=== PATIENT | male | born 1960 | race Caucasian/White ===

== ENCOUNTER 2024-11-01 15:35 | Inpatient (IN) | payer MEDICARE, SELFPAY ==
[2024-11-01] VITALS (7 sets, daily range): BP systolic 96–175; BP diastolic 59–101; BMI 23.7; BMI 21.2
[2024-11-01 10:50] LABS: Glucose - Point of Care 328 mg/dl (70-99)
--- NOTE | 2024-11-01 11:41 | ED.GENMED ---
History of Present Illness
General
Chief Complaint: Skin Problem
Source: patient and family (Son at bedside)
Exam Limitations: none
Time Seen by Provider: 11/01/24 11:16
History of Present Illness
History of Present Illness:
64-year-old male with history of renal transplant , orthostatic hypotension, Neuropathy, TIAs, IDDM, chronic wounds both feet, nonambulatory, lives alone, wheelchair-bound, transfers from wheelchair to bed independently, HTN, HLD presents with his
son who is at bedside. Patient was at [facility] 5 days ago and diagnosed with a right rib fracture after a fall at home in his shower (states he tried to take a shower for first time in 4 months) when he tripped over the lip of the shower door
and fell onto his right side. While he was there he was admitted for chronic wounds of both feet as well as osteomyelitis' a few places,' including the left middle toe which appears to be black at this time.
Pt was reportedly scheduled for toe amputations which son says 'they kept delaying' then finally took him to OR 2 days ago, told they had an emergency case, sent back to his room for later surgery. Pt was then told he needs a Boss catheter, when
initially he was told he didn't need one, he states he was 'lied to' several times during his stay and finally signed out AMA.
Wanted to come here in first place but EMS said they had to take him to [place].
Past History
Past History
ED Past Medical History: CVA, IDDM and Renal failure (Kidney transplant)
ED Past Surgical History: Other (Kidney transplant)
Social History
Tobacco: Former smoker
Alcohol: Occasional (Last drink was about 2 months ago.)
Drug: None
Personal: Single
Living: alone
Review of Systems
Review of Systems
Allergies reviewed?: Yes
All Other Systems: ROS reviewed and negative except as documented in HPI and ROS
Constitutional: Denies fever or chills
Respiratory: Denies trouble breathing
Cardiac: Denies chest pain
ABD/GI: Denies abdominal pain, nausea, vomiting, diarrhea or anorexia
: Denies dysuria or difficulty voiding
Musculoskeletal: Reports other (Reported osteomyelitis both feet toes)
Skin: Reports other (Chronic wounds both feet)
Phy Exam
Physical Exam
Physical Exam:
GENERAL: No acute distress. A&Ox3.
CONSTITUTIONAL: Afebrile.
EYES: clear, conjunctivae normal
ENMT: dry mucus membranes, Pharynx nl
RESPIRATORY: Regular respirations, nonlabored, lungs clear.
CARDIOVASCULAR: Regular rate and rhythm, no murmurs, no rubs.
GI: Soft, nontender, normal BS
MUSCULOSKELETAL: Moves with ease. Well perfused.
SKIN: Warm, dry, pale. Multiple chronic wounds both feet, necrotic right 3rd toe, necrotic areas on left toes 3,4,5 with open wound, erythema plantar aspect of same areas.
PSYCH: Normal mood and affect. Well kept, interactive and appropriate
NEUROLOGIC: Awake, alert and oriented. No focal neurological deficits
Course
Orders/Labs/Results
Orders:
Orders
11/01/24 11:50
0.9% Sodium Chloride 1000 ml [Nss] 1,000 ml IV BOLUS
11/01/24 12:04
CR Chest - 2 Views Urgent
Comment:
Reason For Exam: recent fall, R rib fx, not seen here, needs admit
11/01/24 12:53
Complete Blood Count/With Diff Urgent
Comprehensive Metabolic Panel Urgent
11/01/24 13:38
Cefepime HCl [Maxipime] 2,000 mg IV NOW STA
11/01/24 13:40
CR Foot - Left Min 3 Views Urgent
Comment:
Reason For Exam: necrotic 3rd toe
Foot, Right 3 View [CR Foot - Right Min 3 Views] Urgent
Comment:
Reason For Exam: necrotic areas toes 3,4,5, diabetic wound
11/01/24 14:54
Urinalysis Reflex To Culture Urgent
Date Specimen was Collected: 11/01/24
Time Specimen was Collected: 13:47
Wound Culture [Wound/Abscess/Other Culture] Urgent
RUKHSANA Source: Foot
Specimen Description: Right
Date Specimen was Collected: 11/01/24
Time Specimen was Collected: 13:47
11/01/24 15:07
Vancomycin [Vancocin] 2,000 mg 0.9% Sodium Chloride 500 ml [Nss] 500 ml IV NOW
11/01/24 15:10
Admit/Transfer Patient As Directed
Co-Sign Provider:
Level of Care: Inpatient admission
Assign to:: Medical/Surgical
Physician / Group: Htay
Diagnosis: Bilateral Necrotic Foot Wounds
Reason for Hospitalization: IV abx
Expected length of stay greater than two midnights?: Yes
ELOS- Estimated Length of Stay in days: 3
I certify the patient meets the requirements for IP care: Yes
PRN Pain Medication Management As Directed
May give lesser potent ordered pain med per pt: Yes
preference::
Protocol:: Medication orders for pain may be administered in a
manner that supports deferring to patient preference
when the pt is:
- Requesting an ordered lesser potent pain medication.
Least to most potent pain medications are defined
as: acetaminophen < NSAID < tramadol < opioids
(morphine, oxycodone, hydromorphone).
- Requesting a lesser dose of the same medication IF
ORDERED.
- Requesting a less intrusive route of administration
if both routes are prescribed by the provider (PO <
IV).
11/01/24 15:13
Code Status As Directed
Resuscitation Status: Full Code
11/02/24 06:00
Tacrolimus (Prograft - FK506) [S] IN AM
Abnormal Lab Results
11/01/24 11/01/24 11/01/24
10:47 12:53 14:54
WBC 14.8 H 10^3/uL
(4.8-10.8)
Hgb 11.8 L g/dL
(13.0-18.0)
Hct 36.6 L %
(39.0-52.0)
MCV 74.7 L fL
(80.0-94.0)
MCH 24.1 L pg
(27.0-31.0)
MCHC 32.2 L g/dL
(33.0-37.0)
RDW 15.7 H %
(11.5-14.5)
Plt Count 434 H 10^3/uL
(130-400)
Abs Immat Gran (auto) 0.2 H 10^3/uL
(0-0.05)
Absolute Neuts (auto) 12.5 H 10^3/uL
(1.4-6.5)
Absolute Monos (auto) 0.8 H 10^3/uL
(0.1-0.6)
Immature Gran % 1.1 H %
(0-0.5)
Neutrophils % 84.5 H %
(42.2-75.2)
Lymphocytes % 8.3 L %
(20.5-51.1)
Chloride 97 L mmol/L
(98-107)
BUN 21 H mg/dl
(9-20)
Glucose 321 H mg/dl
(70-99)
AST 12 L U/L
(17-59)
Albumin 3.2 L g/dl
(3.5-5.0)
Urine Ketones 1+ A
(Negative)
Urine Glucose 4+ A
(Negative)
POC Glucose 328 H mg/dl
(70-99)
11/01/24 12:53
11/01/24 12:53
Vital Signs
Initial and Last Documented VS:
Initial Vital Signs
Temp Pulse Resp BP Pulse Ox
97.9 F 89 16 96/59 98
11/01/24 10:49 11/01/24 10:49 11/01/24 10:49 11/01/24 10:49 11/01/24 10:49
Last Documented Vital Signs
Temp Pulse Resp BP Pulse Ox
97.9 F 75 15 175/97 96
11/01/24 10:49 11/01/24 15:00 11/01/24 15:00 11/01/24 14:00 11/01/24 15:00
MDM/Problems Addressed
Differential Diagnosis Includes:
cellulitis, necrosis, osteomyelitis toes/feet
MDM/Problems Addressed:
64-year-old male with history of renal transplant , orthostatic hypotension, Neuropathy, TIAs, IDDM, chronic wounds both feet, nonambulatory, lives alone, wheelchair-bound, transfers from wheelchair to bed independently, HTN, HLD presents with his
son who is at bedside. Patient was at [facility] 5 days ago and diagnosed with a right rib fracture after a fall at home in his shower (states he tried to take a shower for first time in 4 months) when he tripped over the lip of the shower door
and fell onto his right side. While he was there he was admitted for chronic wounds of both feet as well as osteomyelitis' a few places,' including the left middle toe which appears to be black at this time.
Pt was reportedly scheduled for toe amputations which son says 'they kept delaying' then finally took him to OR 2 days ago, told they had an emergency case, sent back to his room for later surgery. Pt was then told he needs a Boss catheter, when
initially he was told he didn't need one, he states he was 'lied to' several times during his stay and finally signed out AMA.
Wanted to come here in first place but EMS said they had to take him to [place].
Afebrile, NA
1:15 p.m.
CBC: WBC 14.8 with a shift
CMP: No clinically significant abnormality. Glucose 321. IV fluids infusing.
Bladder scan 400 mL, patient has urge urinary but states he cannot. Boss catheter inserted.
2:30 p.m.
Xrays initially read by this examiner:
R foot xray: ST gas and bony abnormality notef 5th toe prox phalanx and distal metatarsal, concern for osteomyelitis
L foot xray:ST scarcity about the tip of middle toe, no obvious bony abnormality
Hospitalist notified of admission.
*Pulse Oximetry
SaO2: 98
Oxygen Mode of Delivery: Room air
Patient hypoxic: not evaluated
*Critical Care Note
Total Time (30-74mins, 75-104mins- exclusive of procedures): Not Applicable
ED Attending Note
-
Portions of this chart may have been created with voice recognition software.� Occasional wrong word or��sound alike� substitutions may have occurred due to the inherent limitations of voice recognition software.
Discharge Plan
Departure
Patient Disposition: Admit
Date of Disposition: 11/01/24
Time of Disposition: 14:23
Admit to: Med/Surg
Presentation/result/management discussed w/ accepting MD/DO: Hospitalist
Condition: Fair
Discharge Problem:
Diabetic foot ulcer, Necrotic toes
Interventions
Interventions:
*Risk Screen - Suicide Last Done: 11/01/24 10:49
*Neglect/Abuse Screening Last Done: 11/01/24 10:49
ED-Skin Assessment Last Done: 11/01/24 12:00
[2024-11-01] MEDS: NSS 1000 IV (12:45)
[2024-11-01 13:02] LABS: Hematocrit 36.6 % (39.0-52.0); Hemoglobin 11.8 g/dL (13.0-18.0); Mean Corp Hgb Conc. 32.2 g/dL (33.0-37.0); Mean Corpuscular Volume 74.7 fL (80.0-94.0); Nucleated Red Blood Cells % 0 % (-); Platelet Count 434 10^3/uL (130-400); Red Cell Dist. Width 15.7 % (11.5-14.5)
[2024-11-01 13:20] LABS: ALT (SGPT) 11 U/L (0-50); AST (SGOT) 12 U/L (17-59); Albumin 3.2 g/dl (3.5-5.0); Alkaline Phosphatase 94 U/L (38-126); Blood Urea Nitrogen 21 mg/dl (9-20); Calcium 8.6 mg/dl (8.4-10.2); Carbon Dioxide 29 mmol/L (22-30); Chloride 97 mmol/L (98-107); Glucose 321 mg/dl (70-99); Potassium 3.6 mmol/L (3.5-5.1); Sodium 136 mmol/L (135-145); Total Protein 6.8 g/dl (6.3-8.2); eGFR > 60.00
--- NOTE | 2024-11-01 13:56 | PHANOTE ---
Addendum entered by Lesley Pollock 11/01/24 14:00:
med rec tech: I don't see the Humalog being filled, and the last MD visit in [facility] is 08/06
Original Note:
med rec tech: pt says that 'someone helps me with my meds at home, but I don't think they are helping me anymore', has home med list with him (written by 'my old girlfriend') that is dated 08/29/24. Many meds have not been filled recently,
including insulins.
[2024-11-01] MEDS: MAXIPIME 2000 MG IV (14:44)
--- NOTE | 2024-11-01 14:50 | W.PN.UPDATE ---
Update Note
Progress Note Update
This note serves as an addendum to the H&P by neonatal nurse KACIE�
Columba LOWE
HPI
64M non ambulatory , WC bound, who lives alone, chronic immunosuppression with PO prdnsione for KTP, diabetic neuropathy, IDDM, CVA seen at ER
- son at bed side chronic both feet wound
- was at [facility] 5 days ago s/p fall while taking shower complicated with R rib fracture
- he admitted for chronic wounds of both feet plus OM ' a few places,' including the left blackened middle toe
- reportedly scheduled for toe amputations but postponed per son
- finally signed out AMA
- come here in first place but EMS said they had to take him to [place].
Temp Pulse Resp BP Pulse Ox
97.9 F 68 15 175/99 98
11/01/24 10:49 11/01/24 13:45 11/01/24 13:45 11/01/24 13:15 11/01/24 13:45
PE
Gen: Not toxic , unkempt
HEENT: anicteric
Neck: supple
Lungs: CTA
Cor: RRR S1 S2
Abdomen:� soft benign
: wearing F Cath - clear , light yellow urine in bag
CIRCULAR HEAD SAW OPERATOR: NFND
MS: + SKIN:
multiple chronic wounds both feet
R Toe 3 - dry gangrene if digit 1 and digit 2
L Toe 3, 4, 5 with open wound, erythema plantar aspect of same areas.
Purulent drainage from R 3rd web space
Psych: normal mood and affect
Relevant data�
11/01/24
12:53
WBC 14.8 H
Hgb 11.8 L
MCV 74.7 L
Plt Count 434 H
Chloride 97 L
BUN 21 H
Creatinine 0.8
eGFR > 60.00
Both Foot XR
CXR:
- Possible mild atelectasis or pneumonia in the medial retrocardiac left lung base
- No pneumothorax or pleural effusion.
- It is difficult to identify the reported right rib fracture with certainty. Limited by lack of oblique projections.
- Subtle cortical deformity is suggested involving the anterolateral LEFT 7th rib, which could represent age indeterminate
fracture.
No prior hospitalist admission:
ASSESSMENT & PLAN
Infected wound and ulcer in neuropathic diabetic feet
Chronic necrotic R toe 3 with purulent drainage from 3rd web space
Necrotic areas on L toes 3,4,5 with open wound
- suspect POS polymicrobials in swab culture
- suspect underlying chronic OM
- f/u final XR report
- Empiric BS IV ABX with Vancomycin + IV CFP
- [employer] Driver and vascular consult consult
chronic immunosuppression with tacrolimus plus PO prednisone for KTP
S/P KTP in 2016 at [facility]
- report compliance with Tacrolimus
- check tacrolimus level
- cont chr PO prednisone
Fortunately preserved normal renal function for TPK
- Observes Cr
Hyperglycemia
IDDM with neuropathy
- report poor compliance with basal bolus regime
- on SENIOR MECHANICAL TECHNICIAN basal bolus regime - de-escalade Lantus to 25 HS and Humalog to 10 AC
- add ISS low
Suspect neurogenic bladder
- Bladder scan > 300 cc at ER
- FC placed at ER and drained 600 cc clear light yellow urine
HX CVA
HLD
- on ASA and Pravastatin
Non ambulatory , WC bound, who lives alone
Has very supportive son at bed side
Per son, Medications are supervised by GF
DVT Px: LMWH
Full code
IP MS
[2024-11-01 15:15] LABS: Urine Character Clear (Clear)
--- NOTE | 2024-11-01 15:20 | HPS.HSE ---
Family Physician
-
Family Physician: Lizett Mckeon MD
Chief Complaint
-
Foot Wound
History of Present Illness
Patient is a 64 y/o male past medical history of renal transplant, diabetes mellitus and chronic wheelchair bound state who presents with bilateral foot wounds. Patient was brought in by his son after patient left [facility]. Patient
reports chronic foot wounds for the past several wounds. He has never seen a recovery operator helper before. He denies fevers, sweats or chills.
Medical History
Past Medical History
Past Medical History: Reports Other
Additional Past Medical History:
Insulin Dependent Diabetes Mellitus
Essential Hypertension
Hyperlipidemia
GERD / PUD
Restless Leg Syndrome
TIA
Chronic Ambulatory Dysfunction - Wheelchair bound
Past Surgical History: Reports Other
Additional Past Surgical History:
Donor Renal Transplant - Apr 2016
Right Leg Pins
Social History
Tobacco: Former Smoker (Quit about 15 years ago)
Alcohol: Occasional
Family History
Family History: Not pertinent
Allergies / Home Medications
Allergies reflects when Allergies were last updated in [employer].
Home Medications with original date entered in [employer]
Allergy/Medication List:
Allergies
Allergy/AdvReac Type Severity Reaction Status Date / Time
No Known Allergies Allergy Unverified 11/01/24 10:49
Home Medications
amlodipine 5 mg tablet 5 mg PO DAILY 11/01/24
aspirin 81 mg tablet,delayed release 81 mg PO DAILY 11/01/24
fludrocortisone 0.1 mg tablet 0.1 mg PO BID 11/01/24
insulin glargine 100 unit/mL (3 mL) subcutaneous pen (Lantus Solostar U-100 Insulin) 35 unit SC HS 11/01/24
insulin lispro 100 unit/mL subcutaneous solution (Humalog U-100 Insulin) 15 unit SC TID 11/01/24
omeprazole 20 mg capsule,delayed release 20 mg PO QPM 11/01/24
pravastatin 20 mg tablet 20 mg PO DAILY 11/01/24
prednisone 5 mg tablet 5 mg PO DAILY 11/01/24
ropinirole 0.25 mg tablet 0.25 mg PO QPM 11/01/24
tacrolimus 1 mg capsule, immediate-release 1 mg PO BID 11/01/24
Review of Systems
-
A 12 point ROS was completed and negative except as noted: Yes
Constitutional: Denies Fever or Chills
Respiratory: Denies Cough or Trouble Breathing
Cardiac: Denies Chest Pain or Palpitations
Abdomen/GI: Denies Abdominal Pain, Nausea, Vomiting or Diarrhea
Physical Exam
Vital Signs
Vital Signs
Temp Pulse Resp BP Pulse Ox
97.9 F 75 15 175/97 96
11/01/24 10:49 11/01/24 15:00 11/01/24 15:00 11/01/24 14:00 11/01/24 15:00
Physical Exam
General: Comfortable, Conversant and Other (Appears unkempt)
HEENT: Anicteric and Moist mucous membranes
Respiratory: Clear and Non Labored Respirations
Cardiac: S1/S2 and Regular Rhythm
GI: Soft and Non Tender
Rectal: Deferred by Provider
Musculoskeletal: No Clubbing, No Cyanosis and No Edema
Skin: Warm, Dry and Other (Right Foot: Open wound with puruletn discharge from betweenn 4th/5th toes with erythema streaking up the bottom and top of the foot; Left Foot: Dry gangrene 3rd toe, Large areas of black eschar plantar aspect of the foot)
Neuro: Awake, Alert, Oriented and Nonfocal/grossly intact
Psych: Other (Flat affect)
Laboratory Results
-
11/01/24 12:53
11/01/24 12:53
Laboratory Results
Total Bilirubin 0.6 mg/dl (0.2-1.3) 11/01/24 12:53
AST 12 U/L (17-59) L 11/01/24 12:53
ALT 11 U/L (0-50) 11/01/24 12:53
Alkaline Phosphatase 94 U/L (38-126) 11/01/24 12:53
Data Reviewed
-
Lab Data: Labs Reviewed by me
Impression/Plan
-
Infected Bilateral Diabetic Foot Wounds
-Consult Podiatry and Vascular
-Check NURIA
-Continue cefepime and vancomycin
-Wound culture obtained from draining area between 4th/5th toe
-Consult Wound Care
Urinary Retention
-Boss catheter placed in ED
Donor Kidney Transplant
-Renal function stable
-Continue tacrolimus - Check level
-Continue fludrocortisone and prednisone
Insulin Dependent Diabetes Mellitus
-Patient reports he has not taken his insulin
-Check HgbA1c
-Resume insulin at lower doses: Lantus 25units HS and NovoLog 10 units AC
-Monitor sugars and continue coverage insulin
Essential Hypertension
-Continue amlodipine
Hyperlipidemia
-Continue pravastatin
GERD / PUD
-Continue Protonix
Restless Leg Syndrome
-Continue ropinirole
Hx TIA
-Continue aspirin
Chronic Ambulatory Dysfunction - Wheelchair bound
-Consult PT/OT
DVT proph: Lovenox
Code Status: Full Code
[2024-11-01] MEDS: VANCOCIN 540 MG IV (16:10)
[2024-11-01 20:15] LABS: Glucose - Point of Care 363 mg/dl (70-99)
[2024-11-01] MEDS: NOVOLOG FLEXPEN-MODERATE RESISTANCE 9 UNITS SC (20:51)
[2024-11-01] MEDS: NOVOLOG FLEXPEN 10 UNITS SC (20:52)
--- NOTE | 2024-11-01 21:45 | W.PN.UPDATE ---
Update Note
Progress Note Update
Infected wound and ulcerations
Chronic necrotic R toe 3 with purulent drainage from 3rd web space
Necrotic areas on L toes 3,4,5 with open wound
- Emperic ABx
- suspect underlying chronic OM
- Will need bilateral MRIs
- NPO, will discuss operative plans with vascular
[2024-11-01] MEDS: LOVENOX 40 MG SC (22:18)
[2024-11-01] MEDS: PROGRAF 1 MG PO (22:25)
[2024-11-01] MEDS: REQUIP 0.25 MG PO (22:25)
[2024-11-01] MEDS: FLORINEF 0.1 MG PO (22:25)
[2024-11-01] MEDS: PROTONIX 40 MG PO (22:25)
[2024-11-01] MEDS: MAXIPIME 1000 MG IV (23:53)
[2024-11-01] MEDS: STERILE WATER FOR INJECTION 10 ML IV (23:54)
[2024-11-01 23:57] LABS: Glucose - Point of Care 408 mg/dl (70-99)
[2024-11-02] MEDS: LANTUS 0.25 UNITS SC (00:33)
[2024-11-02 00:41] LABS: Glucose 369 mg/dl (70-99)
[2024-11-02 04:50] VITALS: BMI 21.2
[2024-11-02 05:09] LABS: Glucose - Point of Care 404 mg/dl (70-99)
[2024-11-02 05:11] LABS: Glucose - Point of Care 378 mg/dl (70-99)
[2024-11-02] MEDS: STERILE WATER FOR INJECTION 10 ML IV ×4 (05:38→23:36)
[2024-11-02] MEDS: MAXIPIME 1000 MG IV ×4 (05:38→23:36)
[2024-11-02] MEDS: NOVOLOG FLEXPEN-MODERATE RESISTANCE 9 UNITS SC (05:51)
[2024-11-02] MEDS: NOVOLOG FLEXPEN 10 UNITS SC (05:52)
[2024-11-02 06:35] VITALS: BP 162/98
[2024-11-02 07:27] LABS: Blood Urea Nitrogen 21 mg/dl (9-20); Calcium 8.0 mg/dl (8.4-10.2); Carbon Dioxide 28 mmol/L (22-30); Chloride 98 mmol/L (98-107); Estimated Creatinine Clearance 110 ml/min; Glucose 351 mg/dl (70-99); Potassium 3.1 mmol/L (3.5-5.1); Sodium 135 mmol/L (135-145); eGFR > 60.00
--- NOTE | 2024-11-02 07:28 | PTCARENOTE ---
S/W STACY Maldonado -Pt is NPO [id number]. okay to give all coverage. will continue to monitor blood sugars
[2024-11-02 07:42] LABS: Hematocrit 34.1 % (39.0-52.0); Hemoglobin 10.9 g/dL (13.0-18.0); Mean Corp Hgb Conc. 32.0 g/dL (33.0-37.0); Mean Corpuscular Volume 74.5 fL (80.0-94.0); Platelet Count 523 10^3/uL (130-400); Red Cell Dist. Width 15.5 % (11.5-14.5)
--- NOTE | 2024-11-02 07:42 | W.PN.UPDATE ---
Update Note
Progress Note Update
infected diabetic ulceration of b/l feet. Likely OM R 4th/5th metatarsal heads and L 5th metatarsal head, dry gangrene L 3rd toe.
- continue empiric abx
- b/l MRIs
- will discusse operative plans with vascular, npo
--- NOTE | 2024-11-02 08:41 | CON.GS ---
Consultation
-
Date/Time Consultation Performed: 11/02/24 0730
Performing Provider: Armando Moralez
Reason for Consultation: foot wound/infection
Medical History
-
Chief Complaint: foot wounds
History of Present Illness:
Patient is a 64 yo M with PMHx renal transplant 05/04, IDDM, nonambulatory ~6 months in wheel chair presenting for b/l foot wounds. He was brought in by son after patient left [facility]. He reports chronic foot wounds for several
weeks, with left 3rd toe developing after removing nail. He has orthopedic hardware in Left leg after injury. Denies n/v/f/c/sob.
Allergies / Home Medications
Allergy/AdvReac Type Severity Reaction Status Date / Time
No Known Allergies Allergy Unverified 11/01/24 10:49
�Medication �Instructions �Recorded �Confirmed �Type
amlodipine 5 mg tablet 5 mg PO DAILY 11/01/24 11/01/24 History
aspirin 81 mg tablet,delayed 81 mg PO DAILY 11/01/24 11/01/24 History
release
fludrocortisone 0.1 mg tablet 0.1 mg PO BID 11/01/24 11/01/24 History
insulin glargine 100 unit/mL (3 35 unit SC HS 11/01/24 11/01/24 History
mL) subcutaneous pen (Lantus
Solostar U-100 Insulin)
insulin lispro 100 unit/mL 15 unit SC TID 11/01/24 11/01/24 History
subcutaneous solution (Humalog
U-100 Insulin)
omeprazole 20 mg capsule,delayed 20 mg PO QPM 11/01/24 11/01/24 History
release
pravastatin 20 mg tablet 20 mg PO DAILY 11/01/24 11/01/24 History
prednisone 5 mg tablet 5 mg PO DAILY 11/01/24 11/01/24 History
ropinirole 0.25 mg tablet 0.25 mg PO QPM 11/01/24 11/01/24 History
tacrolimus 1 mg capsule, 1 mg PO BID 11/01/24 11/01/24 History
immediate-release
Review of Systems
-
A 10 point review of systems was completed, and was negative except as per HPI.
Physical Exam
Vital Signs
Temp Pulse Resp BP Pulse Ox
98.4 F 75 20 162/98 96
11/02/24 06:35 11/02/24 06:35 11/02/24 06:35 11/02/24 06:35 11/02/24 06:35
11/01/24 11/02/24 11/03/24
06:59 06:59 06:59
Actual Weight 74.752 kg
Body Mass Index (BMI) 21.2
Lab Results
11/02/24 05:33
11/02/24 05:33
WBC 13.9 10^3/uL (4.8-10.8) H 11/02/24 05:33
Hgb 10.9 g/dL (13.0-18.0) L 11/02/24 05:33
Hct 34.1 % (39.0-52.0) L 11/02/24 05:33
Plt Count 523 10^3/uL (130-400) H D 11/02/24 05:33
Abs Immat Gran (auto) 0.2 10^3/uL (0-0.05) H 11/01/24 12:53
Neutrophils % 84.5 % (42.2-75.2) H 11/01/24 12:53
Physical Exam
Respiratory: Non Labored Respirations
Skin: Warm (RLE DP/PT pulses on doppler, LLE PT pulse on doppler) and Other (RLE : 4th webspace ulceration probing to 4/5th MT head with surrounding cellulits, eschar lateral column. LLE : eschar lateral column with dorsal 5th MT head ulceration
probing to bone, dry gangrene distal 3rd toe.)
Neuro: Other (LE sensation absent in stocking and glove distribution. )
Data Reviewed
-
Radiology: Image Personally Visualized and interpreted
Assessment / Plan
-
Chauncey Schwartz 64M presents with b/l foot eschars ulcerations with likely underlying OM and cellulitis.
- pending Vascular recommendations for surgical timing
- discussed with patient partial ray amputation for treatment of OM
- continue IV abx, WBC down trending to 13.8
- patient to remain NWB
- offload heels and lateral foot with offloading boots
--- NOTE | 2024-11-02 09:12 | WOUNDNOTE ---
[facility] RN note: Patient admitted with bilateral necrotic foot/toe wounds. Patient lives alone and is wheelchair bound.
See H&P for complete history.
PMH: renal transplant, DM, wheelchair bound, foot wounds, HTN, TIA, restless leg syndrome, R leg pins, former smoker.
Wound Location and type/assessment: Patient admitted with: bilateral lateral plantar necrotic full thickness wounds r/t diabetes and PAD, L 3rd, 5th, R 4th necrotic toe, full thickness R 4-5th webspace wound. Sacral/buttocks DTI vs bruise vs stage
2 pressure injury. Scrotal dry abrasion suspect r/t friction/moisture. Heels blanchable red.
Appetite: currently NPO. Appetite has been poor recently.
Pressure redistribution devices in place: [employer] Accumax. Patient can turn self bed bed slowly.
Plan: Sacral shaped silicone border foam applied to sacral/buttocks. Patient incontinent of small loose stool. Maia care given. Calazime to scrotum. Underpad changed with help from RN/TAB Zaragoza. Protective foam dressings changed on heels.
Dressing changed on feet/toes. Heels off bed with pillow and air chair cushion. t/c Bed tech Lam and requested an air bed. Podiatry to manage wounds. Vascular following. Will follow peripherally as needed.
Will confirm orders with Dr. Estrella and discussed with BOY Gonzalez.
Updated care plan and will follow as needed.
Note to case management of equipment requested for discharge: air mattress at [facility].
Recommend follow up at wound care center upon discharge.
--- NOTE | 2024-11-02 09:15 | WOUNDNOTE ---
[facility] RN note: Patient admitted with bilateral necrotic foot/toe wounds. Patient lives alone and is wheelchair bound.
See H&P for complete history.
PMH: renal transplant, DM, wheelchair bound, foot wounds, HTN, TIA, restless leg syndrome, R leg pins, former smoker.
Wound Location and type/assessment: Patient admitted with: bilateral lateral plantar necrotic full thickness wounds r/t diabetes and PAD, L 2nd, 3rd, 5th toes, R 4th necrotic toe, full thickness R 4-5th webspace wound. Sacral/R buttocks DTI vs
bruise vs stage 2 pressure injury. Scrotal dry abrasion suspect r/t friction/moisture. Heels blanchable red. Pedal pulses heard via portable Doppler (L>R).
Appetite: currently NPO. Appetite has been poor recently.
Pressure redistribution devices in place: [employer] Accumax. Patient can turn self bed bed slowly.
Plan: Sacral shaped silicone border foam applied to sacral/buttocks. Patient incontinent of small loose stool. Maia care given. Calazime to scrotum. Underpad changed with help from RN/TAB Zaragoza. Protective foam dressings changed on heels.
Dressing changed on feet/toes. Heels off bed with pillow and air chair cushion. Instructed patient pressure injury prevention measures. t/c Bed tech Lam and requested an air bed. Podiatry to manage foot/toe wounds. Vascular following. Will follow
peripherally as needed.
Will confirm orders with Dr. Estrella and discussed with BOY Gonzalez.
Updated care plan and will follow as needed.
Note to case management of equipment requested for discharge: air mattress at [facility].
Recommend follow up at wound care center upon discharge.
--- NOTE | 2024-11-02 09:27 | WOUNDNOTE ---
L HEEL/FOOT (LATERAL)
--- NOTE | 2024-11-02 09:28 | WOUNDNOTE ---
R FOOT (LATERAL PLANTAR)
--- NOTE | 2024-11-02 09:29 | WOUNDNOTE ---
R TOES/4-5TH WEBSPACE
--- NOTE | 2024-11-02 09:29 | WOUNDNOTE ---
R 4-5TH TOES
--- NOTE | 2024-11-02 09:30 | WOUNDNOTE ---
R 4-5TH TOE WEBSPACE
--- NOTE | 2024-11-02 09:47 | PHA.VAN.IN ---
Assessment
- Assessment
Renal Function: Unknown baseline
Maximum Temperature: 98.4
Concomitant Antimicrobials: cefepime
AUC Dosing Plan
- Dosing Variables
Dosing Weight (kg): 74.8
Dosing CrCl (ml/min): 100
Vd coefficient (L/kg): 0.7
- Empiric Dosing
Initial / Loading Dose: vancomycin 2000 mg x 1 on 11/02
Maintenance Regimen: vancomycin 1000 mg Q12H
Estimated AUC (mcg*h/mL): 456
Estimated Peak (mcg*h/mL): 29.4
Estimated Trough (mcg/ml): 11.2
Estimated Half Life (H): 7.9
- Monitoring
No levels ordered at this time: consider levels in next few days
Plan
- Plan
MRSA Screen: Ordered per protocol (result pending)
Pharmacokinetics Vancomycin I
- -
Patient Age: 64
Patient Sex: Male
Vancomycin Day #: 2
Indication: Diabetic Foot
Requesting Provider: Jessica Mccarty
Pertinent Antimicrobial Allergies:
nkda
Height / Weight:
Height 6 ft 2 in
Actual Weight 74.752 kg
IBW in k.2
Pertinent Past Medical History: renal transplant, bilateral foot wounds
- Vital Signs / Lab Results
Temp Pulse Resp BP Pulse Ox
98.4 F 75 20 162/98 96
11/02/24 06:35 11/02/24 06:35 11/02/24 06:35 11/02/24 06:35 11/02/24 06:35
Lab Results - Hematology
11/01/24 11/02/24
12:53 05:33
WBC 14.8 H 13.9 H
Lab Results - Chemistry
11/01/24 11/02/24
12:53 05:33
BUN 21 H 21 H
Creatinine 0.8 0.7
Estimated Creat Clear 110
Albumin 3.2 L
Lab Results - Urine
11/01/24
14:54
Urine Nitrite (Reflex) Negative
Leukocyte Esterase Rfl Negative
Microbiology Results
11/01/24 14:54 Gram Stain - Preliminary
Foot - Right
[2024-11-02 10:14] LABS: Glycohemoglobin (HgbA1c) 14.2 % (4.0-5.6)
--- NOTE | 2024-11-02 10:33 | CON.VAS ---
Addendum entered and electronically signed by Roberto Singer MD 11/03/24 08:11:
Seen and examined with ELECTRIC REFRIGERATOR PREPARER. Agree with findings as noted below. Patient is a 64-year-old male with history of renal transplantation. Presents with bilateral lower extremity dry gangrene. Patient denies prior revascularizations of the lower
extremities. Denies coronary artery disease. He does note diabetes. History of tobacco use quit 15 years ago about a pack a day. He thinks injuries to the feet happened when he went over the feet with a wheelchair.
Notes that they have been present for a couple months at this point.
On exam/he is awake and alert. Breathing is unlabored. Abdomen is soft. No pulsatile mass. Lower extremity with 2+ femoral and popliteal pulses palpable bilaterally. Nonpalpable distally. Feet as noted in wound care pictures. Right 4th/5th
webspace dry gangrene and open ulceration/fibrinous exudate. Left side with lateral fifth metatarsal dry gangrene.
Noninvasive studies reviewed.
Plan/likely small vessel peripheral arterial disease. Based on exam and noninvasive studies. However he has dry gangrene therefore limb threatening ischemia. I am recommending we proceed with arteriogram. Discussed procedure with patient.
Discussed potential outcomes to be: #1 successful endovascular revascularization, followed by staged assessment/treatment of the contralateral leg, #2 need for staged surgical treatment/bypass, #3 nonreconstructable small vessel disease with
persistent risk of limb loss. Discussed procedural risk including but not limited to bleeding, arterial injury/worsened or acute limb ischemia, renal failure. He does have a renal transplantation. Therefore we will ask the medical team for
confirming that he is optimized from a medical standpoint. Otherwise we will plan on angiography tomorrow. Will plan bilateral lower extremity arteriogram likely via right common femoral artery access. Aim to treat left side if needed and if
amenable. If successful treatment then we will need to coordinate plan for staged right sided intervention.
Original Note:
Consultation
Consultation Request
Date/Time Consultation Performed: 11/02/24 1000
Requesting Provider: Hospitalist
Performing Provider: Arleen Juarez, STACY-C for Roberto Singer M.D.,
Reason for Consultation: Bilateral feet wounds
Medical History
-
Chief Complaint: Bilateral feet wounds
History of Present Illness:
This is a 64-year-old male with significant past medical history for renal transplant, diabetes, ambulatory dysfunction, hypertension, hyperlipidemia, GERD, and TIA who presents to [facility] on 11/01/2024 with continued bilateral lower
extremity nonhealing wounds. Patient seems to be a poor historian, during HPI and review of system collection he is with flat affect and states mostly he is unsure of his history. He believes bilateral lower extremity wounds have been there for
roughly 2 months but he endorses that he is not completely sure of timeline. Does endorse prior history of smoking but quit roughly 15 years ago, he cannot recall exact timeframe. Endorses that he was diagnosed with diabetes in roughly 2013.
According to chart review he was recently treated at [facility], for same chief complaint but signed out AMA. His son then brought him here for apparent presentation. He is not sure if he has ever seen a vascular provider. Currently he
reports that he is comfortable, denies pain at bilateral feet. He indicates that he is wheelchair-bound for roughly the past year.
Past Medical History
Past Medical History: GERD, HTN, IDDM and Other (Restless leg syndrome, TIA, chronic ambulatory dysfunction (wheelchair-bound))
Past Surgical History: Other (Donor renal transplant (April 2016), right leg pins)
Social History
Tobacco: Former Smoker (Quit roughly 15 years ago)
Alcohol: Occasional
Drug: None
Allergies / Home Medications
Allergy/AdvReac Type Severity Reaction Status Date / Time
No Known Allergies Allergy Unverified 11/01/24 10:49
�Medication �Instructions �Recorded �Confirmed �Type
amlodipine 5 mg tablet 5 mg PO DAILY 11/01/24 11/01/24 History
aspirin 81 mg tablet,delayed 81 mg PO DAILY 11/01/24 11/01/24 History
release
fludrocortisone 0.1 mg tablet 0.1 mg PO BID 11/01/24 11/01/24 History
insulin glargine 100 unit/mL (3 35 unit SC HS 11/01/24 11/01/24 History
mL) subcutaneous pen (Lantus
Solostar U-100 Insulin)
insulin lispro 100 unit/mL 15 unit SC TID 11/01/24 11/01/24 History
subcutaneous solution (Humalog
U-100 Insulin)
omeprazole 20 mg capsule,delayed 20 mg PO QPM 11/01/24 11/01/24 History
release
pravastatin 20 mg tablet 20 mg PO DAILY 11/01/24 11/01/24 History
prednisone 5 mg tablet 5 mg PO DAILY 11/01/24 11/01/24 History
ropinirole 0.25 mg tablet 0.25 mg PO QPM 11/01/24 11/01/24 History
tacrolimus 1 mg capsule, 1 mg PO BID 11/01/24 11/01/24 History
immediate-release
Review of Systems
-
History Source: Patient
Constitutional: Reports No Symptoms
EENT: Reports No Symptoms
Respiratory: Reports No Symptoms
Cardiac: Reports No Symptoms
Vascular: Denies Leg Pain / Claudication
Abdomen/GI: Reports No Symptoms
: Reports No Symptoms
Musculoskeletal: Reports No Symptoms
Skin: Reports Other (Bilateral feet dry gangrene wounds)
Neurological: Reports No Symptoms
Endocrine: Reports No Symptoms
Physical Exam
Vital Signs
Temp Pulse Resp BP Pulse Ox
98.4 F 75 20 162/98 96
11/02/24 06:35 11/02/24 06:35 11/02/24 06:35 11/02/24 06:35 11/02/24 06:35
Lab Results
11/02/24 05:33
11/02/24 05:33
Physical Exam
General: No Apparent Distress
HEENT: Normocephalic, Anicteric and Atraumatic
Respiratory: Non Labored Respirations
Cardiac: Negative JVD
GI: Soft, Non Tender and Non Distended
Musculoskeletal: Edema (Bilateral lower extremities with trace edema)
Skin: Dry and Other (Bilateral feet with dry gangrene wounds, nonodorous, no evidence of purulent drainage)
Neuro: Awake, Alert and Oriented (Although he is oriented he is a poor historian of recent medical events)
Pulses: Bilateral Femoral: +2 (Nonpalpable bilateral DP and PT pulse)
Assessment / Plan
-
Assessment: 64-year-old male with bilateral dry gangrene wounds at feet, suspect peripheral arterial disease contributing.
Plan:
Noninvasive arterial ultrasound with NURIA/TBI pending, following results will provide vascular surgical recommendations. However, given degree of dry gangrene and history of diabetes suspect will likely need angiogram. Official surgical plan per
attending.
[2024-11-02] MEDS: PROGRAF 1 MG PO ×2 (10:51→21:50)
[2024-11-02] MEDS: ASPIR LOW (ENTERIC COATED) 81 MG PO (10:51)
[2024-11-02] MEDS: NORVASC 5 MG PO (10:51)
[2024-11-02] MEDS: DELTASONE 5 MG PO (10:51)
[2024-11-02] MEDS: PRAVACHOL 20 MG PO (10:51)
[2024-11-02] MEDS: FLORINEF 0.1 MG PO ×2 (10:51→21:50)
--- NOTE | 2024-11-02 10:59 | CM ---
CM following re: discharge planning.
Reviewed pt's chart, met with pt.
Pt is a 64 year old male, admitted with primary dx of Infected wound and ulcerations, bilateral dry gangrene wounds at feet, suspect peripheral arterial disease contributing.
Pt reports he lives alone ion a condo, no steps, has supportive son who lives in [place]. Pt reports he uses a wheelchair to navigate around, had no VN on SNF history.
PCP: Lizett Mckeon
Pharmacy: [facility]
D/C plan: uncertain at this time and will depend on course of treatment and after care recommendations.
CM will follow with discharge plan updates as hospitalization progresses
[2024-11-02 12:35] VITALS: BP 135/75; PULSE 74; O2SAT 96
[2024-11-02 12:38] VITALS: BP 135/75; PULSE 74; O2SAT 96
[2024-11-02] MEDS: ZESTRIL 10 MG PO (13:13)
[2024-11-02] MEDS: NOVOLOG FLEXPEN-MODERATE RESISTANCE 1 UNITS SC (13:14)
[2024-11-02] MEDS: KCL 270 MEQ IV ×2 (13:14→21:46)
[2024-11-02] MEDS: NOVOLOG FLEXPEN SC ×2 (13:15→13:23)
--- NOTE | 2024-11-02 13:32 | W.PN.HOSP.TC ---
Today's Communication/Plan
-
Review with Report when ready
Assessment / Plan
Assessment / Plan
MALENA DIABETIC FOOT ULCER, Gangrenous
-Continue ongoing wound care
-Consult with Vascular and Podiatry noted with thanks
-Review with results of US and MRI for definitive treatment
-WBC 13.9/G -12.5 Wound culture, Prelim Gram neg
-Contnue Cefepime and Vanco
Insulin Dependent Diabetes Mellitus
-Poor glycemic control
-bg- 351, A1C- 14.2
-Lantus at 35 units
-Insulin Aspart Pre-meal- 15iu
-Moderate Resistance Insulin Corrective Insulin
-Diabetic diet, when cleared to eat
Hypertension
-Bp166/88
-Amlodipine 5MG
-Add Lisinopril 10mg
Hypokalemia
-3.1
-KCL 40meq X 2 doses 4 hours apart
ANEMIA
-Hb- 10.9, MCV- 74.5
-Do B12, Folate
S/P Donor Kidney Transplant for renal failure
-Renal function stable
-Continue tacrolimus - Check level
-Continue fludrocortisone and prednisone
Hyperlipidemia
-Continue pravastatin
GERD / PUD
-Continue Protonix
Restless Leg Syndrome
-Continue ropinirole
Hx TIA
-Continue aspirin
Chronic Ambulatory Dysfunction
-Wheelchair bound
-Fall risk
-Consult PT/OT
DVT proph: Lovenox
-
Anticipated Discharge: > 48 hours
Subjective/Interval History
-
Date of Service: November 02, 2024
Patient met lying in bed
No significant overnight event
C/O Pain in his rib
Objective Data
-
Labs:
Laboratory Results
11/02/24
05:33
WBC 13.9 H
Hgb 10.9 L
Hct 34.1 L
Plt Count 523 H D
Sodium 135
Potassium 3.1 L
Chloride 98
Carbon Dioxide 28
BUN 21 H
Creatinine 0.7
Glucose 351 H
Calcium 8.0 L
Vital Signs:
Vital Signs
Temp Pulse Resp BP Pulse Ox
98.4 F 69 20 166/88 96
11/02/24 06:35 11/02/24 10:51 11/02/24 06:35 11/02/24 10:51 11/02/24 06:35
I&O
11/01/24 11/02/24 11/03/24
06:59 06:59 06:59
Intake Total 1260 / 1260
Output Total 2325 / 2325 475 / 475
Balance -1065 / -1065 -475 / -475
Review of Systems
-
History Source: Patient
Constitutional: Reports Other (Slept poorly); Denies Fever
EENT: Reports No Symptoms Reported
Respiratory: Reports No Symptoms
Cardiac: Reports No Symptoms
Abdomen/GI: Reports Other (Patient is incontinent)
Genitourinary: Reports Other (Currently on dominguez)
Musculoskeletal: Reports Other
Skin: Reports Other (Wound dressing seen on both lower limb and the sacrum)
Physical Exam
-
General: Other (Appears unkempt)
HEENT: Normocephalic
Respiratory: Clear to Auscultation
Cardiac: Regular Rhythm and S1/S2
GI: Other (Mild tenderness)
Genito-urinary: Dominguez
Psych: Other (Flat affect)
Data Reviewed
-
Labs: Labs Reviewed by me, Discussed with Physician and Discussed with Patient
[2024-11-02 13:52] LABS: Folate 3.8 ng/ml (2.76-20); Vitamin B12 733 pg/ml (239-931)
[2024-11-02 14:29] LABS: Reticulocyte Count 0.9 % (0.4-2.8)
[2024-11-02 15:13] VITALS: BP 155/86
[2024-11-02 17:45] LABS: Glucose - Point of Care 232 mg/dl (70-99)
[2024-11-02 17:45] LABS: Glucose - Point of Care 168 mg/dl (70-99)
[2024-11-02] MEDS: VANCOCIN 200 IV (17:55)
[2024-11-02] MEDS: LOVENOX 40 MG SC (17:56)
[2024-11-02] MEDS: PROTONIX 40 MG PO (17:56)
[2024-11-02] MEDS: REQUIP 0.25 MG PO (17:56)
--- NOTE | 2024-11-02 18:32 | W.PN.UPDATE ---
Update Note
Progress Note Update
Surgery planned tentatively for Saturday/ from [facility]
Patient can resume PO
Diabetic diet orderd
[2024-11-02] MEDS: NOVOLOG FLEXPEN-MODERATE RESISTANCE 3 UNITS SC (19:05)
[2024-11-02] MEDS: NOVOLOG FLEXPEN 15 UNITS SC (19:06)
[2024-11-02 21:47] LABS: Glucose - Point of Care 265 mg/dl (70-99)
[2024-11-02] MEDS: LANTUS 0.35 UNITS SC (21:47)
[2024-11-02 23:15] VITALS: BP 139/78
--- NOTE | 2024-11-03 00:15 | PTCARENOTE ---
rec'd a fax lab result from tacrolimus - 15.5. reference range (5.0-20.0), updated STACY Maldonado
[2024-11-03] MEDS: STERILE WATER FOR INJECTION 10 ML IV ×3 (05:06→17:55)
[2024-11-03] MEDS: MAXIPIME 1000 MG IV ×3 (05:06→17:54)
[2024-11-03] MEDS: VANCOCIN 200 IV ×2 (05:06→17:58)
[2024-11-03 05:26] VITALS: BMI 21.0
[2024-11-03 06:20] LABS: Hematocrit 32.0 % (39.0-52.0); Hemoglobin 10.4 g/dL (13.0-18.0); Mean Corp Hgb Conc. 32.5 g/dL (33.0-37.0); Mean Corpuscular Volume 74.2 fL (80.0-94.0); Platelet Count 510 10^3/uL (130-400); Red Cell Dist. Width 15.4 % (11.5-14.5)
[2024-11-03 06:43] LABS: ALT (SGPT) < 10 U/L (0-50); AST (SGOT) 11 U/L (17-59); Albumin 2.7 g/dl (3.5-5.0); Alkaline Phosphatase 71 U/L (38-126); Blood Urea Nitrogen 19 mg/dl (9-20); Calcium 8.1 mg/dl (8.4-10.2); Carbon Dioxide 27 mmol/L (22-30); Chloride 102 mmol/L (98-107); Estimated Creatinine Clearance 109 ml/min; Glucose 253 mg/dl (70-99); Iron 36 ug/dl (49-181); Potassium 3.6 mmol/L (3.5-5.1); Sodium 135 mmol/L (135-145); Total Protein 5.9 g/dl (6.3-8.2); eGFR > 60.00
[2024-11-03 06:53] LABS: Total Iron Binding Capacity 212 ug/dl (261-462)
[2024-11-03 07:10] VITALS: BP 154/82
[2024-11-03 07:10] LABS: Glucose - Point of Care 295 mg/dl (70-99)
[2024-11-03 07:18] LABS: Ferritin 55.7 ng/ml (17.9-464.0)
--- NOTE | 2024-11-03 07:30 | W.PN.HOSP.TC ---
Today's Communication/Plan
-
For surgery tomorrow
Assessment / Plan
Assessment / Plan
MALENA DIABETIC FOOT ULCER, Gangrenous
-Continue ongoing wound care
-Surgery is being planned for Saturday
NPO from MIDNIGHT
-Review with results of US and MRI for definitive treatment
-WBC 12.2 (13.9) Wound culture, Prelim Gram neg
-Contnue Cefepime and Vanco
Insulin Dependent Diabetes Mellitus
-Poor glycemic control
-Bg- 295, A1C- 14.2
-Medications were increased to
Lantus at 35 units
Insulin Aspart Pre-meal- 15iu
Moderate Resistance Insulin Corrective Insulin
Diabetic diet
Hypertension
-Bp154/82
-Now On Amlodipine 5MG and Lisinopril 10mg
Hypokalemia
-3.6 (3.1)
-KCL 40meq X 2 doses 4 hours apart yesterday
ANEMIA
-Hb- 10.9, MCV- 74.5
-Fe studies
Fe 36 ( > 49), TIBC- 212 > (261), Varghese 55N
-B12- 733 (N, Folate 3.8 (N
-Fe supplementation Ferous glucounate [address] 510
S/P Donor Kidney Transplant for renal failure
-Renal function stable
-Continue tacrolimus -Levels pending
-Continue fludrocortisone and prednisone
Hyperlipidemia
-Continue pravastatin
GERD / PUD
-Continue Protonix
Restless Leg Syndrome
-Continue ropinirole
Hx TIA
-Continue aspirin
Chronic Ambulatory Dysfunction
-Wheelchair bound
-Fall risk
-On PT/OT
DVT proph: Lovenox
-
Anticipated Discharge: > 48 hours (For surgery tomorrow)
Subjective/Interval History
-
Date of Service: November 03, 2024
No complains today
Pain on the left chest is less
Objective Data
-
Labs:
Laboratory Results
11/03/24
05:38
WBC 12.2 H
Hgb 10.4 L
Hct 32.0 L
Plt Count 510 H
Sodium 135
Potassium 3.6
Chloride 102
Carbon Dioxide 27
BUN 19
Creatinine 0.7
Glucose 253 H
Calcium 8.1 L
Total Bilirubin 0.4
AST 11 L
ALT < 10
Alkaline Phosphatase 71
Vital Signs:
Vital Signs
Temp Pulse Resp BP Pulse Ox
97.7 F 77 18 139/78 93
11/02/24 23:15 11/02/24 23:15 11/02/24 23:15 11/02/24 23:15 11/02/24 23:15
I&O
11/02/24 11/03/24 11/04/24
06:59 06:59 06:59
Intake Total 1260 / 1260 1250 / 1250
Output Total 2325 / 2325 1325 / 1325
Balance -1065 / -1065 -75 / -75
Review of Systems
-
History Source: Patient
Constitutional: Reports Other (Slept poorly); Denies Fever
EENT: Reports No Symptoms Reported
Respiratory: Reports No Symptoms
Cardiac: Reports No Symptoms
Genitourinary: Reports Other (Currently on dominguez)
Skin: Reports Other (Wound dressing seen on both lower limb )
Physical Exam
-
General: Other (Appears unkempt)
HEENT: Normocephalic
Respiratory: Clear to Auscultation
Cardiac: Regular Rhythm and S1/S2
GI: Ostomy and Other (Mild tenderness)
Genito-urinary: Dominguez
Musculoskeletal: Other
Skin: Decubitus Ulcers and Other (Wound dressing on both legs. Gangrenous wound on the left foot 2nd and 3rd toe)
Psych: Other (Flat affect)
Data Reviewed
-
Labs: Labs Reviewed by me, Discussed with Physician and Discussed with Patient
--- NOTE | 2024-11-03 07:38 | PHA.VAN.FU ---
Addendum entered and electronically signed by Abby Panchal [facility] 11/03/24 08:33:
Agree with assessment and plan
Original Note:
Vancomycin Assessment / Plan
- Assessment
Renal Function: Stable
WBC's are: Trending Down
In the past 24 hrs, patient has been: Afebrile
Concomitant Antimicrobials: cefepime
- Dosing Plan
Continue: 1000mg q12h
- Monitoring Plan
No level(s) ordered at this time: consider within next few days as patient approaches steady state
- Follow Up
Pharmacy will continue to follow.
Vancomycin Follow UP
- -
Patient Age: 64
Patient Sex: Male
Vancomycin Day #: 3
Indication: Diabetic Foot
Requesting Provider: Jessica Mccarty
Pertinent Antimicrobial Allergies:
nkda
Height / Weight:
Height 6 ft 2 in
Actual Weight 74.191 kg
IBW in k.2
Pertinent Past Medical History: T2DM, ambulatory dysfunction, renal transplant, bilateral foot wounds
- Vital Signs / Lab Results
Temp Pulse Resp BP Pulse Ox
97.7 F 77 18 139/78 93
11/02/24 23:15 11/02/24 23:15 11/02/24 23:15 11/02/24 23:15 11/02/24 23:15
Lab Results - Hematology
11/01/24 11/02/24 11/03/24
12:53 05:33 05:38
WBC 14.8 H 13.9 H 12.2 H
Lab Results - Chemistry
11/01/24 11/02/24 11/03/24
12:53 05:33 05:38
BUN 21 H 21 H 19
Creatinine 0.8 0.7 0.7
Estimated Creat Clear 110 109
Albumin 3.2 L 2.7 L
Microbiology Results
11/01/24 14:54 Wound Culture - Preliminary
Foot - Right Gram negative bacilli
Gram Stain - Preliminary
Therapeutic Drug Monitoring
Random Vancomycin 17.3 ug/ml 11/02/24 05:33
--- NOTE | 2024-11-03 07:45 | W.PN.UPDATE ---
Update Note
Progress Note Update
infected diabetic ulceration of b/l feet. Likely OM R 4th/5th metatarsal heads and L 5th metatarsal head, dry gangrene L 3rd toe.
-plan for OR Saturday Left partial 5th ray and 3rd toe amputation, Right partial 4/5th ray amputation
-will follow b/l foot MRI
- continue empiric abx
- will discusse operative plans with vascular
[2024-11-03] MEDS: ASPIR LOW (ENTERIC COATED) 81 MG PO (08:47)
[2024-11-03] MEDS: DELTASONE 5 MG PO (08:48)
[2024-11-03] MEDS: PROGRAF 1 MG PO ×2 (08:48→20:58)
[2024-11-03] MEDS: PRAVACHOL 20 MG PO (08:48)
[2024-11-03] MEDS: FLORINEF 0.1 MG PO ×2 (08:48→21:01)
[2024-11-03] MEDS: NORVASC 5 MG PO (08:48)
[2024-11-03] MEDS: NOVOLOG FLEXPEN 15 UNITS SC ×2 (08:55→18:28)
[2024-11-03] MEDS: NOVOLOG FLEXPEN-MODERATE RESISTANCE 5 UNITS SC (08:57)
[2024-11-03 11:30] LABS: Glucose - Point of Care 112 mg/dl (70-99)
[2024-11-03] MEDS: NOVOLOG FLEXPEN SC (11:47)
[2024-11-03] MEDS: NOVOLOG FLEXPEN-MODERATE RESISTANCE SC (11:48)
[2024-11-03] MEDS: FEOSOL 325 MG PO (13:56)
--- NOTE | 2024-11-03 14:28 | CM ---
Patient with infected diabetic ulceration of b/l feet. most likely Osteo R 4th/5th metatarsal heads and L 5th metatarsal head, dry gangrene L 3rd toe. For OR 11/04/24 for L partial 5th ray and 3rd toe amputation, Right partial 4/5th ray
amputation. Discharge POC: Therapy recommendation on 11/02 was SNF. Will await post-op evals and recommendations.
[2024-11-03 15:15] VITALS: BP 130/62
[2024-11-03 16:45] LABS: Glucose - Point of Care 190 mg/dl (70-99)
[2024-11-03] MEDS: PROTONIX 40 MG PO (17:54)
[2024-11-03] MEDS: LOVENOX 40 MG SC (17:54)
[2024-11-03] MEDS: REQUIP 0.25 MG PO (17:54)
[2024-11-03] MEDS: NOVOLOG FLEXPEN-MODERATE RESISTANCE 1 UNITS SC (18:29)
[2024-11-03 21:14] LABS: Glucose - Point of Care 147 mg/dl (70-99)
[2024-11-03] MEDS: LANTUS 0.4 UNITS SC (21:14)
[2024-11-03 23:09] VITALS: BP 113/70
[2024-11-04] VITALS (19 sets, daily range): BP systolic 90–162; BP diastolic 55–93; BMI 21.1
[2024-11-04] MEDS: MAXIPIME 1000 MG IV ×2 (00:08→05:44)
[2024-11-04] MEDS: STERILE WATER FOR INJECTION 10 ML IV ×2 (00:09→05:44)
--- NOTE | 2024-11-04 02:39 | DOWNTIME ---
There was a Scaled Inference Client Board Mill Supervisor Downtime on 11/04/2024 from 0100 to 11/04/2024 at 0235. Downtime documentation of patient's care, including medication administrations, has been reconciled in the electronic record per guidelines. Refer to the
patient's paper chart under the miscellaneous tab to see printed paper medication records and downtime forms.
[2024-11-04] MEDS: VANCOCIN 200 IV (05:45)
[2024-11-04 06:23] LABS: Hematocrit 33.4 % (39.0-52.0); Hemoglobin 10.7 g/dL (13.0-18.0); Mean Corp Hgb Conc. 32.0 g/dL (33.0-37.0); Mean Corpuscular Volume 74.7 fL (80.0-94.0); Platelet Count 537 10^3/uL (130-400); Red Cell Dist. Width 15.7 % (11.5-14.5)
[2024-11-04 06:46] LABS: Blood Urea Nitrogen 23 mg/dl (9-20); Calcium 8.4 mg/dl (8.4-10.2); Carbon Dioxide 28 mmol/L (22-30); Chloride 104 mmol/L (98-107); Estimated Creatinine Clearance 96 ml/min; Glucose 100 mg/dl (70-99); Potassium 3.8 mmol/L (3.5-5.1); Sodium 138 mmol/L (135-145); eGFR > 60.00
--- NOTE | 2024-11-04 06:51 | PTCARENOTE ---
pt has a dominguez for urinary retention - to be pulled this am. pt is for vascular today and OR on . S/w STACY Maldonado - will update order to keep dominguez in,
--- NOTE | 2024-11-04 07:40 | W.PN.HOSP.TC ---
Addendum entered and electronically signed by Jaime Estrella DO 11/05/24 13:53:
CDI: Stage II sacral pressure injury, POA
Original Note:
Today's Communication/Plan
-
Plan for surgery
Assessment / Plan
Assessment / Plan
MALENA DIABETIC FOOT ULCER, Gangrenous
-Continue ongoing wound care
-Arteriogram is being planned for today
-MRI Showed OM on both digits R 4th and 5th, Left 5th and likely soft tissue abscess of the lateral forefoot surrounding the fourth and fifth metatarsophalangeal joints
-WBC 11.1 (12.2) Wound culture, Citrobacter Koseri and MSSA, both sensitive to Amoxicillin /Clavulanate
-Change by sensitivity
Insulin Dependent Diabetes Mellitus
-Lantus increased to 40 iu yesterday
-BG loefb082. Insulin Aspart Pre-meal- 15iu held (Px is NPO)
-A1C- 14.2
Moderate Resistance Insulin Corrective Insulin
Hypertension
-Bp135/80
-Amlodipine increased to 10mg yesterday
-No Lisinopril, till after surgery
Hypokalemia
-KCL 40meq X 2 doses 4 hours apart 11/02/2024
-Corrected
-3.9 (3.1)
ANEMIA
-Hb- 10.7, MCV- 74.7
-Fe studies
-Fe supplementation with Ferous sulfate 325mg 1 daily
-Fe 36 ( > 49), TIBC- 212 > (261), Varghese 55N
-B12- 733 (N, Folate 3.8 (N
Thrombocytosis
Upward trending PL 537,
MPV- 9.6 Normal
On DVT Prophylaxis
S/P Donor Kidney Transplant for renal failure
-Renal function stable
-Continue tacrolimus -Levels pending
-Continue fludrocortisone and prednisone
Hyperlipidemia
-Continue pravastatin
GERD / PUD
-Continue Protonix
Restless Leg Syndrome
-Continue ropinirole
Hx TIA
-Continue aspirin
Chronic Ambulatory Dysfunction
-Wheelchair bound
-Fall risk
-On PT/OT
DVT proph: Lovenox
-
Anticipated Discharge: > 48 hours
Subjective/Interval History
-
Date of Service: November 04, 2024
Nil complains today
Patient is scheduled for an arteriogram today
Objective Data
-
Labs:
Laboratory Results
11/04/24
05:48
WBC 11.1 H
Hgb 10.7 L
Hct 33.4 L
Plt Count 537 H
Sodium 138
Potassium 3.8
Chloride 104
Carbon Dioxide 28
BUN 23 H
Creatinine 0.8
Glucose 100 H
Calcium 8.4
Vital Signs:
Vital Signs
Temp Pulse Resp BP Pulse Ox
97.6 F 62 16 113/70 96
11/03/24 23:09 11/03/24 23:09 11/03/24 23:09 11/03/24 23:09 11/03/24 23:09
I&O
11/03/24 11/04/24 11/05/24
06:59 06:59 06:59
Intake Total 1250 / 1250 996 / 996
Output Total 1325 / 1325 650 / 650 725 / 725
Balance -75 / -75 346 / 346 -725 / -725
Review of Systems
-
History Source: Patient
Constitutional: Denies Fever
EENT: Reports No Symptoms Reported
Respiratory: Reports No Symptoms
Cardiac: Reports No Symptoms
Abdomen/GI: Reports No Symptoms
Genitourinary: Reports Other (Currently on dominguez)
Musculoskeletal: Reports Other (Left chest pain from fall)
Physical Exam
-
HEENT: Normocephalic
Respiratory: Clear to Auscultation
Cardiac: Regular Rhythm and S1/S2
Genito-urinary: Dominguez (draining clear urine)
Skin: Other (Wound dressing on both legs. Gangrenous wound on the left foot 2nd and 3rd digit )
Psych: Other (Flat affect)
Data Reviewed
-
Labs: Labs Reviewed by me, Discussed with Physician and Discussed with Patient
[2024-11-04] MEDS: PROGRAF 1 MG PO ×2 (08:34→20:07)
[2024-11-04] MEDS: PRAVACHOL 20 MG PO (08:34)
[2024-11-04] MEDS: FLORINEF 0.1 MG PO ×2 (08:34→20:07)
[2024-11-04] MEDS: DELTASONE 5 MG PO (08:34)
[2024-11-04] MEDS: ASPIR LOW (ENTERIC COATED) 81 MG PO (08:34)
[2024-11-04] MEDS: FEOSOL 325 MG PO (08:34)
[2024-11-04] MEDS: NORVASC 10 MG PO (08:37)
[2024-11-04 08:40] LABS: Glucose - Point of Care 130 mg/dl (70-99)
[2024-11-04] MEDS: NOVOLOG FLEXPEN SC ×2 (08:50→16:49)
[2024-11-04] MEDS: NOVOLOG FLEXPEN-MODERATE RESISTANCE SC ×2 (08:50→16:49)
--- NOTE | 2024-11-04 11:21 | PTCARENOTE ---
Patient arrived to [facility] [place] [facility]. AAO x3. VSS, 162/83 HR 64 SR, 94% room air. Anesthesiologist paged to assess patient. Call choe with patient. All questions/concerns answered.
--- NOTE | 2024-11-04 12:17 | CM ---
CM reviewed chart, patient for OR today. Will watch for PT/OT post-op for recommendations, likely will need SNF upon discharge. CM will continue to follow for all discharge planning needs.
Plan; OR today, will need PT/OT when medically able, likely SNF
[2024-11-04] MEDS: UNASYN IV ×3 (12:34→23:38)
--- NOTE | 2024-11-04 13:24 | W.SUR.PREOP ---
Pre-Operative Surgical Note
-
I have examined this patient prior to the performance of the scheduled procedure.
The patient's condition is unchanged from the time of the current History and
Physical and the patient is able to undergo the scheduled procedure.
--- NOTE | 2024-11-04 14:41 | W.SUR.POST ---
Surgical Immediate Post Op
Note
Pre Op Diagnosis: PAD and non healing wounds
Post Op Diagnosis: PAD and non healing wounds
Procedure Performed: BL lower extremity angiogram, left lower extremity CORING MACHINE OPERATOR to AT and PT trunk
Primary Surgeon: Roberto Singer MD
Secondary Surgeons: N/A
Anesthesia: MAC
Estimated Blood Loss: 2ml
Fluids: See anesthesia flow sheet
Drains/Shunts: N/A
Specimens/Cultures: None
Doppler/Duplex/Angio (Y/N): Y
Complications: None
Operative Findings: palpable AT pulse post operative
[2024-11-04 15:04] LABS: Glucose - Point of Care 188 mg/dl (70-99)
--- NOTE | 2024-11-04 16:44 | PTCARENOTE ---
1630 Pt arrived back from PACU. VSS. NV checks with in normal limits. +doppler pedal pulse. R groin 4x4 with tegaderm. C/D/I. Care ongoing
[2024-11-04] MEDS: NSS 1000 IV (16:50)
[2024-11-04 17:31] LABS: Glucose - Point of Care 259 mg/dl (70-99)
[2024-11-04] MEDS: REQUIP 0.25 MG PO (17:33)
[2024-11-04] MEDS: PROTONIX 40 MG PO (17:33)
[2024-11-04] MEDS: NOVOLOG FLEXPEN 10 UNITS SC (17:39)
[2024-11-04] MEDS: NOVOLOG FLEXPEN-MODERATE RESISTANCE 5 UNITS SC ×2 (17:40→23:51)
--- NOTE | 2024-11-04 19:18 | OR.RPT ---
Operative Report
Operative Report
PROCEDURE DATE: 11/04/2024
Preoperative diagnosis: Chronic limb threatening ischemia bilateral lower extremity. Gangrene and osteomyelitis bilateral feet.
Postoperative diagnosis: Same
Procedure:
1. Duplex assisted cannulation of right common femoral artery.
2. Aortogram and pelvic angiogram.
3. Left lower extremity arteriogram with third order vessel catheterization of left anterior tibial and peroneal artery via right common femoral artery puncture.
4. Balloon angioplasty of left peroneal artery with 3.5 mm angioplasty balloon.
5. Balloon angioplasty of left anterior tibial artery with 3 mm angioplasty balloon.
6. Diagnostic right lower extremity arteriogram.
7. Supervision interpretation.
Surgeon: Enmanuel
Top Former: None
Complications: None
Anesthesia: Local, sedation
Fluoroscopy:
15.1 min
40 mGy
11.41 gy.cm2
Indications for procedure:
As noted above bilateral gangrene and osteomyelitis./Benefits/alternatives of angiography were fully discussed. Patient understood and wished to proceed.
Description of procedure:
Patient was identified, brought to the operating room. Placed on the table in the supine position. After the adequate administration of anesthesia, the patient was prepped and draped in the standard surgical fashion. A standard preoperative
timeout was undertaken and everybody was in agreement with the plan.
The right common femoral artery was accessed with a micropuncture kit under direct duplex ultrasound guidance. A 5 Anguillan sheath was then advanced over a 0.035 inch wire, and a kendrick's hook catheter was advanced into the abdominal aorta.
Aortogram and pelvic angiogram was obtained. Findings as follows:
Infrarenal aorta: Patent with eccentric calcified plaque, but no significant stenosis.
Right common iliac artery: Patent with no significant stenosis.
Right external iliac artery: Patent with no significant stenosis.
Left common iliac artery: Patent with no significant stenosis.
Left external iliac artery: Patent with no significant stenosis.
Using a floppy angled hydrophilic wire, the left common femoral artery was cannulated and the catheter was advanced. Left lower extremity arteriogram was obtained. Findings as follows:
Common femoral artery: Patent with no definitive stenosis. Slight decrease in size/diameter and more distal common femoral artery, but no definitive plaque seen to indicate definitive stenosis.
Profunda femoris artery: Patent with possible mild proximal stenosis and slight poststenotic dilatation. In the midsegment there is also another segment of mild stenosis where there is a collateral arising.
Superficial femoral artery: Patent with luminal irregularities, and eccentric calcified plaque, but no definitive stenoses.
Popliteal artery: Patent with luminal irregularities, no significant stenosis.
Anterior tibial artery: Patent with moderate stenosis about 4 cm beyond the origin, followed by severe string-like stenosis/near occlusion about 4 cm beyond there. Remainder of the anterior tibial artery is patent to the level of the ankle but
occluded just at the junction of the ankle to the foot. Gave rise to small collaterals.
Tibial peroneal trunk: Patent with moderate to significant stenosis in its mid segment. Poststenotic dilatation noted.
Peroneal artery: Patent with no significant stenosis, became somewhat diminutive more distally and collaterals that arose at the ankle were somewhat small. But it did reconstitute distal posterior tibial artery.
Posterior tibial artery: Occluded proximally, but on delayed imaging there may have been a slight channel of flow proximally and then completely occluded. Reconstituted in its mid to distal third. Across the ankle to give rise to plantars. But
the distal posterior tibial artery at the ankle and the plantars were all very diminutive in stature.
At this point I selectively cannulated the superficial femoral artery and then exchanged over a Storq wire for an up and over 5 Anguillan 70 cm sheath. Patient was given appropriate dose of heparin. Next under roadmap assisted guidance I was able to
cannulate the tibioperoneal trunk and then traverse the area of stenosis and passed a wire (floppy angled hydrophilic wire) into the more distal peroneal artery. I followed with the CXI catheter. Next I exchanged for a 0.014 inch DIETARY SERVICE AIDE wire. I then
performed balloon angioplasty of the stenotic tibioperoneal trunk with a 3.5 mm angioplasty balloon. Completion angiogram demonstrated good result. Therefore at this point I withdrew my wire out of the tibioperoneal trunk, and then exchanged for a
2.6 Anguillan CXI catheter. Now I used a steerable Rogerio wire to try to engage the posterior tibial artery. I was able to engage the origin of the posterior tibial artery but I could not advance it in the true lumen. Multiple attempts were made,
but unsuccessfully. Therefore I now withdrew the Rogerio wire out and we shaped the tip so that I had a better curvature. The anterior tibial artery origin came off at quite a acute angle and therefore I shaped the tip as such. Now using the CXI
catheter and the curved tip on the wire, I was able to engage the origin of the anterior tibial artery and then advanced my wire through the stenotic areas and down into the more distal anterior tibial artery. I then balloon angioplastied the
anterior tibial artery stenoses with a 3 mm angioplasty balloon. Completion angiogram demonstrated an excellent result. There is much more brisk filling now to the ankle through the peroneal and the anterior tibial artery. The posterior tibial
artery reconstitution was much brisker as well. At this point is very satisfied. I withdrew my 0.014 inch wire and catheter. The sheath was withdrawn to the right external iliac artery over a 0.035 inch wire. Right lower extremity arteriogram
was performed. This demonstrated patent right common femoral and profunda femoris. Luminal irregularities were noted in the SFA but no definitive stenoses. Similarly in the popliteal and no definitive stenosis. The anterior tibial artery is
similar acute angle origin, and had some areas of stenoses throughout its course in the mid segment but appeared patent to the ankle and onto the foot to become the dorsalis pedis. The tibioperoneal trunk was patent but in its distalmost aspect had
a moderate stenosis, but not as severe as the contralateral side. The peroneal artery appeared to fill briskly and continuously down to the level of the ankle where it gave rise to some collaterals, though it did become very small and the
collaterals were weak. The posterior tibial artery was patent nicely all the way down to the ankle into the foot. However on the foot itself the plantaris could be seen to fill but relatively lightly. At this point is very satisfied. Wires and
catheters were all withdrawn. We exchanged for a short 5 Anguillan sheath which was withdrawn in the recovery area. Manual pressure was applied. Hemostasis was achieved.
The patient tolerated procedure well. Upon completion he had a palpable distal left anterior tibial artery pulse.
[2024-11-04] MEDS: XARELTO 2.5 MG PO (20:07)
[2024-11-04 21:35] LABS: Glucose - Point of Care 246 mg/dl (70-99)
[2024-11-04] MEDS: LANTUS 0.2 UNITS SC (22:09)
[2024-11-04 23:43] LABS: Glucose - Point of Care 253 mg/dl (70-99)
[2024-11-05] VITALS (11 sets, daily range): BP systolic 92–151; BP diastolic 51–90; BMI 21.2
[2024-11-05] MEDS: UNASYN IV ×3 (05:31→18:12)
[2024-11-05] MEDS: NOVOLOG FLEXPEN-MODERATE RESISTANCE 5 UNITS SC (05:33)
[2024-11-05 05:35] LABS: Glucose - Point of Care 275 mg/dl (70-99)
[2024-11-05 05:45] LABS: Hematocrit 33.6 % (39.0-52.0); Hemoglobin 10.6 g/dL (13.0-18.0); Mean Corp Hgb Conc. 31.5 g/dL (33.0-37.0); Mean Corpuscular Volume 75.2 fL (80.0-94.0); Platelet Count 514 10^3/uL (130-400); Red Cell Dist. Width 15.9 % (11.5-14.5)
[2024-11-05 06:12] LABS: Blood Urea Nitrogen 21 mg/dl (9-20); Calcium 7.9 mg/dl (8.4-10.2); Carbon Dioxide 28 mmol/L (22-30); Chloride 102 mmol/L (98-107); Estimated Creatinine Clearance 96 ml/min; Glucose 257 mg/dl (70-99); Potassium 3.8 mmol/L (3.5-5.1); Sodium 135 mmol/L (135-145); eGFR > 60.00
[2024-11-05 07:15] LABS: Glucose - Point of Care 228 mg/dl (70-99)
--- NOTE | 2024-11-05 07:38 | W.PN.HOSP.TC ---
Today's Communication/Plan
-
For surgery today
Assessment / Plan
Assessment / Plan
MALENA DIABETIC FOOT ULCER, Gangrenous
-Continue ongoing wound care
-Arteriogram is being planned for today
-MRI Showed OM on both digits R 4th and 5th, Left 5th and likely soft tissue abscess of the lateral forefoot surrounding the fourth and fifth metatarsophalangeal joints
-WBC 11.1 (12.2) Wound culture, Citrobacter Koseri and MSSA, both sensitive to Amoxicillin /Clavulanate, now on Unacyn
-Consult ID for post surgical ABx reccs/ duration
Insulin Dependent Diabetes Mellitus
-Lantus increased to 40 iu yesterday (Was given 20-NPO)
-BG [id number]. Insulin Aspart Pre-meal- 10iu held (Px is NPO)
-A1C- 14.2
-Moderate Resistance Insulin Corrective Insulin
Hypertension
-Bp119/66
-Amlodipine increased to 10mg yesterday
-No Lisinopril, till after surgery
Hypokalemia
-KCL 40meq X 2 doses 4 hours apart 11/02/2024
-Corrected
-3.8 (3.1)
ANEMIA
-Hb- 10.6, MCV- 75.2
-Fe studies
-Fe supplementation with Ferous sulfate 325mg 1 daily
Thrombocytosis
Upward trending [address],
MPV- 9.6 Normal
On DVT Prophylaxis
S/P Donor Kidney Transplant for renal failure
-Renal function stable
-Continue tacrolimus -Levels pending
-Continue fludrocortisone and prednisone
Hyperlipidemia
-Continue pravastatin
GERD / PUD
-Continue Protonix
Restless Leg Syndrome
-Continue ropinirole
Hx TIA
-Continue aspirin
Chronic Ambulatory Dysfunction
-Wheelchair bound
-Fall risk
-On PT/OT
DVT proph: Lovenox
-
Anticipated Discharge: > 48 hours
Subjective/Interval History
-
Date of Service: November 05, 2024
No complains today
Had limb revascularization yesterday
For amputation today
Objective Data
-
Labs:
Laboratory Results
11/05/24
05:26
WBC 12.3 H
Hgb 10.6 L
Hct 33.6 L
Plt Count 514 H
Sodium 135
Potassium 3.8
Chloride 102
Carbon Dioxide 28
BUN 21 H
Creatinine 0.8
Glucose 257 H
Calcium 7.9 L
Vital Signs:
Vital Signs
Temp Pulse Resp BP Pulse Ox
97.4 F 72 16 151/90 95
11/05/24 03:00 11/05/24 03:00 11/05/24 03:00 11/05/24 03:00 11/05/24 03:00
I&O
11/04/24 11/05/24 11/06/24
06:59 06:59 06:59
Intake Total 996 / 996 2004
Output Total 650 / 650 2300 / 2300
Balance 346 / 346 -295 / -295
Review of Systems
-
History Source: Patient
Constitutional: Denies Fever
EENT: Reports No Symptoms Reported
Respiratory: Reports No Symptoms
Cardiac: Reports No Symptoms
Abdomen/GI: Reports No Symptoms
Genitourinary: Reports Other (Currently on dominguez)
Physical Exam
-
HEENT: Normocephalic
Respiratory: Clear to Auscultation
Cardiac: Regular Rhythm and S1/S2
Genito-urinary: Dominguez (draining clear urine)
Skin: Other (Wound dressing on both legs. Gangrenous wound on the left foot 2nd and 3rd digit )
Psych: Other (Flat affect)
Data Reviewed
-
Labs: Labs Reviewed by me, Discussed with Physician and Discussed with Patient
--- NOTE | 2024-11-05 07:51 | W.PN.VS ---
Addendum entered and electronically signed by Roberto Singer MD 11/05/24 09:42:
Seen and examined with STACY Jaurez. Agree with findings as noted below. Patient without significant complaints. Right groin puncture site flat. No hematoma. Left foot warm with palpable distal anterior tibial pulse at the ankle. Plan/as discussed
and noted below. Note I discussed findings and plan with the patient. I also called the patient's son Juan and spoke to him on the phone and discussed as well. Plan has been communicated yesterday also by myself to the podiatry team.
Original Note:
Today's Communication / Plan
-
Patient seen and evaluated bedside with Dr. Roberto Singer M.D., below plan reviewed with attending.
Assessment/Plan
-
Assessment: 64-year-old male with peripheral arterial disease, POD #1 Duplex assisted cannulation of right common femoral artery. Aortogram and pelvic angiogram. Left lower extremity arteriogram with third order vessel catheterization of left
anterior tibial and peroneal artery via right common femoral artery puncture. Balloon angioplasty of left peroneal artery with 3.5 mm angioplasty balloon. Balloon angioplasty of left anterior tibial artery with 3 mm angioplasty balloon. Diagnostic
right lower extremity arteriogram.
Plan:
Continue optimized medical management for peripheral arterial disease of [facility] protocol which is Xarelto 2.5 mg p.o. twice daily and aspirin 81 mg p.o. daily, should be continued on discharge.
Can remove right groin Tegaderm dressing this afternoon
Can proceed with amputation at podiatry's discretion
Right TBI within normal limits at 0.73, would recommend podiatry proceed with bilateral foot amputations as required as patient should have adequate blood flow for healing. We will see patient in short order follow-up in office and if at any point
there is concern for poor wound healing at right foot then would proceed with angiogram.
Follow-up placed in discharge instructions
We will sign off please call with questions or concerns
Subjective Data
-
Date of Service: November 05, 2024
Patient seen and examined at bedside, offers no complaints. Denies pain at right groin puncture site. Reports tolerating p.o. diet.
Objective Data
-
Vital Signs
Temp Pulse Resp BP Pulse Ox
97.4 F 72 16 151/90 95
11/05/24 03:00 11/05/24 03:00 11/05/24 03:00 11/05/24 03:00 11/05/24 03:00
Intake and Output
11/04/24 11/05/24 11/06/24
06:59 06:59 06:59
Intake Total 996 / 996 2004 / 2004
Output Total 650 / 650 2300 / 2300
Balance 346 / 346 -295 / -295
Intake:
Oral fluids 596 / 596 480 / 480
IV fluids (Total) 1165 / 1165
normosol 125 / 125
IV piggybacks 400 / 400 360 / 360
Output:
Urine, Boss 2300 / 2300
Urine, Voided 650 / 650
Lab Results
11/05/24 05:26
11/05/24 05:26
Calcium 7.9 mg/dl (8.4-10.2) L 11/05/24 05:26
Total Bilirubin 0.4 mg/dl (0.2-1.3) 11/03/24 05:38
AST 11 U/L (17-59) L 11/03/24 05:38
ALT < 10 U/L (0-50) 11/03/24 05:38
Alkaline Phosphatase 71 U/L (38-126) 11/03/24 05:38
Total Protein 5.9 g/dl (6.3-8.2) L 11/03/24 05:38
Albumin 2.7 g/dl (3.5-5.0) L 11/03/24 05:38
Physical Exam
-
No apparent distress, resting bed comfortably
Right groin puncture site clean, dry, and intact, no evidence of hematoma, all surrounding compartments soft
ABD, nontender, nondistended
Left lower extremity AT with palpable pulse, bilateral foot wounds with clean, dry, and intact dressings
[2024-11-05] MEDS: NORVASC PO (08:00)
[2024-11-05] MEDS: NOVOLOG FLEXPEN SC ×3 (08:50→13:31)
[2024-11-05] MEDS: FEOSOL 325 MG PO (09:08)
[2024-11-05] MEDS: PROGRAF 1 MG PO ×2 (09:09→20:30)
[2024-11-05] MEDS: ASPIR LOW (ENTERIC COATED) 81 MG PO (09:09)
[2024-11-05] MEDS: FLORINEF 0.1 MG PO ×2 (09:09→20:30)
[2024-11-05] MEDS: PRAVACHOL 20 MG PO (09:09)
[2024-11-05] MEDS: DELTASONE 5 MG PO (09:10)
[2024-11-05] MEDS: XARELTO 2.5 MG PO ×2 (09:12→20:30)
--- NOTE | 2024-11-05 10:44 | PTCARENOTE ---
Per Vascular service: do not apply antiembolism device on legs due to patient's level of arterial disease.
--- NOTE | 2024-11-05 10:46 | CM ---
Chart reviewed and patient for possible procedure today, per physical therapy patient will need new orders and patient will be assessed by physical therapy, last note says home v's rehab will wait on final decision, patient may need IV ABX at
discharge.
Plan; To follow with patient progress for fin al discharge plan for patient.
[2024-11-05 12:19] LABS: Glucose - Point of Care 180 mg/dl (70-99)
--- NOTE | 2024-11-05 13:07 | PN.CDI ---
CDI
- -
CDI:
Physician Documentation Request
Admit Date: 11/01/24 15:35
Dear Doctor Sheryl,
Patient admitted with bilateral diabetic foot ulcers.
11/04 Nursing skin assessment, 'Stage 2 sacral pressure injury, POA.'
Physician documentation of the type and location of wounds is required for compliant documentation. Based on the above clinical findings and your assessment, please provide the following in your progress note:
Type (etiology) of ulcer/wound:
- Pressure (decubitus) ulcer
- Other
- Unable to determine
For a pressure ulcer, please also include the stage* of the ulcer:
- Stage 1 - Skin intact, non-blanchable redness
- Stage 2 - Partial thickness loss of dermis, includes intact or open blister
- Stage 3 - Full thickness tissue not including bone, tendon or muscle
- Stage 4 - Full thickness tissue loss, including exposed bone, tendon or muscle
- Unstageable - Full thickness loss in which the base of the ulcer is covered by slough (yellow, gunderson, govea, green or brown) and/or eschar (gunderson, brown or black) in the wound bed.
- Unable to determine
Use of terms such as suspected, likely, concern for, or probable (associated with a specific diagnosis that is being evaluated, monitored, or treated as if it exists) are acceptable and can be coded in the inpatient setting, when documented at the
time of discharge.
Thank you,
Anna TATE,RN,CCDS
CDI Specialist
Available via [place] text
Please use your independent medical judgment in providing your response.
*Source: National Pressure Ulcer Advisory Panel (NPUAP)
[2024-11-05] MEDS: NOVOLOG FLEXPEN-MODERATE RESISTANCE 1 UNITS SC (13:16)
--- NOTE | 2024-11-05 14:39 | CON.ID ---
Consultation
-
Date/Time Consultation Requested: 11/05/2024 1138
Date/Time Consultation Performed: 11/05/2024 1439
Requesting Provider: Dr. Saucedo
Performing Provider: Dr. Britton
Reason for Consultation: Osteomyelitis
Chief Complaint / Past History
History of Present Illness
Chauncey Schwartz is a 64-year-old man being evaluated the request of Dr. Saucedo regarding foot wounds. History is obtained from chart review, patient interview.
The patient initially presented to outside hospital on 11/01 following a recent hospitalization at [facility] 5 days prior. At that point in time he had been evaluated for right rib fracture after a fall at home in his shower. He evidently had been also
admitted for chronic wounds of the bilateral feet and reported osteomyelitis. According to reviewed notes he was scheduled for toe amputations and after reported frustration with his hospital stay he signed out AMA. At his son's coaxing he
presented to the outside hospital for further evaluation. Since admission, he has been evaluated by Orthopedics and podiatry with Vascular Surgery. His hospital course has been significant for a bilateral lower extremity angiogram for evaluation
of chronic limb threatening lower extremity ischemia. Today, he was taken to the OR and is currently s/p right TMA and left 3rd & 5th toe and partial 5th ray amp. Infectious Diseases asked to come in upon further antimicrobial management.
Past History
Additional Past Medical History:
Insulin Dependent Diabetes Mellitus
Essential Hypertension
Hyperlipidemia
GERD / PUD
Restless Leg Syndrome
TIA
Chronic Ambulatory Dysfunction - Wheelchair bound
Additional Past Surgical History:
Renal Transplant - Apr 2016
Right Leg Pins
Allergy History:
No Known Allergies Allergy (Unverified 11/01/24 10:49)
Medications Reviewed: Yes
Current Antibiotics:
Unasyn 3 gm IV q6h (d#5 abx)
Social History
Tobacco: Former Smoker
Alcohol: Occasional
Review of Systems
Vital Signs
Temp Pulse Resp BP Pulse Ox
97.8 F 67 16 122/76 97
11/05/24 11:20 11/05/24 11:20 11/05/24 11:20 11/05/24 11:20 11/05/24 11:20
Physical Exam
Physical Exam
Constitutional: Comfortable, Chronically Ill and Non-toxic
Eyes: No Conjunctival Hemorrhage and Sclera Anicteric
Oral: No Thrush and No Ulcers
Cardiovascular: S1/S2; Negative S3/S4
Pulmonary: Non Labored
Gastrointestinal: Soft, Non Tender and Non Distended
Genito-Urinary: Boss and Clear Urine; Negative Turbid Urine or Hematuria
Extremities: Edema (trace); Negative Erythema
Wound: Other (B/L feet dressed. No erythema up leg)
Neurological: Awake
Psychological: Calm
Lab / Diagnostic Study Results
11/05/24 05:26
11/05/24 05:26
Abs Immat Gran (auto) 0.2 10^3/uL (0-0.05) H 11/01/24 12:53
Absolute Neuts (auto) 12.5 10^3/uL (1.4-6.5) H 11/01/24 12:53
Absolute Lymphs (auto) 1.2 10^3/uL (1.2-3.4) 11/01/24 12:53
Absolute Monos (auto) 0.8 10^3/uL (0.1-0.6) H 11/01/24 12:53
Absolute Basos (auto) 0.0 10^3/uL (0-0.2) 11/01/24 12:53
Immature Gran % 1.1 % (0-0.5) H 11/01/24 12:53
Neutrophils % 84.5 % (42.2-75.2) H 11/01/24 12:53
Lymphocytes % 8.3 % (20.5-51.1) L 11/01/24 12:53
Monocytes % 5.1 % (1.7-9.3) 11/01/24 12:53
Eosinophils % 0.7 % (0-6) 11/01/24 12:53
Basophils % 0.3 % (0-2) 11/01/24 12:53
Microbiology Results
Micro:
11/01/24 14:54 Wound Culture - Final
Foot - Right Citrobacter koseri
S aureus-Methicillin Sensitive
Gram Stain - Final
11/01/24 20:07 MRSA Screen - Final
Nose No Methicillin Resistant Staphylococcus aureus isolated.
Wound/abscess/other Cult Final (Right foot wound) 11/01/24
Organism 1 Citrobacter koseri
Organism 2 S aureus-Methicillin Sensitive
C. KOSERI MSSA
M.I.C. RX M.I.C. RX
--------- --- --------- ---
Amoxicillin/Potas. Clavulanate <=8/4 S <=4/2 S
Ampicillin >16 R <=2 R
Ampicillin/Sulbactam <=4/2 S
Aztreonam <=4 S
Cefazolin <=2 S
Clindamycin <=0.5 R
Ertapenem <=0.5 S
Ciprofloxacin <=0.25 S
Gentamicin <=2 S <=4 S
Erythromycin >4 R
Levofloxacin <=1 S
Oxacillin <=0.25 S
Meropenem <=1 S
Piperacillin/Tazobactam <=8 S
Tetracycline <=4 S <=4 S
Tobramycin <=2 S
Trimethoprim/Sulfamethoxazole <=2/38 S <=0.5/9.5 S
Vancomycin 1 S
Imaging:
11/03/2024 MRI right foot: osteomyelitis is noted in the fifth metatarsal head, fifth proximal phalanx, fourth metatarsal head and fourth proximal phalanx. Probable early osteomyelitis of the fifth middle and distal phalanges, along with the fourth
distal phalanx. Pathologic fractures of the fifth metatarsal head and fifth proximal phalanx noted. A loculated fluid collection is noted in the soft tissues of the lateral forefoot surrounding the 4th and 5th metatarsophalangeal joints, and
extending medially along the plantar aspect of the forefoot. Please see full dictation for additional detail.
11/03/2024 MRI left foot: osteomyelitis of the fifth metatarsal head and fifth proximal phalanx. Pathologic fracture of the fifth metatarsal head.
Assessment / Plan
Bilateral foot osteomyelitis
Bilateral foot wounds
Critical limb ischemia; status post angioplasty
Leukocytosis
Immunosuppression 2* medications
Hx renal transplant
Insulin Dependent Diabetes Mellitus
Essential Hypertension
Hyperlipidemia
GERD / PUD
Restless Leg Syndrome
TIA
Chronic Ambulatory Dysfunction - Wheelchair bound
Recommendations:
Continue with Unasyn 3gm IV q6h
Follow pending pathology
Local care to the foot wounds.
Further recommendations as additional data is returned.
--- NOTE | 2024-11-05 14:47 | CON.SURG ---
Surgical Consultation
-
Consultation
-
Date/Time Consultation Performed: 11/02/24 0730
Performing Provider: Dexter Wilson
Reason for Consultation: foot wound/infection
Medical History
-
Chief Complaint: foot wounds
History of Present Illness:
Patient is a 64 yo M with PMHx renal transplant 05/04, IDDM, nonambulatory ~6 months in wheel chair presenting for b/l foot wounds. He was brought in by son after patient left [facility] [place]. He reports chronic foot wounds for several
weeks, with left 3rd toe developing after removing nail. He has orthopedic hardware in Left leg after injury. Denies n/v/f/c/sob.
Allergies / Home Medications
Allergy/AdvReac Type Severity Reaction Status Date / Time
No Known Allergies Allergy Unverified 11/01/24 10:49
�Medication �Instructions �Recorded �Confirmed �Type
amlodipine 5 mg tablet 5 mg PO DAILY 11/01/24 11/01/24 History
aspirin 81 mg tablet,delayed 81 mg PO DAILY 11/01/24 11/01/24 History
release
fludrocortisone 0.1 mg tablet 0.1 mg PO BID 11/01/24 11/01/24 History
insulin glargine 100 unit/mL (3 35 unit SC HS 11/01/24 11/01/24 History
mL) subcutaneous pen (Lantus
Solostar U-100 Insulin)
insulin lispro 100 unit/mL 15 unit SC TID 11/01/24 11/01/24 History
subcutaneous solution (Humalog
U-100 Insulin)
omeprazole 20 mg capsule,delayed 20 mg PO QPM 11/01/24 11/01/24 History
release
pravastatin 20 mg tablet 20 mg PO DAILY 11/01/24 11/01/24 History
prednisone 5 mg tablet 5 mg PO DAILY 11/01/24 11/01/24 History
ropinirole 0.25 mg tablet 0.25 mg PO QPM 11/01/24 11/01/24 History
tacrolimus 1 mg capsule, 1 mg PO BID 11/01/24 11/01/24 History
immediate-release
Review of Systems
-
A 10 point review of systems was completed, and was negative except as per HPI.
Physical Exam
Vital Signs
Temp Pulse Resp BP Pulse Ox
98.4 F 75 20 162/98 96
11/02/24 06:35 11/02/24 06:35 11/02/24 06:35 11/02/24 06:35 11/02/24 06:35
11/01/24 11/02/24 11/03/24
06:59 06:59 06:59
Actual Weight 74.752 kg
Body Mass Index (BMI) 21.2
Lab Results
11/02/24 05:33
11/02/24 05:33
WBC 13.9 10^3/uL (4.8-10.8) H 11/02/24 05:33
Hgb 10.9 g/dL (13.0-18.0) L 11/02/24 05:33
Hct 34.1 % (39.0-52.0) L 11/02/24 05:33
Plt Count 523 10^3/uL (130-400) H D 11/02/24 05:33
Abs Immat Gran (auto) 0.2 10^3/uL (0-0.05) H 11/01/24 12:53
Neutrophils % 84.5 % (42.2-75.2) H 11/01/24 12:53
Physical Exam
Respiratory: Non Labored Respirations
Skin: Warm (RLE DP/PT pulses on doppler, LLE PT pulse on doppler) and Other (RLE : 4th webspace ulceration probing to 4/5th MT head with surrounding cellulits, eschar lateral column. LLE : eschar lateral column with dorsal 5th MT head ulceration
probing to bone, dry gangrene distal 3rd toe.)
Neuro: Other (LE sensation absent in stocking and glove distribution. )
Data Reviewed
-
Radiology: Image Personally Visualized and interpreted
Assessment / Plan
-
Patient is a 64 yo M and MRI findings of right 4th/5th metatarsal osteomyelitis and deep infection tracking meeting, left foot MRI findings of 5th metatarsal osteomyelitis and 3rd toe gangrene.
-Patient is now s/p L foot vascular intervention performed 11/04/2024
-Given imaging and clinical findings, will plan for right foot TMA and left partial 5th ray and 3rd toe amputations
-Discussed case with vascular surgery, will plan for surgical intervention 11/05
-Continue IV antibiotics and remain NWB status
-Strict heel offloading precautions-:
--- NOTE | 2024-11-05 16:25 | W.PN.SURGUPD ---
Surgical Update
Surgical Update
64 yo M s/p R open TMA, left 3rd toe amputation and open partial 5th ray amputation
-Wound vac to run at 125mmHg, reinforce as needed
-Continue IV antibiotics
-Strict offloading
-Plan for return to OR 11/09 for repeat debridement
[2024-11-05 16:56] LABS: Glucose - Point of Care 216 mg/dl (70-99)
[2024-11-05] MEDS: NOVOLOG FLEXPEN-MODERATE RESISTANCE 3 UNITS SC (18:07)
[2024-11-05] MEDS: LIPITOR 40 MG PO (18:08)
[2024-11-05] MEDS: PROTONIX 40 MG PO (18:08)
[2024-11-05] MEDS: NOVOLOG FLEXPEN 15 UNITS SC (18:08)
[2024-11-05] MEDS: REQUIP 0.25 MG PO (18:08)
--- NOTE | 2024-11-05 18:42 | PTCARENOTE ---
Patient received from PACU at 1730. Patient AAOx3, no c/o pain. B/L feet at wrapped in kerlix and CDI. Wound vac attached to b/l feet. Wound vac set at 125mmhg. Patient tolerating po liquids, dinner order, call choe in reach.
[2024-11-05 21:14] LABS: Glucose - Point of Care 250 mg/dl (70-99)
[2024-11-05] MEDS: LANTUS 0.4 UNITS SC (21:25)
[2024-11-06] VITALS (8 sets, daily range): BP systolic 82–132; BP diastolic 55–76; PULSE 86; BMI 21.5
[2024-11-06] MEDS: UNASYN IV ×4 (00:16→17:45)
[2024-11-06 06:52] LABS: Hematocrit 25.5 % (39.0-52.0); Hemoglobin 8.4 g/dL (13.0-18.0); Mean Corp Hgb Conc. 32.9 g/dL (33.0-37.0); Mean Corpuscular Volume 75.0 fL (80.0-94.0); Platelet Count 454 10^3/uL (130-400); Red Cell Dist. Width 15.9 % (11.5-14.5)
[2024-11-06 07:01] LABS: Blood Urea Nitrogen 22 mg/dl (9-20); Calcium 7.7 mg/dl (8.4-10.2); Carbon Dioxide 29 mmol/L (22-30); Chloride 104 mmol/L (98-107); Estimated Creatinine Clearance 87 ml/min; Glucose 178 mg/dl (70-99); Potassium 3.4 mmol/L (3.5-5.1); Sodium 137 mmol/L (135-145); eGFR > 60.00
[2024-11-06 07:05] LABS: C-Reactive Protein 12.80 mg/L (0.0-10.00)
--- NOTE | 2024-11-06 07:23 | W.PN.HOSP.TC ---
Today's Communication/Plan
-
For repeat debridement on saturday
Assessment / Plan
Assessment / Plan
MALENA DIABETIC FOOT ULCER, Gangrenous
-s/p R open TMA, left 3rd toe amputation and open partial 5th ray amputation 11/05/2024
-s/p lower angiography/angioplasty
Wound vac to run at 125mmHg, reinforce as needed
Plan for return to OR 11/09 for repeat debridement
Strict offloading
-Consult by ID noted with thanks
Continue current antibiotics (Unasyn)
Stage 2 sacral pressure injury, POA
- Continue ongoing wound care
Insulin Dependent Diabetes Mellitus
-Lantus @ 40 iu yesterday (Was given 20-NPO)
-BG today 186 Insulin Aspart Pre-meal- 15iu
-A1C- 14.2
-Moderate Resistance Insulin Corrective Insulin
Hypertension
-Bp119/66 has been stable
-Amlodipine 10mg
Hypokalemia
-3.4
-Give KCL 40meq
IRON DEF ANEMIA
-Hb/Ht- 8.4/25.5, MCV- 75.2
-Fe supplementation with Ferous sulfate 325mg 1 daily
Thrombocytosis
Stable (APR)
S/P Donor Kidney Transplant for renal failure
-Renal function stable
-Continue tacrolimus -Levels pending
-Continue fludrocortisone and prednisone
Hyperlipidemia
-Continue pravastatin
GERD / PUD
-Continue Protonix
Restless Leg Syndrome
-Continue ropinirole
Hx TIA
-Continue aspirin
Chronic Ambulatory Dysfunction
-Wheelchair bound
DC indwelling catheter
urinalysis with reflex to culture
trial of voiding
DVT proph: Lovenox
-
Anticipated Discharge: Today
Subjective/Interval History
-
Date of Service: November 06, 2024
Had surgery done,
No new complains today
Pain is controlled
Objective Data
-
Labs:
Laboratory Results
11/06/24
06:15
WBC 13.1 H
Hgb 8.4 L D
Hct 25.5 L
Plt Count 454 H
Sodium 137
Potassium 3.4 L
Chloride 104
Carbon Dioxide 29
BUN 22 H
Creatinine 0.9
Glucose 178 H
Calcium 7.7 L
Vital Signs:
Vital Signs
Temp Pulse Resp BP Pulse Ox
97.5 F 72 17 117/72 96
11/06/24 03:06 11/06/24 03:06 11/06/24 03:06 11/06/24 03:06 11/06/24 03:06
I&O
11/05/24 11/06/24 11/07/24
06:59 06:59 06:59
Intake Total 2004 265 / 265
Output Total 2300 / 2300 350 / 350
Balance -295 / -295 265 / 265 -350 / -350
Review of Systems
-
History Source: Patient
All other systems: Reviewed and negative
Physical Exam
-
HEENT: Normocephalic
Respiratory: Clear to Auscultation
Cardiac: Regular Rhythm and S1/S2
GI: Soft and Nontender (Suprapubic tenderness)
Genito-urinary: Boss (draining clear urine)
Skin: Other (Wound dressing on both legs. Gangrenous wound on the left foot 2nd and 3rd digit )
Psych: Other (Flat affect)
Data Reviewed
-
Labs: Labs Reviewed by me, Discussed with Physician and Discussed with Patient
[2024-11-06 07:41] LABS: Glucose - Point of Care 186 mg/dl (70-99)
[2024-11-06] MEDS: FEOSOL 325 MG PO (09:14)
[2024-11-06] MEDS: PROGRAF 1 MG PO ×2 (09:14→20:38)
[2024-11-06] MEDS: ASPIR LOW (ENTERIC COATED) 81 MG PO (09:14)
[2024-11-06] MEDS: DELTASONE 5 MG PO (09:14)
[2024-11-06] MEDS: NORVASC PO (09:14)
[2024-11-06] MEDS: FLORINEF 0.1 MG PO ×2 (09:14→20:38)
[2024-11-06] MEDS: XARELTO 2.5 MG PO ×2 (09:14→20:37)
[2024-11-06] MEDS: NOVOLOG FLEXPEN 15 UNITS SC ×2 (09:15→17:46)
[2024-11-06] MEDS: NOVOLOG FLEXPEN-MODERATE RESISTANCE 1 UNITS SC (09:15)
[2024-11-06 10:19] LABS: Urine Character Clear (Clear)
[2024-11-06 10:31] LABS: Urine Red Blood Cell 50-60 /HPF (0-2); Urine Squamous Cell 0-2 /LPF (Few)
--- NOTE | 2024-11-06 11:50 | W.PN.ID1 ---
Date of Service
Date of Service: November 06, 2024
Today's Communication
Continue antibiotics.
Assessment / Plan
Bilateral foot osteomyelitis; s/p (R) TMA / (L) 3rd toe amp / (L) 5th part. met amp
Bilateral foot wounds
Critical limb ischemia; status post angioplasty
Leukocytosis
Immunosuppression 2* medications
Hx renal transplant
Insulin Dependent Diabetes Mellitus
Essential Hypertension
Hyperlipidemia
GERD / PUD
Restless Leg Syndrome
TIA
Chronic Ambulatory Dysfunction - Wheelchair bound
Recommendations:
Continue with Unasyn 3gm IV q6h (d#5 abx)
Follow pending pathology
Local care to the foot wounds.
����������������������������������������������������������
Chief Complaint
-: Other (Foot infection)
Subjective / Review of Systems
Patient seen and examined. No specific complaints today.
Review of Systems: No Fever and No Chills
Vital Signs / Physical Exam
Vital Signs
Vital Signs
Temp Pulse Resp BP Pulse Ox
98.5 F 77 16 105/46 94
11/06/24 11:00 11/06/24 11:00 11/06/24 11:00 11/06/24 11:00 11/06/24 07:40
Physical Exam
Constitutional: Comfortable, Chronically Ill and Non-toxic
Eyes: Sclera Anicteric
Cardiovascular: S1/S2; Negative S3/S4
Pulmonary: Non Labored
Gastrointestinal: Soft and Non Tender
Wound: Other (Bilateral foot dressings in place. VAC in place. Bloody strikethrough noted on left foot dressing.)
Neurological: Awake
Psychological: Calm
Objective Data
Lab Data
Lab Results
11/06/24 06:15
11/06/24 06:15
ESR 88 mm/hour (0-20) H 11/06/24 06:15
Estimated Creat Clear 87 ml/min 11/06/24 06:15
Total Bilirubin 0.4 mg/dl (0.2-1.3) 11/03/24 05:38
AST 11 U/L (17-59) L 11/03/24 05:38
ALT < 10 U/L (0-50) 11/03/24 05:38
Alkaline Phosphatase 71 U/L (38-126) 11/03/24 05:38
C-Reactive Protein 12.80 mg/L (0.0-10.00) H 11/06/24 06:15
Most recent labs reviewed.
Micro Results:
11/06/24 10:04 Urine Culture - Pending
Urine
11/05/24 16:56 Wound Culture - Pending
Foot - Left Gram Stain - Preliminary
11/05/24 16:56 Wound Culture - Pending
Foot - Right Gram Stain - Preliminary
11/05/24 16:56 Anaerobic Culture - Pending
Foot - Left
11/05/24 16:56 Anaerobic Culture - Pending
Foot - Right
11/01/24 14:54 Wound Culture - Final
Foot - Right Citrobacter koseri
S aureus-Methicillin Sensitive
Gram Stain - Final
11/01/24 20:07 MRSA Screen - Final
Nose No Methicillin Resistant Staphylococcus aureus isolated.
Wound/abscess/other Cult Final (Right foot wound) 11/01/24
Organism 1 Citrobacter koseri
Organism 2 S aureus-Methicillin Sensitive
C. KOSERI MSSA
M.I.C. RX M.I.C. RX
--------- --- --------- ---
Amoxicillin/Potas. Clavulanate <=8/4 S <=4/2 S
Ampicillin >16 R <=2 R
Ampicillin/Sulbactam <=4/2 S
Aztreonam <=4 S
Cefazolin <=2 S
Clindamycin <=0.5 R
Ertapenem <=0.5 S
Ciprofloxacin <=0.25 S
Gentamicin <=2 S <=4 S
Erythromycin >4 R
Levofloxacin <=1 S
Oxacillin <=0.25 S
Meropenem <=1 S
Piperacillin/Tazobactam <=8 S
Tetracycline <=4 S <=4 S
Tobramycin <=2 S
Trimethoprim/Sulfamethoxazole <=2/38 S <=0.5/9.5 S
Vancomycin 1 S
Imaging:
11/03/2024 MRI right foot: osteomyelitis is noted in the fifth metatarsal head, fifth proximal phalanx, fourth metatarsal head and fourth proximal phalanx. Probable early osteomyelitis of the fifth middle and distal phalanges, along with the fourth
distal phalanx. Pathologic fractures of the fifth metatarsal head and fifth proximal phalanx noted. A loculated fluid collection is noted in the soft tissues of the lateral forefoot surrounding the 4th and 5th metatarsophalangeal joints, and
extending medially along the plantar aspect of the forefoot. Please see full dictation for additional detail.
11/03/2024 MRI left foot: osteomyelitis of the fifth metatarsal head and fifth proximal phalanx. Pathologic fracture of the fifth metatarsal head.
[2024-11-06 12:27] LABS: Glucose - Point of Care 74 mg/dl (70-99)
[2024-11-06] MEDS: KLOR-CON 40 MEQ PO (12:33)
[2024-11-06] MEDS: NOVOLOG FLEXPEN SC (12:36)
[2024-11-06] MEDS: NOVOLOG FLEXPEN-MODERATE RESISTANCE SC ×2 (12:37→17:48)
--- NOTE | 2024-11-06 13:07 | W.PN.UPDATE ---
Update Note
Progress Note Update
64 yo M s/p R open TMA, left 3rd toe amputation and open partial 5th ray amputation. Doing well this AM
-Wound vac to run at 125mmHg, reinforce as needed
-Continue IV antibiotics
-Strict offloading
-Plan for return to OR 11/09 for repeat debridement
--- NOTE | 2024-11-06 13:39 | CM ---
CM following re: discharge planning.
Reviewed pt's chart, met with pt.
Pt is s/p R open TMA, left 3rd toe amputation and open partial 5th ray amputation. per MD, pt is doing well this AM. Plan for return to OR 11/09 for repeat debridement.
PT and OT evaluations noted - SNF level of care recommended. Pt is awre, expressed his agreement and pt stated he lives in [facility] and he requested [facility]. A referral to [facility] made.
Pt stated he just received a power wheelchair at home.
D/C plan: [facility] when medically stable.
CM will follow to assist pt with discharge to [facility]
[2024-11-06 17:35] LABS: Glucose - Point of Care 169 mg/dl (70-99)
[2024-11-06] MEDS: REQUIP 0.25 MG PO (17:45)
[2024-11-06] MEDS: PROTONIX 40 MG PO (17:45)
[2024-11-06] MEDS: LIPITOR 40 MG PO (17:45)
[2024-11-06 21:28] LABS: Glucose - Point of Care 224 mg/dl (70-99)
[2024-11-06] MEDS: LANTUS 0.4 UNITS SC (22:00)
[2024-11-07] MEDS: UNASYN IV ×5 (00:08→23:07)
[2024-11-07 05:15] VITALS: BMI 21.0
--- NOTE | 2024-11-07 05:35 | PTCARENOTE ---
pt still unable to void after dominguez removed yesterday- starlight cathed twice this shift
[2024-11-07 06:06] LABS: Hematocrit 24.0 % (39.0-52.0); Hemoglobin 7.5 g/dL (13.0-18.0); Mean Corp Hgb Conc. 31.3 g/dL (33.0-37.0); Mean Corpuscular Volume 75.9 fL (80.0-94.0); Nucleated Red Blood Cells % 0 % (-); Platelet Count 440 10^3/uL (130-400); Red Cell Dist. Width 16.4 % (11.5-14.5)
[2024-11-07 06:33] LABS: Blood Urea Nitrogen 24 mg/dl (9-20); Calcium 7.6 mg/dl (8.4-10.2); Carbon Dioxide 30 mmol/L (22-30); Chloride 104 mmol/L (98-107); Estimated Creatinine Clearance 69 ml/min; Glucose 125 mg/dl (70-99); Potassium 3.6 mmol/L (3.5-5.1); Sodium 137 mmol/L (135-145); eGFR > 60.00
[2024-11-07 07:40] VITALS: BP 145/70
[2024-11-07 07:48] LABS: Glucose - Point of Care 124 mg/dl (70-99)
[2024-11-07] MEDS: NOVOLOG FLEXPEN-MODERATE RESISTANCE SC ×2 (08:06→11:40)
[2024-11-07] MEDS: NOVOLOG FLEXPEN 15 UNITS SC (08:07)
[2024-11-07] MEDS: ASPIR LOW (ENTERIC COATED) 81 MG PO (08:11)
[2024-11-07] MEDS: FLORINEF 0.1 MG PO ×2 (08:11→21:50)
[2024-11-07] MEDS: NORVASC 10 MG PO (08:11)
[2024-11-07] MEDS: XARELTO 2.5 MG PO ×2 (08:11→21:50)
[2024-11-07] MEDS: PROGRAF 1 MG PO ×2 (08:11→21:50)
[2024-11-07] MEDS: FEOSOL 325 MG PO (08:11)
[2024-11-07] MEDS: DELTASONE 5 MG PO (08:12)
--- NOTE | 2024-11-07 08:53 | W.PN.HOSP.TC ---
Today's Communication/Plan
-
Continue IV Unasyn for now
Plan for OR for repeat debridement on Saturday
H&H at 2pm
Boss placed
Decrease insulin glargine to 35 from 40, decrease aspart from 15-10
Assessment / Plan
Assessment / Plan
MALENA DIABETIC FOOT ULCER, Wet Gangrenous
-s/p R open TMA, left 3rd toe amputation and open partial 5th ray amputation 11/05/2024
-s/p Balloon angioplasty of left peroneal artery and left anterior tibial artery
Wound vac to run at 125mmHg, reinforce as needed
Plan for return to OR 11/09 for repeat debridement
Strict offloading
ID input appreciated
Continue current antibiotics (Unasyn) day 6
Multifactorial anemia
Continue to monitor CBC
Transfuse for hemoglobin less than 7
Check an H&H at 2 today
Urine retention; likely related to immobility
-Boss placement for now
Stage 2 sacral pressure injury, POA
- Continue ongoing wound care
Insulin Dependent Diabetes Mellitus
-Lantus @ 40 iu; decreased to 35
- Insulin Aspart Pre-meal- 15iu ; increased to 10
-A1C- 14.2
-Moderate Resistance Insulin Corrective Insulin
Hypertension
-Amlodipine 10mg
Hypokalemia
-3.6; Recheck in the a.m.
IRON DEF ANEMIA
-Hb/Ht- 8.4/25.5, MCV- 75.2
-Fe supplementation with Ferous sulfate 325mg 1 daily
Thrombocytosis
Stable (APR)
S/P Donor Kidney Transplant for renal failure
-Renal function stable
-Continue tacrolimus -Levels pending
-Continue fludrocortisone and prednisone
Hyperlipidemia
-Continue pravastatin
GERD / PUD
-Continue Protonix
Restless Leg Syndrome
-Continue ropinirole
Hx TIA
-Continue aspirin , Xarelto
Chronic Ambulatory Dysfunction
-Wheelchair bound
DVT proph: Lovenox
-
Anticipated Discharge: > 48 hours
Subjective/Interval History
-
Date of Service: November 07, 2024
seen and examined at bedside. offers no new complaints. AFVSS
Objective Data
-
Labs:
Laboratory Results
11/07/24
05:43
WBC 11.9 H
Hgb 7.5 L
Hct 24.0 L
Plt Count 440 H
Sodium 137
Potassium 3.6
Chloride 104
Carbon Dioxide 30
BUN 24 H
Creatinine 1.1
Glucose 125 H
Calcium 7.6 L
Vital Signs:
Vital Signs
Temp Pulse Resp BP Pulse Ox
97.4 F 79 18 145/70 96
11/07/24 07:40 11/07/24 08:11 11/07/24 07:40 11/07/24 08:11 11/07/24 07:40
I&O
11/06/24 11/07/24 11/08/24
06:59 06:59 06:59
Intake Total 265 / 265 1080 / 1080
Output Total 1400 / 1400
Balance 265 / 265 -320 / -320
Review of Systems
-
History Source: Patient
All other systems: Reviewed and negative (Except as documented)
Physical Exam
-
General: No Apparent Distress and Appears Chronically Ill
HEENT: Normocephalic
Respiratory: Clear to Auscultation and Non Labored Respirations
Cardiac: Regular Rhythm and S1/S2
GI: Soft and Nontender (Suprapubic tenderness)
Genito-urinary: Boss (draining clear urine)
Skin: Other (Wound dressing on both Feet.)
Neuro: Awake, Alert and Oriented
Psych: Other (Flat affect)
Data Reviewed
-
Labs: Labs Reviewed by me, Discussed with Physician and Discussed with Patient
[2024-11-07 11:38] LABS: Glucose - Point of Care 71 mg/dl (70-99)
[2024-11-07] MEDS: NOVOLOG FLEXPEN SC ×2 (11:45→11:46)
[2024-11-07 14:12] LABS: Hematocrit 22.3 % (39.0-52.0); Hemoglobin 7.1 g/dL (13.0-18.0)
[2024-11-07 15:36] VITALS: BP 113/66
[2024-11-07 16:35] LABS: Glucose - Point of Care 151 mg/dl (70-99)
[2024-11-07] MEDS: NOVOLOG FLEXPEN 10 UNITS SC (16:52)
[2024-11-07] MEDS: NOVOLOG FLEXPEN-MODERATE RESISTANCE 300 UNITS SC (16:52)
[2024-11-07] MEDS: PROTONIX 40 MG PO (16:58)
[2024-11-07] MEDS: REQUIP 0.25 MG PO (16:58)
[2024-11-07] MEDS: LIPITOR 40 MG PO (16:58)
[2024-11-07 21:18] LABS: Glucose - Point of Care 158 mg/dl (70-99)
[2024-11-07] MEDS: LANTUS 0.35 UNITS SC (21:50)
--- NOTE | 2024-11-07 22:55 | OR.RPT ---
Operative Report
Operative Report
Operative Report
Patient:�Chauncey Schwartz
MRN:�[id number]
Date of Surgery:�11/05/2024
Surgeon:�Dexter Wilson DPM
Anesthesia:�MAC
Preoperative Diagnosis:
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
Left 3rd toe gangrene
Left 5th ray gangrene
Peripheral arterial disease, status post recent revascularization
Postoperative Diagnosis:�Same as preoperative
Procedures Performed:
Open right transmetatarsal amputation CPT 41287
Left 3rd toe amputation with primary closure CPT 91741
Left 5th ray amputation CPT 83394
Wound VAC application CPT 30818
Hemostasis:�Achieved with electrocautery.
Estimated Blood Loss:�Approximately 100 mL.
Complications:�None.
Specimens:�Right forefoot, and left 5th ray sent for pathology.
Indications for Surgery:
The patient presented with progressive bilateral forefoot gangrene in the setting of severe peripheral arterial disease. On the right side, gangrene extended from the 4th and 5th toes throughout the forefoot based on advanced imaging and clinical
exam. On the left side, the 3rd toe and 5th ray were nonviable with gangrenous changes. The patient had recently undergone a revascularization procedure and is planned for return to the OR for staged revision. Given the extent of necrosis, staged
amputations and wound management with negative pressure wound therapy were indicated.
Procedure in Detail:
After informed consent was obtained, the patient was brought to the operating room and placed supine on the operating table. MAC anesthesia was induced and the lower extremities were prepped and draped in the usual sterile fashion.
Right Foot:
A fish-mouth type incision was made across the forefoot at the level of the mid-metatarsals. There was extensive necrosis noted throughout the entire forefoot. The skin and subcutaneous tissues were dissected, and all metatarsals were transected
with a sagittal saw at the mid-shaft level keeping the metatarsal parabola intact. Nonviable tissue was debrided. Adequate perfusion and bleeding were observed from the cut bone surfaces and soft tissue edges. The forefoot was sent for pathology and
culture. The wound was irrigated with copious normal saline and left open for planned staged revision. A negative pressure wound VAC dressing was applied to the transmetatarsal amputation site with an airtight seal.
Left Foot:
Attention was first directed to the 3rd toe. The entire toe was gangrenous with necrosis extending nearly to the metatarsophalangeal joint. An elliptical incision was made at the base of the toe and carried down to bone. The toe was disarticulated
at the metatarsophalangeal joint. There was no further necrosis or purulence encountered and perfusion appeared adequate. The wound was irrigated and closed primarily with interrupted 3-0 monocryl and 3-0 prolene sutures.
Next, the left 5th ray amputation was performed. The lateral 5th ray had necrosis extending plantarly. An incision was made over the 5th ray encompassing the entirety of the lateral foot necrosis and carried down to the bone. The 5th metatarsal was
resected at its base with a sagittal saw. Nonviable tissue was excised, and adequate perfusion noted. The 5th ray was sent for pathology and culture. The wound was irrigated thoroughly and left open due to contamination risk. A wound VAC was applied
with good seal obtained.
Disposition:�The patient tolerated the procedure well and was transferred to recovery in stable condition. He will return to the operating room next week for further staged debridement/revision as indicated.
Postoperative Plan:
Continue IV antibiotics per infectious disease recommendations
Maintain wound VAC therapy to right transmetatarsal and left 5th ray sites
Non-weightbearing bilateral lower extremities
Pain management and DVT prophylaxis per protocol
Scheduled return to OR next week for repeat evaluation and possible definitive closure
[2024-11-07 23:00] VITALS: BP 133/67
[2024-11-07] MEDS: MELATONIN 3 MG PO (23:35)
[2024-11-07] MEDS: PERCOCET 5/325 1 TABLET PO (23:35)
[2024-11-08] MEDS: UNASYN IV ×4 (05:11→23:28)
[2024-11-08 06:48] LABS: Hematocrit 21.7 % (39.0-52.0); Hemoglobin 6.8 g/dL (13.0-18.0); Mean Corp Hgb Conc. 31.3 g/dL (33.0-37.0); Mean Corpuscular Volume 76.4 fL (80.0-94.0); Nucleated Red Blood Cells % 0 % (-); Platelet Count 414 10^3/uL (130-400); Red Cell Dist. Width 16.8 % (11.5-14.5)
[2024-11-08 07:06] LABS: Blood Urea Nitrogen 20 mg/dl (9-20); Calcium 7.5 mg/dl (8.4-10.2); Carbon Dioxide 30 mmol/L (22-30); Chloride 106 mmol/L (98-107); Estimated Creatinine Clearance 76 ml/min; Glucose 178 mg/dl (70-99); Potassium 3.8 mmol/L (3.5-5.1); Sodium 139 mmol/L (135-145); eGFR > 60.00
--- NOTE | 2024-11-08 07:21 | W.PN.HOSP.TC ---
Today's Communication/Plan
-
1 unit PRBC
OR tomorrow for repeat debridement with podiatry
Continue IV antibiotic
Assessment / Plan
Assessment / Plan
MALENA DIABETIC FOOT ULCER, Wet Gangrenous
Osteomyelitis
-s/p R open TMA, left 3rd toe amputation and open partial 5th ray amputation 11/05/2024 POD #3
-s/p Balloon angioplasty of left peroneal artery and left anterior tibial artery POD #4
Wound vac to run at 125mmHg, reinforce as needed
Plan for return to OR 11/09 for repeat debridement
Strict offloading
ID input appreciated
Continue current antibiotics (Unasyn) day 7
Multifactorial anemia
Labs in am with hb of 6.8. consent obtained and 1 unit PRBC ordered.
Continue to monitor CBC
Transfuse for hemoglobin less than 7
Urine retention; likely related to immobility
-Boss placement for now
Stage 2 sacral pressure injury, POA
- Continue ongoing wound care
Insulin Dependent Diabetes Mellitus
-Lantus @ 40 iu; decreased to 35
- Insulin Aspart Pre-meal- 15iu ; increased to 10
-A1C- 14.2
-Moderate Resistance Insulin Corrective Insulin
Hypertension
-Amlodipine 10mg
Hypokalemia
-3.8; Recheck in the a.m.
IRON DEF ANEMIA
-Hb/Ht- 8.4/25.5, MCV- 75.2
-Fe supplementation with Ferous sulfate 325mg daily
Thrombocytosis
Stable (APR)
S/P Donor Kidney Transplant for renal failure
-Renal function stable
-Continue tacrolimus -Levels pending
-Continue fludrocortisone and prednisone
Hyperlipidemia
-Continue pravastatin
GERD / PUD
-Continue Protonix
Restless Leg Syndrome
-Continue ropinirole
Hx TIA
-Continue aspirin , Xarelto
Chronic Ambulatory Dysfunction
-Wheelchair bound
DVT proph: Lovenox
-
Anticipated Discharge: > 48 hours
Subjective/Interval History
-
Date of Service: November 08, 2024
seen and examined at bedside. offers no new complaints. AFVSS
Objective Data
-
Labs:
Laboratory Results
11/08/24
06:26
WBC 10.3
Hgb 6.8 L*
Hct 21.7 L
Plt Count 414 H
Sodium 139
Potassium 3.8
Chloride 106
Carbon Dioxide 30
BUN 20
Creatinine 1.0
Glucose 178 H
Calcium 7.5 L
Vital Signs:
Vital Signs
Temp Pulse Resp BP Pulse Ox
98.1 F 75 16 133/67 94
11/07/24 23:00 11/07/24 23:00 11/07/24 23:00 11/07/24 23:00 11/07/24 23:00
I&O
11/07/24 11/08/24 11/09/24
06:59 06:59 06:59
Intake Total 1080 / 1080 1440 / 1440 120 / 120
Output Total 1400 / 1400 1200 / 1200 1000 / 1000
Balance -320 / -320 240 / 240 -880 / -880
Review of Systems
-
History Source: Patient
All other systems: Reviewed and negative (Except as documented)
Physical Exam
-
General: No Apparent Distress and Appears Chronically Ill
HEENT: Normocephalic
Respiratory: Clear to Auscultation and Non Labored Respirations
Cardiac: Regular Rhythm and S1/S2
GI: Soft and Nontender (Suprapubic tenderness)
Genito-urinary: Boss (draining clear urine)
Skin: Other (Wound dressing on both Feet.)
Neuro: Awake, Alert and Oriented
Psych: Calm
Data Reviewed
-
Labs: Labs Reviewed by me, Discussed with Physician and Discussed with Patient
[2024-11-08 07:57] VITALS: BP 136/75
[2024-11-08] MEDS: NOVOLOG FLEXPEN 10 UNITS SC ×3 (08:00→17:03)
[2024-11-08] MEDS: NOVOLOG FLEXPEN-MODERATE RESISTANCE 1 UNITS SC (08:00)
[2024-11-08] MEDS: FLORINEF 0.1 MG PO ×2 (08:01→20:44)
[2024-11-08] MEDS: DELTASONE 5 MG PO (08:01)
[2024-11-08] MEDS: XARELTO 2.5 MG PO ×2 (08:01→20:44)
[2024-11-08] MEDS: PROGRAF 1 MG PO ×2 (08:02→20:44)
[2024-11-08] MEDS: FEOSOL 325 MG PO (08:02)
[2024-11-08] MEDS: NORVASC 10 MG PO (08:02)
[2024-11-08] MEDS: ASPIR LOW (ENTERIC COATED) 81 MG PO (08:02)
[2024-11-08 10:34] VITALS: BP 104/60
[2024-11-08 10:43] VITALS: BP 104/60
[2024-11-08 11:04] VITALS: BP 109/54
[2024-11-08] MEDS: NOVOLOG FLEXPEN-MODERATE RESISTANCE SC (11:57)
[2024-11-08 11:58] LABS: Glucose - Point of Care 132 mg/dl (70-99)
[2024-11-08 12:44] VITALS: BP 117/64
[2024-11-08 13:58] LABS: Hematocrit 26.0 % (39.0-52.0); Hemoglobin 8.5 g/dL (13.0-18.0)
[2024-11-08] MEDS: NOVOLOG FLEXPEN-MODERATE RESISTANCE 5 UNITS SC (17:03)
[2024-11-08 17:05] LABS: Glucose - Point of Care 250 mg/dl (70-99)
[2024-11-08] MEDS: LIPITOR 40 MG PO (17:20)
[2024-11-08] MEDS: PROTONIX 40 MG PO (17:20)
[2024-11-08] MEDS: REQUIP 0.25 MG PO (17:20)
[2024-11-08 21:41] LABS: Glucose - Point of Care 222 mg/dl (70-99)
[2024-11-08] MEDS: LANTUS 0.35 UNITS SC (22:00)
[2024-11-08] MEDS: MELATONIN 3 MG PO (22:04)
[2024-11-08 23:18] VITALS: BP 133/62
[2024-11-09] MEDS: UNASYN IV ×3 (05:22→16:28)
[2024-11-09 07:20] LABS: Hematocrit 25.1 % (39.0-52.0); Hemoglobin 8.1 g/dL (13.0-18.0); Mean Corp Hgb Conc. 32.3 g/dL (33.0-37.0); Mean Corpuscular Volume 77.2 fL (80.0-94.0); Platelet Count 450 10^3/uL (130-400); Red Cell Dist. Width 17.1 % (11.5-14.5)
--- NOTE | 2024-11-09 07:27 | W.PN.HOSP.TC ---
Today's Communication/Plan
-
Scheduled for OR today
Assessment / Plan
Assessment / Plan
#[employer] ULCER, Wet Gangrenous
#Osteomyelitis
-s/p R open TMA, left 3rd toe amputation and open partial 5th ray amputation 11/05/2024 POD #4
-s/p Balloon angioplasty of left peroneal artery and left anterior tibial artery POD #5
-Wound vac to run at 125mmHg, reinforce as needed about 100ml so far
-Plan for return to OR 11/09 for repeat debridement today @ 3pm
-NPO
-Continue current antibiotics; Unasyn- day 5. Previously Cefepime & Vanco)
#Multifactorial anemia
ABLA from surgery, TESSA, Anemia of Chronic disease,
-Had 1 unit of PRBC due to Hb of 6.8, Current Hb/Ht 8.5/26
-Fe supplementation with Ferous sulfate 325mg daily
-Continue to monitor CBC
-Transfuse for hemoglobin less than 7 or symptomatic
#Urinary Retention
Urine retention; likely related to immobility
-Boss was replaced yesterday
#Stage 2 sacral pressure injury, POA
- Continue ongoing wound care
# Insulin Dependent Diabetes Mellitus
-Current regimen changed 2 days ago
-Lantus changed two days ago 11/07/2024 @ 35 iu;
- Insulin Aspart Pre-meal- 10
-A1C- 14.2
-Fluctuating blood glucose levels likely due to surgery status and multiple periods of NPO
#Hypertension
-Now fairly controled
-Amlodipine 10mg
#Hypokalemia
-3.8; Recheck in the a.m.
S/P Donor Kidney Transplant for renal failure
-Renal function stable
-Continue tacrolimus -Levels 15.5 ( 5-20)
-Continue fludrocortisone and prednisone
Hyperlipidemia
-Continue pravastatin
GERD / PUD
-Continue Protonix
Restless Leg Syndrome
-Continue ropinirole
Hx TIA
-Continue aspirin , Xarelto
Chronic Ambulatory Dysfunction
-Wheelchair bound
DVT proph: Xarelto
-
Anticipated Discharge: > 48 hours
Subjective/Interval History
-
Date of Service: November 09, 2024
Patient is a 64 y/o male past medical history of renal transplant, diabetes mellitus and chronic wheelchair bound state who presented on account of Bilateral foot gangrene
No new complains today
Objective Data
-
Labs:
Laboratory Results
11/09/24
06:50
WBC 10.7
Hgb 8.1 L
Hct 25.1 L
Plt Count 450 H
Sodium Pending
Potassium Pending
Chloride Pending
Carbon Dioxide Pending
BUN Pending
Creatinine Pending
Glucose Pending
Calcium Pending
Vital Signs:
Vital Signs
Temp Pulse Resp BP Pulse Ox
98.0 F 73 17 133/62 95
11/08/24 23:18 11/08/24 23:18 11/08/24 23:18 11/08/24 23:18 11/08/24 23:18
I&O
11/08/24 11/09/24 11/10/24
06:59 06:59 06:59
Intake Total 1440 / 1440 2049
Output Total 1200 / 1200 3950 / 3950
Balance 240 / 240 -1900 / -1900
Review of Systems
-
History Source: Patient
Constitutional: Reports No Symptoms
EENT: Reports No Symptoms Reported
Respiratory: Reports No Symptoms
Cardiac: Reports No Symptoms
Abdomen/GI: Reports Other (Incontinent)
Genitourinary: Reports Other (Retention, on Boss)
Physical Exam
-
General: No Apparent Distress and Appears Chronically Ill
HEENT: Normocephalic
Respiratory: Clear to Auscultation and Non Labored Respirations
Cardiac: Regular Rhythm and S1/S2
GI: Soft and Nontender (Suprapubic tenderness)
Genito-urinary: Boss (draining clear urine)
Skin: Other (Wound dressing on both Feet.)
Neuro: Awake, Alert and Oriented
Psych: Calm
[2024-11-09 07:30] VITALS: BP 136/65
[2024-11-09] MEDS: XARELTO PO (08:00)
[2024-11-09 08:26] LABS: Blood Urea Nitrogen 20 mg/dl (9-20); Calcium 7.5 mg/dl (8.4-10.2); Carbon Dioxide 28 mmol/L (22-30); Chloride 106 mmol/L (98-107); Estimated Creatinine Clearance 85 ml/min; Glucose 141 mg/dl (70-99); Potassium 3.8 mmol/L (3.5-5.1); Sodium 139 mmol/L (135-145); eGFR > 60.00
[2024-11-09] MEDS: NOVOLOG FLEXPEN SC ×2 (08:37→13:03)
[2024-11-09] MEDS: NOVOLOG FLEXPEN-MODERATE RESISTANCE SC ×3 (08:38→15:06)
[2024-11-09] MEDS: NORVASC 10 MG PO (10:00)
[2024-11-09] MEDS: PROGRAF 1 MG PO ×2 (10:00→20:03)
--- NOTE | 2024-11-09 10:20 | CM ---
Patient seen at bedside
OR today repeat debridement with podiatry
Referral in [facility] for [facility]
WILL need to obtain ins auth
PLAN: SNF, pending bed availability when stable, will need ins auth
[2024-11-09 12:12] VITALS: BP 120/70; BP 129/76; BP 152/88; PULSE 69; PULSE 74
[2024-11-09 13:04] LABS: Glucose - Point of Care 75 mg/dl (70-99)
[2024-11-09 13:30] LABS: Vitamin D, 25-OH*** < 12.8 ng/mL (30-80)
--- NOTE | 2024-11-09 14:10 | W.PN.ID1 ---
Date of Service
Date of Service: November 09, 2024
Today's Communication
Continue antibiotics.
Assessment / Plan
Bilateral foot osteomyelitis
- s/p (R) TMA / (L) 3rd toe amp / (L) 5th part. met amp
Bilateral foot wounds
Critical limb ischemia; status post angioplasty
Leukocytosis
Immunosuppression 2* medications
Hx renal transplant
Insulin Dependent Diabetes Mellitus
Essential Hypertension
Hyperlipidemia
GERD / PUD
Restless Leg Syndrome
TIA
Chronic Ambulatory Dysfunction - Wheelchair bound
Recommendations:
Continue with Unasyn 3gm IV q6h (d#8 abx)
Follow pending pathology
Local care to the foot wounds.
����������������������������������������������������������
Chief Complaint
-: Other (B/L foot infection)
Subjective / Review of Systems
Review of Systems: No Fever and No Chills
Vital Signs / Physical Exam
Vital Signs
Vital Signs
Temp Pulse Resp BP Pulse Ox
98.4 F 75 18 136/65 95
11/09/24 07:30 11/09/24 07:30 11/09/24 07:30 11/09/24 07:30 11/09/24 07:30
Physical Exam
Constitutional: Comfortable, Chronically Ill and Non-toxic
Eyes: Sclera Anicteric
Cardiovascular: S1/S2; Negative S3/S4
Pulmonary: Non Labored
Gastrointestinal: Soft and Non Tender
Wound: Other (Bilateral foot dressings in place. VAC in place. Bloody strikethrough noted on left foot dressing.)
Neurological: Awake
Psychological: Calm
Objective Data
Lab Data
Lab Results
11/09/24 06:50
11/09/24 06:50
ESR 88 mm/hour (0-20) H 11/06/24 06:15
Estimated Creat Clear 85 ml/min 11/09/24 06:50
Total Bilirubin 0.4 mg/dl (0.2-1.3) 11/03/24 05:38
AST 11 U/L (17-59) L 11/03/24 05:38
ALT < 10 U/L (0-50) 11/03/24 05:38
Alkaline Phosphatase 71 U/L (38-126) 11/03/24 05:38
C-Reactive Protein 12.80 mg/L (0.0-10.00) H 11/06/24 06:15
Most recent labs reviewed.
Micro Results:
11/05/24 16:56 Anaerobic Culture - Preliminary
Foot - Left Culture pending. Anaerobic cultures are examined after 3
days incubation. Additional information to follow.
11/05/24 16:56 Anaerobic Culture - Preliminary
Foot - Right NO ANAEROBES ISOLATED
11/05/24 16:56 Wound Culture - Preliminary
Foot - Left Viridans Streptococcus Group
Gram Stain - Preliminary
11/05/24 16:56 Wound Culture - Preliminary
Foot - Right No growth
Gram Stain - Preliminary
11/06/24 10:04 Urine Culture - Final
Urine NO GROWTH
11/01/24 14:54 Wound Culture - Final
Foot - Right Citrobacter koseri
S aureus-Methicillin Sensitive
Gram Stain - Final
11/01/24 20:07 MRSA Screen - Final
Nose No Methicillin Resistant Staphylococcus aureus isolated.
Wound/abscess/other Cult Final (Right foot wound) 11/01/24
Organism 1 Citrobacter koseri
Organism 2 S aureus-Methicillin Sensitive
C. KOSERI MSSA
M.I.C. RX M.I.C. RX
--------- --- --------- ---
Amoxicillin/Potas. Clavulanate <=8/4 S <=4/2 S
Ampicillin >16 R <=2 R
Ampicillin/Sulbactam <=4/2 S
Aztreonam <=4 S
Cefazolin <=2 S
Clindamycin <=0.5 R
Ertapenem <=0.5 S
Ciprofloxacin <=0.25 S
Gentamicin <=2 S <=4 S
Erythromycin >4 R
Levofloxacin <=1 S
Oxacillin <=0.25 S
Meropenem <=1 S
Piperacillin/Tazobactam <=8 S
Tetracycline <=4 S <=4 S
Tobramycin <=2 S
Trimethoprim/Sulfamethoxazole <=2/38 S <=0.5/9.5 S
Vancomycin 1 S
Pathology:
11/06/2024 bilateral feet: pending
Imaging:
11/03/2024 MRI right foot: osteomyelitis is noted in the fifth metatarsal head, fifth proximal phalanx, fourth metatarsal head and fourth proximal phalanx. Probable early osteomyelitis of the fifth middle and distal phalanges, along with the fourth
distal phalanx. Pathologic fractures of the fifth metatarsal head and fifth proximal phalanx noted. A loculated fluid collection is noted in the soft tissues of the lateral forefoot surrounding the 4th and 5th metatarsophalangeal joints, and
extending medially along the plantar aspect of the forefoot. Please see full dictation for additional detail.
11/03/2024 MRI left foot: osteomyelitis of the fifth metatarsal head and fifth proximal phalanx. Pathologic fracture of the fifth metatarsal head.
--- NOTE | 2024-11-09 14:27 | W.PN.UPDATE ---
Update Note
Progress Note Update
I saw and evaluated the patient. I agree with resident's plan except for changes in my documentation.
64-year-old with history of renal transplant presented with bilateral foot wounds. Patient was at [facility] and left [place] and came to [facility].
Right NURIA-unmeasurable due to noncompressible arteries on the right. TBI 0.73 multiphasic waveforms with transition to monophasic waveforms in the popliteal artery suggesting presence of disease at this location. Mid SFA 50% or greater stenosis
Left NURIA-unmeasurable. TBI 0.53 duplex multiphasic waveforms RAFTSMAN, PA. Suspect infrapopliteal disease
MRI right lower extremity-OM of fifth metatarsal head, fifth proximal phalanx, fourth metatarsal head, fourth proximal phalanx, fourth middle phalanx. Probably early OM of the fifth middle and distal phalanx and fourth distal phalanx. Pathologic
fracture of the fifth metatarsal head and fifth proximal phalanx. Loculated fluid collection lateral forefoot surrounding 4th and 5th metatarsal joints extending medially along the plantar aspect of the forefoot at the level of the 2nd through 4th
proximal phalanges
MRI of the left lower extremity-OM of the fifth metatarsal head and fifth proximal phalanx. Pathologic fracture of the fifth metatarsal head. Fracture at the base of the fourth proximal phalanx likely to be posttraumatic rather than pathologic
CVS: S1-S2 normal
Chest: CTA B/L
Abdomen: Soft, NT / Bowel sounds present
Extremities: Bilateral lower extremity bandaged and has wound VAC
# Infected bilateral diabetic foot wounds
Bilateral lateral plantar necrotic full-thickness wounds likely secondary to diabetes/PAD
Left second, third, fifth toes
Right-fourth necrotic toe, full-thickness right 4th-5th webspace wound
Wound culture left fifth metatarsal strep viridans
Status post open right transmetatarsal amputation, left third toe amputation with primary closure, left fifth ray amputation, wound VAC application on 11/05/2024
Return to the OR on 11/09/2024 for repeat debridement
Offloading
Currently on Unasyn
Preop EKG ordered
# Peripheral artery disease
Chronic limb threatening ischemia bilateral lower extremity with gangrene and osteomyelitis bilateral feet
Status post balloon angioplasty left peroneal artery, left anterior tibial artery on 11/04/2024
On Xarelto 2.5 mg twice daily, aspirin
# Urinary retention-Boss catheter placed in the ER
Enlarged prostate
Voiding trial after surgeries
# Anemia-iron deficiency also likely acute blood loss anemia secondary to postoperative state
Status post 1 unit of PRBC
Continue p.o. iron
# Hypokalemia-resolved
# Donor kidney transplant-2017
continue tacrolimus, prednisone
Tacrolimus level was 15.5 on 11/01/2024
Levels from 11/08/2024-2.2? Unclear what time of the day this was drawn
Ill have Nephrology see pt.
# Diabetes-hemoglobin A1c-14.2
Poorly controlled diabetes as outpatient
Was on glargine 35 units at bedtime and lispro 15 units 3 times daily as outpatient
Currently on Lantus 35 units at bedtime and NovoLog 10 AC, Accu-Cheks and sliding scale coverage
Hold scheduled NovoLog while NPO
# Hypertension-continue amlodipine
# Hyperlipidemia-continue statin
# History of TIA-continue aspirin and statin
# GERD/PUD
# Restless leg syndrome-continue Requip
# Stage II sacral pressure injury
# Ambulatory dysfunction/wheelchair-bound
# Hypoalbuminemia
# DVT prophylaxis-Xarelto
# Full code
Part of this note was created using voice recognition system. Occasional wrong word or��sound alike� substitutions may have inadvertently occurred due to the inherent limitations of voice recognition software. If noted kindly bring it to my
attention for correction.
[2024-11-09 15:07] LABS: Glucose - Point of Care 91 mg/dl (70-99)
[2024-11-09 15:30] VITALS: BP 143/70
--- NOTE | 2024-11-09 15:47 | W.CON.NEPH ---
Consultation
-
Date/Time Consultation Requested: 11/09/2024 3 PM
Date/Time Consultation Performed: 11/09/2024 3 PM
Requesting Provider: Dr. Mueller
Performing Provider: Dr. Pope
Reason for Consultation: Renal transplant
Medical History
-
Chief Complaint: Osteomyelitis
History of Present Illness:
This is a six 4-year-[age] gentleman who has diabetes mellitus type 2 on insulin therapy which is modestly controlled only. He has hypertension on a monotherapy regimen. However he is also on fludrocortisone but does not know why. He received a
donor renal transplant [address] [facility]. He has not followed up with them lately. 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 Hodgson at [place]. He has not seen him for at least a year because he has
been bedbound. He is on a dual immunosuppressive regimen for his transplant. He does not recall ever being on a third agent. He does not recall having any complications with his transplant. He was recently at [facility] but left
[facility]. His son later brought him to [place] because of bilateral foot wounds. Using antibiotics but was found to have poorly healing wounds and ultimately underwent angiogram with angioplasty of his left leg. His overall renal
function has been good but tacrolimus levels have been quite variable we are asked to assist with management of his immunosuppressive regimen.
Past Medical History
Insulin Dependent Diabetes Mellitus
Essential Hypertension
Hyperlipidemia
GERD / PUD
Restless Leg Syndrome
TIA
Chronic Ambulatory Dysfunction - Wheelchair bound
donor Renal Transplant - Apr 2016 [facility]
Right Leg Pins
Social History
Tobacco: Former Smoker
Alcohol: None
Family History
Family History: Not Pertinent
Allergies / Home Medications
Allergy/AdvReac Type Severity Reaction Status Date / Time
No Known Allergies Allergy Unverified 11/01/24 10:49
�Medication �Instructions �Recorded �Confirmed �Type
amlodipine 5 mg tablet 5 mg PO DAILY 11/01/24 11/01/24 History
aspirin 81 mg tablet,delayed 81 mg PO DAILY 11/01/24 11/01/24 History
release
fludrocortisone 0.1 mg tablet 0.1 mg PO BID 11/01/24 11/01/24 History
insulin glargine 100 unit/mL (3 35 unit SC HS 11/01/24 11/01/24 History
mL) subcutaneous pen (Lantus
Solostar U-100 Insulin)
insulin lispro 100 unit/mL 15 unit SC TID 11/01/24 11/01/24 History
subcutaneous solution (Humalog
U-100 Insulin)
omeprazole 20 mg capsule,delayed 20 mg PO QPM 11/01/24 11/01/24 History
release
pravastatin 20 mg tablet 20 mg PO DAILY 11/01/24 11/01/24 History
prednisone 5 mg tablet 5 mg PO DAILY 11/01/24 11/01/24 History
ropinirole 0.25 mg tablet 0.25 mg PO QPM 11/01/24 11/01/24 History
tacrolimus 1 mg capsule, 1 mg PO BID 11/01/24 11/01/24 History
immediate-release
Review of Systems
-
No chest pain or shortness of breath
All other systems: Negative unless noted
Physical Exam
Vital Signs
Vital Signs
Temp Pulse Resp BP Pulse Ox
98.4 F 75 18 136/65 95
11/09/24 07:30 11/09/24 07:30 11/09/24 07:30 11/09/24 07:30 11/09/24 07:30
Lab Results
WBC 10.7 10^3/uL (4.8-10.8) 11/09/24 06:50
RBC 3.25 10^6/uL (4.70-6.10) L 11/09/24 06:50
Hgb 8.1 g/dL (13.0-18.0) L 11/09/24 06:50
Hct 25.1 % (39.0-52.0) L 11/09/24 06:50
Plt Count 450 10^3/uL (130-400) H 11/09/24 06:50
Sodium 139 mmol/L (135-145) 11/09/24 06:50
Potassium 3.8 mmol/L (3.5-5.1) 11/09/24 06:50
Chloride 106 mmol/L (98-107) 11/09/24 06:50
Carbon Dioxide 28 mmol/L (22-30) 11/09/24 06:50
BUN 20 mg/dl (9-20) 11/09/24 06:50
Creatinine 0.9 mg/dL (0.7-1.3) 11/09/24 06:50
eGFR > 60.00 11/09/24 06:50
Glucose 141 mg/dl (70-99) H 11/09/24 06:50
Calcium 7.5 mg/dl (8.4-10.2) L 11/09/24 06:50
Albumin 2.7 g/dl (3.5-5.0) L 11/03/24 05:38
Physical Exam
Patient is awake alert oriented and in no distress. Mood and affect were pleasant, insight and judgment were good. Pupils are equal round and reactive to light, extraocular movements are intact, sclera were anicteric. Hearing was normal, ears and
nose are intact. Oropharynx was clear. Neck was supple with trachea midline and no thyromegaly. Heart was regular rate and rhythm without rubs. Lower extremities without edema. Lungs were clear to auscultation bilaterally and with normal
excursion. Abdomen was soft, nontender, with normal active bowel sounds, and no hepatosplenomegaly. Skin was without rash and with normal turgor.
Data Reviewed
-
Radiology: Image Personally Visualized and interpreted (Chest x-ray 11/01/2024 by my reading left lower lobe atelectasis)
Medical Tests (Nuc Med, Echo etc): Image Personally Visualized and interpreted (EKG 11/09/2024 by reading sinus rhythm)
Labs: Labs Reviewed by me (Tacrolimus level reviewed in the system)
Old Records: Reviewed
Assessment/Plan
-
Assessment
Bilateral foot osteomyelitis
- s/p (R) TMA / (L) 3rd toe amp / (L) 5th part. met amp
Critical limb ischemia; status post angioplasty LLE
donor renal transplant 2017 on 2 immunosuppressants
Diabetes Mellitus 2
Essential Hypertension
Hyperlipidemia
GERD / PUD
Restless Leg Syndrome
TIA
Chronic Ambulatory Dysfunction - Wheelchair bound
Chronic Florinef use
Plan
Renal function is at baseline very well tacrolimus level is uncertain
Though may in part be related to timing of drug versus timing of lab
I have discussed with the nurse. We will hope to have consistent dosing of tacrolimus at 8 AM and 8 PM for at least the next 3 doses and a trough level may be checked before the fourth dose
Antibiotics continue per ID
Do not suspect medication reaction for his tacrolimus levels
[2024-11-09] MEDS: DRISDOL (VITAMIN D2) 50000 UNITS PO (16:28)
[2024-11-09] MEDS: DELTASONE 5 MG PO (16:29)
[2024-11-09] MEDS: FEOSOL 325 MG PO (16:29)
[2024-11-09] MEDS: FLORINEF 0.1 MG PO ×2 (16:29→22:06)
[2024-11-09] MEDS: ASPIR LOW (ENTERIC COATED) 81 MG PO (16:29)
[2024-11-09] MEDS: NOVOLOG FLEXPEN 10 UNITS SC (16:31)
[2024-11-09] MEDS: PROTONIX 40 MG PO (18:15)
[2024-11-09] MEDS: REQUIP 0.25 MG PO (18:15)
[2024-11-09] MEDS: LIPITOR 40 MG PO (18:15)
[2024-11-09 22:00] LABS: Glucose - Point of Care 152 mg/dl (70-99)
[2024-11-09] MEDS: MELATONIN 3 MG PO (22:06)
[2024-11-09] MEDS: LANTUS 0.35 UNITS SC (22:06)
[2024-11-09 23:10] VITALS: BP 125/65
[2024-11-10] MEDS: UNASYN IV ×5 (00:07→23:31)
[2024-11-10 06:02] LABS: Glucose - Point of Care 164 mg/dl (70-99)
[2024-11-10] MEDS: NOVOLOG FLEXPEN-MODERATE RESISTANCE 1 UNITS SC (06:23)
[2024-11-10 07:30] VITALS: BP 151/82
[2024-11-10] MEDS: NOVOLOG FLEXPEN SC (08:12)
[2024-11-10] MEDS: NORVASC 10 MG PO (08:13)
[2024-11-10] MEDS: PROGRAF 1 MG PO ×2 (08:13→20:05)
[2024-11-10] MEDS: ASPIR LOW (ENTERIC COATED) 81 MG PO (08:13)
[2024-11-10] MEDS: FLORINEF 0.1 MG PO ×2 (08:13→20:05)
[2024-11-10] MEDS: VITAMIN D3 (cholecalciferol) 50 MCG PO (08:13)
[2024-11-10] MEDS: FEOSOL 325 MG PO (08:14)
[2024-11-10] MEDS: DELTASONE 5 MG PO (08:14)
[2024-11-10 08:19] LABS: Hematocrit 28.9 % (39.0-52.0); Hemoglobin 9.1 g/dL (13.0-18.0); Mean Corp Hgb Conc. 31.5 g/dL (33.0-37.0); Mean Corpuscular Volume 78.1 fL (80.0-94.0); Platelet Count 546 10^3/uL (130-400); Red Cell Dist. Width 17.2 % (11.5-14.5)
[2024-11-10 08:46] LABS: Blood Urea Nitrogen 20 mg/dl (9-20); Calcium 8.1 mg/dl (8.4-10.2); Carbon Dioxide 28 mmol/L (22-30); Chloride 107 mmol/L (98-107); Estimated Creatinine Clearance 85 ml/min; Glucose 138 mg/dl (70-99); Potassium 3.8 mmol/L (3.5-5.1); Sodium 139 mmol/L (135-145); eGFR > 60.00
--- NOTE | 2024-11-10 09:33 | W.PN.HOSP.TC ---
Today's Communication/Plan
-
For debridement today
Assessment / Plan
Assessment / Plan
# Infected bilateral diabetic foot wounds
#Osteomyelitis
-Bilateral lateral plantar necrotic full-thickness wounds likely secondary to diabetes/PAD
Left second, third, fifth toes
Right-fourth necrotic toe, full-thickness right 4th-5th webspace wound
--s/p RIGHT open TMA, LEFT 3rd toe amputation and open partial 5th ray amputation 11/05/2024 POD #5
-s/p Balloon angioplasty of left peroneal artery and left anterior tibial artery11/04/2024 POD #6
-On NPO
-Plan for return to OR 11/09 for repeat debridement today @ 12
-Continue current antibiotics; Unasyn- day 6completed . (Previously Cefepime & Vanco)
# PRE-Op EKG 11/09/2024
Sinus rhythm with occasional premature ventricular complexes
Prolonged QT
#Multifactorial anemia
ABLA from surgery, TESSA, Anemia of Chronic disease,
-Had 1 unit of PRBC due to Hb of 6.8, Current Hb/Ht 8.5/26
-Fe supplementation with Ferous sulfate 325mg daily
-Continue to monitor CBC
-Transfuse for hemoglobin less than 7 or symptomatic
#Urinary Retention
Urine retention; likely related to immobility
-Boss in-situ after failing trial voiding
-Repeat Voiding trial after surgery
# Peripheral artery disease
Chronic limb threatening ischemia bilateral lower extremity with gangrene and osteomyelitis bilateral feet
Status post balloon angioplasty left peroneal artery, left anterior tibial artery on 11/04/2024 POD #6
On Xarelto 2.5 mg twice daily, aspirin
#Stage 2 sacral pressure injury, POA
- Continue ongoing wound care
# Insulin Dependent Diabetes Mellitus
-Current regimen changed 2 days ago
-Lantus changed two days ago 11/07/2024 @ 35 iu;
- Insulin Aspart Pre-meal- 10
-A1C- 14.2
-Fluctuating blood glucose levels likely due to surgery status and multiple periods of NPO
#Hypertension
-Now fairly controled
-Amlodipine 10mg
#Hypokalemia
-3.8; Recheck in the a.m.
# S/P Donor Kidney Transplant for renal failure
-Renal function stable
-Continue tacrolimus -Levels 15.5 ( 5-20)
-Consult from Nephro noted with thanks
-Tacrolimus drug reaction is unlikely at this time
-Ensure strict administration of medication
-Continue fludrocortisone and prednisone
Hyperlipidemia
-Continue pravastatin
GERD / PUD
-Continue Protonix
Restless Leg Syndrome
-Continue ropinirole
Hx TIA
-Continue aspirin , Xarelto
Chronic Ambulatory Dysfunction
-Wheelchair bound
DVT proph: Xarelto
-
Anticipated Discharge: > 48 hours
Subjective/Interval History
-
Date of Service: November 10, 2024
Patient is a 64 y/o male past medical history of renal transplant, diabetes mellitus and chronic wheelchair bound state who presented on account of Bilateral foot gangrene
No new complains today
Objective Data
-
Labs:
Laboratory Results
11/10/24
07:26
WBC 9.9
Hgb 9.1 L
Hct 28.9 L
Plt Count 546 H D
Sodium 139
Potassium 3.8
Chloride 107
Carbon Dioxide 28
BUN 20
Creatinine 0.9
Glucose 138 H
Calcium 8.1 L
Vital Signs:
Vital Signs
Temp Pulse Resp BP Pulse Ox
97.7 F 66 16 151/82 96
11/10/24 07:30 11/10/24 07:30 11/10/24 07:30 11/10/24 08:13 11/10/24 07:30
I&O
11/09/24 11/10/24 11/11/24
06:59 06:59 06:59
Intake Total 2049 600 / 600
Output Total 3950 / 3950 3350 / 3350
Balance -1900 / -1900 -2750 / -2750
Review of Systems
-
History Source: Patient
Constitutional: Reports No Symptoms
EENT: Reports No Symptoms Reported
Respiratory: Reports No Symptoms
Cardiac: Reports No Symptoms
Abdomen/GI: Reports No Symptoms and Other (Incontinent)
Genitourinary: Reports Other (Retention, on Boss)
Physical Exam
-
General: Appears Chronically Ill
HEENT: Normocephalic, Atraumatic and Moist Mucous Membranes
Respiratory: Clear to Auscultation
Cardiac: Regular Rhythm and S1/S2
--- NOTE | 2024-11-10 10:20 | W.PN.NEPH.PH ---
Today's Communication / Plan
-
Follow tacrolimus level
Assessment/Plan
-
Assessment
Bilateral foot osteomyelitis
- s/p (R) TMA / (L) 3rd toe amp / (L) 5th part. met amp
Critical limb ischemia; status post angioplasty LLE
donor renal transplant 2017 on 2 immunosuppressants
Diabetes Mellitus 2
Essential Hypertension
Hyperlipidemia
GERD / PUD
Restless Leg Syndrome
TIA
Chronic Ambulatory Dysfunction - Wheelchair bound
Chronic Florinef use
Plan
Renal function is at baseline very well tacrolimus level is uncertain
Though may in part be related to timing of drug versus timing of lab
We will hope to have consistent dosing of tacrolimus at 8 AM and 8 PM for at least the next 3 doses and a trough level may be checked before the fourth dose
Antibiotics continue per ID
Do not suspect medication reaction for his tacrolimus levels
Pending OR
-
-
Date of Service: November 10, 2024
CC / HPI / ROS
-
Chief Complaint:
Renal transplant
History of Present Illness:
Creatinine stable 0.9
BP stable high
On antibiotics for osteomyelitis
Awaiting OR
Review of Systems:
No chest pain or shortness of breath
Labs
-
Labs:
WBC 9.9 10^3/uL (4.8-10.8) 11/10/24 07:26
RBC 3.70 10^6/uL (4.70-6.10) L 11/10/24 07:26
Hgb 9.1 g/dL (13.0-18.0) L 11/10/24 07:26
Hct 28.9 % (39.0-52.0) L 11/10/24 07:26
Plt Count 546 10^3/uL (130-400) H D 11/10/24 07:26
Sodium 139 mmol/L (135-145) 11/10/24 07:26
Potassium 3.8 mmol/L (3.5-5.1) 11/10/24 07:26
Chloride 107 mmol/L (98-107) 11/10/24 07:26
Carbon Dioxide 28 mmol/L (22-30) 11/10/24 07:26
BUN 20 mg/dl (9-20) 11/10/24 07:26
Creatinine 0.9 mg/dL (0.7-1.3) 11/10/24 07:26
eGFR > 60.00 11/10/24 07:26
Glucose 138 mg/dl (70-99) H 11/10/24 07:26
Calcium 8.1 mg/dl (8.4-10.2) L 11/10/24 07:26
Albumin 2.7 g/dl (3.5-5.0) L 11/03/24 05:38
Physical Exam
-
Vital Signs:
Vital Signs
Temp Pulse Resp BP Pulse Ox
97.7 F 66 16 151/82 96
11/10/24 07:30 11/10/24 07:30 11/10/24 07:30 11/10/24 08:13 11/10/24 07:30
Cardiovascular:: Regular rate and rhythm
Respiratory:: Bilateral: CTA
Lung Excursion:: Normal
Abdomen:: Nontender and Soft
Bowel Sounds:: Normal
Extremity Edema:: +1: Bilateral:
--- NOTE | 2024-11-10 11:00 | CM ---
Reviewed the chart notes and spoke with the patient at the bedside. Patient is scheduled for OR today. Wound vac in place. [facility] accept at [facility].
Patient agreeable to either facility. Precert will be required. CM continues to be available to patient/family and is monitoring medical plan for needs at discharge.
Plan: Discharge to SNF/rehab once medically stable, bed secured, and auth obtained.
[2024-11-10 12:05] LABS: Glucose - Point of Care 127 mg/dl (70-99)
[2024-11-10] MEDS: NOVOLOG FLEXPEN-MODERATE RESISTANCE SC ×2 (12:07→17:46)
--- NOTE | 2024-11-10 15:02 | W.PN.ID1 ---
Date of Service
Date of Service: November 10, 2024
Today's Communication
Continue antibiotics.
Assessment / Plan
Bilateral foot osteomyelitis
- s/p (R) TMA / (L) 3rd toe amp / (L) 5th part. met amp
Bilateral foot wounds
Critical limb ischemia; status post angioplasty
Leukocytosis
Immunosuppression 2* medications
Hx renal transplant
Insulin Dependent Diabetes Mellitus
Essential Hypertension
Hyperlipidemia
GERD / PUD
Restless Leg Syndrome
TIA
Chronic Ambulatory Dysfunction - Wheelchair bound
Recommendations:
Continue with Unasyn 3gm IV q6h (d#10 abx)
Follow pending pathology
Local care to the foot wounds.
����������������������������������������������������������
Chief Complaint
-: Other (B/L foot infection)
Subjective / Review of Systems
Review of Systems: No Fever and No Chills
Vital Signs / Physical Exam
Vital Signs
Vital Signs
Temp Pulse Resp BP Pulse Ox
97.7 F 66 16 151/82 96
11/10/24 07:30 11/10/24 07:30 11/10/24 07:30 11/10/24 08:13 11/10/24 07:30
Physical Exam
Constitutional: Comfortable, Chronically Ill and Non-toxic
Eyes: Sclera Anicteric
Cardiovascular: S1/S2; Negative S3/S4
Pulmonary: Non Labored
Gastrointestinal: Soft and Non Tender
Wound: Other (Bilateral foot dressings in place. VAC in place to the bilateral feet. Bloody strikethrough noted on left foot dressing.)
Neurological: Awake
Psychological: Calm
Objective Data
Lab Data
Lab Results
11/10/24 07:26
11/10/24 07:26
ESR 88 mm/hour (0-20) H 11/06/24 06:15
Estimated Creat Clear 85 ml/min 11/10/24 07:26
Total Bilirubin 0.4 mg/dl (0.2-1.3) 11/03/24 05:38
AST 11 U/L (17-59) L 11/03/24 05:38
ALT < 10 U/L (0-50) 11/03/24 05:38
Alkaline Phosphatase 71 U/L (38-126) 11/03/24 05:38
C-Reactive Protein 12.80 mg/L (0.0-10.00) H 11/06/24 06:15
Most recent labs reviewed.
Micro Results:
11/05/24 16:56 Wound Culture - Final
Foot - Right No growth
Gram Stain - Final
11/05/24 16:56 Anaerobic Culture - Final
Foot - Right NO ANAEROBES ISOLATED
11/05/24 16:56 Wound Culture - Final
Foot - Left Viridans Streptococcus Group
Gram Stain - Final
11/05/24 16:56 Anaerobic Culture - Final
Foot - Left NO ANAEROBES ISOLATED
11/06/24 10:04 Urine Culture - Final
Urine NO GROWTH
11/01/24 14:54 Wound Culture - Final
Foot - Right Citrobacter koseri
S aureus-Methicillin Sensitive
Gram Stain - Final
11/01/24 20:07 MRSA Screen - Final
Nose No Methicillin Resistant Staphylococcus aureus isolated.
Wound/abscess/other Cult Final (Right foot wound) 11/01/24
Organism 1 Citrobacter koseri
Organism 2 S aureus-Methicillin Sensitive
C. KOSERI MSSA
M.I.C. RX M.I.C. RX
--------- --- --------- ---
Amoxicillin/Potas. Clavulanate <=8/4 S <=4/2 S
Ampicillin >16 R <=2 R
Ampicillin/Sulbactam <=4/2 S
Aztreonam <=4 S
Cefazolin <=2 S
Clindamycin <=0.5 R
Ertapenem <=0.5 S
Ciprofloxacin <=0.25 S
Gentamicin <=2 S <=4 S
Erythromycin >4 R
Levofloxacin <=1 S
Oxacillin <=0.25 S
Meropenem <=1 S
Piperacillin/Tazobactam <=8 S
Tetracycline <=4 S <=4 S
Tobramycin <=2 S
Trimethoprim/Sulfamethoxazole <=2/38 S <=0.5/9.5 S
Vancomycin 1 S
Pathology:
11/06/2024 bilateral feet: pending
Imaging:
11/03/2024 MRI right foot: osteomyelitis is noted in the fifth metatarsal head, fifth proximal phalanx, fourth metatarsal head and fourth proximal phalanx. Probable early osteomyelitis of the fifth middle and distal phalanges, along with the fourth
distal phalanx. Pathologic fractures of the fifth metatarsal head and fifth proximal phalanx noted. A loculated fluid collection is noted in the soft tissues of the lateral forefoot surrounding the 4th and 5th metatarsophalangeal joints, and
extending medially along the plantar aspect of the forefoot. Please see full dictation for additional detail.
11/03/2024 MRI left foot: osteomyelitis of the fifth metatarsal head and fifth proximal phalanx. Pathologic fracture of the fifth metatarsal head.
--- NOTE | 2024-11-10 15:43 | W.PN.UPDATE ---
Update Note
Progress Note Update
I saw and evaluated the patient. I agree with resident's plan except for changes in my documentation.
64-year-old with history of renal transplant presented with bilateral foot wounds. Patient was at [facility] and left [place] and came to [facility].
Right NURIA-unmeasurable due to noncompressible arteries on the right. TBI 0.73 multiphasic waveforms with transition to monophasic waveforms in the popliteal artery suggesting presence of disease at this location. Mid SFA 50% or greater stenosis
Left NURIA-unmeasurable. 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 Suspect infrapopliteal disease
MRI right lower extremity-OM of fifth metatarsal head, fifth proximal phalanx, fourth metatarsal head, fourth proximal phalanx, fourth middle phalanx. Probably early OM of the fifth middle and distal phalanx and fourth distal phalanx. Pathologic
fracture of the fifth metatarsal head and fifth proximal phalanx. Loculated fluid collection lateral forefoot surrounding 4th and 5th metatarsal joints extending medially along the plantar aspect of the forefoot at the level of the 2nd through 4th
proximal phalanges
MRI of the left lower extremity-OM of the fifth metatarsal head and fifth proximal phalanx. Pathologic fracture of the fifth metatarsal head. Fracture at the base of the fourth proximal phalanx likely to be posttraumatic rather than pathologic
CVS: S1-S2 normal
Chest: CTA B/L
Abdomen: Soft, NT / Bowel sounds present
Extremities: Bilateral lower extremity bandaged and has wound VAC
# Infected bilateral diabetic foot wounds
Bilateral lateral plantar necrotic full-thickness wounds likely secondary to diabetes/PAD
Left second, third, fifth toes
Right-fourth necrotic toe, full-thickness right 4th-5th webspace wound
Wound culture left fifth metatarsal strep viridans
Status post open right transmetatarsal amputation, left third toe amputation with primary closure, left fifth ray amputation, wound VAC application on 11/05/2024
Return to the OR on 11/10/2024 for repeat debridement
Offloading
Currently on Unasyn
Preop EKG reviewed.
# Peripheral artery disease
Chronic limb threatening ischemia bilateral lower extremity with gangrene and osteomyelitis bilateral feet
Status post balloon angioplasty left peroneal artery, left anterior tibial artery on 11/04/2024
On Xarelto 2.5 mg twice daily, aspirin ( hold for OR)
# Urinary retention-Boss catheter placed in the ER
Enlarged prostate
Voiding trial after surgeries
# Anemia-iron deficiency also likely acute blood loss anemia secondary to postoperative state
Status post 1 unit of PRBC
Continue p.o. iron
# Hypokalemia-resolved
# Donor kidney transplant-2016
continue tacrolimus, prednisone
Tacrolimus level was 15.5 on 11/01/2024
Levels from 11/08/2024-2.2? Unclear what time of the day this was drawn
Nephrology eval appreciated
# Diabetes-hemoglobin A1c-14.2
Poorly controlled diabetes as outpatient
Was on glargine 35 units at bedtime and lispro 15 units 3 times daily as outpatient
Currently on Lantus 35 units at bedtime and NovoLog 10 AC, Accu-Cheks and sliding scale coverage
Hold scheduled NovoLog while NPO
# Hypertension-continue amlodipine
# Hyperlipidemia-continue statin
# History of TIA-continue aspirin and statin
# GERD/PUD
# Restless leg syndrome-continue Requip
# Stage II sacral pressure injury
# Ambulatory dysfunction/wheelchair-bound
# Hypoalbuminemia
# DVT prophylaxis-Xarelto
# Full code
Part of this note was created using voice recognition system. Occasional wrong word or��sound alike� substitutions may have inadvertently occurred due to the inherent limitations of voice recognition software. If noted kindly bring it to my
attention for correction.
[2024-11-10 17:15] VITALS: BP 114/74; BP 151/82
[2024-11-10 17:26] LABS: Glucose - Point of Care 102 mg/dl (70-99)
[2024-11-10 17:30] VITALS: BP 118/69
--- NOTE | 2024-11-10 17:36 | W.PN.SURGUPD ---
Surgical Update
Surgical Update
64 yo M s/p R TMA DPC and left partial 5th ray revision with integra/wound vac application
-Can reinforce dressings as needed. Seeing wound care instructions note. Wound VAC can be changed in 1 week from 11/10
-R TMA post-washout culture obtained
-Recommended 10-14 days continued antibiotic course
-No further surgical intervention
-PT/OT
-Follow up at [facility] in 2 weeks
[2024-11-10 17:45] VITALS: BP 141/78
[2024-11-10 18:05] VITALS: BP 134/76
--- NOTE | 2024-11-10 18:13 | PTCARENOTE ---
Patient returned to his room from pacu post left foot debridement with graft and right foot metatarsal revision.The patient is alert and oriented.He denies any pain.All dressings are intact and dry.The patient is in his bed with the call choe in
place.
[2024-11-10] MEDS: REQUIP 0.25 MG PO (18:18)
[2024-11-10] MEDS: LIPITOR 40 MG PO (18:18)
[2024-11-10] MEDS: PROTONIX 40 MG PO (18:18)
[2024-11-10 21:32] LABS: Glucose - Point of Care 116 mg/dl (70-99)
[2024-11-10] MEDS: MELATONIN 3 MG PO (22:15)
[2024-11-10] MEDS: LANTUS 0.35 UNITS SC (22:15)
[2024-11-10 23:15] VITALS: BP 114/66
[2024-11-10] MEDS: PERCOCET 5/325 1 TABLET PO (23:36)
[2024-11-11] MEDS: UNASYN IV ×4 (05:22→23:25)
--- NOTE | 2024-11-11 07:14 | W.PN.HOSP.TC ---
Addendum entered and electronically signed by Jenniffer Mueller MD 11/11/24 15:24:
Acute osteomyelitis
Addendum entered and electronically signed by Jenniffer Mueller MD 11/11/24 14:48:
I saw and evaluated the patient. I agree with resident's plan except for changes in my documentation.
64-year-old with history of renal transplant presented with bilateral foot wounds. Patient was at [facility] and left [place] and came to [facility].
Right NURIA-unmeasurable due to noncompressible arteries on the right. TBI 0.73 multiphasic waveforms with transition to monophasic waveforms in the popliteal artery suggesting presence of disease at this location. Mid SFA 50% or greater stenosis
Left NURIA-unmeasurable. 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 Suspect infrapopliteal disease
MRI right lower extremity-OM of fifth metatarsal head, fifth proximal phalanx, fourth metatarsal head, fourth proximal phalanx, fourth middle phalanx. Probably early OM of the fifth middle and distal phalanx and fourth distal phalanx. Pathologic
fracture of the fifth metatarsal head and fifth proximal phalanx. Loculated fluid collection lateral forefoot surrounding 4th and 5th metatarsal joints extending medially along the plantar aspect of the forefoot at the level of the 2nd through 4th
proximal phalanges
MRI of the left lower extremity-OM of the fifth metatarsal head and fifth proximal phalanx. Pathologic fracture of the fifth metatarsal head. Fracture at the base of the fourth proximal phalanx likely to be posttraumatic rather than pathologic
CVS: S1-S2 normal
Chest: CTA B/L
Abdomen: Soft, NT / Bowel sounds present
Extremities: Bilateral lower extremity bandaged and has wound VAC
# Infected bilateral diabetic foot wounds
Bilateral lateral plantar necrotic full-thickness wounds likely secondary to diabetes/PAD
Left second, third, fifth toes
Right-fourth necrotic toe, full-thickness right 4th-5th webspace wound
Wound culture left fifth metatarsal strep viridans
Status post open right transmetatarsal amputation, left third toe amputation with primary closure, left fifth ray amputation, wound VAC application on 11/05/2024
S/P OR on 11/10/2024 for repeat debridement
Offloading
Currently on Unasyn
# Peripheral artery disease
Chronic limb threatening ischemia bilateral lower extremity with gangrene and osteomyelitis bilateral feet
Status post balloon angioplasty left peroneal artery, left anterior tibial artery on 11/04/2024
On Xarelto 2.5 mg twice daily, aspirin ( hold for OR)
# Urinary retention-Dominguez catheter placed in the ER
Enlarged prostate
Voiding trial failed. Patient needs catheter back in 11/11/24
# Anemia-iron deficiency also likely acute blood loss anemia secondary to postoperative state
Status post 1 unit of PRBC
Continue IV iron
# Hypokalemia-resolved
# Donor kidney transplant-2016
continue tacrolimus, prednisone
Tacrolimus level was 15.5 on 11/01/2024
Levels from 11/08/2024-2.2? Unclear what time of the day this was drawn
Level from m 11/11 trough pending.
Nephrology eval appreciated
# Diabetes-hemoglobin A1c-14.2
Poorly controlled diabetes as outpatient
Was on glargine 35 units at bedtime and lispro 15 units 3 times daily as outpatient
Currently on Lantus 35 units at bedtime and NovoLog 10 AC, Accu-Cheks and sliding scale coverage
# Hypertension-continue amlodipine
# Hyperlipidemia-continue statin
# History of TIA-continue aspirin and statin
# GERD/PUD- PPI
# Restless leg syndrome-continue Requip
# Stage II sacral pressure injury
# Ambulatory dysfunction/wheelchair-bound
# Hypoalbuminemia
# DVT prophylaxis-Xarelto
# Full code
D/W RN
D/W Nephrology
D/W Case management
Spoke to son and updated. Son endorses pt has not walked for 2 m. Updated re his condition. All questions answered.
Part of this note was created using voice recognition system. Occasional wrong word or��sound alike� substitutions may have inadvertently occurred due to the inherent limitations of voice recognition software. If noted kindly bring it to my
attention for correction.
Original Note:
Today's Communication/Plan
-
For discharge planning to acute care, pending path report to decide Abx
Assessment / Plan
Assessment / Plan
# Infected bilateral diabetic foot wounds
#Osteomyelitis
-Bilateral lateral plantar necrotic full-thickness wounds likely secondary to diabetes/PAD
Left second, third, fifth toes
Right-fourth necrotic toe, full-thickness right 4th-5th webspace wound
-Had left partial 5th ray revision yesterday (11/10/2024)
-s/p RIGHT open TMA, LEFT 3rd toe amputation and open partial 5th ray amputation 11/05/2024 POD #6
-s/p Balloon angioplasty of left peroneal artery and left anterior tibial artery11/04/2024 POD #7
-Continue current antibiotics; Unasyn- day 6completed . (Previously Cefepime & Vanco)
-Review path result of bm therapy when ready
# PRE-Op EKG 11/09/2024
Sinus rhythm with occasional premature ventricular complexes
Prolonged QT
#Multifactorial anemia
ABLA from surgery, TESSA, Anemia of Chronic disease,
-Had 1 unit of PRBC due to Hb of 6.8, Current Hb/Ht 8.5/
-Fe supplementation withfe infusion Ferous
-Continue to monitor CBC
-Transfuse for hemoglobin less than 7 or symptomatic
#Urinary Retention
Urine retention; likely related to immobility
-Failed voiding trial again post op,
-Replace dominguez
# Peripheral artery disease
Chronic limb threatening ischemia bilateral lower extremity with gangrene and osteomyelitis bilateral feet
Status post balloon angioplasty left peroneal artery, left anterior tibial artery on 11/04/2024 POD #6
On Xarelto 2.5 mg twice daily, aspirin
#Stage 2 sacral pressure injury, POA
-Healing
- Continue ongoing wound care
# Insulin Dependent Diabetes Mellitus
-Current regimen changed 2 days ago
-Lantus changed two days ago 11/07/2024 @ 35 iu;
- Resume Insulin Aspart Pre-meal- 10
-A1C- 14.2
-Fluctuating blood glucose levels likely due to surgery status and multiple periods of NPO
#Hypertension
-Now controlled
-Amlodipine 10mg
#Hypokalemia
-3.8; Recheck in the a.m.
# S/P Donor Kidney Transplant for renal failure
-Renal function stable
-Continue tacrolimus -Levels 15.5 ( 5-20)
-Consult from Nephro noted with thanks
-Tacrolimus drug reaction is unlikely at this time
-Ensure strict administration of medication
-Continue fludrocortisone and prednisone
Hyperlipidemia
-Continue pravastatin
GERD / PUD
-Continue Protonix
Restless Leg Syndrome
-Continue ropinirole
Hx TIA
-Continue aspirin , Xarelto
Chronic Ambulatory Dysfunction
-Wheelchair bound
DVT proph: Xarelto
-
Anticipated Discharge: 24 - 48 hours
Subjective/Interval History
-
Date of Service: November 11, 2024
Patient is a 64 y/o male past medical history of renal transplant, diabetes mellitus, neuropathy, TIA and chronic wheelchair bound state who is being managed for diabetic foot gangrene
He has no new complains today
Objective Data
-
Labs:
Laboratory Results
11/11/24
07:07
WBC Pending
Hgb Pending
Hct Pending
Plt Count Pending
Sodium Pending
Potassium Pending
Chloride Pending
Carbon Dioxide Pending
BUN Pending
Creatinine Pending
Glucose Pending
Calcium Pending
Vital Signs:
Vital Signs
Temp Pulse Resp BP Pulse Ox
98.2 F 65 17 114/66 99
11/10/24 23:15 11/10/24 23:15 11/10/24 23:15 11/10/24 23:15 11/10/24 23:15
I&O
11/10/24 11/11/24 11/12/24
06:59 06:59 06:59
Intake Total 600 / 600 770 / 770
Output Total 3350 / 3350 1900 / 1900
Balance -2750 / -2750 -1130 / -1130
Review of Systems
-
History Source: Patient
Constitutional: Reports No Symptoms
EENT: Reports No Symptoms Reported
Respiratory: Reports No Symptoms
Cardiac: Reports No Symptoms
Abdomen/GI: Reports No Symptoms
Physical Exam
-
General: Appears Chronically Ill
HEENT: Normocephalic, Atraumatic and Moist Mucous Membranes
Respiratory: Clear to Auscultation; Negative Rhonchi
Cardiac: Regular Rhythm and S1/S2
GI: Nontender
Neuro: Awake, Alert, Oriented and AO x 3
Data Reviewed
-
Labs: Labs Reviewed by me and Discussed with Patient
[2024-11-11 07:20] VITALS: BP 127/66
[2024-11-11 07:34] LABS: Hematocrit 26.0 % (39.0-52.0); Hemoglobin 8.3 g/dL (13.0-18.0); Mean Corp Hgb Conc. 31.9 g/dL (33.0-37.0); Mean Corpuscular Volume 77.8 fL (80.0-94.0); Platelet Count 521 10^3/uL (130-400); Red Cell Dist. Width 16.9 % (11.5-14.5)
[2024-11-11] MEDS: FLORINEF 0.1 MG PO ×2 (07:47→19:50)
[2024-11-11] MEDS: ASPIR LOW (ENTERIC COATED) 81 MG PO (07:47)
[2024-11-11] MEDS: NORVASC 10 MG PO (07:47)
[2024-11-11] MEDS: VITAMIN D3 (cholecalciferol) 50 MCG PO (07:47)
[2024-11-11] MEDS: FEOSOL 325 MG PO (07:47)
[2024-11-11] MEDS: PROGRAF 1 MG PO ×2 (07:47→19:50)
[2024-11-11] MEDS: DELTASONE 5 MG PO (07:47)
[2024-11-11] MEDS: NOVOLOG FLEXPEN-MODERATE RESISTANCE SC ×2 (07:51→11:49)
[2024-11-11 07:52] LABS: Glucose - Point of Care 121 mg/dl (70-99)
--- NOTE | 2024-11-11 08:07 | W.PN.UPDATE ---
Update Note
Progress Note Update
64 yo M s/p R TMA DPC and left partial 5th ray revision with integra/wound vac application. Doing well this AM, no complaints. Dressings C/D/I
-Can reinforce dressings as needed. Seeing wound care instructions note. Wound VAC can be changed in 1 week from 11/10
-R TMA post-washout culture obtained
-Recommended 10-14 days continued antibiotic course
-Continue with offloading heels
-No further surgical intervention
-PT/OT
-Follow up at [facility] in 2 weeks
[2024-11-11 08:17] LABS: Blood Urea Nitrogen 18 mg/dl (9-20); Calcium 7.7 mg/dl (8.4-10.2); Carbon Dioxide 28 mmol/L (22-30); Chloride 107 mmol/L (98-107); Estimated Creatinine Clearance 95 ml/min; Glucose 119 mg/dl (70-99); Potassium 3.8 mmol/L (3.5-5.1); Sodium 139 mmol/L (135-145); eGFR > 60.00
[2024-11-11 08:31] LABS: Total Iron Binding Capacity 226 ug/dl (261-462)
[2024-11-11 08:32] LABS: Iron < 20 ug/dl (49-181)
[2024-11-11 08:57] LABS: Ferritin 18.3 ng/ml (17.9-464.0)
--- NOTE | 2024-11-11 09:40 | W.PN.ID1 ---
Date of Service
Date of Service: November 11, 2024
Today's Communication
Continue antibiotics
Assessment / Plan
Bilateral foot osteomyelitis
- s/p (R) TMA / (L) 3rd toe amp / (L) 5th part. met amp
Bilateral foot wounds
Critical limb ischemia; status post angioplasty
Leukocytosis
Immunosuppression 2* medications
Hx renal transplant
Insulin Dependent Diabetes Mellitus
Essential Hypertension
Hyperlipidemia
GERD / PUD
Restless Leg Syndrome
TIA
Chronic Ambulatory Dysfunction - Wheelchair bound
Recommendations:
Patient's status post debridement yesterday. Repeat wound cultures obtained.
Prior cultures revealed growth of strep viridans, Citrobacter, MSSA
Continue with Unasyn 3gm IV q6h (d#11 abx)
Awaiting pathology to assess for any residual/retained osteomyelitis
Continue with local care to the foot wounds.
����������������������������������������������������������
Chief Complaint
-: Other (B/L foot infection)
Subjective / Review of Systems
Review of Systems: No Fever and No Chills
Vital Signs / Physical Exam
Vital Signs
Vital Signs
Temp Pulse Resp BP Pulse Ox
98.1 F 67 16 127/66 95
11/11/24 07:20 11/11/24 07:20 11/11/24 07:20 11/11/24 07:20 11/11/24 07:20
Physical Exam
Constitutional: Comfortable, Chronically Ill and Non-toxic
Eyes: Sclera Anicteric
Cardiovascular: S1/S2; Negative S3/S4
Pulmonary: Non Labored
Gastrointestinal: Soft and Non Tender
Wound: Other (Bilateral foot dressings in place. VAC in place to the right foot.)
Neurological: Awake
Psychological: Calm
Objective Data
Lab Data
Lab Results
11/11/24 07:07
11/11/24 07:07
ESR 88 mm/hour (0-20) H 11/06/24 06:15
Estimated Creat Clear 95 ml/min 11/11/24 07:07
Total Bilirubin 0.4 mg/dl (0.2-1.3) 11/03/24 05:38
AST 11 U/L (17-59) L 11/03/24 05:38
ALT < 10 U/L (0-50) 11/03/24 05:38
Alkaline Phosphatase 71 U/L (38-126) 11/03/24 05:38
C-Reactive Protein 12.80 mg/L (0.0-10.00) H 11/06/24 06:15
Most recent labs reviewed.
Micro Results:
11/10/24 17:00 Wound Culture - Pending
Foot - Right Gram Stain - Preliminary
11/10/24 17:00 Anaerobic Culture - Pending
Foot - Right
11/05/24 16:56 Wound Culture - Final
Foot - Right No growth
Gram Stain - Final
11/05/24 16:56 Anaerobic Culture - Final
Foot - Right NO ANAEROBES ISOLATED
11/05/24 16:56 Wound Culture - Final
Foot - Left Viridans Streptococcus Group
Gram Stain - Final
11/05/24 16:56 Anaerobic Culture - Final
Foot - Left NO ANAEROBES ISOLATED
11/06/24 10:04 Urine Culture - Final
Urine NO GROWTH
11/01/24 14:54 Wound Culture - Final
Foot - Right Citrobacter koseri
S aureus-Methicillin Sensitive
Gram Stain - Final
11/01/24 20:07 MRSA Screen - Final
Nose No Methicillin Resistant Staphylococcus aureus isolated.
Wound/abscess/other Cult Final (Right foot wound) 11/01/24
Organism 1 Citrobacter koseri
Organism 2 S aureus-Methicillin Sensitive
C. KOSERI MSSA
M.I.C. RX M.I.C. RX
--------- --- --------- ---
Amoxicillin/Potas. Clavulanate <=8/4 S <=4/2 S
Ampicillin >16 R <=2 R
Ampicillin/Sulbactam <=4/2 S
Aztreonam <=4 S
Cefazolin <=2 S
Clindamycin <=0.5 R
Ertapenem <=0.5 S
Ciprofloxacin <=0.25 S
Gentamicin <=2 S <=4 S
Erythromycin >4 R
Levofloxacin <=1 S
Oxacillin <=0.25 S
Meropenem <=1 S
Piperacillin/Tazobactam <=8 S
Tetracycline <=4 S <=4 S
Tobramycin <=2 S
Trimethoprim/Sulfamethoxazole <=2/38 S <=0.5/9.5 S
Vancomycin 1 S
Pathology:
11/06/2024 bilateral feet: pending
Imaging:
11/03/2024 MRI right foot: osteomyelitis is noted in the fifth metatarsal head, fifth proximal phalanx, fourth metatarsal head and fourth proximal phalanx. Probable early osteomyelitis of the fifth middle and distal phalanges, along with the fourth
distal phalanx. Pathologic fractures of the fifth metatarsal head and fifth proximal phalanx noted. A loculated fluid collection is noted in the soft tissues of the lateral forefoot surrounding the 4th and 5th metatarsophalangeal joints, and
extending medially along the plantar aspect of the forefoot. Please see full dictation for additional detail.
11/03/2024 MRI left foot: osteomyelitis of the fifth metatarsal head and fifth proximal phalanx. Pathologic fracture of the fifth metatarsal head.
[2024-11-11] MEDS: XARELTO 2.5 MG PO ×2 (10:37→19:50)
--- NOTE | 2024-11-11 11:06 | CM ---
Addendum entered by India Carvalho 11/11/24 11:27:
CM Consult completed
dispo planning
Addendum entered by India Carvalho 11/11/24 11:22:
[facility]
Report #: [id number]
Fax #: [phone]
patient with L wound vac
Original Note:
Patient seen at bedside
[facility]
no beds available at [place]
Offered [facility] - patient agreeable
await updated PT/OT notes
will need auth
[facility] NPI #: [id number]
Dr. Zimmer NPI #: [id number]
PLAN: [facility], will need auth, await updated PT/OT
[2024-11-11 11:42] LABS: Glucose - Point of Care 137 mg/dl (70-99)
[2024-11-11] MEDS: NOVOLOG FLEXPEN 10 UNITS SC ×2 (11:49→16:58)
--- NOTE | 2024-11-11 12:08 | CM ---
Case initiated in [facility] for skilled rehab.
Pended for medical review.
Pended reference # [id number].
Clinicals faxed to [phone]
--- NOTE | 2024-11-11 12:47 | W.PN.NEPH.PH ---
Today's Communication / Plan
-
Follow tacrolimus level
Assessment/Plan
-
Assessment
Bilateral foot osteomyelitis
- s/p (R) TMA / (L) 3rd toe amp / (L) 5th part. met amp
Critical limb ischemia; status post angioplasty LLE
donor renal transplant 2017 on 2 immunosuppressants
Diabetes Mellitus 2
Essential Hypertension
Hyperlipidemia
GERD / PUD
Restless Leg Syndrome
TIA
Chronic Ambulatory Dysfunction - Wheelchair bound
Chronic Florinef use
Plan
Renal function is at baseline
Antibiotics continue per ID
Pending tacrolimus level from 11/11 drawn at 7 AM with p.m. dose of tacrolimus given at 8 PM on
-
-
Date of Service: November 11, 2024
CC / HPI / ROS
-
Chief Complaint:
Renal transplant
History of Present Illness:
Creatinine stable 0.9
BP stable high
On antibiotics for osteomyelitis
Awaiting OR
Review of Systems:
No chest pain or shortness of breath
Labs
-
Labs:
WBC 8.8 10^3/uL (4.8-10.8) 11/11/24 07:07
RBC 3.34 10^6/uL (4.70-6.10) L 11/11/24 07:07
Hgb 8.3 g/dL (13.0-18.0) L 11/11/24 07:07
Hct 26.0 % (39.0-52.0) L 11/11/24 07:07
Plt Count 521 10^3/uL (130-400) H 11/11/24 07:07
Sodium 139 mmol/L (135-145) 11/11/24 07:07
Potassium 3.8 mmol/L (3.5-5.1) 11/11/24 07:07
Chloride 107 mmol/L (98-107) 11/11/24 07:07
Carbon Dioxide 28 mmol/L (22-30) 11/11/24 07:07
BUN 18 mg/dl (9-20) 11/11/24 07:07
Creatinine 0.8 mg/dL (0.7-1.3) 11/11/24 07:07
eGFR > 60.00 11/11/24 07:07
Glucose 119 mg/dl (70-99) H 11/11/24 07:07
Calcium 7.7 mg/dl (8.4-10.2) L 11/11/24 07:07
Albumin 2.7 g/dl (3.5-5.0) L 11/03/24 05:38
Physical Exam
-
Vital Signs:
Vital Signs
Temp Pulse Resp BP Pulse Ox
98.1 F 67 16 127/66 95
11/11/24 07:20 11/11/24 07:20 11/11/24 07:20 11/11/24 07:20 11/11/24 07:20
Cardiovascular:: Regular rate and rhythm
Respiratory:: Bilateral: CTA
Lung Excursion:: Normal
Abdomen:: Nontender and Soft
Bowel Sounds:: Normal
Extremity Edema:: +1: Bilateral:
[2024-11-11 12:49] VITALS: BP 100/50; BP 101/59; PULSE 77; O2SAT 93
[2024-11-11 12:57] VITALS: BP 100/50; BP 101/59; PULSE 77; O2SAT 93
[2024-11-11] MEDS: FERRLECIT 110 MG IV (13:08)
--- NOTE | 2024-11-11 13:56 | PN.CDI ---
CDI
- -
CDI:
Physician Documentation Request
Admit Date: 11/01/24 15:35
Dear Doctor Sheryl,
Patient admitted with bilateral lateral plantar necrotic full-thickness wounds likely secondary to diabetes/PAD.
11/11 PN, 'Infected bilateral diabetic foot wounds...Osteomyelitis....Continue current antibiotics; Unasyn- day 6 completed.'
Please clarify which of the following accurately represents the acuity of the osteomyelitis:
Acute
Acute on chronic
Chronic
Other
Use of terms such as suspected, likely, concern for, or probable (associated with a specific diagnosis that is being evaluated, monitored, or treated as if it exists) are acceptable and can be coded in the inpatient setting, when documented at the
time of discharge.
Thank you,
Anna TATE,RN,CCDS
CDI Specialist
Available via tiger text
Please use your independent medical judgment in providing your response.
--- NOTE | 2024-11-11 15:37 | PTCARENOTE ---
patient was due to void by 1215. bladder scanned for no urine output with 425 ml. called and new order to insert the dominguez cath for acute retention placed. patient has 16 Fr dominguez cath draining yellow urine with sediment. tolerated well. stat
lock applied
[2024-11-11 15:40] VITALS: BP 125/89
[2024-11-11 16:37] LABS: Glucose - Point of Care 169 mg/dl (70-99)
[2024-11-11] MEDS: NOVOLOG FLEXPEN-MODERATE RESISTANCE 1 UNITS SC (16:58)
[2024-11-11] MEDS: REQUIP 0.25 MG PO (16:58)
[2024-11-11] MEDS: LIPITOR 40 MG PO (16:58)
[2024-11-11] MEDS: PROTONIX 40 MG PO (16:58)
[2024-11-11] MEDS: PERCOCET 5/325 1 TABLET PO (20:10)
[2024-11-11 21:15] LABS: Glucose - Point of Care 125 mg/dl (70-99)
[2024-11-11] MEDS: MELATONIN 3 MG PO (21:35)
[2024-11-11] MEDS: LANTUS 0.35 UNITS SC (21:35)
--- NOTE | 2024-11-11 22:01 | OR.RPT ---
Operative Report
Operative Report
Operative Report
Patient: Chauncey Schwartz

Date of Surgery: 11/10/2024
Surgeon: Dexter Wilson DPM
Assistants: Dexter Moralez DPM
Preoperative Diagnoses:
Status post right foot transmetatarsal amputation with open wound
Status post left partial 5th ray amputation with residual nonviable bone and open wound
Nonhealing left lateral foot wound
Postoperative Diagnoses:
Same as preoperative
Procedures Performed:
Delayed primary closure of right transmetatarsal amputation stump CPT 72087
Resection of residual 5th metatarsal, left foot CPT 81322
Application of Integra bilayer matrix, left foot CPT 13520
Application of negative pressure wound therapy (wound VAC), left foot CPT 52563
Anesthesia:
MAC with 20ccs of 0.5% bupivacaine plain
Estimated Blood Loss:
Minimal
Specimens:
Post washout culture right foot
Complications:
None
Indications for Surgery:
The patient is a 64-year-old male with a history of bilateral foot infections. The right foot underwent a transmetatarsal amputation, which is now free of infection and ready for delayed primary closure. The left foot previously underwent a partial
5th ray resection but has persistent wound issues with exposed, nonviable bone. The patient was therefore scheduled for delayed primary closure of the right foot and further resection, debridement, and biologic matrix with VAC application on the
left foot to promote wound healing. Risks, benefits, and alternatives were discussed, and informed consent was obtained.
Operative Findings:
Right foot TMA stump with healthy granulation tissue, no purulence or necrosis
Left foot lateral wound with exposed 5th metatarsal remnant, nonviable bone and soft tissue
Adequate bleeding and viable tissue after resection and debridement
Left wound bed suitable for graft take and VAC placement
Procedure in Detail:
Right Foot:
Attention was first directed to the right foot. The transmetatarsal amputation site demonstrated healthy, noninfected tissue. All nonviable tissue was removed with a #15 blade and rongeur. The wound edges were freshened with sharp excision of
fibrinous tissue. Hemostasis was achieved. The incision was then closed in layers with 3-0 Vicryl for deep tissues and 3-0 prolene for skin in a simple and horizontal mattress fashion. A sterile dressing was applied.
Left Foot:
Attention was then directed to the left foot. The large defect of the lateral foot wound not be appropriate for closure. The lateral wound was examined, and the residual 5th metatarsal shaft was noted to be nonviable. A sagittal saw was used to
resect additional 5th metatarsal bone proximally until healthy bleeding bone was visualized. All nonviable soft tissue and necrotic wound edges were sharply excised back to healthy, bleeding margins.
The wound was irrigated with copious sterile saline. An Integra bilayer wound matrix was then tailored and secured over the wound bed with deion. Negative pressure wound therapy (VAC) was applied over the site with an airtight seal achieved.
The patient tolerated the procedure well. Sterile dressings were applied to both feet.
Disposition:
The patient was transferred to the recovery unit in stable condition. Orders include non-weightbearing to both lower extremities, IV antibiotics per Infectious Disease, and wound VAC management per protocol.
[2024-11-11 23:19] VITALS: BP 122/60
[2024-11-12] MEDS: UNASYN IV ×4 (05:28→23:15)
[2024-11-12 07:00] VITALS: BP 124/74
--- NOTE | 2024-11-12 07:09 | W.PN.HOSP.TC ---
Addendum entered and electronically signed by Jenniffer Mueller MD 11/12/24 13:05:
Seen and examined the patient independently. Agree with plan put forth by the resident
Patient has no complaints
CVS: S1-S2 normal
Chest: CTA B/L
Abdomen: Soft, NT , Bowel sounds present
Extremities: Feet bandaged with wound VAC
Tacrolimus level from 11/11/2024 7 which is within range
Awaiting pathology report to guide antibiotic therapy for discharge
I have reached out to pathologist
Case discussed with patient's son yesterday
Discussed with case management, nephrology, infectious disease today
Original Note:
Today's Communication/Plan
-
Patient is stable post op
For discharge pending path report and review by ID
Assessment / Plan
Assessment / Plan
# Infected bilateral diabetic foot wounds
#Chronic Osteomyelitis
-Bilateral lateral plantar necrotic full-thickness wounds likely secondary to diabetes/PAD
Left second, third, fifth toes
Right-fourth necrotic toe, full-thickness right 4th-5th webspace wound
-Had left partial 5th ray revision yesterday POD #2 (11/10/2024)
-s/p RIGHT open TMA, LEFT 3rd toe amputation and open partial 5th ray amputation 11/05/2024 POD #7
-s/p Balloon angioplasty of left peroneal artery and left anterior tibial artery 11/04/2024 POD #8
-Continue current antibiotics; Unasyn 3G Q6H- Day 9 (11/04/2024) . (Previously Cefepime & Vanco)
-Review path result of bm therapy when ready today
-On Vitamin D supp
-Wound VAC can be changed in 1 week from 11/10 (11/17/2024)
-Discharge planning to acute care rehab
-Follow up at [facility] in 2 weeks
-Consult CM
#Multifactorial anemia
ABLA from surgery, TESSA, Anemia of Chronic disease,
-Had 1 unit of PRBC due to Hb of 6.8, Current Hb/Ht 8.0/25.5 down from (8.5/26)
-Fe supplementation with fe infusion
-Continue to monitor CBC
-Transfuse for hemoglobin less than 7 or symptomatic
#Urinary Retention
Urine retention; related to immobility
- On dominguez
# Peripheral artery disease
Chronic limb threatening ischemia bilateral lower extremity with gangrene and osteomyelitis bilateral feet
Status post balloon angioplasty left peroneal artery, left anterior tibial artery on 11/04/2024 POD #6
On Xarelto 2.5 mg twice daily, aspirin
#Stage 2 sacral pressure injury, POA
-Healing
- Continue ongoing wound care
# Insulin Dependent Diabetes Mellitus
-A1C- 14.2, bg 119@7am
-Lantus 35 iu;, Insulin Aspart Pre-meal- 10 iu, moderate resistance corrective
-Improving glycemic control
#Hypertension
-Now controlled
-Amlodipine 10mg
#Hypokalemia
-3.5; Stable
# S/P Donor Kidney Transplant for renal failure
-Renal function stable
-Continue tacrolimus
-Ensure strict administration of medication
-Levels, rr ( 5-20) 11/02/2024=15.5, 11/08/2024= 2.2, 11/11/2024= 7
-Repeat pending
-Continue fludrocortisone and prednisone
Hyperlipidemia
-Continue pravastatin
GERD / PUD
-Continue Protonix
Restless Leg Syndrome
-Continue ropinirole
Hx TIA
-Continue aspirin , Xarelto
Chronic Ambulatory Dysfunction
-Wheelchair bound
DVT proph: Xarelto
-
Anticipated Discharge: Within 24 hours
Subjective/Interval History
-
Date of Service: November 12, 2024
No new problems
Doing stable post op
Objective Data
-
Labs:
Laboratory Results
11/12/24
06:56
WBC Pending
Hgb Pending
Hct Pending
Plt Count Pending
Sodium Pending
Potassium Pending
Chloride Pending
Carbon Dioxide Pending
BUN Pending
Creatinine Pending
Glucose Pending
Calcium Pending
Vital Signs:
Vital Signs
Temp Pulse Resp BP Pulse Ox
98.5 F 80 17 122/60 99
11/11/24 23:19 11/11/24 23:19 11/11/24 23:19 11/11/24 23:19 11/12/24 03:13
I&O
11/11/24 11/12/24 11/13/24
06:59 06:59 06:59
Intake Total 770 / 770 1979 / 1979
Output Total 1900 / 1900 850 / 850
Balance -1130 / -1130 1130 / 1130
Review of Systems
-
History Source: Patient
Constitutional: Reports No Symptoms
EENT: Reports No Symptoms Reported
Respiratory: Reports No Symptoms
Cardiac: Reports No Symptoms
Abdomen/GI: Reports No Symptoms
Genitourinary: Reports Difficulty Voiding (Due to deconditioning)
Physical Exam
-
HEENT: Normocephalic, Atraumatic and Moist Mucous Membranes
Respiratory: Clear to Auscultation; Negative Rhonchi
Cardiac: Regular Rhythm and S1/S2
GI: Nontender
Musculoskeletal: Other (Wound dressing on both foot are dry, drain has scant fluid, dry wounds on the left 2nd toe)
Neuro: Awake, Alert, Oriented and AO x 3
Data Reviewed
-
Labs: Labs Reviewed by me, Discussed with Physician and Discussed with Patient
[2024-11-12 07:35] LABS: Hematocrit 25.5 % (39.0-52.0); Hemoglobin 8.0 g/dL (13.0-18.0); Mean Corp Hgb Conc. 31.4 g/dL (33.0-37.0); Mean Corpuscular Volume 78.5 fL (80.0-94.0); Platelet Count 480 10^3/uL (130-400); Red Cell Dist. Width 17.2 % (11.5-14.5)
[2024-11-12 07:55] LABS: Blood Urea Nitrogen 22 mg/dl (9-20); Calcium 8.0 mg/dl (8.4-10.2); Carbon Dioxide 30 mmol/L (22-30); Chloride 108 mmol/L (98-107); Estimated Creatinine Clearance 76 ml/min; Glucose 133 mg/dl (70-99); Potassium 3.5 mmol/L (3.5-5.1); Sodium 139 mmol/L (135-145); eGFR > 60.00
[2024-11-12 08:07] LABS: Glucose - Point of Care 118 mg/dl (70-99)
[2024-11-12] MEDS: NOVOLOG FLEXPEN-MODERATE RESISTANCE SC ×2 (08:46→11:34)
[2024-11-12] MEDS: PROGRAF 1 MG PO ×2 (08:50→20:02)
[2024-11-12] MEDS: VITAMIN D3 (cholecalciferol) 50 MCG PO (08:50)
[2024-11-12] MEDS: ASPIR LOW (ENTERIC COATED) 81 MG PO (08:50)
[2024-11-12] MEDS: DELTASONE 5 MG PO (08:50)
[2024-11-12] MEDS: NOVOLOG FLEXPEN 10 UNITS SC ×2 (08:50→16:25)
[2024-11-12] MEDS: XARELTO 2.5 MG PO ×2 (08:50→20:00)
[2024-11-12] MEDS: FLORINEF 0.1 MG PO ×2 (08:50→20:02)
[2024-11-12] MEDS: NORVASC 10 MG PO (08:50)
--- NOTE | 2024-11-12 09:40 | W.PN.ID1 ---
Date of Service
Date of Service: November 12, 2024
Today's Communication
Continue Unasyn. Await path.
Assessment / Plan
Bilateral foot osteomyelitis
- s/p (R) TMA / (L) 3rd toe amp / (L) 5th part. met amp
Bilateral foot wounds
Critical limb ischemia; status post angioplasty
Leukocytosis
Immunosuppression 2* medications
Hx renal transplant
Insulin Dependent Diabetes Mellitus
Essential Hypertension
Hyperlipidemia
GERD / PUD
Restless Leg Syndrome
TIA
Chronic Ambulatory Dysfunction - Wheelchair bound
Recommendations:
Patient's status post debridement yesterday. Repeat wound cultures obtained.
Prior cultures revealed growth of strep viridans, Citrobacter, MSSA
Continue with Unasyn 3gm IV q6h (d#12 abx)
Awaiting pathology to assess for any residual/retained osteomyelitis
Continue with local care to the foot wounds.
����������������������������������������������������������
Chief Complaint
-: Other (B/L foot infection)
Subjective / Review of Systems
Patient seen and examined. Reports no issues with antibiotics. Denies pain in the feet.
Review of Systems: No Fever and No Chills
Vital Signs / Physical Exam
Vital Signs
Vital Signs
Temp Pulse Resp BP Pulse Ox
98.7 F 61 20 124/74 97
11/12/24 07:00 11/12/24 08:50 11/12/24 07:00 11/12/24 08:50 11/12/24 07:00
Physical Exam
Constitutional: Comfortable, Chronically Ill and Non-toxic
Eyes: Sclera Anicteric
Cardiovascular: S1/S2; Negative S3/S4
Pulmonary: Non Labored
Gastrointestinal: Soft and Non Tender
Extremities: Edema (Trace lower extremity edema.); Negative Erythema
Wound: Other (Bilateral foot dressings in place. VAC in place to the right foot.)
Neurological: Awake
Psychological: Calm
Objective Data
Lab Data
Lab Results
11/12/24 06:56
11/12/24 06:56
ESR 88 mm/hour (0-20) H 11/06/24 06:15
Estimated Creat Clear 76 ml/min 11/12/24 06:56
Total Bilirubin 0.4 mg/dl (0.2-1.3) 11/03/24 05:38
AST 11 U/L (17-59) L 11/03/24 05:38
ALT < 10 U/L (0-50) 11/03/24 05:38
Alkaline Phosphatase 71 U/L (38-126) 11/03/24 05:38
C-Reactive Protein 12.80 mg/L (0.0-10.00) H 11/06/24 06:15
Most recent labs reviewed.
Micro Results:
11/10/24 17:00 Anaerobic Culture - Preliminary
Foot - Right Culture pending. Anaerobic cultures are examined after 3
days incubation. Additional information to follow.
11/10/24 17:00 Wound Culture - Preliminary
Foot - Right No growth
Gram Stain - Preliminary
11/05/24 16:56 Wound Culture - Final
Foot - Right No growth
Gram Stain - Final
11/05/24 16:56 Anaerobic Culture - Final
Foot - Right NO ANAEROBES ISOLATED
11/05/24 16:56 Wound Culture - Final
Foot - Left Viridans Streptococcus Group
Gram Stain - Final
11/05/24 16:56 Anaerobic Culture - Final
Foot - Left NO ANAEROBES ISOLATED
11/06/24 10:04 Urine Culture - Final
Urine NO GROWTH
11/01/24 14:54 Wound Culture - Final
Foot - Right Citrobacter koseri
S aureus-Methicillin Sensitive
Gram Stain - Final
11/01/24 20:07 MRSA Screen - Final
Nose No Methicillin Resistant Staphylococcus aureus isolated.
Wound/abscess/other Cult Final (Right foot wound) 11/01/24
Organism 1 Citrobacter koseri
Organism 2 S aureus-Methicillin Sensitive
C. KOSERI MSSA
M.I.C. RX M.I.C. RX
--------- --- --------- ---
Amoxicillin/Potas. Clavulanate <=8/4 S <=4/2 S
Ampicillin >16 R <=2 R
Ampicillin/Sulbactam <=4/2 S
Aztreonam <=4 S
Cefazolin <=2 S
Clindamycin <=0.5 R
Ertapenem <=0.5 S
Ciprofloxacin <=0.25 S
Gentamicin <=2 S <=4 S
Erythromycin >4 R
Levofloxacin <=1 S
Oxacillin <=0.25 S
Meropenem <=1 S
Piperacillin/Tazobactam <=8 S
Tetracycline <=4 S <=4 S
Tobramycin <=2 S
Trimethoprim/Sulfamethoxazole <=2/38 S <=0.5/9.5 S
Vancomycin 1 S
Pathology:
11/06/2024 bilateral feet: pending
Imaging:
11/03/2024 MRI right foot: osteomyelitis is noted in the fifth metatarsal head, fifth proximal phalanx, fourth metatarsal head and fourth proximal phalanx. Probable early osteomyelitis of the fifth middle and distal phalanges, along with the fourth
distal phalanx. Pathologic fractures of the fifth metatarsal head and fifth proximal phalanx noted. A loculated fluid collection is noted in the soft tissues of the lateral forefoot surrounding the 4th and 5th metatarsophalangeal joints, and
extending medially along the plantar aspect of the forefoot. Please see full dictation for additional detail.
11/03/2024 MRI left foot: osteomyelitis of the fifth metatarsal head and fifth proximal phalanx. Pathologic fracture of the fifth metatarsal head.
[2024-11-12 11:34] LABS: Glucose - Point of Care 76 mg/dl (70-99)
[2024-11-12] MEDS: NOVOLOG FLEXPEN SC (11:42)
--- NOTE | 2024-11-12 12:16 | CM ---
CM following re: discharge planning.
Reviewed pt's chart, met with pt.
According to pt most likely will be ready for discharge today. Pt is aware, expressed his agreement. IMM reviewed, placed on chart, pt has a copy.
Per ID pt will continue IV Unasyn. Pt will need PICC line or midline.
Per [employer], pt is approved for 7 initial days of SNF level of care at [facility] from today 11/12/24 till 11/18/24 with LCD 11/18/24 and NRD 11/19/24. Auth: [id number]. Reviewer: Rachell Salazar [phone]
Auth information forwarded to [facility] liaison Radha. Midline or PICC information needs to be faxed to: [phone]
to arrange ambulance transport BLS. PMNC completed and left with .
[facility]
Report #: [phone]
Fax #: [phone]
[facility]
--- NOTE | 2024-11-12 12:39 | W.PN.NEPH.PH ---
Today's Communication / Plan
-
Pending tach
Assessment/Plan
-
Assessment
Bilateral foot osteomyelitis
- s/p (R) TMA / (L) 3rd toe amp / (L) 5th part. met amp
Critical limb ischemia; status post angioplasty LLE
donor renal transplant 2017 on 2 immunosuppressants
Diabetes Mellitus 2
Essential Hypertension
Hyperlipidemia
GERD / PUD
Restless Leg Syndrome
TIA
Chronic Ambulatory Dysfunction - Wheelchair bound
Chronic Florinef use
Plan
Renal function is at baseline
Antibiotics continue per ID status post OR amputation lower extremity digits
Pending tacrolimus level from 11/11 drawn at 7 AM with p.m. dose of tacrolimus given at 8 PM on
AM labs
-
-
Date of Service: November 12, 2024
CC / HPI / ROS
-
Chief Complaint:
Renal transplant
History of Present Illness:
Creatinine stable 0.9
BP stable high
On antibiotics for osteomyelitis
Status post OR
Review of Systems:
No chest pain or shortness of breath
Labs
-
Labs:
WBC 7.6 10^3/uL (4.8-10.8) 11/12/24 06:56
RBC 3.25 10^6/uL (4.70-6.10) L 11/12/24 06:56
Hgb 8.0 g/dL (13.0-18.0) L 11/12/24 06:56
Hct 25.5 % (39.0-52.0) L 11/12/24 06:56
Plt Count 480 10^3/uL (130-400) H 11/12/24 06:56
Sodium 139 mmol/L (135-145) 11/12/24 06:56
Potassium 3.5 mmol/L (3.5-5.1) 11/12/24 06:56
Chloride 108 mmol/L (98-107) H 11/12/24 06:56
Carbon Dioxide 30 mmol/L (22-30) 11/12/24 06:56
BUN 22 mg/dl (9-20) H 11/12/24 06:56
Creatinine 1.0 mg/dL (0.7-1.3) 11/12/24 06:56
eGFR > 60.00 11/12/24 06:56
Glucose 133 mg/dl (70-99) H 11/12/24 06:56
Calcium 8.0 mg/dl (8.4-10.2) L 11/12/24 06:56
Albumin 2.7 g/dl (3.5-5.0) L 11/03/24 05:38
Physical Exam
-
Vital Signs:
Vital Signs
Temp Pulse Resp BP Pulse Ox
98.7 F 61 20 124/74 98
11/12/24 07:00 11/12/24 08:50 11/12/24 07:00 11/12/24 08:50 11/12/24 11:15
Cardiovascular:: Regular rate and rhythm
Respiratory:: Bilateral: CTA
Lung Excursion:: Normal
Abdomen:: Nontender and Soft
Bowel Sounds:: Normal
Extremity Edema:: +1: Bilateral:
[2024-11-12] MEDS: FERRLECIT 110 MG IV (13:30)
[2024-11-12 15:00] VITALS: BP 122/66
[2024-11-12 16:09] LABS: Glucose - Point of Care 177 mg/dl (70-99)
[2024-11-12] MEDS: NOVOLOG FLEXPEN-MODERATE RESISTANCE 1 UNITS SC (16:24)
[2024-11-12] MEDS: REQUIP 0.25 MG PO (18:20)
[2024-11-12] MEDS: LIPITOR 40 MG PO (18:20)
[2024-11-12] MEDS: PROTONIX 40 MG PO (18:20)
[2024-11-12 21:15] LABS: Glucose - Point of Care 118 mg/dl (70-99)
[2024-11-12] MEDS: LANTUS 0.35 UNITS SC (21:30)
[2024-11-12] MEDS: PERCOCET 5/325 1 TABLET PO (21:30)
[2024-11-12] MEDS: MELATONIN 3 MG PO (21:30)
[2024-11-12 23:06] VITALS: BP 138/74
[2024-11-13] MEDS: UNASYN IV (05:10)
[2024-11-13 06:35] LABS: Hematocrit 25.0 % (39.0-52.0); Hemoglobin 7.7 g/dL (13.0-18.0); Mean Corp Hgb Conc. 30.8 g/dL (33.0-37.0); Mean Corpuscular Volume 78.9 fL (80.0-94.0); Platelet Count 500 10^3/uL (130-400); Red Cell Dist. Width 17.3 % (11.5-14.5)
[2024-11-13 06:57] LABS: Blood Urea Nitrogen 21 mg/dl (9-20); Calcium 7.9 mg/dl (8.4-10.2); Carbon Dioxide 30 mmol/L (22-30); Chloride 108 mmol/L (98-107); Estimated Creatinine Clearance 85 ml/min; Glucose 83 mg/dl (70-99); Potassium 3.6 mmol/L (3.5-5.1); Sodium 140 mmol/L (135-145); eGFR > 60.00
[2024-11-13 07:05] LABS: Glucose - Point of Care 82 mg/dl (70-99)
[2024-11-13 07:25] VITALS: BP 127/71
[2024-11-13] MEDS: NOVOLOG FLEXPEN-MODERATE RESISTANCE SC ×3 (07:48→16:34)
[2024-11-13] MEDS: NOVOLOG FLEXPEN SC ×3 (07:53→16:43)
[2024-11-13] MEDS: PROGRAF 1 MG PO (07:53)
[2024-11-13] MEDS: VITAMIN D3 (cholecalciferol) 50 MCG PO (07:54)
[2024-11-13] MEDS: DELTASONE 5 MG PO (07:54)
[2024-11-13] MEDS: FLORINEF 0.1 MG PO (07:54)
[2024-11-13] MEDS: NORVASC 10 MG PO (07:54)
[2024-11-13] MEDS: ASPIR LOW (ENTERIC COATED) 81 MG PO (07:54)
[2024-11-13] MEDS: XARELTO 2.5 MG PO (07:54)
--- NOTE | 2024-11-13 07:56 | W.PN.HOSP.TC ---
Today's Communication/Plan
-
For discharge to acute rehab
Fu with Anemia,DM mgt outpatient
Fu with transplant Supervisor In Charge outpatient
Assessment / Plan
Assessment / Plan
# Infected bilateral diabetic foot wounds
#Multiple foci of Osteomyelitis, acute and chronic
-Bilateral lateral plantar necrotic full-thickness wounds likely secondary to diabetes/PAD
Left second, third, fifth toes
Right-fourth necrotic toe, full-thickness right 4th-5th webspace wound
-Had left partial 5th ray revision yesterday POD #3 (11/10/2024)
-s/p RIGHT open TMA, LEFT 3rd toe amputation and open partial 5th ray amputation 11/05/2024 POD #8
-s/p Balloon angioplasty of left peroneal artery and left anterior tibial artery 11/04/2024 POD #9
-Continue current antibiotics; Unasyn 3G Q6H- Day 10 (11/04/2024) . (Previously Cefepime & Vanco)
-On Vitamin D supp
-Bone pathology revealed Bone resection margin with focal chronic osteomyelitis of partial left 5th ray
-Abx Based upon sensitivities, transition to cefazolin 2 gm IV q.8 hours, to continue through 12/12/2024 (6 weeks from original surgery)
-Wound VAC can be changed in 1 week from 11/10 (11/17/2024)
-Discharge planning to acute care rehab
-Follow up at [facility] in 2 weeks
-Consult CM
#Multifactorial anemia
ABLA from surgery, TESSA, Anemia of Chronic disease,
-Had 1 unit of PRBC due to Hb of 6.8, Current Hb/Ht 8.0/25.5 down from ()
-Can resume Fe supplementation PO
-Continue to monitor CBC
#Urinary Retention
Urine retention; related to immobility
- To remove dominguez after 2-3 days folowing discharge.
-For trail of voiding afterwards
-If fails, for urologist consult
# Peripheral artery disease
Chronic limb threatening ischemia bilateral lower extremity with gangrene and osteomyelitis bilateral feet
Status post balloon angioplasty left peroneal artery, left anterior tibial artery on 11/04/2024 POD #9
On Xarelto 2.5 mg twice daily, aspirin
#Stage 2 sacral pressure injury, POA
-Healing
- Continue ongoing wound care, see instruction on discharge
# Insulin Dependent Diabetes Mellitus
-A1C- 14.2, bg 119@7am
-Patients BG now trending low,
-Rduce insulin regimen, continue monitoring
-Lantus 30 iu;, Insulin Aspart Pre-meal- 5 iu,
#Hypertension
-Now controlled
-Amlodipine 10mg
#Hypokalemia
-3.6; Stable
# S/P Donor Kidney Transplant for renal failure
-Renal function stable
-Continue tacrolimus
-Ensure strict administration of medication
-Levels, rr ( 5-20) 11/02/2024=15.5, 11/08/2024= 2.2, 11/11/2024= 7
-Tacrolimus trough level therapeutic
-Continue fludrocortisone and prednisone
Hyperlipidemia
-Continue pravastatin
GERD / PUD
-Continue Protonix
Restless Leg Syndrome
-Continue ropinirole
Hx TIA
-Continue aspirin , Xarelto
Chronic Ambulatory Dysfunction
-Wheelchair bound
DVT proph: Xarelto
-
Anticipated Discharge: Today
Subjective/Interval History
-
Date of Service: November 13, 2024
-Post op patient
-No complains at this time
Objective Data
-
Labs:
Laboratory Results
11/13/24
06:03
WBC 8.3
Hgb 7.7 L
Hct 25.0 L
Plt Count 500 H
Sodium 140
Potassium 3.6
Chloride 108 H
Carbon Dioxide 30
BUN 21 H
Creatinine 0.9
Glucose 83
Calcium 7.9 L
Vital Signs:
Vital Signs
Temp Pulse Resp BP Pulse Ox
98.3 F 69 18 127/71 98
11/12/24 23:06 11/13/24 07:54 11/12/24 23:06 11/13/24 07:54 11/12/24 23:06
I&O
11/12/24 11/13/24 11/14/24
06:59 06:59 06:59
Intake Total 1979 / 1979 1250 / 1250
Output Total 850 / 850 1000 / 1000
Balance 1130 / 1130 250 / 250
Review of Systems
-
History Source: Patient
Constitutional: Reports No Symptoms
EENT: Reports No Symptoms Reported
Respiratory: Reports No Symptoms
Cardiac: Reports No Symptoms
Abdomen/GI: Reports No Symptoms
Genitourinary: Reports Difficulty Voiding (Due to deconditioning)
Physical Exam
-
HEENT: Normocephalic, Atraumatic and Moist Mucous Membranes
Respiratory: Clear to Auscultation; Negative Rhonchi
Cardiac: Regular Rhythm and S1/S2
GI: Nontender
Musculoskeletal: Other (Wound dressing on both foot are dry, drain has scant fluid, dry wounds on the left 2nd toe)
Neuro: Awake, Alert, Oriented and AO x 3
[2024-11-13] MEDS: NOVOLOG FLEXPEN 3 UNITS SC (09:09)
[2024-11-13 09:39] LABS: Hematocrit 27.4 % (39.0-52.0); Hemoglobin 8.7 g/dL (13.0-18.0)
--- NOTE | 2024-11-13 11:06 | W.PN.NEPH.PH ---
Today's Communication / Plan
-
follow BMP intermittently
Tacrolimus trough level therapeutic
Blood pressure controlled on current antihypertensive
Assessment/Plan
-
Assessment
Bilateral foot osteomyelitis
- s/p (R) TMA / (L) 3rd toe amp / (L) 5th part. met amp
Critical limb ischemia; status post angioplasty LLE
donor renal transplant 2017 on 2 immunosuppressants
Diabetes Mellitus 2
Essential Hypertension
Hyperlipidemia
GERD / PUD
Restless Leg Syndrome
TIA
Chronic Ambulatory Dysfunction - Wheelchair bound
Chronic Florinef use
Plan
Renal function is at baseline
Antibiotics continue per ID status post OR amputation lower extremity digits
11/11/2024 tacrolimus level therapeutic at 7
-
-
Date of Service: November 13, 2024
CC / HPI / ROS
-
Chief Complaint:
Renal transplant
History of Present Illness:
Creatinine stable 0.9
BP stable
On antibiotics for osteomyelitis
Status post OR
Review of Systems:
No chest pain or shortness of breath
Labs
-
Labs:
WBC 8.3 10^3/uL (4.8-10.8) 11/13/24 06:03
RBC 3.17 10^6/uL (4.70-6.10) L 11/13/24 06:03
Hgb 8.7 g/dL (13.0-18.0) L 11/13/24 09:33
Hct 27.4 % (39.0-52.0) L 11/13/24 09:33
Plt Count 500 10^3/uL (130-400) H 11/13/24 06:03
Sodium 140 mmol/L (135-145) 11/13/24 06:03
Potassium 3.6 mmol/L (3.5-5.1) 11/13/24 06:03
Chloride 108 mmol/L (98-107) H 11/13/24 06:03
Carbon Dioxide 30 mmol/L (22-30) 11/13/24 06:03
BUN 21 mg/dl (9-20) H 11/13/24 06:03
Creatinine 0.9 mg/dL (0.7-1.3) 11/13/24 06:03
eGFR > 60.00 11/13/24 06:03
Glucose 83 mg/dl (70-99) 11/13/24 06:03
Calcium 7.9 mg/dl (8.4-10.2) L 11/13/24 06:03
Albumin 2.7 g/dl (3.5-5.0) L 11/03/24 05:38
Physical Exam
-
Vital Signs:
Vital Signs
Temp Pulse Resp BP Pulse Ox
97.7 F 69 16 127/71 97
11/13/24 07:25 11/13/24 07:54 11/13/24 07:25 11/13/24 07:54 11/13/24 07:25
Cardiovascular:: Regular rate and rhythm
Respiratory:: Bilateral: CTA
Lung Excursion:: Normal
Abdomen:: Nontender and Soft
Bowel Sounds:: Normal
Extremity Edema:: +1: Bilateral:
[2024-11-13 11:33] LABS: Glucose - Point of Care 72 mg/dl (70-99)
--- NOTE | 2024-11-13 11:39 | W.PN.ID1 ---
Date of Service
Date of Service: November 13, 2024
Today's Communication
Continue antibiotics.
Assessment / Plan
Bilateral foot osteomyelitis
- s/p (R) TMA / (L) 3rd toe amp / (L) 5th part. met amp
Residual osteomyelitis in left 5th met
Bilateral foot wounds
Critical limb ischemia; status post angioplasty
Leukocytosis
Immunosuppression 2* medications
Hx renal transplant
Insulin Dependent Diabetes Mellitus
Essential Hypertension
Hyperlipidemia
GERD / PUD
Restless Leg Syndrome
TIA
Chronic Ambulatory Dysfunction - Wheelchair bound
Recommendations:
Currently Unasyn 3gm IV q6h (d#13 abx)
Pathology reveals residual osteo in the left fifth metatarsal bone resection margin. Therefore, patient will require a 6-week course of antibiotics unless further resection is performed.
Based upon sensitivities, transition to cefazolin 2 gm IV q.8 hours, to continue through 12/12/2024 (6 weeks from original surgery).
SNF infusion sheet given to Case management
Continue with local care to the foot wounds.
����������������������������������������������������������
Chief Complaint
-: Other (B/L foot infection; residual left fifth metatarsal osteomyelitis)
Subjective / Review of Systems
Review of Systems: No Fever and No Chills
Vital Signs / Physical Exam
Vital Signs
Vital Signs
Temp Pulse Resp BP Pulse Ox
97.7 F 69 16 127/71 97
11/13/24 07:25 11/13/24 07:54 11/13/24 07:25 11/13/24 07:54 11/13/24 07:25
Physical Exam
Constitutional: Comfortable, Chronically Ill and Non-toxic
Eyes: Sclera Anicteric
Cardiovascular: S1/S2; Negative S3/S4
Pulmonary: Non Labored
Gastrointestinal: Soft and Non Tender
Extremities: Edema (Trace lower extremity edema.); Negative Erythema
Wound: Other (Bilateral foot dressings in place. VAC in place to the right foot.)
Neurological: Awake, Alert and Oriented
Psychological: Calm
Objective Data
Lab Data
Lab Results
11/13/24 09:33
11/13/24 06:03
ESR 88 mm/hour (0-20) H 11/06/24 06:15
Estimated Creat Clear 85 ml/min 11/13/24 06:03
Total Bilirubin 0.4 mg/dl (0.2-1.3) 11/03/24 05:38
AST 11 U/L (17-59) L 11/03/24 05:38
ALT < 10 U/L (0-50) 11/03/24 05:38
Alkaline Phosphatase 71 U/L (38-126) 11/03/24 05:38
C-Reactive Protein 12.80 mg/L (0.0-10.00) H 11/06/24 06:15
Most recent labs reviewed.
Micro Results:
11/10/24 17:00 Wound Culture - Preliminary
Foot - Right No growth
Gram Stain - Preliminary
11/10/24 17:00 Anaerobic Culture - Preliminary
Foot - Right Culture pending. Anaerobic cultures are examined after 3
days incubation. Additional information to follow.
11/05/24 16:56 Wound Culture - Final
Foot - Right No growth
Gram Stain - Final
11/05/24 16:56 Anaerobic Culture - Final
Foot - Right NO ANAEROBES ISOLATED
11/05/24 16:56 Wound Culture - Final
Foot - Left Viridans Streptococcus Group
Gram Stain - Final
11/05/24 16:56 Anaerobic Culture - Final
Foot - Left NO ANAEROBES ISOLATED
11/06/24 10:04 Urine Culture - Final
Urine NO GROWTH
11/01/24 14:54 Wound Culture - Final
Foot - Right Citrobacter koseri
S aureus-Methicillin Sensitive
Gram Stain - Final
11/01/24 20:07 MRSA Screen - Final
Nose No Methicillin Resistant Staphylococcus aureus isolated.
Wound/abscess/other Cult: left 5th metatarsal 11/05/24
Rare Viridans Streptococcus Group
Penicillin G or V with or without Gentamicin is the drug of
choice for treating Viridans Streptococcus Group. Please
notify the Microbiology Laboratory within 72 hours if
additional testing is needed.
Gram Stain Final
Rare WBC
No Organisms Seen
Wound/abscess/other Cult Final (Right foot wound) 11/01/24
Organism 1 Citrobacter koseri
Organism 2 S aureus-Methicillin Sensitive
C. KOSERI MSSA
M.I.C. RX M.I.C. RX
--------- --- --------- ---
Amoxicillin/Potas. Clavulanate <=8/4 S <=4/2 S
Ampicillin >16 R <=2 R
Ampicillin/Sulbactam <=4/2 S
Aztreonam <=4 S
Cefazolin <=2 S
Clindamycin <=0.5 R
Ertapenem <=0.5 S
Ciprofloxacin <=0.25 S
Gentamicin <=2 S <=4 S
Erythromycin >4 R
Levofloxacin <=1 S
Oxacillin <=0.25 S
Meropenem <=1 S
Piperacillin/Tazobactam <=8 S
Tetracycline <=4 S <=4 S
Tobramycin <=2 S
Trimethoprim/Sulfamethoxazole <=2/38 S <=0.5/9.5 S
Vancomycin 1 S
Pathology:
11/06/2024 left fifth metatarsal, amputation: bone resection margin with focal chronic osteomyelitis
Imaging:
11/03/2024 MRI right foot: osteomyelitis is noted in the fifth metatarsal head, fifth proximal phalanx, fourth metatarsal head and fourth proximal phalanx. Probable early osteomyelitis of the fifth middle and distal phalanges, along with the fourth
distal phalanx. Pathologic fractures of the fifth metatarsal head and fifth proximal phalanx noted. A loculated fluid collection is noted in the soft tissues of the lateral forefoot surrounding the 4th and 5th metatarsophalangeal joints, and
extending medially along the plantar aspect of the forefoot. Please see full dictation for additional detail.
11/03/2024 MRI left foot: osteomyelitis of the fifth metatarsal head and fifth proximal phalanx. Pathologic fracture of the fifth metatarsal head.
Care Review
Plan reviewed with: Physician (Hospitalist)
[2024-11-13] MEDS: FLUSH (NSS) 1 FLUSH IV ×2 (12:06→14:01)
[2024-11-13] MEDS: ANCEF 10 IV (12:06)
[2024-11-13 13:16] LABS: Glucose - Point of Care 108 mg/dl (70-99)
[2024-11-13] MEDS: FERRLECIT 110 MG IV (14:00)
--- NOTE | 2024-11-13 14:01 | CM ---
CM following re: discharge planning.
Reviewed pt's chart, met with pt.
According to MD pt is medically stable for discharge today. Pt is aware, expressed his agreement. IMM reviewed yesterday, placed on chart, pt has a copy.
Midline information with antibiotic [facility].
CM< spoke to [place] [facility] tech Roya and she confirmed that pt is accepted for admission today.
Per [employer], pt is approved for 7 initial days of SNF level of care at [facility] from 11/12/24 till 11/18/24 with LCD 11/18/24 and NRD 11/19/24. Auth: [id number]. Reviewer: Rachell Salazar [phone]
to arrange ambulance transport BLS. PMNC completed and left with .
[facility]
Report #: [phone]
Fax #: [phone]
D/C plan: [facility]
[2024-11-13 14:25] LABS: Glucose - Point of Care 117 mg/dl (70-99)
[2024-11-13 15:10] VITALS: BP 138/74
[2024-11-13 16:34] LABS: Glucose - Point of Care 105 mg/dl (70-99)
[2024-11-13] MEDS: PROTONIX 40 MG PO (17:08)
[2024-11-13] MEDS: LIPITOR 40 MG PO (17:08)
[2024-11-13] MEDS: REQUIP 0.25 MG PO (17:08)
[2024-11-13] MEDS: NOVOLOG FLEXPEN 5 UNITS SC (17:09)
--- NOTE | 2024-11-13 18:04 | W.DCSUMMARY ---
Discharge Summary
Discharge Data
Date of Admission: 11/01/24
Date of Discharge: 11/13/24
-
Pending Results: No
Hospital Course
Discharging Physician : MD Jenniffer Geller MD
Disposition : Acute care rehab
Primary care physician : Lizett Mckeon
Principal Discharge diagnosis :
Infected bilateral diabetic foot wounds status post right TMA/left third toe amputation/left fifth partial metatarsal amputation, residual osteomyelitis of the left fifth met
Insulin Dependent Diabetes Mellitus
Multifactorial anemia
Urinary Retention
Peripheral artery disease
Stage 2 sacral pressure injury, POA
Donor kidney transplant 2016
Essential Hypertension
History of TIA
Restless leg syndrome
Vit D Def
Chronic Discharge diagnosis :
Hyperlipidemia
GERD / PUD
Restless Leg Syndrome
TIA
Chronic Ambulatory Dysfunction - Wheelchair bound
Hospital Course :
A 64-year-old male who presented to [facility] ED on the with chronic bilateral foot 2024 wounds, following an AMA discharge from [facility]
His past medical history significant for IDDM, Neuropathy, non-ambulatory, wheelchair-bound, rib fracture from a recent fall.
He was admitted for diabetic foot disease and the following problems were addressed during this admission.
#Diabetic foot disease
#Infected Bilateral foot osteomyelitis
-He was seen in consultation with infectious disease, vascular surgeon, orthopedics, podiatry
-Patient with chronic foot wounds, Imaging studies [x-ray MRI] showed extensive involvement both feet.
-These included;
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
Left 3rd toe gangrene
Left 5th ray gangrene
-He received wound care and eventual surgery
11/05/2024~Initial
He had Open right transmetatarsal amputation,
Left 3rd toe amputation with primary closure and,
Left 5th ray amputation with Wound VAC application
11/10/2024~Revision
Delayed primary closure both al 5th metatarsal, left foot
Application of Integra bilayer matrix, left foot
Application of negative pressure wound therapy (wound VAC), left foot
-Wound VAC can be changed in 1 week from 11/10 (11/17/2024)
-Follow up at [facility] in 2 weeks
-Wound Path reviewed margin with focal chronic osteomyelitis of the left fifth ray
- He had antibiotic coverage with Unasyn based on culture and sensitivity and is being discharged with cefazolin for 6 weeks
#Peripheral artery disease
-Bilateral lower extremity arterial ultrasound reviewed May be ischemia with NURIA
11/04/2024
-Balloon angioplasty of left peroneal artery with 3.5 mm angioplasty balloon and left anterior tibial artery with 3 mm angioplasty balloon
- He continues to be on Xarelto
#Insulin-dependent diabetes mellitus
- Known DM patient with poor control A1c 14.2 blood glucose >300-400mg/dl
- Blood glucose was optimized during this admission
- He is discharged on Lantus 30iu bedtime and NovoLog Aspart 5IU
#Multifactorial anemia
�Anemia of chronic disease/iron deficiency anemia
�Was transfused 1 unit of p PRBC
�He received iron infusion and discharged on p.o. iron
�He is to follow-up with his primary care
# S/P Donor Kidney Transplant for renal failure
-JODI on admission which was resolved
-Nephrology consulted for tacrolimus use and found to be @ therapeutic levels picking up
mg/dl
#Hypertension
-Amlodipine increased to 10 Mg now controlled
#Chronic Ambulatory Dysfunction
-Patient is wheelchair-bound status post 2 TIAs
-Non-weightbearing for now
-For PT/OT upon discharge, ambulation when cleared
#Suspect neurogenic bladder
- On Boss catheter
-Trial of voiding should be reattempted to see urologist if failed
Important imaging findings :
#Left foot x-ray 11/01/2024
Osteomyelitis involving the head of the fifth metatarsal and adjacent proximal fifth phalanx.
Nondisplaced intra-articular fracture of the base of the fourth proximal phalanx.
Soft tissue attenuation at the distal third joint without radiographic evidence of osteomyelitis, fracture, or dislocation.
#Peripheral right foot x-ray 11/01/2024
Osteomyelitis with pathologic fractures of the fifth metatarsal head and fifth proximal phalanx. Osteomyelitis involving the head of the fourth metatarsal.
#Bilateral lower extremity Doppler arterial ultrasound w NURIA 11/02/2024
RIGHT LOWER EXTREMITY: NURIA unmeasurable due to noncompressible arteries. TBI within normal limits at 0.73. Arterial duplex examination reveals multiphasic waveforms from the common femoral artery through the distal superficial femoral artery.
There is a transition to monophasic waveforms in the popliteal artery suggesting the presence of disease at this location. There is a focal velocity elevation in the mid superficial femoral artery at 226 cm/s (ratio 2) suggesting a 50% or greater
stenosis at this location.
LEFT LOWER EXTREMITY: NURIA unmeasurable due to noncompressible arteries. TBI moderately reduced at 0.53. Arterial duplex examination reveals multiphasic waveforms from the common femoral artery through the popliteal artery with no focal velocity
elevations to suggest significant stenosis across that segment. Suspect presence of infrapopliteal disease.
#Left foot MRI 11/04/2019
Osteomyelitis of the fifth metatarsal head and fifth proximal phalanx.
Pathologic fracture of the fifth metatarsal head.
Fracture at the base of the fourth proximal phalanx, more likely to be posttraumatic rather than pathologic as it is not in immediate proximity to the lateral forefoot soft tissue wound.
#Right foot MRI 11/03/2024
Osteomyelitis of the fifth metatarsal head, fifth proximal phalanx, fourth metatarsal head, fourth proximal phalanx, and fourth middle phalanx. Probable early osteomyelitis of the fifth middle and distal phalanges, and the fourth distal phalanx.
Pathologic fractures of the fifth metatarsal head and fifth proximal phalanx.
Loculated fluid collection most in keeping with a soft tissue abscess of the lateral forefoot surrounding the fourth and fifth metatarsophalangeal joints and extending medially along the plantar aspect of the forefoot at the level of the second
through fourth proximal phalanges.
#Repeat left foot x-ray 11/11/2024
Status post resection of the third toe and transmetatarsal resection of the fifth metatarsal. Joint spaces are well-preserved. Extensive vascular calcifications within the distal leg and foot.
#Repeat right foot x-ray 11/11/2024
Partially imaged hardware within the distal tibia. Interval transmetatarsal resection of the midfoot with expected postoperative appearance. No subcutaneous emphysema. There are vascular calcifications within the midfoot and hindfoot.
Discharge Plan
-
Patient Disposition: Acute Rehab Facility
Discharge Diagnosis/Procedures: Infected bilateral diabetic foot wounds status post right TMA/left third toe amputation/left fifth partial metatarsal amputation, residual osteomyelitis of the left fifth met
Insulin Dependent Diabetes Mellitus
Multifactorial anemia
Urinary Retention
Peripheral artery disease
Stage 2 sacral pressure injury, POA
Donor kidney transplant 2016
Essential Hypertension
History of TIA
Restless leg syndrome
Vit D Def
Condition: Fair
Diet: 2 Gram Sodium and Diabetic, Carb Controlled
Activity: No strenuous activity
Additional Activity: Non weight bearing bilateral lower extremity until cleared by billet checker
Driving Restrictions: No driving
Other Services: PT and OT
Wound Care: Non-weightbearing to both lower extremities, and wound VAC management
Activity Restrictions/Additional Instructions:
Wound Care Instructions
Sacral/R buttocks-clean with saline, sacral shaped silicone border foam, change q 3 days and prn loosened dressing.
Scrotum-zinc barrier ointment bid and prn incontinence.
Air mattress.
Pressure redistributing chair cushion (i.e. Air chair cushion, Roho).
Elevate heels off bed with pillow and air chair cushion. Soft heel relief boots if needed and tolerated.
Air chair cushion.
Turning schedule Q2H
Follow up with Dr. Rolando Tesfaye.
Follow up with vascular surgeon.
Follow up at wound care center if needed, call for an appointment.
Follow-up with your transplant unarmed security guard
Follow-up with your primary physician for workup of anemia
Voiding trial in the rehab-in 2 to 3 days. If unable to come off of the Boss patient needs to see a urologist
B/L Feet
Left wound VAC to remain intact for 1 week. Can be changed on 11/17 if still admitted. Right foot dressings can be changed with DSD and JORDON bandage 1-2 times weekly
Stand Alone Forms: Vascular Surg Discharge Instr
Referrals:
Lizett Mckeon MD [Family Provider, [facility]]
Steven Britton DO [Active, Infectious Diseases]
Rolando Tesfaye DPM [Active, Podiatry]
Estelle Hernández CRNP [Specified Professional Personl, Vascular Surgery] - 11/20/24 11:30 am
Additional Discharge Medication Instructions: cefazolin 2 gm IV q.8 hours, to continue through 12/12/2024 (6 weeks from original surgery).
Prescriptions:
New
atorvastatin 40 mg Tablet
40 mg PO QPM Qty: 0 0RF
acetaminophen 325 mg Tablet
650 mg PO Q4HPRN PRN (Reason: mild pain/ fever>100.5F) Qty: 0 0RF
melatonin 3 mg Tablet
3 mg PO HS Qty: 0 0RF
cholecalciferol (vitamin D3) 50 mcg (2,000 unit) Tablet
50 mcg PO DAILY Qty: 0 0RF
rivaroxaban [Xarelto] 2.5 mg Tablet
2.5 mg PO BID Qty: 0 0RF
oxycodone-acetaminophen 5-325 mg Tablet
1 tab PO Q4HPRN PRN (Reason: moderate pain) Qty: 10 0RF
ferrous sulfate [FeroSul] 325 mg (65 mg iron) Tablet
325 mg PO DAILY Qty: 0 0RF
cefazolin 10 gram Recon Soln
2 g IV Q8H Qty: 0 0RF
tamsulosin [Flomax] 0.4 mg capsule
0.4 mg PO HS Qty: 30 0RF
Continued
prednisone 5 mg tablet
5 mg PO DAILY Qty: 0 0RF
aspirin 81 mg Tablet,Delayed Release (Dr/Ec)
81 mg PO DAILY Qty: 0 0RF
ropinirole 0.25 mg tablet
0.25 mg PO QPM Qty: 0 0RF
omeprazole 20 mg capsule,delayed release(DR/EC)
20 mg PO QPM Qty: 0 0RF
fludrocortisone 0.1 mg tablet
0.1 mg PO BID Qty: 0 0RF
tacrolimus 1 mg capsule
1 mg PO BID Qty: 0 0RF
Changed
amlodipine 5 mg tablet
10 mg PO DAILY Qty: 0 0RF
insulin lispro [Humalog U-100 Insulin] 100 unit/mL Solution
5 unit SC TID Qty: 0 0RF
insulin glargine [Lantus Solostar U-100 Insulin] 100 unit/mL (3 mL) insulin pen
30 unit SC HS Qty: 0 0RF
Discontinued
pravastatin 20 mg tablet
20 mg PO DAILY
Discharge Orders:
Discharge Patient (As Directed); Ordered 11/13/24
Ordered By: Jenniffer Mueller
Discharge Date and Time
Discharge Date/Time: 11/13/24 19:09
Print Language: ROMANIAN
== END 2024-11-13 19:09 | DRG 240 ==
LOC: 2 SOUTH 15:35
PROVIDERS: Internal Medicine; Physician Assistant Medical; Registered Nurse; ADMITTING PHYSICIAN Internal Medicine; ATTENDING PHYSICIAN Hospitalist; CONSULT PHYSICIAN Internal Medicine Infectious Disease; CONSULT PHYSICIAN Specialist; EMERGENCY PHYSICIAN Student in an Organized Health Care Education/Training Program; FAMILY PHYSICIAN Family Medicine; OTHER PHYSICIAN Student in an Organized Health Care Education/Training Program; OTHER PHYSICIAN Surgery Vascular Surgery
PROC: 047Q3ZZ Dilation of Left Anterior Tibial Artery, Percutaneous Approach (ICD-10-PCS; 2024-11-04)
PROC: 047U3ZZ Dilation of Left Peroneal Artery, Percutaneous Approach (ICD-10-PCS; 2024-11-04)
PROC: B41D1ZZ Fluoroscopy of Aorta and Bilateral Lower Extremity Arteries using Low Osmolar Contrast (ICD-10-PCS; 2024-11-04)
PROC: 0Y6M0ZD Detachment at Right Foot, Partial 4th Ray, Open Approach (ICD-10-PCS; 2024-11-05)
PROC: 0Y6U0Z0 Detachment at Left 3rd Toe, Complete, Open Approach (ICD-10-PCS; 2024-11-05)
PROC: 0Y6M0ZC Detachment at Right Foot, Partial 3rd Ray, Open Approach (ICD-10-PCS; 2024-11-05)
PROC: 0Y6M0ZF Detachment at Right Foot, Partial 5th Ray, Open Approach (ICD-10-PCS; 2024-11-05)
PROC: 0Y6M0ZB Detachment at Right Foot, Partial 2nd Ray, Open Approach (ICD-10-PCS; 2024-11-05)
PROC: 0Y6N0ZF Detachment at Left Foot, Partial 5th Ray, Open Approach (ICD-10-PCS; 2024-11-05)
PROC: 0Y6M0Z9 Detachment at Right Foot, Partial 1st Ray, Open Approach (ICD-10-PCS; 2024-11-05)
PROC: 30233N1 Transfusion of Nonautologous Red Blood Cells into Peripheral Vein, Percutaneous Approach (ICD-10-PCS; 2024-11-08)
PROC: 0YQMXZZ Repair Right Foot, External Approach (ICD-10-PCS; 2024-11-10)
DX: E11.52 Type 2 diabetes mellitus with diabetic peripheral angiopathy with gangrene (principal); D62 Acute posthemorrhagic anemia; D84.821 Immunodeficiency due to drugs; I70.263 Atherosclerosis of native arteries of extremities with gangrene, bilateral legs; N17.9 Acute kidney failure, unspecified; T86.12 Kidney transplant failure; M86.172 Other acute osteomyelitis, left ankle and foot; M86.171 Other acute osteomyelitis, right ankle and foot; M86.672 Other chronic osteomyelitis, left ankle and foot; M86.671 Other chronic osteomyelitis, right ankle and foot; E11.69 Type 2 diabetes mellitus with other specified complication; E11.621 Type 2 diabetes mellitus with foot ulcer; E11.40 Type 2 diabetes mellitus with diabetic neuropathy, unspecified; L97.519 Non-pressure chronic ulcer of other part of right foot with unspecified severity; L97.529 Non-pressure chronic ulcer of other part of left foot with unspecified severity; E11.65 Type 2 diabetes mellitus with hyperglycemia; I10 Essential (primary) hypertension; N40.1 Benign prostatic hyperplasia with lower urinary tract symptoms; R33.8 Other retention of urine; I95.1 Orthostatic hypotension; E87.6 Hypokalemia; D50.9 Iron deficiency anemia, unspecified; L89.152 Pressure ulcer of sacral region, stage 2; E88.09 Other disorders of plasma-protein metabolism, not elsewhere classified; E55.9 Vitamin D deficiency, unspecified; Y83.0 Surgical operation with transplant of whole organ as the cause of abnormal reaction of the patient, or of later complication, without mention of misadventure at the time of the procedure; N31.9 Neuromuscular dysfunction of bladder, unspecified; D75.839 Thrombocytosis, unspecified; E78.5 Hyperlipidemia, unspecified; K21.9 Gastro-esophageal reflux disease without esophagitis; G25.81 Restless legs syndrome; Z99.3 Dependence on wheelchair; Z79.4 Long term (current) use of insulin; Z87.891 Personal history of nicotine dependence; Z86.73 Personal history of transient ischemic attack (TIA), and cerebral infarction without residual deficits; Z79.82 Long term (current) use of aspirin
CPT/HCPCS: 71046; 73620; 73630; 73718; 80048; 80053; 80197; 80202; 81003; 81015; 82306; 82607; 82728; 82746; 82947; 82962; 83036; 83540; 83550; 85014; 85018; 85025; 85027; 85045; 85652; 86140; 86850; 86900; 86901; 86920; 87070; 87075; 87077; 87086; 87147; 87186; 87205; 88305; 93005; 93922; 93925; 96361; 96374; 97110; 97163; 97164; 97167; 97530; 99285; J2916; P9016; Q4108

== ENCOUNTER 2024-12-12 20:20 | Inpatient (IN) | payer MEDICARE, SELFPAY ==
[2024-12-12] VITALS (9 sets, daily range): BP systolic 113–143; BP diastolic 66–78; BMI 22.1; BMI 22.7; BMI 22.3
[2024-12-12 15:36] LABS: Urine Character Cloudy (Clear)
[2024-12-12 15:37] LABS: ALT (SGPT) < 10 U/L (0-50); AST (SGOT) 14 U/L (17-59); Albumin 3.1 g/dl (3.5-5.0); Alkaline Phosphatase 89 U/L (38-126); Blood Urea Nitrogen 34 mg/dl (9-20); Calcium 8.8 mg/dl (8.4-10.2); Carbon Dioxide 29 mmol/L (22-30); Chloride 100 mmol/L (98-107); Estimated Creatinine Clearance 73 ml/min; Glucose 341 mg/dl (70-99); Potassium 4.4 mmol/L (3.5-5.1); Sodium 137 mmol/L (135-145); Total Protein 6.2 g/dl (6.3-8.2); eGFR > 60.00
[2024-12-12 15:38] LABS: Hematocrit 31.7 % (39.0-52.0); Hemoglobin 10.0 g/dL (13.0-18.0); Mean Corp Hgb Conc. 31.5 g/dL (33.0-37.0); Mean Corpuscular Volume 83.6 fL (80.0-94.0); Nucleated Red Blood Cells % 0 % (-); Red Cell Dist. Width 18.1 % (11.5-14.5)
[2024-12-12 15:45] LABS: Urine Squamous Cell 0-2 /LPF (Few); Urine White Cell 21-25 /HPF (0-5)
[2024-12-12] MEDS: NSS 1000 IV ×3 (16:00→23:20)
--- NOTE | 2024-12-12 16:01 | ED.GENMED ---
History of Present Illness
<Mya Perez NP - Last Filed: 12/12/24 20:13>
General
Chief Complaint: Abnormal Lab Value
Source: patient
Exam Limitations: none
Time Seen by Provider: 12/12/24 15:23
Nursing documentation reviewed up to this point in time: agreed with
History of Present Illness
History of Present Illness:
Patient to ED from rehab for elevated WBC. He was admitted here in october for osteomyelitis to bilateral toes, non healing infected wounds. He had toes on both feet ampustated as well as deep debridiment of lateral aspect of left foot, removeal of
portion of 5th metatarsal. Sent to [facility]. He reports vomiting x 2 days. Denies any abdominal pain. Labs 3 days ago show WBC 16. Repeat today: 20.4. To ED via EMS for eval.
Past History
<Mya Perez NP - Last Filed: 12/12/24 20:13>
Past History
ED Past Medical History: CVA, IDDM and Renal failure (Kidney transplant)
ED Past Surgical History: Other (Kidney transplant)
Social History
Tobacco: Former smoker
Alcohol: Occasional (Last drink was about 2 months ago.)
Drug: None
Personal: Single
Living: alone
Review of Systems
<Mya Perez NP - Last Filed: 12/12/24 20:13>
Review of Systems
Allergies reviewed?: Yes
All Other Systems: ROS reviewed and negative except as documented in HPI and ROS
Constitutional: Reports no symptoms
EENT: Reports no symptoms
Respiratory: Reports no symptoms
Cardiac: Reports no symptoms
ABD/GI: Reports no symptoms
: Reports no symptoms
Musculoskeletal: Reports no symptoms
Skin: Reports no symptoms
Neurological: Reports weakness
Psychiatric: Reports no symptoms
Phy Exam
<Mya Perez NP - Last Filed: 12/12/24 20:13>
General Physical Exam
General Presentation: mild distress
General age: appears stated age
General Skin: warm and dry
General Habitus: normal
General Mental: alert
Cardiovascular Exam
Cardiovascular Exam: regular rate/rhythm and no edema
Pulmonary Exam
Pulmonary Exam: lungs clear and no respiratory distress
Gastrointestinal Exam
Gastrointestinal Exam: normal bowel sounds, non tender, soft, no organomegaly, non distended and other
Genitourinary Exam Male
Exam Male: other (Dominguez catheter intact. Draining cloudy yellow urine)
Musculoskeletal Exam
Musculoskeletal Exam: full ROM and neuro vasc intact
Skin Exam
Skin Exam: normal color, warm/dry and other (Dressings removed from bilateral feet. No evidence of infection at amputation sites. Large open surgical wound left lat foot. No s/s infection. Wound culture obtained)
Psychiatric Exam
Psychiatric Exam: normal mood/affect
Course
<Mya Perez PILE TRIMMER - Last Filed: 12/12/24 20:13>
Orders/Labs/Results
Orders:
Orders
12/12/24 14:57
Electrocardiogram (*1) Urgent
Reason for Study: Other
Other Reason for Exam: Infection
EKG- Treatment ONCE
12/12/24 15:01
CMP [Comprehensive Metabolic Panel] Urgent
Complete Blood Count/With Diff Urgent
12/12/24 15:08
Lactic Acid Urgent
Blood Culture Urgent
RUKHSANA Source: Blood/Venous
Specimen Description:
12/12/24 15:26
Urinalysis Reflex To Culture Urgent
Date Specimen was Collected: 12/12/24
Time Specimen was Collected: 15:24
Comment: Dominguez Catheter
Urine Microscopic Reflex Cult Urgent
Urine Culture Urgent
RUKHSANA Source: U
Specimen Description:
Date Specimen was Collected: 12/12/24
Time Specimen was Collected: 15:24
12/12/24 15:59
Wound Culture [Wound/Abscess/Other Culture] Urgent
RUKHSANA Source: Foot
Specimen Description: Left
Date Specimen was Collected: 12/12/24
Time Specimen was Collected: 15:56
Foot, Left 3 View [CR Foot - Left Min 3 Views] Urgent
Comment:
Reason For Exam: sepsis
Foot, Right 3 View [CR Foot - Right Min 3 Views] Urgent
Comment:
Reason For Exam: sepsis
12/12/24 16:00
0.9% Sodium Chloride 1000 ml [Nss] 1,000 ml IV 2,000 mls/hr
12/12/24 16:07
CT Abd/pelvis W Iv Cont Urgent
Comment:
Reason For Exam: vomiting
Piperacillin/Tazo 3.375 Gram [Zosyn] 3.375 gram in 50 ml IV NOW
12/12/24 16:08
Vancomycin [Vancocin] 2,000 mg 0.9% Sodium Chloride 500 ml [Nss] 500 ml IV NOW
12/12/24 17:13
HYDROmorphone [Dilaudid] 0.5 mg IV NOW STA
Ondansetron Injectable [Zofran] 4 mg IV NOW STA
12/12/24 19:12
Lactate Level [Lactic Acid] Urgent
12/12/24 19:48
Admit/Transfer Patient As Directed
Co-Sign Provider:
Level of Care: Inpatient admission
Assign to:: Medical/Surgical
Physician / Group: paula santiago
Diagnosis: sepsis
Reason for Hospitalization: sepsis
Expected length of stay greater than two midnights?: Yes
ELOS- Estimated Length of Stay in days: 3
I certify the patient meets the requirements for IP care: Yes
PRN Pain Medication Management As Directed
May give lesser potent ordered pain med per pt: Yes
preference::
Protocol:: Medication orders for pain may be administered in a
manner that supports deferring to patient preference
when the pt is:
- Requesting an ordered lesser potent pain medication.
Least to most potent pain medications are defined
as: acetaminophen < NSAID < tramadol < opioids
(morphine, oxycodone, hydromorphone).
- Requesting a lesser dose of the same medication IF
ORDERED.
- Requesting a less intrusive route of administration
if both routes are prescribed by the provider (PO <
IV).
12/12/24 19:50
Code Status As Directed
Resuscitation Status: Full Code
12/12/24 19:57
UROLOGY CONSULT Routine
Consulting Provider: Hussein Parekh
Was physician already notified: Yes
12/13/24 06:00
Tacrolimus (Prograft - FK506) [S] IN AM
Abnormal Lab Results
12/12/24 12/12/24 12/12/24
15:01 15:08 15:26
WBC 26.1 H 10^3/uL
(4.8-10.8)
RBC 3.79 L 10^6/uL
(4.70-6.10)
Hgb 10.0 L g/dL
(13.0-18.0)
Hct 31.7 L %
(39.0-52.0)
MCH 26.4 L pg
(27.0-31.0)
MCHC 31.5 L g/dL
(33.0-37.0)
RDW 18.1 H %
(11.5-14.5)
Abs Immat Gran (auto) 0.2 H 10^3/uL
(0-0.05)
Absolute Neuts (auto) 22.4 H 10^3/uL
(1.4-6.5)
Absolute Monos (auto) 1.6 H 10^3/uL
(0.1-0.6)
Immature Gran % 0.7 H %
(0-0.5)
Neutrophils % 85.9 H %
(42.2-75.2)
Lymphocytes % 6.8 L %
(20.5-51.1)
BUN 34 H mg/dl
(9-20)
Glucose 341 H mg/dl
(70-99)
Lactic Acid 2.2 H mmol/L
(0.7-2.0)
AST 14 L U/L
(17-59)
Total Protein 6.2 L g/dl
(6.3-8.2)
Albumin 3.1 L g/dl
(3.5-5.0)
Ur Occult Blood Reflex 4+ A
(Negative)
Urine Nitrite (Reflex) Positive A
(Negative)
Leukocyte Esterase Rfl 3+ A
(Negative)
Urine RBC 3-6 A /HPF
(0-2)
Urine WBC (Reflex) 21-25 A /HPF
(0-5)
Urine Bacteria (Reflex) Many A
(Negative)
Urine Yeast Moderate A
(Negative)
Urine Glucose 4+ A
(Negative)
Urine Albumin (Reflex) 3+ A
(Neg - Trace)
12/12/24 15:01
12/12/24 15:01
Vital Signs
Initial and Last Documented VS:
Initial Vital Signs
Temp Pulse Resp BP Pulse Ox
98.5 F 84 18 113/78 97
12/12/24 14:52 12/12/24 14:52 12/12/24 14:52 12/12/24 14:52 12/12/24 14:52
Last Documented Vital Signs
Temp Pulse Resp BP Pulse Ox
98.5 F 75 13 125/71 94
12/12/24 14:52 12/12/24 19:45 12/12/24 19:45 12/12/24 20:00 12/12/24 19:45
<Shandra Butts MD - Last Filed: 12/12/24 17:03>
Orders/Labs/Results
Orders:
Orders
12/12/24 14:57
Electrocardiogram (*1) Urgent
Reason for Study: Other
Other Reason for Exam: Infection
EKG- Treatment ONCE
12/12/24 15:01
CMP [Comprehensive Metabolic Panel] Urgent
Complete Blood Count/With Diff Urgent
12/12/24 15:08
Lactic Acid Urgent
Blood Culture Urgent
RUKHSANA Source: Blood/Venous
Specimen Description:
12/12/24 15:26
Urinalysis Reflex To Culture Urgent
Date Specimen was Collected: 12/12/24
Time Specimen was Collected: 15:24
Comment: Dominguez Catheter
Urine Microscopic Reflex Cult Urgent
Urine Culture Urgent
RUKHSANA Source: U
Specimen Description:
Date Specimen was Collected: 12/12/24
Time Specimen was Collected: 15:24
12/12/24 15:59
Wound Culture [Wound/Abscess/Other Culture] Urgent
RUKHSANA Source: Foot
Specimen Description: Left
Date Specimen was Collected: 12/12/24
Time Specimen was Collected: 15:56
Foot, Left 3 View [CR Foot - Left Min 3 Views] Urgent
Comment:
Reason For Exam: sepsis
Foot, Right 3 View [CR Foot - Right Min 3 Views] Urgent
Comment:
Reason For Exam: sepsis
12/12/24 16:00
0.9% Sodium Chloride 1000 ml [Nss] 1,000 ml IV 2,000 mls/hr
12/12/24 16:07
CT Abd/pelvis W Iv Cont Urgent
Comment:
Reason For Exam: vomiting
Piperacillin/Tazo 3.375 Gram [Zosyn] 3.375 gram in 50 ml IV NOW
12/12/24 16:08
Vancomycin [Vancocin] 2,000 mg 0.9% Sodium Chloride 500 ml [Nss] 500 ml IV NOW
12/12/24 17:13
HYDROmorphone [Dilaudid] 0.5 mg IV NOW STA
Ondansetron Injectable [Zofran] 4 mg IV NOW STA
12/12/24 19:12
Lactate Level [Lactic Acid] Urgent
12/12/24 19:48
Admit/Transfer Patient As Directed
Co-Sign Provider:
Level of Care: Inpatient admission
Assign to:: Medical/Surgical
Physician / Group: paula santiago
Diagnosis: sepsis
Reason for Hospitalization: sepsis
Expected length of stay greater than two midnights?: Yes
ELOS- Estimated Length of Stay in days: 3
I certify the patient meets the requirements for IP care: Yes
PRN Pain Medication Management As Directed
May give lesser potent ordered pain med per pt: Yes
preference::
Protocol:: Medication orders for pain may be administered in a
manner that supports deferring to patient preference
when the pt is:
- Requesting an ordered lesser potent pain medication.
Least to most potent pain medications are defined
as: acetaminophen < NSAID < tramadol < opioids
(morphine, oxycodone, hydromorphone).
- Requesting a lesser dose of the same medication IF
ORDERED.
- Requesting a less intrusive route of administration
if both routes are prescribed by the provider (PO <
IV).
12/12/24 19:50
Code Status As Directed
Resuscitation Status: Full Code
12/12/24 19:57
UROLOGY CONSULT Routine
Consulting Provider: Hussein Parekh
Was physician already notified: Yes
12/13/24 06:00
Tacrolimus (Prograft - FK506) [S] IN AM
Abnormal Lab Results
12/12/24 12/12/24 12/12/24
15:01 15:08 15:26
WBC 26.1 H 10^3/uL
(4.8-10.8)
RBC 3.79 L 10^6/uL
(4.70-6.10)
Hgb 10.0 L g/dL
(13.0-18.0)
Hct 31.7 L %
(39.0-52.0)
MCH 26.4 L pg
(27.0-31.0)
MCHC 31.5 L g/dL
(33.0-37.0)
RDW 18.1 H %
(11.5-14.5)
Abs Immat Gran (auto) 0.2 H 10^3/uL
(0-0.05)
Absolute Neuts (auto) 22.4 H 10^3/uL
(1.4-6.5)
Absolute Monos (auto) 1.6 H 10^3/uL
(0.1-0.6)
Immature Gran % 0.7 H %
(0-0.5)
Neutrophils % 85.9 H %
(42.2-75.2)
Lymphocytes % 6.8 L %
(20.5-51.1)
BUN 34 H mg/dl
(9-20)
Glucose 341 H mg/dl
(70-99)
Lactic Acid 2.2 H mmol/L
(0.7-2.0)
AST 14 L U/L
(17-59)
Total Protein 6.2 L g/dl
(6.3-8.2)
Albumin 3.1 L g/dl
(3.5-5.0)
Ur Occult Blood Reflex 4+ A
(Negative)
Urine Nitrite (Reflex) Positive A
(Negative)
Leukocyte Esterase Rfl 3+ A
(Negative)
Urine RBC 3-6 A /HPF
(0-2)
Urine WBC (Reflex) 21-25 A /HPF
(0-5)
Urine Bacteria (Reflex) Many A
(Negative)
Urine Yeast Moderate A
(Negative)
Urine Glucose 4+ A
(Negative)
Urine Albumin (Reflex) 3+ A
(Neg - Trace)
12/12/24 15:01
12/12/24 15:01
Vital Signs
Initial and Last Documented VS:
Initial Vital Signs
Temp Pulse Resp BP Pulse Ox
98.5 F 84 18 113/78 97
12/12/24 14:52 12/12/24 14:52 12/12/24 14:52 12/12/24 14:52 12/12/24 14:52
Last Documented Vital Signs
Temp Pulse Resp BP Pulse Ox
98.5 F 75 13 125/71 94
12/12/24 14:52 12/12/24 19:45 12/12/24 19:45 12/12/24 20:00 12/12/24 19:45
<Mya Perez PILE TRIMMER - Last Filed: 12/12/24 20:13>
*Radiology
Radiology exam reviewed: radiology read reviewed
*Pulse Oximetry
SaO2: 97
Oxygen Mode of Delivery: Room air
Patient hypoxic: no
*Critical Care Note
Total Time (30-74mins, 75-104mins- exclusive of procedures): Not Applicable
<Mya Perez NP - Last Filed: 12/12/24 20:13>
Update Note
Update Note:
Patient sent to ED for elevated WBC of 20.1, Lactic 2.2. IVF and antibiotics initiated. VSS, he remains afebrile. Surgical amputation sites without redness/swelling/drainage. BLE neurovasc intact. Xrays reviewed, no evidence of osteomyelitis.
Presents to ED with dominguez catheter, draining cloudy yellow urine. 20-25 WBC's on UA. Blood cultures pending. Case discussed with Dr. butts who also evaluated this patient. Will admit to hospitalist for sepsis, UTI
ED Attending Note
<Mya Perez NP - Last Filed: 12/12/24 20:13>
-
Portions of this chart may have been created with voice recognition software.� Occasional wrong word or��sound alike� substitutions may have occurred due to the inherent limitations of voice recognition software.
<Shandra Butts MD - Last Filed: 12/12/24 17:03>
ED Attending Note
Patient seen and examined by attending physician: Yes
I performed the substantive portion of visit, reviewed & personally made and approve the management plan that is documented in note by myself or KACIE.: Yes
ED Attending Note:
Patient appears nontoxic but chronically ill. Heart sounds regular. Abdomen is soft and nontender. Decreased breath sounds bilaterally.
Discharge Plan
Departure
Patient Disposition: Admit
Date of Disposition: 12/12/24
Time of Disposition: 19:11
Presentation/result/management discussed w/ accepting MD/DO: Hospitalist
Condition: Fair
Covid-19: Not Applicable
Discharge Problem:
Sepsis, Acute UTI
Prescriptions:
No Action
atorvastatin 40 mg Tablet
40 mg PO QPM Qty: 0 0RF
acetaminophen 325 mg Tablet
650 mg PO Q4HPRN PRN (Reason: mild pain/ fever>100.5F) Qty: 0 0RF
melatonin 3 mg Tablet
3 mg PO HS Qty: 0 0RF
cholecalciferol (vitamin D3) 50 mcg (2,000 unit) Tablet
50 mcg PO DAILY Qty: 0 0RF
rivaroxaban [Xarelto] 2.5 mg Tablet
2.5 mg PO BID Qty: 0 0RF
oxycodone-acetaminophen 5-325 mg Tablet
1 tab PO Q4HPRN PRN (Reason: moderate pain) Qty: 10 0RF
ferrous sulfate [FeroSul] 325 mg (65 mg iron) Tablet
325 mg PO DAILY Qty: 0 0RF
prednisone 5 mg tablet
5 mg PO DAILY Qty: 0 0RF
amlodipine 5 mg tablet
10 mg PO DAILY Qty: 0 0RF
aspirin 81 mg Tablet,Delayed Release (Dr/Ec)
81 mg PO DAILY Qty: 0 0RF
ropinirole 0.25 mg tablet
0.25 mg PO QPM Qty: 0 0RF
omeprazole 20 mg capsule,delayed release(DR/EC)
20 mg PO QPM Qty: 0 0RF
fludrocortisone 0.1 mg tablet
0.1 mg PO BID Qty: 0 0RF
tacrolimus 1 mg capsule
1 mg PO BID Qty: 0 0RF
insulin glargine [Lantus Solostar U-100 Insulin] 100 unit/mL (3 mL) insulin pen
30 unit SC HS Qty: 0 0RF
magnesium hydroxide [Milk of Magnesia] 400 mg/5 mL Suspension
30 ml PO DAILY PRN (Reason: constipation)
bisacodyl [Dulcolax (bisacodyl)] 10 mg Suppository
10 mg NH DAILY PRN (Reason: constipation)
ondansetron 4 mg Tablet,Disintegrating
4 mg PO Q6H PRN (Reason: Nausea)
tamsulosin [Flomax] 0.4 mg capsule
0.8 mg PO HS
insulin lispro [Humalog U-100 Insulin] 100 unit/mL solution
8 unit SC TID
Referrals:
Geovanni Zimmer MD [Family Provider, Internal Medicine]
Interventions
Interventions:
*Risk Screen - Suicide Last Done: 12/12/24 14:52
*General Assessment Last Done: 12/12/24 14:51
*Neglect/Abuse Screening Last Done: 12/12/24 14:52
*ED- Fall Risk Assessment Last Done: 12/12/24 14:52
*ED COVID-19 Vaccine History Last Done: 12/12/24 14:52
Discharge Date and Time
Print Language: OMANI
[2024-12-12] MEDS: ZOSYN 50 IV ×2 (16:14→23:20)
[2024-12-12] MEDS: VANCOCIN 540 MG IV (16:39)
[2024-12-12] MEDS: ZOFRAN 4 MG IV (17:16)
[2024-12-12] MEDS: DILAUDID 0.5 MG IV (17:16)
--- NOTE | 2024-12-12 19:28 | HPS.HSE ---
Family Physician
-
Family Physician: Geovanni Zimmer
Chief Complaint
-
Elevated WBC
History of Present Illness
64-year-old with past medical history for CVA, IDDM, renal failure status post kidney transplant presented to us with elevated WBC. Patient denied any fever, chills, chest pain, short of breath, cough. Patient denies any headache, dizziness or
syncope. Patient denies any abdominal pain, nausea, vomiting or diarrhea. Patient denies any dysuria hematuria. Patient has a Boss for urinary retention.
he was admitted here in october for osteomyelitis to bilateral toes, non healing infected wounds. He had toes on both feet amputated as well as deep debridement of lateral aspect of left foot, removal of portion of 5th metatarsal. Sent to [facility]. Labs 3 days ago show WBC 16. Repeat today: 20.4. To ED via EMS for eval.
Medical History
Past Medical History
Past Medical History: Reports Other
Additional Past Medical History:
Orthostatic hypotension, diabetes, neuropathy, gastric ulcer, TIA, end-stage renal disease on peritoneal dialysis,
Past Surgical History: Reports Other
Additional Past Surgical History:
Kidney transplant, hernia repair, bilateral foot transmetatarsal amputation
Social History
Tobacco: Non-smoker
Alcohol: None
Drug: None
Living: [facility]
Family History
Family History: Not pertinent
Allergies / Home Medications
Allergies reflects when Allergies were last updated in [employer].
Home Medications with original date entered in [employer]
Allergy/Medication List:
Allergies
Allergy/AdvReac Type Severity Reaction Status Date / Time
No Known Allergies Allergy Verified 12/12/24 14:49
Home Medications
acetaminophen 325 mg tablet 650 mg (2 x 325 mg) PO Q4HPRN PRN mild pain/ fever>100.5F #0 tabs 11/13/24
amlodipine 5 mg tablet 10 mg (2 x 5 mg) PO DAILY #0 tabs 11/13/24
aspirin 81 mg tablet,delayed release 81 mg PO DAILY Blood clot prevention/tx #0 tabs 11/13/24
atorvastatin 40 mg tablet 40 mg PO QPM High cholesterol #0 tabs 11/13/24
cholecalciferol (vitamin D3) 50 mcg (2,000 unit) tablet 50 mcg PO DAILY Supplement #0 tabs 11/13/24
ferrous sulfate 325 mg (65 mg iron) tablet (FeroSul) 325 mg PO DAILY anemia #0 tabs 11/13/24
fludrocortisone 0.1 mg tablet 0.1 mg PO BID Blood pressure #0 tabs 11/13/24
insulin glargine 100 unit/mL (3 mL) subcutaneous pen (Lantus Solostar U-100 Insulin) 30 unit (0.3 mL) SC HS Diabetes #0 mL 11/13/24
melatonin 3 mg tablet 3 mg PO HS Sleep #0 tabs 11/13/24
omeprazole 20 mg capsule,delayed release 20 mg PO QPM Gastrointestinal issue #0 caps 11/13/24
oxycodone-acetaminophen 5 mg-325 mg tablet 1 tab PO Q4HPRN PRN moderate pain #10 tabs 11/13/24
prednisone 5 mg tablet 5 mg PO DAILY Transplant #0 tabs 11/13/24
rivaroxaban 2.5 mg tablet (Xarelto) 2.5 mg PO BID Blood clot prevention/tx #0 tabs 11/13/24
ropinirole 0.25 mg tablet 0.25 mg PO QPM rls #0 tabs 11/13/24
tacrolimus 1 mg capsule, immediate-release 1 mg PO BID Transplant #0 caps 11/13/24
bisacodyl 10 mg rectal suppository (Dulcolax (bisacodyl)) 10 mg VT DAILY PRN constipation 12/12/24
insulin lispro 100 unit/mL subcutaneous solution (Humalog U-100 Insulin) 8 unit SC TID Diabetes 12/12/24
magnesium hydroxide 400 mg/5 mL oral suspension (Milk of Magnesia) 30 ml PO DAILY PRN constipation 12/12/24
ondansetron 4 mg disintegrating tablet 4 mg PO Q6H PRN Nausea 12/12/24
tamsulosin 0.4 mg capsule (Flomax) 0.8 mg PO HS Urinary issue 12/12/24
Review of Systems
-
Constitutional: Reports No Symptoms
EENT: Reports No Symptoms
Respiratory: Reports No Symptoms
Cardiac: Reports No Symptoms
Abdomen/GI: Reports No Symptoms
: Reports No Symptoms and Boss
Musculoskeletal: Reports No Symptoms
Skin: Reports Other (let metatarsal amputations', right foot wound)
Neurological: Reports No Symptoms
Endocrine: Reports No Symptoms
Hematologic/Lymphatic: Reports No Symptoms
Psych: Reports No Symptoms
Physical Exam
Vital Signs
Vital Signs
Temp Pulse Resp BP Pulse Ox
98.5 F 79 13 118/75 93
12/12/24 14:52 12/12/24 19:00 12/12/24 19:00 12/12/24 19:00 12/12/24 18:15
Physical Exam
General: Well Developed, Well Nourished and No Apparent Distress
HEENT: NormoCephalic, Moist mucous membranes and Atraumatic
Respiratory: Clear
Cardiac: S1/S2 and Regular Rhythm; No Murmur or Rub
GI: Soft, Non Tender, Non Distended and Normal Bowel Sounds; No Organomegaly
Rectal: Deferred by Provider
Musculoskeletal: No Clubbing, No Cyanosis and No Edema
Skin: Rash and Other (right metatrasal amputation, left foot wound)
Neuro: Nonfocal/grossly intact
Psych: Calm
Laboratory Results
-
12/12/24 15:01
12/12/24 15:01
Laboratory Results
Lactic Acid 2.2 mmol/L (0.7-2.0) H 12/12/24 15:08
Total Bilirubin 0.4 mg/dl (0.2-1.3) 12/12/24 15:01
AST 14 U/L (17-59) L 12/12/24 15:01
ALT < 10 U/L (0-50) 12/12/24 15:01
Alkaline Phosphatase 89 U/L (38-126) 12/12/24 15:01
Data Reviewed
-
Diagnostic Radiology: Report Reviewed by me
CT Scan: Report Reviewed by me
Lab Data: Labs Reviewed by me
Impression/Plan
-
# Sepsis secondary to catheter associated UTI
- WBCs 26.1
- CT abdomen pelvis with impression Urinary bladder wall thickening and fat stranding most suspicious for acute cystitis. Recommend correlation with a urinalysis.Right lower quadrant renal transplant.Large volume colonic stool compatible with
constipation. Rectal wall thickening and stool distention of the rectum concerning for a fecal impaction and stercoral colitis.
-IV Zosyn and vancomycin
-Tylenol as needed for fever or pain
- Blood culture sent from ER
# Anemia likely chronic
- Hemoglobin stable at 10.0, no active bleeding
- Continue to monitor
- Ferrous sulfate continue
#History of infected bilateral diabetic foot wounds/osteomyelitis
# Peripheral artery disease
#left partial 5th ray revision
#s/p RIGHT open TMA, LEFT 3rd toe amputation and open partial 5th ray amputation 11/05/2024
#s/p Balloon angioplasty of left peroneal artery and left anterior tibial artery 11/04/2024
- X-ray with no acute osteomyelitis
- Wound culture sent from ER
#Urinary Retention
-Boss in place
#Stage 2 sacral pressure injury, POA
-wound care consulted
# Insulin Dependent Diabetes Mellitus
- Lantus 30 units continued, lispro 8 units 3 times daily
- Sliding scale
- CHO diet
#Hypertension
-Amlodipine 10mg
# S/P Donor Kidney Transplant for renal failure
-Renal function stable
-Continue tacrolimus
-Continue fludrocortisone and prednisone, tacrolimus
#Hyperlipidemia
-Continue pravastatin
#GERD / PUD
-Continue Protonix
#Restless Leg Syndrome
-Continue ropinirole
#Hx TIA
-Continue aspirin , Xarelto
#Chronic Ambulatory Dysfunction
-Wheelchair bound
DVT proph: Xarelto
# CODE STATUS
- Full code
--- NOTE | 2024-12-12 19:29 | W.PN.UPDATE ---
Addendum entered and electronically signed by Fredi Escamilla MD 12/12/24 20:13:
Foot XR
Left foot:
- Amputation of the fifth ray at the level of the proximal fifth metatarsal.
- Amputation of the third ray at the level of the metatarsophalangeal joint.
- Mild chronic osseous fragmentation at the base of the fourth proximal phalanx.
- No acute fracture or dislocation. No aggressive osseous destruction. Vascular calcifications.
Right foot:
- Transmetatarsal amputation of the first through fifth rays.
- No acute fracture or dislocation.
- No aggressive osseous destruction. Vascular calcifications.
IMPRESSION:
No clear radiographic evidence for acute osteomyelitis.
Original Note:
Update Note
Progress Note Update
This note serves as an addendum to the H&P by container coordinator KACIE�
Adri NGUYEN�
HPI
64M WC bound, chr gait dysfunction, HX donor KTP @ [facility] (2017) , Immunosuppressed host, HX b/l foot OM, s/p (R) TMA / (L) 3rd toe amp / (L) 5th part.met amp, HX s/p angioplasty LLEx, T2DM, HTN, HLD. RLS , TIA, Chronic Florinef use seen at
ER:
- sent from SNF for elevated WBC
- [facility]
- was admitted here in October for osteomyelitis to bilateral toes, non healing infected wounds. He had toes on both feet ampustated as well as deep debridiment of lateral aspect of left foot, removal of portion of 5th metatarsal. then DC 'd to
[facility] rehab.
- reports vomiting x 2 days.
- wears Boss cath since last admission in October due to urinary retention
ROS
Denies any abdominal pain.
Labs 3 days ago show WBC 16.
Repeat today: 20.4.
PHX; see above
Relevant VS
Temp Pulse Resp BP Pulse Ox
98.5 F 79 13 118/75 93
12/12/24 14:52 12/12/24 19:00 12/12/24 19:00 12/12/24 19:00 12/12/24 18:15
PE
Gen: NAD
HEENT:Moist OM
Neck:supple
Lungs: CTA
Cor: RRR S1 S2
Abdomen:�Soft, Non Tender, Non Distended and Normal Bowel Sounds
MANUFACTURING QUALITY MANAGER: NFND
MS: R metatarsal amputation, left foot wound
Psych:nl affect
Relevant Data
11/13/24 12/12/24 12/12/24
09:33 15:01 15:08
WBC 26.1 H
Hgb 8.7 L 10.0 L
MCV 83.6
BUN 34 H
Creatinine 1.1
eGFR > 60.00
Lactic Acid 2.2 H
AST 14 L
ALT < 10
Urinalysis 12/12/24
15:26
Ur Occult Blood Reflex 4+ A
Urine Nitrite (Reflex) Positive A
Leukocyte Esterase Rfl 3+ A
Urine RBC 3-6 A
Urine WBC (Reflex) 21-25 A
Urine Yeast Moderate A
BCx sent
Wd Cx sent
EKG report
NORMAL SINUS RHYTHM
ANTERIOR INFARCT , AGE UNDETERMINED
ABNORMAL ECG
WHEN COMPARED WITH ECG OF 09-Nov-2024 15:45,
PREMATURE VENTRICULAR COMPLEXES ARE NO LONGER PRESENT
INVERTED T WAVES HAVE REPLACED NONSPECIFIC T WAVE ABNORMALITY IN INFERIOR LEADS
CT AP W Iv Cont - CLINICAL INDICATION: Vomiting.
- Urinary bladder wall thickening and fat stranding most suspicious for acute cystitis. Recommend correlation with a urinalysis.
- Right lower quadrant renal transplant.
- Large volume colonic stool compatible with constipation.
- Rectal wall thickening and stool distention of the rectum concerning for a fecal impaction and stercoral colitis
Last hospitalist admission:Date of Admission: 11/01/24 - Date of Discharge: 11/13/24
DC DX: Bilateral foot osteomyelitis, critical limb ischemia;
Procedure: (R) TMA / (L) 3rd toe amp / (L) 5th part. met amp, status post angioplasty LLE
donor renal transplant 2017 on 2 immunosuppressants
Diabetes Mellitus 2
Essential Hypertension
Hyperlipidemia
GERD / PUD
Restless Leg Syndrome
TIA
Chronic Ambulatory Dysfunction - Wheelchair bound
Chronic Florinef use
ASSESSMENT & PLAN
Pending Rx reconciliation
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
- Abnormal UA suggestive of CAUTI - wears Boss cath since last admission in October due to urinary retention
- CT suggest acute cystitis, large vol. colonic stool constipation, concerning for a fecal impaction and stercoral colitis
- UCx sent , BC sent
- IV NS
- Empiric IV Vanco and Zosyn
- FU UCx, BCx and Wound Cx
- Wd care consulted
Urinary Retention on indwelling FC since last admission
- currently CAUTI
- Uro consulted
HX Multifactorial anemia
- Recent ABLA from recent surgery, TESSA, Anemia of Chronic disease,
- on Fe supplementation PO
PAD s/p chronic limb threatening ischemia bilateral lower extremity with gangrene and osteomyelitis bilateral feet
- S/P balloon angioplasty left peroneal artery, left anterior tibial artery on 11/04/2024
- On Xarelto 2.5 mg BID , aspirin
HX stage II acral PI
- POA
- ongoing wound care
IDDM will check Tacrolimus leve;
- last A1C- 14s
- c/w COMPANY MINER BLASTING basal bolus regime
- add IIS low
Essential HTN
- Amlodipine 10mg daily
HX donor KTP ( 2017)
- stable RFts
- COMPANY MINER BLASTING tacrolimus
- Ensure strict administration of medication
- on COMPANY MINER BLASTING chronic fludrocortisone and prednisone
HLD
- COMPANY MINER BLASTING pravastatin
Restless Leg Syndrome
- on ropinirole
HX TIA
- on aspirin , Xarelto
Chronic Ambulatory Dysfunction
-Wheelchair bound
DVT Px:COMPANY MINER BLASTING Xarelto
Code: Full
IP MS
[2024-12-12 22:33] LABS: Glucose - Point of Care 302 mg/dl (70-99)
--- NOTE | 2024-12-12 23:11 | PHA.VAN.IN ---
Assessment
- Assessment
Renal Function: SCR Appears Elevated from baseline
Concomitant Antimicrobials: Piperacillin/tazobactam
- Previous Dosing Experience
Pt received vancomycin 1000mg IV Q12h during October admission.
No levels were obtained with that regimen.
AUC Dosing Plan
- Dosing Variables
Dosing Weight (kg): 78.6
Dosing CrCl (ml/min): 74
Vd coefficient (L/kg): 0.7
- Empiric Dosing
Initial / Loading Dose: Vancomycin 2000mg administered 12/12 at 1640
Maintenance Regimen: Vancomycin 750mg IV Q12- start 12/13 at 0600
Estimated AUC (mcg*h/mL): 428
Estimated Peak (mcg*h/mL): 25
Estimated Trough (mcg/ml): 12.1
Estimated Half Life (H): 10.5
- Monitoring
No levels ordered at this time: Consider levels in the next few days.
Pharmacokinetics Vancomycin I
- -
Patient Age: 64
Patient Sex: Male
Vancomycin Day #: 1
Indication: Genito-Urinary Tract
Requesting Provider: SRINIVASAN Shah
Pertinent Antimicrobial Allergies:
No Known Allergies Allergy (Verified 12/12/24 14:49)
Height / Weight:
Height 6 ft 2 in
Actual Weight 78.698 kg
Pertinent Past Medical History: kidney transplant '17 on tacro and prednisone, s/p toe amputation 11/09
- Vital Signs / Lab Results
Temp Pulse Resp BP Pulse Ox
97.6 F 78 18 143/71 95
12/12/24 22:17 12/12/24 22:17 12/12/24 22:17 12/12/24 22:17 12/12/24 22:40
Lab Results - Hematology
12/12/24
15:01
WBC 26.1 H
Lab Results - Chemistry
12/12/24
15:01
BUN 34 H
Creatinine 1.1
Estimated Creat Clear 73
Albumin 3.1 L
12/12/24 12/12/24
15:08 19:12
Lactic Acid 2.2 H 1.0
Lab Results - Urine
12/12/24
15:26
Urine Nitrite (Reflex) Positive A
Leukocyte Esterase Rfl 3+ A
Urine WBC (Reflex) 21-25 A
Ur Squamous Epith Cells 0-2
Urine Bacteria (Reflex) Many A
[2024-12-12] MEDS: LANTUS 0.3 UNITS SC (23:16)
[2024-12-12] MEDS: XARELTO 2.5 MG PO (23:17)
[2024-12-12] MEDS: FLORINEF 0.1 MG PO (23:18)
[2024-12-12] MEDS: FLOMAX 0.8 MG PO (23:18)
[2024-12-12] MEDS: REQUIP 0.25 MG PO (23:19)
[2024-12-12] MEDS: PERCOCET 5/325 1 TABLET PO (23:19)
[2024-12-12] MEDS: MELATONIN 3 MG PO (23:23)
[2024-12-12] MEDS: PROGRAF 1 MG PO (23:23)
[2024-12-13] MEDS: ZOSYN 50 IV ×4 (05:11→23:47)
[2024-12-13] MEDS: VANCOCIN 150 IV ×2 (05:41→17:11)
[2024-12-13 07:35] LABS: Glucose - Point of Care 222 mg/dl (70-99)
[2024-12-13 07:44] VITALS: BP 128/70
[2024-12-13 07:49] LABS: Hematocrit 26.3 % (39.0-52.0); Hemoglobin 8.2 g/dL (13.0-18.0); Mean Corp Hgb Conc. 31.2 g/dL (33.0-37.0); Mean Corpuscular Volume 83.5 fL (80.0-94.0); Red Cell Dist. Width 18.1 % (11.5-14.5)
[2024-12-13] MEDS: NOVOLOG FLEXPEN 8 UNITS SC ×3 (07:59→17:09)
[2024-12-13] MEDS: NOVOLOG FLEXPEN-LOW RESISTANCE 2 UNITS SC ×2 (07:59→17:09)
[2024-12-13] MEDS: FLORINEF 0.1 MG PO ×2 (08:00→19:19)
[2024-12-13] MEDS: PROGRAF 1 MG PO ×2 (08:00→19:20)
[2024-12-13] MEDS: FEOSOL 325 MG PO (08:00)
[2024-12-13] MEDS: XARELTO 2.5 MG PO ×2 (08:00→19:19)
[2024-12-13] MEDS: DELTASONE 5 MG PO (08:00)
[2024-12-13] MEDS: NORVASC 10 MG PO (08:00)
[2024-12-13] MEDS: ASPIR LOW (ENTERIC COATED) 81 MG PO (08:00)
[2024-12-13 08:02] LABS: ALT (SGPT) < 10 U/L (0-50); AST (SGOT) 11 U/L (17-59); Albumin 2.5 g/dl (3.5-5.0); Alkaline Phosphatase 80 U/L (38-126); Blood Urea Nitrogen 25 mg/dl (9-20); Calcium 8.3 mg/dl (8.4-10.2); Carbon Dioxide 27 mmol/L (22-30); Chloride 106 mmol/L (98-107); Estimated Creatinine Clearance 81 ml/min; Glucose 225 mg/dl (70-99); Potassium 3.8 mmol/L (3.5-5.1); Sodium 136 mmol/L (135-145); Total Protein 5.2 g/dl (6.3-8.2); eGFR > 60.00
[2024-12-13] MEDS: PERCOCET 5/325 1 TABLET PO ×3 (08:05→19:19)
--- NOTE | 2024-12-13 08:13 | PHA.VAN.FU ---
Vancomycin Assessment / Plan
- Assessment
Renal Function: SCR Decreasing
WBC's are: Trending Down
In the past 24 hrs, patient has been: Afebrile
Concomitant Antimicrobials: PIPERACILLIN/TAZOBACTAM
- Dosing Plan
Continue: VANCO 750MG Q12H
- Monitoring Plan
No level(s) ordered at this time: CONSIDER LEVEL AT STEADY STATE
- Follow Up
Pharmacy will continue to follow.
Vancomycin Follow UP
- -
Patient Age: 64
Patient Sex: Male
Vancomycin Day #: 2
Indication: Genito-Urinary Tract
Requesting Provider: SRINIVASAN Shah
Pertinent Antimicrobial Allergies:
No Known Allergies Allergy (Verified 12/12/24 14:49)
Height / Weight:
Height 6 ft 2 in
Actual Weight 78.698 kg
Pertinent Past Medical History: kidney transplant '17 on tacro and prednisone, s/p toe amputation 11/09
- Vital Signs / Lab Results
Temp Pulse Resp BP Pulse Ox
98.4 F 66 18 128/70 95
12/13/24 07:44 12/13/24 07:44 12/13/24 07:44 12/13/24 07:44 12/13/24 07:44
Lab Results - Hematology
12/12/24 12/13/24
15:01 07:05
WBC 26.1 H 22.4 H
Lab Results - Chemistry
12/12/24 12/13/24
15:01 07:05
BUN 34 H 25 H
Creatinine 1.1 1.0
Estimated Creat Clear 73 81
Albumin 3.1 L 2.5 L
12/12/24 12/12/24
15:08 19:12
Lactic Acid 2.2 H 1.0
Lab Results - Urine
12/12/24
15:26
Urine Nitrite (Reflex) Positive A
Leukocyte Esterase Rfl 3+ A
Ur Squamous Epith Cells 0-2
[2024-12-13 08:20] LABS: Platelet Count 354 10^3/uL (130-400)
[2024-12-13 10:09] LABS: Glycohemoglobin (HgbA1c) 8.0 % (4.0-5.6)
--- NOTE | 2024-12-13 10:31 | W.PN.HOSP.TC ---
Today's Communication/Plan
-
see plan
Assessment / Plan
Assessment / Plan
Gen: NAD, Awake and alert
Eyes: EOMI, PERRLA, no scleral icterus.
Neck: supple.
CV: RRR, +S1/S2, no m/r/g.
Resp: CTAB, no rales, wheezes, or rhonchi.
Abd: +BS, soft, NT, ND
Skin: No rashes.
Neuro: CN 2-12 intact, non-focal.
Psych: Normal mood and affect.
CT A/P: Urinary bladder wall thickening and fat stranding most suspicious for acute cystitis. Recommend correlation with a urinalysis. Right lower quadrant renal transplant. Large volume colonic stool compatible with constipation. Rectal wall
thickening and stool distention of the rectum concerning for a fecal impaction and stercoral colitis.
Sepsis due to CAUTI (POA):
-chronic urinary retention with dominguez in place on admission. Dominguez changed 1045 on 12/12/24.
-cont Vanco/Zosyn
-follow BCxs/UCx
-c/s ID
Other problems:
Chronic anemia: cont ferrous sulfate
h/o B/L diabetic foot wounds/osteomyelitis
h/o L partial 5th ray revision
h/o balloon angioplasty of left peroneal artery and left anterior tibial artery 11/04/2024
h/o R open TMA, LEFT 3rd toe amputation and open partial 5th ray amputation 11/05/2024
PAD: currently on ASA/statin/Xarelto
Stage 2 sacral pressure injury, POA
DM2: cont Lantus/premeal lispro, SSI/accuchecks/diabetic diet
Essential HTN: cont Norvasc
h/o renal Tx: cont prednisone/tacrolimus
HLD: cont statin
GERD/PUD: cont PPI
RLS: cont Requip
h/o TIA: cont ASA/statin
Chronic Ambulatory dysfunction, wheelchair bound
FULL/Xarelto
Anticipated Discharge: > 48 hours
Subjective/Interval History
-
Date of Service: December 13, 2024
Objective Data
-
Labs:
Laboratory Results
12/13/24
07:05
WBC 22.4 H
Hgb 8.2 L
Hct 26.3 L
Plt Count 354
Sodium 136
Potassium 3.8
Chloride 106
Carbon Dioxide 27
BUN 25 H
Creatinine 1.0
Glucose 225 H
Calcium 8.3 L
Total Bilirubin 0.3
AST 11 L
ALT < 10
Alkaline Phosphatase 80
Vital Signs:
Vital Signs
Temp Pulse Resp BP Pulse Ox
98.4 F 66 18 128/70 95
12/13/24 07:44 12/13/24 07:44 12/13/24 07:44 12/13/24 07:44 12/13/24 07:44
I&O
12/12/24 12/13/24 12/14/24
06:59 06:59 06:59
Intake Total 1830 / 1830
Output Total 1550 / 1550
Balance 280 / 280
[2024-12-13 11:18] LABS: Glucose - Point of Care 251 mg/dl (70-99)
[2024-12-13] MEDS: NOVOLOG FLEXPEN-LOW RESISTANCE 3 UNITS SC (11:52)
--- NOTE | 2024-12-13 12:31 | W.PN.URO.CBU ---
Today's Communication / Plan
-
continue present care
Assessment / Plan
-
cath associated uti in pt with multpile med issues agree with iv abs await cxs no gu intervention
Diagnosis
-
Date of Service: December 13, 2024
-
Patient Diagnosis:
cauti mi]=ultiple possbnle source sof lukocytosis but ct svan c/w acutr cath assosciated uti
Post Op Day:
Subjective
-
feeling better
Objective
-
Vital Signs
Temp Pulse Resp BP Pulse Ox
98.4 F 66 18 128/70 95
12/13/24 07:44 12/13/24 07:44 12/13/24 07:44 12/13/24 07:44 12/13/24 07:44
Intake and Output
12/12/24 12/13/24 12/14/24
06:59 06:59 06:59
Intake Total 1830 / 1830
Output Total 1550 / 1550
Balance 280 / 280
Intake:
Oral fluids 880 / 880
IV fluids (Total) 700 / 700
IV piggybacks 250 / 250
Output:
Urine, Boss 1550 / 1550
Laboratory Results
12/13/24 07:05
12/13/24 07:05
Review of Systems
-
Constitutional: Fever and Fatigue
: Difficulty Voiding
Physical Exam
-
General - well developed, well nourished, no acute distress
Chest - clear bilaterally
Abdomen - soft, non-tender, positive bowel sounds, no CVAT, no incisional pain or distention
Genitalia - normal
Rectal - normal
Skin - warm & dry with no rash
Neuro - AOx3, no motor deficits
Extremities - no clubbing, no cyanosis, no edema
Incision - clean, dry
Dressing - clean, dry, intact
[2024-12-13 13:52] VITALS: BP 130/70; PULSE 69; O2SAT 95
[2024-12-13] MEDS: NSS 1000 IV ×2 (14:06→23:47)
[2024-12-13 15:37] VITALS: BP 96/59
[2024-12-13 16:34] LABS: Glucose - Point of Care 246 mg/dl (70-99)
[2024-12-13] MEDS: REQUIP 0.25 MG PO (17:09)
[2024-12-13] MEDS: PROTONIX 40 MG PO (17:10)
[2024-12-13] MEDS: LIPITOR 40 MG PO (17:10)
[2024-12-13] MEDS: MELATONIN 3 MG PO (19:19)
[2024-12-13] MEDS: FLOMAX 0.8 MG PO (19:21)
--- NOTE | 2024-12-13 20:21 | PTCARENOTE ---
angelica was exchanged by reece run 12/12 at 1045 per report
[2024-12-13 21:00] LABS: Glucose - Point of Care 229 mg/dl (70-99)
[2024-12-13] MEDS: LANTUS 0.3 UNITS SC (21:42)
[2024-12-13 23:02] VITALS: BP 128/54
[2024-12-14] MEDS: ZOSYN 50 IV (05:03)
[2024-12-14] MEDS: VANCOCIN 150 IV (05:47)
[2024-12-14 07:27] LABS: Glucose - Point of Care 200 mg/dl (70-99)
[2024-12-14 07:43] LABS: Hematocrit 28.2 % (39.0-52.0); Hemoglobin 8.8 g/dL (13.0-18.0); Mean Corp Hgb Conc. 31.2 g/dL (33.0-37.0); Mean Corpuscular Volume 83.2 fL (80.0-94.0); Platelet Count 380 10^3/uL (130-400); Red Cell Dist. Width 18.3 % (11.5-14.5)
[2024-12-14] MEDS: NORVASC 10 MG PO (07:44)
[2024-12-14] MEDS: DELTASONE 5 MG PO (07:44)
[2024-12-14] MEDS: FLORINEF 0.1 MG PO ×2 (07:44→20:39)
[2024-12-14] MEDS: PROGRAF 1 MG PO ×2 (07:44→20:39)
[2024-12-14] MEDS: XARELTO 2.5 MG PO ×2 (07:44→20:39)
[2024-12-14] MEDS: ASPIR LOW (ENTERIC COATED) 81 MG PO (07:44)
[2024-12-14] MEDS: FEOSOL 325 MG PO (07:44)
[2024-12-14] MEDS: NOVOLOG FLEXPEN 8 UNITS SC ×3 (07:46→16:47)
[2024-12-14] MEDS: NOVOLOG FLEXPEN-LOW RESISTANCE 2 UNITS SC (07:46)
[2024-12-14] MEDS: PERCOCET 5/325 1 TABLET PO ×3 (07:57→20:40)
[2024-12-14 07:59] LABS: ALT (SGPT) < 10 U/L (0-50); AST (SGOT) 12 U/L (17-59); Albumin 2.4 g/dl (3.5-5.0); Alkaline Phosphatase 79 U/L (38-126); Blood Urea Nitrogen 21 mg/dl (9-20); Calcium 7.9 mg/dl (8.4-10.2); Carbon Dioxide 27 mmol/L (22-30); Chloride 107 mmol/L (98-107); Estimated Creatinine Clearance 81 ml/min; Glucose 183 mg/dl (70-99); Potassium 3.6 mmol/L (3.5-5.1); Sodium 139 mmol/L (135-145); Total Protein 5.1 g/dl (6.3-8.2); eGFR > 60.00
--- NOTE | 2024-12-14 08:41 | W.PN.HOSP.TC ---
Today's Communication/Plan
-
see plan
Assessment / Plan
Assessment / Plan
Gen: NAD, Awake and alert
Eyes: EOMI, PERRLA, no scleral icterus.
Neck: supple.
CV: remains RRR, +S1/S2, no m/r/g.
Resp: remains CTAB, no rales, wheezes, or rhonchi.
Abd: remains +BS, soft, NT, ND
Skin: No rashes.
Neuro: CN 2-12 intact, non-focal.
Psych: Normal mood and affect.
12/13/24 05:39 Nose MRSA Screen - Final
No Methicillin Resistant Staphylococcus aureus isolated.
12/12/24 15:26 Urine Urine Culture - Preliminary
Gram negative bacilli
12/12/24 15:08 Blood/Venous Blood Culture - Preliminary
No Growth in 24 hours- Final report to follow
12/12/24 15:59 Foot - Left Gram Stain - Preliminary
CT A/P: Urinary bladder wall thickening and fat stranding most suspicious for acute cystitis. Recommend correlation with a urinalysis. Right lower quadrant renal transplant. Large volume colonic stool compatible with constipation. Rectal wall
thickening and stool distention of the rectum concerning for a fecal impaction and stercoral colitis.
Sepsis due to CAUTI (POA):
-chronic urinary retention with dominguez in place on admission. Dominguez changed 1045 on 12/12/24.
-cont Vanco/Zosyn as per ID
-follow BCxs/UCx
Other problems:
Chronic anemia: cont ferrous sulfate
h/o B/L diabetic foot wounds/osteomyelitis
h/o L partial 5th ray revision
h/o balloon angioplasty of left peroneal artery and left anterior tibial artery 11/04/2024
h/o R open TMA, LEFT 3rd toe amputation and open partial 5th ray amputation 11/05/2024
PAD: currently on ASA/statin/Xarelto
Stage 2 sacral pressure injury, POA
DM2: cont Lantus (increase to 36U)/premeal lispro, SSI/accuchecks/diabetic diet
Essential HTN: cont Norvasc
h/o renal Tx: cont prednisone/tacrolimus
HLD: cont statin
GERD/PUD: cont PPI
RLS: cont Requip
h/o TIA: cont ASA/statin
Chronic Ambulatory dysfunction, wheelchair bound
FULL/Xarelto
Anticipated Discharge: 24 - 48 hours
Subjective/Interval History
-
Date of Service: December 14, 2024
No new complaints.
Objective Data
-
Labs:
Laboratory Results
12/14/24
06:02
WBC 15.7 H
Hgb 8.8 L
Hct 28.2 L
Plt Count 380
Sodium 139
Potassium 3.6
Chloride 107
Carbon Dioxide 27
BUN 21 H
Creatinine 1.0
Glucose 183 H
Calcium 7.9 L
Total Bilirubin < 0.1 L
AST 12 L
ALT < 10
Alkaline Phosphatase 79
Vital Signs:
Vital Signs
Temp Pulse Resp BP Pulse Ox
98.7 F 68 16 128/54 97
12/14/24 07:00 12/14/24 07:00 12/14/24 07:00 12/13/24 23:02 12/14/24 07:00
I&O
12/13/24 12/14/24 12/15/24
06:59 06:59 06:59
Intake Total 1830 / 1830
Output Total 1550 / 1550 1600 / 1600
Balance 280 / 280 -1600 / -1600
--- NOTE | 2024-12-14 09:26 | WOUNDNOTE ---
SACRAL/COCCYX/PERIANAL
--- NOTE | 2024-12-14 09:26 | WOUNDNOTE ---
L 3RD TOE AMP SITE
--- NOTE | 2024-12-14 09:27 | WOUNDNOTE ---
L 3RD TOE AMP SITE
--- NOTE | 2024-12-14 09:30 | WOUNDNOTE ---
[facility] RN note: Patient admitted with sepsis secondary to CAUTI (POA). Patient admitted from SNF.
See H&P for complete history.
PMH: WC bound, CVA, IDDM, renal failure, s/p kidney transplant 04/2016, R TMA 10/2024, L 3rd toe amp, L 5th ray amp 10/2024. s/p balloon angioplasty L peroneal artery and L anterior tibial artery 11/04/[address] Singer, neuropathy, PAD.
Wound Location and type/assessment: Patient admitted with: Full thickness L 5th toe ray amp, wound to bone, pink with scattered yellow/black areas. L 3rd toe amp wound shallow in appearance, pink with yellow fibrin. L dorsal 2nd toe dry black
necrotic ulcer suspect r/t small vessel disease. R lateral TMA incision with black loosening necrotic tissue with surrounding erythema. Pedal pulses heard via portable Doppler. R heel blanchable red. Patient saw Dr. Wilson 12/08/24 and vascular TRUCK DRIVER SALESPERSON
11/20/24. Scrotum with dermal ulcer r/t moisture and friction. Penis tip and scrotum red suspect r/t moisture. Coccyx stage 1 pressure injury vs MASD. Sacral crease chafed. Sacral/buttocks blanchable red.
Appetite: poor.
Pressure redistribution devices in place: [employer] Accumax. Patient can turn self in bed. He can lift feet off bed.
Plan: Dressings changed on feet. Protective foam applied to sacrum (sacral shaped silicone foam) and heels. Patient turned with help from [employer]Y Mayo. Heels off bed with pillows and bariatric air chair cushion. Patient turned to L semi side lying
position using foam turning wedge given obtained from [facility].
Updated and confirmed orders with Dr. Patton. Inocencio texted Dr. Patton R lateral foot and L lateral foot wound pics; defer to hospitalist if patient's property analyst Dr. Wilson and vascular consult indicated.
Updated care plan and will follow as needed. Patient to follow up with property analyst and vascular.
Recommend follow up at wound care center upon discharge.
--- NOTE | 2024-12-14 09:30 | WOUNDNOTE ---
[facility] RN note: Patient admitted with sepsis secondary to CAUTI (POA). Patient admitted from SNF.
See H&P for complete history.
PMH: WC bound, CVA, IDDM, renal failure, s/p kidney transplant 10/2024 R TMA 11/10/24, L 3rd toe amp, L 5th ray amp 11/05/24. s/p balloon angioplasty L peroneal artery and L anterior tibial artery 11/04/[address] Singer, neuropathy, PAD.
Wound Location and type/assessment: Patient admitted with: Full thickness 5th to ray amp wound to bone, pink with scattered yellow/black areas. L 3rd toe amp wound shallow pink with yellow fibrin. L dorsal 2nd toe dry black necrotic ulcer suspect
r/t small vessel disease. R lateral TMA incision with black softening necrotic tissue with surrounding erythema. Pedal pulses heard via portable Doppler. R heel blanchable red. Patient saw Dr. Wilson 12/08/24 and vascular DETAIL DRAFTER 11/20/24. Scrotum with
dermal ulcer r/t moisture and friction. Penis tip and scrotum red suspect r/t moisture. Coccyx stage 1 pressure injury. Sacral crease chafed. Sacral/buttocks blanchable red.
Appetite: poor.
Pressure redistribution devices in place: [employer] Accumax. Patient can turn self in bed. He can lift feet off bed.
Plan: Dressings changed on feet. Protective foam applied to sacrum (sacral shaped silicone foam) and heels. Patient turned with help from BOY Mayo. Heels off bed with pillows. Bariatric air chair cushion and foam turning wedge given obtained from
[facility].
Updated and confirmed orders with Dr. Patton. Inocencio texted Dr. Patton R lateral and L lateral foot wound pics; defer to hospitalist if patient's wide load escort Dr. Wilson and vascular consult indicated.
Updated care plan and will follow as needed. Patient to follow up with wide load escort and vascular.
Recommend follow up at wound care center upon discharge.
[2024-12-14] MEDS: SENOKOT 17.2 MG PO ×2 (09:51→20:39)
[2024-12-14] MEDS: CITROMA 300 ML PO (09:51)
[2024-12-14] MEDS: ZOSYN IV (10:54)
[2024-12-14 11:23] LABS: Glucose - Point of Care 146 mg/dl (70-99)
--- NOTE | 2024-12-14 11:53 | W.PN.URO.CBU ---
Today's Communication / Plan
-
no gu interventions
Assessment / Plan
-
cath associated uti in pt with multpile med issues agree with iv abs await cxs no gu intervention
Diagnosis
-
Date of Service: December 14, 2024
-
Patient Diagnosis:
Post Op Day:
Patient Diagnosis:
cauti mi]=ultiple possbnle source sof lukocytosis but ct svan c/w acutr cath assosciated uti
Post Op Day:
Subjective
-
feelin g better
Objective
-
Vital Signs
Temp Pulse Resp BP Pulse Ox
98.7 F 68 16 128/54 97
12/14/24 07:00 12/14/24 07:00 12/14/24 07:00 12/13/24 23:02 12/14/24 07:45
Intake and Output
12/13/24 12/14/24 12/15/24
06:59 06:59 06:59
Intake Total 1830 / 1830
Output Total 1550 / 1550 1600 / 1600
Balance 280 / 280 -1600 / -1600
Intake:
Oral fluids 880 / 880
IV fluids (Total) 700 / 700
IV piggybacks 250 / 250
Output:
Urine, Boss 1550 / 1550 1600 / 1600
Laboratory Results
12/14/24 06:02
12/14/24 06:02
Review of Systems
-
Constitutional: Fatigue and Night Sweats
: Difficulty Voiding
Physical Exam
-
General - well developed, well nourished, no acute distress
Chest - clear bilaterally
Abdomen - soft, non-tender, positive bowel sounds, no CVAT, no incisional pain or distention
Genitalia - normal
Rectal - normal
Skin - warm & dry with no rash
Neuro - AOx3, no motor deficits
Extremities - no clubbing, no cyanosis, no edema
Incision - clean, dry
Dressing - clean, dry, intact
Counseling
-
cauti no new changes keep present care plan
Care Review
Data Reviewed
Discussed with: Nursing
[2024-12-14] MEDS: NOVOLOG FLEXPEN-LOW RESISTANCE SC (12:17)
[2024-12-14] MEDS: SANTYL OINTMENT TOPICAL (12:22)
--- NOTE | 2024-12-14 12:28 | CON.VAS ---
Consultation
Consultation Request
Date/Time Consultation Performed: 12/14/24
Requesting Provider: Sergio Patton MD
Performing Provider: Arleen Juarez NP-C for Roberto Singer MD
Reason for Consultation: Bilateral foot wounds
Medical History
-
Chief Complaint: Leukocytosis with accompanying vomiting at rehab facility
History of Present Illness:
This is a 64-year-old male with significant past medical history for renal transplant, diabetes, ambulatory dysfunction, hypertension, hyperlipidemia, GERD, peripheral arterial disease, and TIA who presents to [facility] ED on
12/12/2024 from acute rehab with reports of increased white count and accompanying intermittent nausea/vomiting over the past 2 days. Patient diagnosed with UTI in addition to chronic wounds. Of note he was recently admitted from 11/01/2024 to
11/13/2024 for bilateral foot digit osteomyelitis and nonhealing wounds. He is known to our group as during that admission we were consulted and performed an angiogram on his left lower extremity. He subsequently then underwent surgery with
podiatry for right TMA and left 3rd and 5th metatarsal amputation. He was last seen in our office on 11/20/2024, and at that time BL feet wounds were progressing well, plan was for follow up in 3-4 weeks with repeat arterial duplex with NURIA.
Currently, he reports he is most bothered by his dominguez catheter, and is having intermittent spasmodic abdominal pain from catheter manipulation.
Vascular surgical history:
11/04/2024-Duplex assisted cannulation of right common femoral artery. Aortogram and pelvic angiogram. Left lower extremity arteriogram with third order vessel catheterization of left anterior tibial and peroneal artery via right common femoral
artery puncture. Balloon angioplasty of left peroneal artery with 3.5 mm angioplasty balloon. Balloon angioplasty of left anterior tibial artery with 3 mm angioplasty balloon. Diagnostic right lower extremity arteriogram. Roberto Singer M.D.
Past Medical History
Past Medical History: GERD, IDDM, Renal Failure (Kidney transplant) and Other (Hypotension, neuropathy, gastric ulcer, TIA, chronic renal dysfunction, restless leg syndrome)
Past Surgical History: Other (Hernia repair, bilateral foot transmetatarsal potation, peripheral angiogram, donor renal transplant)
Social History
Tobacco: Former Smoker
Alcohol: Occasional
Drug: None
Living: Other (Rehab)
Allergies / Home Medications
Allergy/AdvReac Type Severity Reaction Status Date / Time
No Known Allergies Allergy Verified 12/12/24 14:49
�Medication �Instructions �Recorded �Confirmed �Type
acetaminophen 325 mg tablet 650 mg (2 x 325 mg) PO Q4HPRN PRN 11/13/24 12/12/24 Rx
mild pain/ fever>100.5F #0 tabs
amlodipine 5 mg tablet 10 mg (2 x 5 mg) PO DAILY #0 tabs 11/13/24 12/12/24 Rx
aspirin 81 mg tablet,delayed 81 mg PO DAILY Blood clot 11/13/24 12/12/24 Rx
release prevention/tx #0 tabs
atorvastatin 40 mg tablet 40 mg PO QPM High cholesterol #0 11/13/24 12/12/24 Rx
tabs
cholecalciferol (vitamin D3) 50 50 mcg PO DAILY Supplement #0 tabs 11/13/24 12/12/24 Rx
mcg (2,000 unit) tablet
ferrous sulfate 325 mg (65 mg 325 mg PO DAILY anemia #0 tabs 11/13/24 12/12/24 Rx
iron) tablet (FeroSul)
fludrocortisone 0.1 mg tablet 0.1 mg PO BID Blood pressure #0 11/13/24 12/12/24 Rx
tabs
insulin glargine 100 unit/mL (3 30 unit (0.3 mL) SC HS Diabetes #0 11/13/24 12/12/24 Rx
mL) subcutaneous pen (Lantus mL
Solostar U-100 Insulin)
melatonin 3 mg tablet 3 mg PO HS Sleep #0 tabs 11/13/24 12/12/24 Rx
omeprazole 20 mg capsule,delayed 20 mg PO QPM Gastrointestinal 11/13/24 12/12/24 Rx
release issue #0 caps
oxycodone-acetaminophen 5 mg-325 1 tab PO Q4HPRN PRN moderate pain 11/13/24 12/12/24 Rx
mg tablet #10 tabs
prednisone 5 mg tablet 5 mg PO DAILY Transplant #0 tabs 11/13/24 12/12/24 Rx
rivaroxaban 2.5 mg tablet (Xarelto) 2.5 mg PO BID Blood clot 11/13/24 12/12/24 Rx
prevention/tx #0 tabs
ropinirole 0.25 mg tablet 0.25 mg PO QPM rls #0 tabs 11/13/24 12/12/24 Rx
tacrolimus 1 mg capsule, 1 mg PO BID Transplant #0 caps 11/13/24 12/12/24 Rx
immediate-release
bisacodyl 10 mg rectal suppository 10 mg OH DAILY PRN constipation 12/12/24 12/12/24 History
(Dulcolax (bisacodyl))
insulin lispro 100 unit/mL 8 unit SC TID Diabetes 12/12/24 12/12/24 History
subcutaneous solution (Humalog
U-100 Insulin)
magnesium hydroxide 400 mg/5 mL 30 ml PO DAILY PRN constipation 12/12/24 12/12/24 History
oral suspension (Milk of Magnesia)
ondansetron 4 mg disintegrating 4 mg PO Q6H PRN Nausea 12/12/24 12/12/24 History
tablet
tamsulosin 0.4 mg capsule (Flomax) 0.8 mg PO HS Urinary issue 12/12/24 12/12/24 History
Review of Systems
-
History Source: Patient
Constitutional: Reports Fatigue and Chills
EENT: Reports No Symptoms
Respiratory: Reports No Symptoms
Cardiac: Reports No Symptoms
Abdomen/GI: Reports Abdominal Pain, Nausea and Vomiting
: Reports Dysuria and Flank Pain
Musculoskeletal: Reports No Symptoms
Skin: Reports Other (Bilateral foot postsurgical wounds)
Neurological: Reports No Symptoms
Endocrine: Reports No Symptoms
Physical Exam
Vital Signs
Temp Pulse Resp BP Pulse Ox
98.7 F 68 16 128/54 97
12/14/24 07:00 12/14/24 07:00 12/14/24 07:00 12/13/24 23:02 12/14/24 07:45
Lab Results
12/14/24 06:02
12/14/24 06:02
Physical Exam
General: No Apparent Distress
HEENT: Normocephalic, Anicteric and Atraumatic
Respiratory: Non Labored Respirations
Cardiac: Negative JVD
GI: Soft and Tender
Musculoskeletal: No Edema
Skin: Other (Bilateral feet postsurgical amputation and debridement wounds, please see wound care notes for pictures)
Neuro: AO x 3
Pulses: Bilateral Femoral: +2 (Nonpalpable distal pulses bilateral)
Assessment / Plan
-
Assessment: 64-year-old male with significant past medical history of peripheral arterial disease currently admitted for management of UTI with chronic bilateral foot postsurgical amputation wounds
Plan:
Will repeat arterial duplex with NURIA
Likely will require right lower extremity angiogram with possible Endo intervention for nonhealing post amputation wound, tentative schedule for OR 12/16/2024 if medically cleared given current UTI
Plan reviewed with on-call attending Dr. Roberto Singer M.D.
--- NOTE | 2024-12-14 15:39 | CM ---
electrical project manager reviewed patient's chart and met with patient and patient states he was at [facility], and was hoping to go to [facility] and [facility] skilled when stable, referrals sent to both facilities, Prior to skilled placement patient was living
alone in a condo, no steps to enter, patient was able to stand and pivot to w/c, patient had surgery on both feet and was made NWB, patient with old CVA, DM, neuropathy and renal transplant per history.
PCP: Lizett Mckeon
Pharmacy: [facility]
Plan; skilled placement, referrals sent to [facility] and [facility].
[2024-12-14 15:40] VITALS: BP 127/67
--- NOTE | 2024-12-14 16:45 | PTCARENOTE ---
12/14- Patient has had 5BMs today S/P Mag citrate administration. Patient states feeling much better in his abdomen and increased appetite, decreased nausea and abdominal pain. Abd is soft/NT and noticeably less distended or round now. +BSX4.
Will continue to monitor. Continue Bowel regimen as ordered.
[2024-12-14 16:46] LABS: Glucose - Point of Care 170 mg/dl (70-99)
[2024-12-14] MEDS: ZOSYN 100 IV ×2 (16:47→23:59)
[2024-12-14] MEDS: REQUIP 0.25 MG PO (16:50)
[2024-12-14] MEDS: LIPITOR 40 MG PO (16:50)
[2024-12-14] MEDS: NOVOLOG FLEXPEN-LOW RESISTANCE 1 UNITS SC (16:50)
[2024-12-14] MEDS: PROTONIX 40 MG PO (16:50)
--- NOTE | 2024-12-14 18:30 | PTCARENOTE ---
12/14- Patient's girlfriend and he both state he has no history of neurogenic bladder. They state the dominguez was placed because he has been nonweight-bearing on his feet, and it was 'for convenience.' He states he was previously continent and able to
control his bladder except 'sometimes couldn't make it cause I wait too long to get up at night to go to the bathroom because I'm orthostatic.' Educated patient on CAUDIs, his positive urine culture for Pseudomonas. He verbalized understanding.
Relayed this to Physician. Physician ordered trial off of Dominguez to begin tomorrow am. Verbal Order Placed.
--- NOTE | 2024-12-14 19:54 | W.PN.UPDATE ---
Update Note
Progress Note Update
64M presents w/ b.l foot wounds demonstrating no acute clinical signs of infection
- will reach out to vascular for tentative debridement b/l Saturday
- NWB b/l
- LWC rendered : saline wet to dry b/l
- offloading precautions for posterior heel and lateral foot b/l
- full consult note to follow
[2024-12-14 21:05] LABS: Glucose - Point of Care 147 mg/dl (70-99)
[2024-12-14] MEDS: LANTUS 0.36 UNITS SC (21:20)
[2024-12-14] MEDS: MELATONIN 3 MG PO (21:20)
[2024-12-14] MEDS: FLOMAX 0.8 MG PO (21:20)
[2024-12-14 23:15] VITALS: BP 142/76
[2024-12-15] MEDS: PERCOCET 5/325 1 TABLET PO ×2 (04:13→21:43)
[2024-12-15] MEDS: ZOSYN 100 IV (05:49)
[2024-12-15 06:50] LABS: Hematocrit 28.6 % (39.0-52.0); Hemoglobin 9.1 g/dL (13.0-18.0); Mean Corp Hgb Conc. 31.8 g/dL (33.0-37.0); Mean Corpuscular Volume 81.5 fL (80.0-94.0); Platelet Count 451 10^3/uL (130-400); Red Cell Dist. Width 17.8 % (11.5-14.5)
[2024-12-15 07:28] LABS: ALT (SGPT) < 10 U/L (0-50); AST (SGOT) 11 U/L (17-59); Albumin 2.6 g/dl (3.5-5.0); Alkaline Phosphatase 75 U/L (38-126); Blood Urea Nitrogen 14 mg/dl (9-20); Calcium 8.0 mg/dl (8.4-10.2); Carbon Dioxide 31 mmol/L (22-30); Chloride 105 mmol/L (98-107); Estimated Creatinine Clearance 101 ml/min; Glucose 200 mg/dl (70-99); Potassium 3.3 mmol/L (3.5-5.1); Sodium 139 mmol/L (135-145); Total Protein 5.3 g/dl (6.3-8.2); eGFR > 60.00
--- NOTE | 2024-12-15 07:28 | W.PN.UPDATE ---
Update Note
Progress Note Update
Seen and evaluated/examined with SCENE AND LIGHTING DESIGN LECTURER's. Full consultation to follow. Known to me status post left lower extremity angiogram with tibial angioplasty. Concern for nonhealing right TMA. Noninvasive studies prior had suggested adequacy of perfusion
for wound healing for right side. Patient is without complaint specifically. Exam with eschar/nonhealing or dry gangrene at distal staple line right TMA. Left foot debridement wounds granulating reasonably well. Feet are both warm with no rubor.
Plan/ PAD/CLTI. I am recommending at this point proceeding with right lower extremity arteriogram as he is not healing as well as we would anticipate. Discussed procedure as well as risks with patient again. (Including but not limited to
bleeding, arterial injury/worsened or acute limb ischemia, renal failure, slightly heightened risk in him despite normal renal function given history of renal transplantation). Will plan angiogram tomorrow.
[2024-12-15 07:53] VITALS: BP 115/65
[2024-12-15] MEDS: PROGRAF 1 MG PO ×2 (08:03→20:12)
[2024-12-15] MEDS: DELTASONE 5 MG PO (08:03)
[2024-12-15] MEDS: NORVASC 10 MG PO (08:03)
[2024-12-15] MEDS: ASPIR LOW (ENTERIC COATED) 81 MG PO (08:03)
[2024-12-15] MEDS: FEOSOL 325 MG PO (08:04)
[2024-12-15] MEDS: SENOKOT PO (08:04)
[2024-12-15] MEDS: SANTYL OINTMENT 1 APPLIC TOPICAL (08:04)
[2024-12-15] MEDS: XARELTO 2.5 MG PO (08:05)
[2024-12-15] MEDS: MIRALAX PO (08:05)
[2024-12-15] MEDS: FLORINEF 0.1 MG PO ×2 (08:05→20:12)
[2024-12-15 08:31] LABS: Glucose - Point of Care 214 mg/dl (70-99)
--- NOTE | 2024-12-15 08:56 | W.PN.HOSP.TC ---
Today's Communication/Plan
-
see plan
Assessment / Plan
Assessment / Plan
Gen: NAD, Awake and alert
Eyes: EOMI, PERRLA, no scleral icterus.
Neck: supple.
CV: continues to remain RRR, +S1/S2, no m/r/g.
Resp: continues to remain CTAB, no rales, wheezes, or rhonchi.
Abd: continues to remain +BS, soft, NT, ND
Skin: No rashes.
Neuro: CN 2-12 intact, non-focal.
Psych: Normal mood and affect.
12/12/24 15:59 Foot - Left Wound Culture - Final
Staph aureus MRSA
12/12/24 15:59 Foot - Left Gram Stain - Final
12/12/24 15:08 Blood/Venous Blood Culture - Preliminary
No Growth in 48 hours- Final report to follow
12/12/24 15:26 Urine Urine Culture - Final
Pseudomonas aeruginosa
12/13/24 05:39 Nose MRSA Screen - Final
No Methicillin Resistant Staphylococcus aureus isolated.
CT A/P: Urinary bladder wall thickening and fat stranding most suspicious for acute cystitis. Recommend correlation with a urinalysis. Right lower quadrant renal transplant. Large volume colonic stool compatible with constipation. Rectal wall
thickening and stool distention of the rectum concerning for a fecal impaction and stercoral colitis.
Sepsis due to CAUTI (POA):
-chronic urinary retention with dominguez in place on admission. Dominguez changed 1045 on 12/12/24.
-culture data above
-cont Zosyn
-c/s ID
Non-healing R TMA:
-h/o B/L diabetic foot wounds/osteomyelitis
-for RLE arteriogram and debridement tomorrow
Other problems:
Hypokalemia: 40meq PO K
Chronic anemia: cont ferrous sulfate
h/o L partial 5th ray revision
h/o balloon angioplasty of left peroneal artery and left anterior tibial artery 11/04/2024
h/o R open TMA, LEFT 3rd toe amputation and open partial 5th ray amputation 11/05/2024
PAD: currently on ASA/statin/Xarelto
Stage 2 sacral pressure injury, POA
DM2: cont Lantus (increase to 36U)/premeal lispro, SSI/accuchecks/diabetic diet
Essential HTN: cont Norvasc
h/o renal Tx: cont prednisone/tacrolimus
HLD: cont statin
GERD/PUD: cont PPI
RLS: cont Requip
h/o TIA: cont ASA/statin
Chronic Ambulatory dysfunction, wheelchair bound
FULL/Xarelto
Anticipated Discharge: > 48 hours
Subjective/Interval History
-
Date of Service: December 15, 2024
No new complaints.
Objective Data
-
Labs:
Laboratory Results
12/15/24
06:39
WBC 12.8 H
Hgb 9.1 L
Hct 28.6 L
Plt Count 451 H
Sodium 139
Potassium 3.3 L
Chloride 105
Carbon Dioxide 31 H
BUN 14
Creatinine 0.8
Glucose 200 H
Calcium 8.0 L
Total Bilirubin 0.1 L
AST 11 L
ALT < 10
Alkaline Phosphatase 75
Vital Signs:
Vital Signs
Temp Pulse Resp BP Pulse Ox
97.7 F 78 16 115/65 97
12/15/24 07:53 12/15/24 07:53 12/15/24 07:53 12/15/24 07:53 12/15/24 07:53
I&O
12/14/24 12/15/24 12/16/24
06:59 06:59 06:59
Intake Total 3130 / 3130
Output Total 1600 / 1600 310 / 3100
Balance -1600 / -1600
[2024-12-15] MEDS: KCL 40 MEQ PO (09:15)
[2024-12-15] MEDS: NOVOLOG FLEXPEN 8 UNITS SC ×3 (09:15→16:49)
[2024-12-15] MEDS: NOVOLOG FLEXPEN-LOW RESISTANCE 2 UNITS SC (09:16)
--- NOTE | 2024-12-15 09:44 | CON.ID ---
Consultation
-
Date/Time Consultation Requested: 12/15/24 8:58
Date/Time Consultation Performed: 12/15/24 9:45
Requesting Provider: Dr Patton
Performing Provider: Dr Fernandez
Reason for Consultation: CAUTI
Chief Complaint / Past History
Chief Complaint
elevated WBC
History of Present Illness
Mr Schwartz is a 64 year old male with history of kidney transplant 2016 who presented here 12/12 for elevated WBC to 16 at rehab. He denies fevers, chills, chest pain, shortness of breath, cough, headache, abdominal pain, nausea, vomiting,
diarrehea, dysuria, hematuria. He has a dominguez for urinary retention. Of note he was admitted here 11/01 for diabetic foot wound and underwent right TMA/left third toe amputation/left fifth partial metatarsal amputation, residual osteomyelitis of
the left fifth met. His operative cultures grew MSSA and he was transitioned to a 6 week course of cefazolin 2 gm IV q 8 hrs to be completed 12/12/29 (3 days ago and 6 weeks from original surgery).
Since arrival here he has been afebrile, bp stable, HR WNL, wbc on arrival 26 now 12.8, hgb 9.1, plt 451 today, L shift is noted, Cr 0.8, lactic acid 2.2 on arrival now 1.0, ua 21-25 wbc/hpf, many bacteria and moderate yeast, 12/14 periphal artery US
with NURIA: no suggestion of significant stenosis and some improvement from previous. CT a/p bladder with changes of cystitis, RLQ renal transplant, constipation and possible stercoral colitis, 12/12 foot xray: no clear evidence of osteomyelitis in
either foot, 12/12 wound culture of left foot wound with few MRSA, urine culture 100K Pseudomonas - sensitive to quinolones, single blood culture no growth at 48 hours, nasal mrsa screen negative. Seen by vascular surgery for nonhealing right TMA
with eschar along the distal staple line of the right TMA, L foot debridements granulating. He is planned for RLE angiogram. ID is consulted for assistance with management.
Past History
Additional Past Medical History:
GERD, IDDM, Renal Failure (Kidney transplant) and Other (Hypotension, neuropathy, gastric ulcer, TIA, chronic renal dysfunction, restless leg syndrome)
Additional Past Surgical History:
Hernia repair, bilateral foot transmetatarsal potation, peripheral angiogram, donor renal transplant
Allergy History:
No Known Allergies Allergy (Verified 12/12/24 14:49)
Medications Reviewed: Yes
Social History
Tobacco: Former Smoker
Alcohol: Occasional
Drug: None
Family History
Family History: Not Pertinent
Review of Systems
Review of Systems
as per hpi
Vital Signs
Temp Pulse Resp BP Pulse Ox
97.7 F 78 16 115/65 97
12/15/24 07:53 12/15/24 07:53 12/15/24 07:53 12/15/24 07:53 12/15/24 07:53
Physical Exam
Physical Exam
Constitutional: No Acute Distress
Cardiovascular: Regular Rate and S1/S2; Negative Murmur or Rub
Pulmonary: Clear and Symmetric; Negative Wheezes, Rales or Rhonchi
Gastrointestinal: Soft, Non Tender, Non Distended and Normal Bowel Sounds
Skin: Warm and Dry; Negative Rash or Jaundice
Wound: Other (L foot TMA site healing well with granulation tissue, 3rd digit small area of granulating tissue - no probe to bone; R foot distal side with some dry gangrene)
Lab / Diagnostic Study Results
12/15/24 06:39
12/15/24 06:39
Abs Immat Gran (auto) 0.2 10^3/uL (0-0.05) H 12/12/24 15:01
Absolute Neuts (auto) 22.4 10^3/uL (1.4-6.5) H 12/12/24 15:01
Absolute Lymphs (auto) 1.8 10^3/uL (1.2-3.4) 12/12/24 15:01
Absolute Monos (auto) 1.6 10^3/uL (0.1-0.6) H 12/12/24 15:01
Absolute Basos (auto) 0.1 10^3/uL (0-0.2) 12/12/24 15:01
Immature Gran % 0.7 % (0-0.5) H 12/12/24 15:01
Neutrophils % 85.9 % (42.2-75.2) H 12/12/24 15:01
Lymphocytes % 6.8 % (20.5-51.1) L 12/12/24 15:01
Monocytes % 6.3 % (1.7-9.3) 12/12/24 15:01
Eosinophils % 0.0 % (0-6) 12/12/24 15:01
Basophils % 0.3 % (0-2) 12/12/24 15:01
Lactic Acid 1.0 mmol/L (0.7-2.0) 12/12/24 19:12
Ur Squamous Epith Cells 0-2 /LPF (Few) 12/12/24 15:26
Microbiology Results
Micro:
12/12/24 15:59 Wound Culture - Final
Foot - Left Staph aureus MRSA
Gram Stain - Final
12/12/24 15:08 Blood Culture - Preliminary
Blood/Venous No Growth in 48 hours- Final report to follow
12/12/24 15:26 Urine Culture - Final
Urine Pseudomonas aeruginosa
12/13/24 05:39 MRSA Screen - Final
Nose No Methicillin Resistant Staphylococcus aureus isolated.
Assessment / Plan
CAUTI
Neurogenic bladder
Leukocytosis
- started on zosyn day 3, switch to ciprofloxacin to complete a 7 day total course
- QTc is 448
- dominguez was removed and not replaced; he is getting straight caths, for final decisions surrounding domingeuz catheter defer to urology
Small Area of Dry gangrene of the distal right TMA
- no indication for antibiotics for dry gangrene
Left foot wound culture - MRSA
- there is no erythema, warmth, tenderness, or probe to bone. Apparently a swab of the healing tissue was taken. Antibiotics are not indicated for this area at this time as the S aureus reflects colonization
[2024-12-15] MEDS: CIPRO 500 MG PO ×2 (11:39→20:12)
--- NOTE | 2024-12-15 12:21 | W.PN.URO.CBU ---
Today's Communication / Plan
-
replace dominguez if no void r at pt requestor if over over 400
Assessment / Plan
-
cath associated uti sepsi removed dominguez as nidus of infection observing for void pt non weight bearing and onus now n pt staff to collect urine and prevent skin breakdown of incontinent
Diagnosis
-
Date of Service: December 15, 2024
-
Patient Diagnosis:
Post Op Day:
Patient Diagnosis:SEPSIS FROM DOMINGUEZ IN [place] DUE TO PT NON WEIGHT BEARING BUT PRESUMABLY CAN VOID
Post Op Day:
Patient Diagnosis:
cauti mi]=ultiple possbnle source sof lukocytosis but ct svan c/w acutr cath assosciated uti
Post Op Day:
Subjective
-
FEELING BETTER
Objective
-
Vital Signs
Temp Pulse Resp BP Pulse Ox
97.7 F 78 16 115/65 97
12/15/24 07:53 12/15/24 07:53 12/15/24 07:53 12/15/24 07:53 12/15/24 07:53
Intake and Output
12/14/24 12/15/24 12/16/24
06:59 06:59 06:59
Intake Total 3130 / 3130
Output Total 1600 / 1600 3100 / 3100 825 / 825
Balance -1600 / -1600 -825 / -825
Intake:
Oral fluids 2880 / 2880
IV fluids (Total) 50 / 50
IV piggybacks 200 / 200
Output:
Urine, Dominguez 1600 / 1600 3100 / 3100
Straight cath output 825 / 825
Laboratory Results
12/15/24 06:39
12/15/24 06:39
Review of Systems
-
: Difficulty Voiding
Physical Exam
-
General - well developed, well nourished, no acute distress
Chest - clear bilaterally
Abdomen - soft, non-tender, positive bowel sounds, no CVAT, no incisional pain or distention
Genitalia - normal
Rectal - normal
Skin - warm & dry with no rash
Neuro - AOx3, no motor deficits
Extremities - no clubbing, no cyanosis, no edema
Incision - clean, dry
Dressing - clean, dry, intact
Care Review
Data Reviewed
Discussed with: Nursing
[2024-12-15 12:37] LABS: Glucose - Point of Care 145 mg/dl (70-99)
[2024-12-15] MEDS: NOVOLOG FLEXPEN-LOW RESISTANCE SC (13:04)
--- NOTE | 2024-12-15 15:13 | PTCARENOTE ---
Bladder scan done around noon and pt found to have >638 in bladder. Straight cath done and 825 mL out. At 1500 pt able to void on own 200mL yellow urine.
[2024-12-15 15:21] VITALS: BP 140/79
--- NOTE | 2024-12-15 15:50 | CM ---
Patient for further medical treatment per medical chart review at this time. CM will continue to follow for discharge planning needs.
Plan; SNF pending acceptance/authorization
[2024-12-15] MEDS: NOVOLOG FLEXPEN-LOW RESISTANCE 1 UNITS SC (16:49)
[2024-12-15 16:50] LABS: Glucose - Point of Care 184 mg/dl (70-99)
[2024-12-15] MEDS: REQUIP 0.25 MG PO (17:13)
[2024-12-15] MEDS: PROTONIX 40 MG PO (17:13)
[2024-12-15] MEDS: LIPITOR 40 MG PO (17:13)
[2024-12-15] MEDS: SENOKOT 17.2 MG PO (20:12)
[2024-12-15] MEDS: FLOMAX 0.8 MG PO (21:43)
[2024-12-15] MEDS: MELATONIN 3 MG PO (21:44)
[2024-12-15] MEDS: LANTUS 0.36 UNITS SC (21:46)
[2024-12-15 21:51] LABS: Glucose - Point of Care 176 mg/dl (70-99)
--- NOTE | 2024-12-15 23:01 | CON.SURG ---
Surgical Consultation
-
CONSULTING PHYSICIAN: Dexter Wilson DPM
DATE/TIME OF REQUEST: 12/14/2024
DATE/TIME OF CONSULTATION: 12/14/2024
SUBJECTIVE: The patient is a 64-year-old male with past medical
history of CVA, IDDM, renal failure, status post kidney transplant,
who presented 12/12 for elevated white count. During his
hospitalization, he has been treated for UTI, as he has a Boss for
urinary retention. The patient was previously admitted in October
for osteomyelitis on bilateral feet and nonhealing wounds for which
he received a left partial fifth ray amputation as well as third
toe amputation. On the right side, he received a transmetatarsal
amputation. Today, he denies fever, chills, chest pain, shortness
of breath.
EXAM: GENERAL: Patient is well nourished and in no acute distress.
EXTREMITIES: Sensation absent to bilateral lower extremity pedal
distributions. Capillary refill is within normal limits. To the
left foot, there is an ulceration on the lateral foot measuring
approximately 6 cm x 4 cm down to the level near fifth metatarsal.
Previous third amputation site healing well. Eschar dorsal left
second toe. On the right foot, TMA incision line largely healed
with eschar on lateral aspect of incision. Sutures remained all in
place, after suture removal and escharotomy on the right foot
fibronecrotic slough probing to the fifth metatarsal. No purulence.
No acute clinical signs of infection.
VITAL SIGNS: Pulse today 74, respirations 16, temperature 97.8.
LABORATORY DATA: White blood count 15.7, hemoglobin 8.8.
ASSESSMENT: The patient is a 64-year-old male who presents with
UTI and is status post right foot transmetatarsal amputation and
left foot partial fifth ray amputation and third toe amputation,
demonstrating no acute clinical signs of infection.
PLAN: Will reach out to vascular team for tentative bilateral
lower extremity debridement on Saturday. He is to remain
nonweightbearing to bilateral lower extremities. Today, local wound
care was rendered consisting of saline wet-to-dry to ulcerations as
well as Betadine paint to previous incision site and continue all
offloading precautions to the posterior heel and lateral feet
bilateral.
[2024-12-15 23:06] VITALS: BP 156/85
[2024-12-16] VITALS (12 sets, daily range): BP systolic 109–152; BP diastolic 62–95
[2024-12-16 05:37] LABS: Glucose - Point of Care 111 mg/dl (70-99)
[2024-12-16] MEDS: NOVOLOG FLEXPEN SC ×3 (06:05→16:24)
[2024-12-16 07:15] LABS: Hematocrit 33.3 % (39.0-52.0); Hemoglobin 10.6 g/dL (13.0-18.0); Mean Corp Hgb Conc. 31.8 g/dL (33.0-37.0); Mean Corpuscular Volume 82.4 fL (80.0-94.0); Platelet Count 521 10^3/uL (130-400); Red Cell Dist. Width 17.4 % (11.5-14.5)
[2024-12-16 07:43] LABS: ALT (SGPT) < 10 U/L (0-50); AST (SGOT) 14 U/L (17-59); Albumin 2.9 g/dl (3.5-5.0); Alkaline Phosphatase 73 U/L (38-126); Calcium 8.4 mg/dl (8.4-10.2); Carbon Dioxide 32 mmol/L (22-30); Chloride 102 mmol/L (98-107); Estimated Creatinine Clearance 116 ml/min; Glucose 106 mg/dl (70-99); Potassium 3.4 mmol/L (3.5-5.1); Sodium 142 mmol/L (135-145); Total Protein 5.9 g/dl (6.3-8.2); eGFR > 60.00
[2024-12-16 07:58] LABS: Blood Urea Nitrogen 12 mg/dl (9-20)
--- NOTE | 2024-12-16 08:18 | W.PN.HOSP.TC ---
Today's Communication/Plan
-
see plan
Assessment / Plan
Assessment / Plan
Gen: NAD, Awake and alert
Eyes: EOMI, PERRLA, no scleral icterus.
Neck: supple.
CV: RRR, +S1/S2, no m/r/g.
Resp: CTAB, no rales, wheezes, or rhonchi.
Abd: +BS, soft, NT, ND
Skin: No rashes.
Neuro: CN 2-12 intact, non-focal.
Psych: Normal mood and affect.
12/12/24 15:08 Blood/Venous Blood Culture - Preliminary
No Growth in 72 hours- Final report to follow
12/12/24 15:59 Foot - Left Wound Culture - Final
Staph aureus MRSA
12/12/24 15:59 Foot - Left Gram Stain - Final
12/12/24 15:26 Urine Urine Culture - Final
Pseudomonas aeruginosa
12/13/24 05:39 Nose MRSA Screen - Final
No Methicillin Resistant Staphylococcus aureus isolated.
CT A/P: Urinary bladder wall thickening and fat stranding most suspicious for acute cystitis. Recommend correlation with a urinalysis. Right lower quadrant renal transplant. Large volume colonic stool compatible with constipation. Rectal wall
thickening and stool distention of the rectum concerning for a fecal impaction and stercoral colitis.
Sepsis due to CAUTI (POA):
-chronic urinary retention with dominguez in place on admission. Dominguez changed 1045 on 12/12/24.
-culture data above
-leukocytosis has resolved
-cont Cipro as per ID
Non-healing R TMA:
-h/o B/L diabetic foot wounds/osteomyelitis
-for RLE arteriogram and debridement today
Other problems:
Hypokalemia: 40meq PO K, check Mg
Chronic anemia: cont ferrous sulfate
h/o L partial 5th ray revision
h/o balloon angioplasty of left peroneal artery and left anterior tibial artery 11/04/2024
h/o R open TMA, LEFT 3rd toe amputation and open partial 5th ray amputation 11/05/2024
PAD: currently on ASA/statin/Xarelto
Stage 2 sacral pressure injury, POA
DM2: cont Lantus/premeal lispro, SSI/accuchecks/diabetic diet
Essential HTN: cont Norvasc
h/o renal Tx: cont prednisone/tacrolimus
HLD: cont statin
GERD/PUD: cont PPI
RLS: cont Requip
h/o TIA: cont ASA/statin
Chronic Ambulatory dysfunction, wheelchair bound
FULL/Xarelto
Anticipated Discharge: > 48 hours
Subjective/Interval History
-
Date of Service: December 16, 2024
No new complaints.
Objective Data
-
Labs:
Laboratory Results
12/16/24
06:46
WBC 9.6
Hgb 10.6 L
Hct 33.3 L
Plt Count 521 H
Sodium 142
Potassium 3.4 L
Chloride 102
Carbon Dioxide 32 H
BUN 12
Creatinine 0.7
Glucose 106 H
Calcium 8.4
Total Bilirubin 0.2
AST 14 L
ALT < 10
Alkaline Phosphatase 73
Vital Signs:
Vital Signs
Temp Pulse Resp BP Pulse Ox
98.6 F 74 18 156/85 98
12/15/24 23:06 12/15/24 23:06 12/15/24 23:06 12/15/24 23:06 12/15/24 23:06
I&O
12/15/24 12/16/24 12/17/24
06:59 06:59 06:59
Intake Total 3130 / 3130 720 / 720
Output Total 3100 / 3100 1575 / 1575
Balance -5 / -
[2024-12-16] MEDS: KCL 40 MEQ PO (08:45)
[2024-12-16] MEDS: CIPRO 500 MG PO ×2 (08:46→20:07)
[2024-12-16] MEDS: NORVASC 10 MG PO (08:46)
[2024-12-16] MEDS: ASPIR LOW (ENTERIC COATED) 81 MG PO (08:46)
[2024-12-16] MEDS: FEOSOL 325 MG PO (08:46)
[2024-12-16] MEDS: DELTASONE 5 MG PO (08:47)
[2024-12-16] MEDS: PROGRAF 1 MG PO ×2 (08:47→20:07)
[2024-12-16] MEDS: FLORINEF 0.1 MG PO ×2 (08:47→20:07)
[2024-12-16] MEDS: SENOKOT 17.2 MG PO ×2 (08:51→20:07)
[2024-12-16] MEDS: MIRALAX PO (08:54)
[2024-12-16 09:02] LABS: Magnesium 1.3 mg/dl (1.6-2.3)
--- NOTE | 2024-12-16 10:55 | PTCARENOTE ---
received pt from room 420. vss at 144/79 bp , 71 nsr, rr16, pulse ox 97% , temp 98.6. pt awake , alert and oriented x 3, lungs cta. anesthesia notified and saw pt. .pt pulses by doppler.
--- NOTE | 2024-12-16 11:14 | W.SUR.PREOP ---
Addendum entered and electronically signed by Roberto Singer MD 12/16/24 11:19:
Note i discussed extensively plan with patient's son Juan on the phone as well. Discussed procedure (including angiography RLE AND foot debridement). Discussed risks fully. He understands all and agrees for us to proceed.
Original Note:
Pre-Operative Surgical Note
-
I have examined this patient prior to the performance of the scheduled procedure.
The patient's condition is unchanged from the time of the current History and
Physical and the patient is able to undergo the scheduled procedure.
--- NOTE | 2024-12-16 11:20 | PTCARENOTE ---
dr jacobs in to speak w pt and obtain consent .
[2024-12-16 11:27] LABS: Tacrolimus (Prograft - FK506) 3.6 ng/mL
--- NOTE | 2024-12-16 11:39 | W.PN.URO.CBU ---
Today's Communication / Plan
-
keep dominguez out no gu intervention
Assessment / Plan
-
cath associated uti sepsi removed dominguez as nidus of infection observing for void pt non weight bearing and onus now n pt staff to collect urine and prevent skin breakdown of incontinent
Diagnosis
-
Date of Service: December 16, 2024
-
Patient Diagnosis:
Post Op Day:
Patient Diagnosis:
Post Op Day:
Patient Diagnosis:SEPSIS FROM DOMINGUEZ IN [place] DUE TO PT NON WEIGHT BEARING BUT PRESUMABLY CAN VOID
Post Op Day:
Patient Diagnosis:
cauti mi]=ultiple possbnle source sof lukocytosis but ct svan c/w acutr cath assosciated uti
Post Op Day:
Subjective
-
pt voiding well
Objective
-
Vital Signs
Temp Pulse Resp BP Pulse Ox
97.6 F 71 18 152/83 95
12/16/24 07:00 12/16/24 07:00 12/16/24 07:00 12/16/24 07:00 12/16/24 07:00
Intake and Output
12/15/24 12/16/24 12/17/24
06:59 06:59 06:59
Intake Total 3130 / 3130 720 / 720
Output Total 3100 / 3100 1575 / 1575
Balance 30 -855 / -855
Intake:
Oral fluids 2880 / 2880 720 / 720
IV fluids (Total) 50 / 50
IV piggybacks 200 / 200
Output:
Urine, Dominguez 3100 / 3100
Urine, Voided 750 / 750
Straight cath output 825 / 825
Other:
How many times incontinent 1
SATURATED amount urine
Laboratory Results
12/16/24 06:46
12/16/24 06:46
Review of Systems
-
: No Symptoms
Physical Exam
-
General - well developed, well nourished, no acute distress
Chest - clear bilaterally
Abdomen - soft, non-tender, positive bowel sounds, no CVAT, no incisional pain or distention
Genitalia - normal
Rectal - normal
Skin - warm & dry with no rash
Neuro - AOx3, no motor deficits
Extremities - no clubbing, no cyanosis, no edema
Incision - clean, dry
Dressing - clean, dry, intact
Counseling
-
no changes
[2024-12-16 11:40] LABS: Glucose - Point of Care 118 mg/dl (70-99)
--- NOTE | 2024-12-16 12:31 | CM ---
CM reviewed chart, patient for OR today.
CM spoke with patients son, Juan, regarding SNF upon d.c. - referrals sent to [facility].
Per son, patient does not want to return to [facility].
Son reports patient spent a little less than 30 days at [facility], concerned about insurance coverage for rehab stay.
Son confirms after SNF, patient will return home, son and gf will stay with patient, currently working on making condo handicap accessible.
Son reports goal for patient is to eventually be able to transfer independently from [facility] .
Updated referrals in [facility].
Patient will require insurance auth for SNF once facility found.
Plan; OR today, SNF- referrals to [facility], will need auth.
--- NOTE | 2024-12-16 13:51 | W.SUR.POST ---
Surgical Immediate Post Op
Note
Pre Op Diagnosis: Peripheral arterial disease, nonhealing wound
Post Op Diagnosis: Peripheral arterial disease, nonhealing wound
Procedure Performed: Right aortogram, lower extremity angiogram, balloon angioplasty and stent to right SFA, and balloon angioplasty to AT and TP trunk,
Primary Surgeon: Roberto Singer M.D.
Secondary Surgeons: N/A
Anesthesia: MAC
Estimated Blood Loss: 2ml
Fluids: See anesthesia flowsheet
Drains/Shunts: N/A
Specimens/Cultures: N/A
Doppler/Duplex/Angio (Y/N): Y
Complications: None
Operative Findings: Successful endovascular intervention for peripheral arterial disease
[2024-12-16] MEDS: SANTYL OINTMENT TOPICAL (13:54)
--- NOTE | 2024-12-16 14:24 | OR.RPT ---
Operative Report
Operative Report
PROCEDURE DATE: 12/16/2024
Preoperative diagnosis: Chronic limb threatening ischemia right lower extremity
Postoperative diagnosis: Same
Procedure:
1. Duplex assisted left common femoral artery cannulation.
2. Aortogram and pelvic angiogram.
3. Right lower extremity arteriogram with third order vessel catheterization of the right anterior tibial and peroneal arteries via left common femoral artery puncture.
4. Intravascular ultrasound (IVUS) right SFA and popliteal arteries.
5. Balloon angioplasty/stent placement right [id number]-[id number] popliteal artery to superficial femoral artery with overlapping 6 mm x 140 mm and 6 mm x 40 mm Cook Zilver PTX drug-eluting self-expanding stents.
6. Balloon angioplasty of right anterior tibial artery severe stenosis long segment with 3 mm x 8 cm angioplasty balloon.
7. Balloon angioplasty of right tibioperoneal trunk focal stenosis with 3 mm x 4 cm angioplasty balloon.
8. Left femoral angiogram with Perclose percutaneous common femoral closure.
9. Supervision and interpretation.
Surgeon: Enmanuel
Enterprise Account Executive: None
Complications: None
Anesthesia: Local, sedation
Fluoroscopy:
14.5 min
37 mGy
10.43 gy.cm2
Indications for procedure:
Patient had reasonable toe pressures suggestive of adequacy in terms of perfusion for wound healing. Underwent TMA right foot. However majority of site was healing, but lateral eschar/possible dry gangrene noted. Given all these findings favored
angiography for maximization of perfusion. Risk/benefits/alternatives also discussed. Patient understood and wished to proceed.
Description of procedure:
Patient was identified, brought to the operating room. Placed on the table in the supine position. After the adequate administration of anesthesia, the patient was prepped and draped in the standard surgical fashion. A standard preoperative
timeout was undertaken and everybody was in agreement with the plan.
The left common femoral artery was accessed with a micropuncture kit under direct duplex ultrasound guidance. A 5 Malagasy sheath was then advanced over a 0.035 inch wire, and a kendrick's hook catheter was advanced into the abdominal aorta.
Aortogram and pelvic angiogram was obtained. Findings as follows:
The infrarenal aorta and bilateral common and external iliac arteries were patent with no evidence of significant stenosis.
Using a floppy angled hydrophilic wire, the right common femoral artery was cannulated and the catheter was advanced. Right lower extremity arteriogram was obtained. Findings as follows:
Common femoral artery: Patent with no significant stenosis.
Profunda femoris artery: Patent with no significant stenosis.
Superficial femoral artery: Patent with luminal irregularities in the more mid to distal segments. Couple areas of opacity with possible popcorn-like plaque that may have resulted in at least moderate stenoses.
Popliteal artery: Proximal [id number] popliteal artery with area of stenosis contiguous with SFA stenosis. Beyond here patent with no significant stenosis.
Anterior tibial artery: Patent with poor filling about 6 to 8 cm beyond the origin. On delayed imaging the segment was patent with severe stenosis. The length of this stenotic area was about 6 cm. Beyond the stenotic segment the anterior tibial
artery filled well and gave rise to the dorsalis pedis which gave rise to tarsal branches, but were somewhat small, but seem to reasonably fill the foot and connect via arch to the posterior tibial circulation side.
Tibial peroneal trunk: Patent with high-grade stenosis in the distal aspect of the tibioperoneal trunk.
Peroneal artery: Patent with no significant stenosis.
Posterior tibial artery: Patent with no significant stenosis. On the foot plantar arteries filled, but small arteries.
At this point I selectively cannulated the superficial femoral artery and then exchanged over a Storq wire for a 6 Malagasy up and over sheath. The patient was given 6000 symmetries heparin. Given uncertainty in terms of two-dimensional angiographic
imaging of the distal SFA/above-knee popliteal artery in terms of whether or not these plaque areas were resulting in severe stenoses, I felt intravascular ultrasound (IVUS) was warranted. I therefore then was able to advance a Storq wire through
the SFA and popliteal artery into the below-knee popliteal artery segment. I then exchanged over a CXI catheter for a 0.014 inch BLIND TEACHER wire. Next IVUS was performed. I did color IVUS as well. This demonstrated the distal SFA and above-knee
popliteal artery with areas of tandem moderate to high-grade stenoses with mixed plaque. Therefore this confirmed to me the need to angioplasty/stent the segments. The positions were marked on the screen so as to know the length of stent needed.
I then exchanged back for a Storq wire. I then used a 6 mm x 140 mm Cook Zilver PTX self-expanding drug-eluting stent and deployed this from the above-knee popliteal artery back into the SFA. In order to cover the entire affected area, I used an
additional overlapping 6 mm x 40 mm Cook Zilver PTX self-expanding drug-eluting stent. These were postangioplasty with a 5 mm balloon. Completion angiogram now demonstrated excellent result with no residual stenosis. Now I advanced a CXI catheter
over the BLIND TEACHER wire and then remove the wire once the catheter was in the below-knee popliteal artery. Now under roadmap assisted guidance, I used a flopping of hydrophilic wire and was able to cannulate the anterior tibial artery. Once passed the
origin, I was able to advance the catheter. Now with the CXI catheter in the anterior tibial artery I was able to advance my wire all the way down the anterior tibial artery through the stenotic area and into the more normal segment. I then was
able to get my catheter to track nicely. I then exchanged back for a BLIND TEACHER wire. I then performed balloon angioplasty of the stenotic segment with a 3 mm x 8 cm angioplasty balloon with prolonged inflation. Completion angiogram demonstrated
excellent result with no residual stenosis. Now I changed my obliquity, and performed another roadmap imaging. I then withdrew my wire out of the anterior tibial artery and was able to advance a BLIND TEACHER wire into the peroneal artery across the
tibioperoneal trunk stenosis. Next I performed balloon angioplasty of that stenosis with a 3 mm x 4 cm angioplasty balloon with prolonged inflation. Completion angiogram demonstrated excellent result with no residual stenosis. At this point I was
very satisfied. Runoff imaging confirmed good flow distally. I therefore then exchanged back for a Storq wire and withdrew my sheath to the left external iliac artery. Left femoral angiogram demonstrated good puncture in the left common femoral
artery. I then used a Limtel Perclose percutaneous suture to close the common femoral artery once the sheath was withdrawn. Manual pressure was also applied to the puncture site for hemostasis. Protamine was given reverse the heparin. The
patient tolerated t this portion of the procedure well.
I now turned the case over to the foot and ankle surgeons for the foot debridement. Please see their additional operative note for details.
--- NOTE | 2024-12-16 14:40 | W.PN.UPDATE ---
Update Note
Progress Note Update
64M s/p b/l LE debridement, R partial 5th MT excision
- Strict NWB b/l
- abx per ID, all infected bone removed
-- bone bx R 5th MT
- dressings c/d/i
-- Right foot packing changed every other day
- offloading precautions for posterior heel and lateral foot b/l
- will reassess on AM rounds
[2024-12-16 14:42] LABS: Glucose - Point of Care 140 mg/dl (70-99)
[2024-12-16 16:22] LABS: Glucose - Point of Care 147 mg/dl (70-99)
[2024-12-16] MEDS: NSS 1000 IV (16:36)
[2024-12-16] MEDS: NOVOLOG FLEXPEN 8 UNITS SC (17:14)
[2024-12-16] MEDS: REQUIP 0.25 MG PO (17:14)
[2024-12-16] MEDS: PROTONIX 40 MG PO (17:15)
[2024-12-16] MEDS: LIPITOR 40 MG PO (17:15)
[2024-12-16] MEDS: XARELTO 2.5 MG PO (20:07)
[2024-12-16] MEDS: PERCOCET 5/325 1 TABLET PO (20:08)
[2024-12-16 21:39] LABS: Glucose - Point of Care 264 mg/dl (70-99)
[2024-12-16] MEDS: MELATONIN 3 MG PO (21:59)
[2024-12-16] MEDS: FLOMAX 0.8 MG PO (21:59)
[2024-12-16] MEDS: LANTUS 0.36 UNITS SC (22:02)
[2024-12-17] VITALS (7 sets, daily range): BP systolic 105–144; BP diastolic 60–84; PULSE 75; O2SAT 97
[2024-12-17] MEDS: NSS 1000 IV ×2 (04:33→12:44)
--- NOTE | 2024-12-17 07:32 | W.PN.VS ---
Addendum entered and electronically signed by Roberto Singer MD 12/17/24 09:30:
Seen and examined with STACY Juarez. Agree with findings as noted below. No complaints. Left groin puncture site is flat. No hematoma. Palpable bilateral distal anterior tibial pulses (2+) at distal ankle (feet are wrapped). Plan/as discussed and
noted below.
Original Note:
Today's Communication / Plan
-
Patient seen and examined at bedside with Dr. Roberto Singer, below plan reviewed with attending.
Assessment/Plan
-
Assessment: 64-year-old male POD #1 Duplex assisted left common femoral artery cannulation. Aortogram and pelvic angiogram. Right lower extremity arteriogram with third order vessel catheterization of the right anterior tibial and peroneal arteries
via left common femoral artery puncture. Intravascular ultrasound (IVUS) right SFA and popliteal arteries. Balloon angioplasty/stent placement right [id number]-yuh-nplb popliteal artery to superficial femoral artery with overlapping 6 mm x 140 mm and 6
mm x 40 mm Cook Zilver PTX drug-eluting self-expanding stents. Balloon angioplasty of right anterior tibial artery severe stenosis long segment with 3 mm x 8 cm angioplasty balloon. Balloon angioplasty of right tibioperoneal trunk focal stenosis
with 3 mm x 4 cm angioplasty balloon. Left femoral angiogram with Perclose percutaneous common femoral closure.
Plan:
Postoperative Tegaderm removed, can leave open to air
Defer to podiatry for management of bilateral foot debridement
Follow-up ultrasound and office appointment placed in discharge instructions
Please continue [facility] protocol of Xarelto 2.5 mg p.o. twice daily and aspirin 81 mg p.o. once a day for medical management of peripheral arterial disease
We will sign off please call with questions or concerns
Subjective Data
-
Date of Service: December 17, 2024
Patient seen and examined at bedside, endorses no discomfort at left groin puncture site. Offers no complaints.
Objective Data
-
Vital Signs
Temp Pulse Resp BP Pulse Ox
97.4 F 79 18 118/84 96
12/17/24 03:03 12/17/24 03:03 12/17/24 03:03 12/17/24 03:03 12/17/24 03:03
Intake and Output
12/16/24 12/17/24 12/18/24
06:59 06:59 06:59
Intake Total 720 / 720 240 / 240
Output Total 1575 / 1575 1050 / 1050
Balance -855 / -855 -810 / -810
Intake:
Oral fluids 720 / 720 240 / 240
Output:
Urine, Voided 750 / 750 1050 / 1050
Straight cath output 825 / 825
Other:
How many times incontinent 1 1
SATURATED amount urine
Calcium 8.4 mg/dl (8.4-10.2) 12/16/24 06:46
Magnesium 1.3 mg/dl (1.6-2.3) L 12/16/24 06:46
Total Bilirubin 0.2 mg/dl (0.2-1.3) 12/16/24 06:46
AST 14 U/L (17-59) L 12/16/24 06:46
ALT < 10 U/L (0-50) 12/16/24 06:46
Alkaline Phosphatase 73 U/L (38-126) 12/16/24 06:46
Total Protein 5.9 g/dl (6.3-8.2) L 12/16/24 06:46
Albumin 2.9 g/dl (3.5-5.0) L 12/16/24 06:46
Physical Exam
-
No apparent distress, resting in bed comfortably
Left groin puncture site clean, dry, and intact, no evidence of hematoma, all surrounding compartments soft
ABD, nontender, nondistended
Lateral lower extremity AT with palpable pulse, bilateral foot postoperative dressings clean, dry, and intact
[2024-12-17 08:13] LABS: Glucose - Point of Care 229 mg/dl (70-99)
[2024-12-17 08:16] LABS: Hematocrit 30.9 % (39.0-52.0); Hemoglobin 9.9 g/dL (13.0-18.0); Mean Corp Hgb Conc. 32.0 g/dL (33.0-37.0); Mean Corpuscular Volume 82.2 fL (80.0-94.0); Platelet Count 520 10^3/uL (130-400); Red Cell Dist. Width 17.5 % (11.5-14.5)
[2024-12-17] MEDS: NOVOLOG FLEXPEN 8 UNITS SC ×3 (08:28→17:15)
[2024-12-17] MEDS: NOVOLOG FLEXPEN-LOW RESISTANCE 2 UNITS SC ×2 (08:29→17:15)
[2024-12-17] MEDS: NORVASC 10 MG PO (08:30)
[2024-12-17] MEDS: XARELTO 2.5 MG PO ×2 (08:30→20:14)
[2024-12-17] MEDS: DELTASONE 5 MG PO (08:30)
[2024-12-17] MEDS: ASPIR LOW (ENTERIC COATED) 81 MG PO (08:31)
[2024-12-17] MEDS: SANTYL OINTMENT 1 APPLIC TOPICAL (08:31)
[2024-12-17] MEDS: FEOSOL 325 MG PO (08:31)
[2024-12-17] MEDS: PROGRAF 1 MG PO ×2 (08:31→20:14)
[2024-12-17] MEDS: FLORINEF 0.1 MG PO ×2 (08:31→20:14)
[2024-12-17] MEDS: SENOKOT 17.2 MG PO ×2 (08:31→20:14)
[2024-12-17] MEDS: CIPRO 500 MG PO ×2 (08:32→20:14)
[2024-12-17] MEDS: MIRALAX 17 GRAMS PO (08:37)
[2024-12-17 08:43] LABS: Blood Urea Nitrogen 16 mg/dl (9-20); Calcium 8.0 mg/dl (8.4-10.2); Carbon Dioxide 29 mmol/L (22-30); Chloride 102 mmol/L (98-107); Estimated Creatinine Clearance 101 ml/min; Glucose 236 mg/dl (70-99); Potassium 4.3 mmol/L (3.5-5.1); Sodium 137 mmol/L (135-145); eGFR > 60.00
--- NOTE | 2024-12-17 09:01 | W.PN.HOSP.TC ---
Today's Communication/Plan
-
see plan
Assessment / Plan
Assessment / Plan
Gen: NAD, Awake and alert
Eyes: EOMI, PERRLA, no scleral icterus.
Neck: supple.
CV: remains RRR, +S1/S2, no m/r/g.
Resp: remains CTAB, no rales, wheezes, or rhonchi.
Abd: +BS, soft, NT, ND
Skin: No rashes. C/D/I dressings both LEs.
Neuro: CN 2-12 intact, non-focal.
Psych: Normal mood and affect.
12/16/24 13:57 Foot - Right Wound Culture - Preliminary
Gram negative bacilli
Staphylococcus aureus
12/16/24 13:57 Foot - Right Gram Stain - Preliminary
12/12/24 15:08 Blood/Venous Blood Culture - Preliminary
No Growth in 4 days- Final report to follow
12/12/24 15:59 Foot - Left Wound Culture - Final
Staph aureus MRSA
12/12/24 15:59 Foot - Left Gram Stain - Final
12/12/24 15:26 Urine Urine Culture - Final
Pseudomonas aeruginosa
12/13/24 05:39 Nose MRSA Screen - Final
No Methicillin Resistant Staphylococcus aureus isolated.
CT A/P: Urinary bladder wall thickening and fat stranding most suspicious for acute cystitis. Recommend correlation with a urinalysis. Right lower quadrant renal transplant. Large volume colonic stool compatible with constipation. Rectal wall
thickening and stool distention of the rectum concerning for a fecal impaction and stercoral colitis.
Sepsis due to CAUTI (POA):
-chronic urinary retention with dominguez in place on admission. Dominguez changed 1045 on 12/12/24.
-culture data above
-leukocytosis has improved
-cont Cipro as per ID
Non-healing R TMA:
-h/o B/L diabetic foot wounds/osteomyelitis
-s/p 12/16/24 aortogram, RLE angiogram, balloon angioplasty and stent to right SFA, and balloon angioplasty to AT and TP trunk
-s/p 12/16/24 B/L LE debridement, R partial 5th MT excision, all infected bone removed
-NWB B/L LEs
-cont Xarelto/ASA as per vascular
Other problems:
Hypokalemia, resolved
Hypomagnesemia: 4g IV Mg
Chronic anemia: cont ferrous sulfate
h/o L partial 5th ray revision
h/o balloon angioplasty of left peroneal artery and left anterior tibial artery 11/04/2024
h/o R open TMA, LEFT 3rd toe amputation and open partial 5th ray amputation 11/05/2024
PAD: currently on ASA/statin/Xarelto
Stage 2 sacral pressure injury, POA
DM2: cont Lantus/premeal lispro, SSI/accuchecks/diabetic diet
Essential HTN: cont Norvasc
h/o renal Tx: cont prednisone/tacrolimus
HLD: cont statin
GERD/PUD: cont PPI
RLS: cont Requip
h/o TIA: cont ASA/statin
Chronic Ambulatory dysfunction, wheelchair bound
FULL/Xarelto
Anticipated Discharge: 24 - 48 hours
Subjective/Interval History
-
Date of Service: December 17, 2024
No new complaints.
Objective Data
-
Labs:
Laboratory Results
12/17/24
07:02
WBC 10.9 H
Hgb 9.9 L
Hct 30.9 L
Plt Count 520 H
Sodium 137
Potassium 4.3 D
Chloride 102
Carbon Dioxide 29
BUN 16
Creatinine 0.8
Glucose 236 H
Calcium 8.0 L
Vital Signs:
Vital Signs
Temp Pulse Resp BP Pulse Ox
97.6 F 71 18 144/80 96
12/17/24 07:00 12/17/24 08:30 12/17/24 07:00 12/17/24 08:30 12/17/24 07:00
I&O
12/16/24 12/17/24 12/18/24
06:59 06:59 06:59
Intake Total 720 / 720 240 / 240
Output Total 1575 / 1575 1050 / 1050
Balance -855 / -855 -810 / -810
[2024-12-17] MEDS: MAGNESIUM SULFATE 100 IV (10:21)
--- NOTE | 2024-12-17 10:49 | W.PN.URO.CBU ---
Today's Communication / Plan
-
cotinue present care
Assessment / Plan
-
cath associated uti sepsi removed dominguez as nidus of infection observing for void pt non weight bearing and onus now n pt staff to collect urine and prevent skin breakdown of incontinent
Diagnosis
-
Date of Service: December 17, 2024
-
Patient Diagnosis:
Post Op Day:
Patient Diagnosis:
Post Op Day:
Patient Diagnosis:
Post Op Day:
Patient Diagnosis:SEPSIS FROM DOMINGUEZ IN [place] DUE TO PT NON WEIGHT BEARING BUT PRESUMABLY CAN VOID
Post Op Day:
Patient Diagnosis:
cauti mi]=ultiple possbnle source sof lukocytosis but ct svan c/w acutr cath assosciated uti
Post Op Day:
Subjective
-
voiding well
Objective
-
Vital Signs
Temp Pulse Resp BP Pulse Ox
97.6 F 71 18 144/80 96
12/17/24 07:00 12/17/24 08:30 12/17/24 07:00 12/17/24 08:30 12/17/24 07:00
Intake and Output
12/16/24 12/17/24 12/18/24
06:59 06:59 06:59
Intake Total 720 / 720 240 / 240
Output Total 1575 / 1575 1050 / 1050
Balance -855 / -855 -810 / -810
Intake:
Oral fluids 720 / 720 240 / 240
Output:
Urine, Voided 750 / 750 1050 / 1050
Straight cath output 825 / 825
Other:
How many times incontinent 1 1
SATURATED amount urine
Laboratory Results
12/17/24 07:02
12/17/24 07:02
Review of Systems
-
: No Symptoms
Physical Exam
-
General - well developed, well nourished, no acute distress
Chest - clear bilaterally
Abdomen - soft, non-tender, positive bowel sounds, no CVAT, no incisional pain or distention
Genitalia - normal
Rectal - normal
Skin - warm & dry with no rash
Neuro - AOx3, no motor deficits
Extremities - no clubbing, no cyanosis, no edema
Incision - clean, dry
Dressing - clean, dry, intact
--- NOTE | 2024-12-17 10:54 | PTCARENOTE ---
patient ordered a magnesium rider. Per policy, patient needs to be placed on telemetry. Dr. Patton notified. Verbal order placed for continuous telemetry.
--- NOTE | 2024-12-17 11:14 | W.PN.ID1 ---
Date of Service
Date of Service: December 17, 2024
Today's Communication
- c/w ciprofloxacin to complete a 10 day total course 12/13-12/22
Assessment / Plan
CAUTI
Neurogenic bladder
Leukocytosis
- c/w ciprofloxacin to complete a 10 day total course 12/13-12/22
- QTc is 448
Small Area of Dry gangrene of the distal right TMA
- no indication for antibiotics for dry gangrene
Left foot wound culture - MRSA
- there is no erythema, warmth, tenderness, or probe to bone. Apparently a swab of the healing tissue was taken. Antibiotics are not indicated for this area at this time as the S aureus and GNR reflects colonization
Chief Complaint
-: UTI
Subjective / Review of Systems
s/p stent placement R popliteal artery to SFA, also multiple balloon angioplasties
remains afebrile
bp stable
voiding on his own
Vital Signs / Physical Exam
Vital Signs
Vital Signs
Temp Pulse Resp BP Pulse Ox
97.6 F 71 18 144/80 96
12/17/24 07:00 12/17/24 08:30 12/17/24 07:00 12/17/24 08:30 12/17/24 07:00
Physical Exam
Constitutional: No Acute Distress
Cardiovascular: Regular Rate and S1/S2; Negative Murmur or Rub
Pulmonary: Clear and Symmetric; Negative Wheezes or Rales
Gastrointestinal: Soft, Non Tender, Non Distended and Normal Bowel Sounds
Genito-Urinary: Suprapubic Tenderness
Skin: Warm and Dry; Negative Rash or Jaundice
Objective Data
Lab Data
Lab Results
12/17/24 07:02
12/17/24 07:02
Estimated Creat Clear 101 ml/min 12/17/24 07:02
Lactic Acid 1.0 mmol/L (0.7-2.0) 12/12/24 19:12
Total Bilirubin 0.2 mg/dl (0.2-1.3) 12/16/24 06:46
AST 14 U/L (17-59) L 12/16/24 06:46
ALT < 10 U/L (0-50) 12/16/24 06:46
Alkaline Phosphatase 73 U/L (38-126) 12/16/24 06:46
Most recent labs reviewed.
Micro Results:
12/16/24 13:57 Wound Culture - Preliminary
Foot - Right Gram negative bacilli
Staphylococcus aureus
Gram Stain - Preliminary
12/12/24 15:08 Blood Culture - Preliminary
Blood/Venous No Growth in 4 days- Final report to follow
12/16/24 13:57 Anaerobic Culture - Pending
Foot - Right
12/12/24 15:59 Wound Culture - Final
Foot - Left Staph aureus MRSA
Gram Stain - Final
12/12/24 15:26 Urine Culture - Final
Urine Pseudomonas aeruginosa
12/13/24 05:39 MRSA Screen - Final
Nose No Methicillin Resistant Staphylococcus aureus isolated.
[2024-12-17 11:56] LABS: Glucose - Point of Care 179 mg/dl (70-99)
[2024-12-17] MEDS: NOVOLOG FLEXPEN-LOW RESISTANCE 1 UNITS SC (12:43)
--- NOTE | 2024-12-17 15:06 | CM ---
CM reviewed chart, spoke with liaison at [facility], patient will have $214 per day co-pay at SNF.
Patient seen bedside with son, Juan. Patient reports cost may not be affordable.
Patient agreeable to additional referrals to be sent to [facility]- multiple referrals placed in [facility].
CM discussed if unable to afford SNF co-pay, can look into respite stay, likely will be more expensive than SNF co-pay days.
Son reports patients cleopatra is currently undergoing work to make handicap accessible, not ready to return home yet.
Will update patient/son once response received from additional SNFS.
Plan; SNF, additional referrals placed, will require auth once facility found. Patient currently in co-pay days
--- NOTE | 2024-12-17 16:06 | W.PN.SURGUPD ---
Surgical Update
Surgical Update
64M s/p b/l LE debridement, R partial 5th MT excision 12/16/2024
- Patient seen and evaluated at bedside
- Strict NWB b/l
- abx per ID, all infected bone removed
-- bone bx R 5th MT
- dressings c/d/i
-- Right foot packing changed every other day
- offloading precautions for posterior heel and lateral foot b/l
[2024-12-17 17:05] LABS: Glucose - Point of Care 223 mg/dl (70-99)
[2024-12-17] MEDS: PROTONIX 40 MG PO (17:16)
[2024-12-17] MEDS: REQUIP 0.25 MG PO (17:16)
[2024-12-17] MEDS: LIPITOR 40 MG PO (17:16)
[2024-12-17 21:30] LABS: Glucose - Point of Care 223 mg/dl (70-99)
[2024-12-17] MEDS: LANTUS 0.36 UNITS SC (21:32)
[2024-12-17] MEDS: MELATONIN 3 MG PO (21:32)
[2024-12-17] MEDS: FLOMAX 0.8 MG PO (21:32)
[2024-12-18] MEDS: NSS 1000 IV (01:31)
[2024-12-18 07:22] LABS: Glucose - Point of Care 180 mg/dl (70-99)
[2024-12-18] MEDS: NOVOLOG FLEXPEN-LOW RESISTANCE 1 UNITS SC (07:48)
[2024-12-18] MEDS: NOVOLOG FLEXPEN 8 UNITS SC (07:48)
[2024-12-18] MEDS: XARELTO 2.5 MG PO (07:49)
[2024-12-18] MEDS: FLORINEF 0.1 MG PO (07:49)
[2024-12-18] MEDS: NORVASC 10 MG PO (07:49)
[2024-12-18] MEDS: FEOSOL 325 MG PO (07:49)
[2024-12-18] MEDS: SENOKOT 17.2 MG PO (07:49)
[2024-12-18] MEDS: ASPIR LOW (ENTERIC COATED) 81 MG PO (07:49)
[2024-12-18] MEDS: MIRALAX 17 GRAMS PO (07:49)
[2024-12-18] MEDS: CIPRO 500 MG PO (07:50)
[2024-12-18] MEDS: SANTYL OINTMENT 1 APPLIC TOPICAL (07:51)
[2024-12-18] MEDS: PROGRAF 1 MG PO (07:51)
[2024-12-18] MEDS: DELTASONE 5 MG PO (07:52)
[2024-12-18 08:00] VITALS: BP 143/83
--- NOTE | 2024-12-18 08:55 | W.PN.HOSP.TC ---
Addendum entered and electronically signed by Sergio Patton MD 12/18/24 10:06:
Total time spent on d/c = 38 min. This included today's physical exam, progress note, review of laboratory and diagnostic data, preparation of discharge documents and prescriptions, and discussions about the pt's hospital course and discharge plan
with the patient and other medical examiner involved in the patient's care.
Original Note:
Today's Communication/Plan
-
see plan
Assessment / Plan
Assessment / Plan
Gen: remains NAD, Awake and alert
Eyes: EOMI, PERRLA, no scleral icterus.
Neck: supple.
CV: continues to remain RRR, +S1/S2, no m/r/g.
Resp: continues to remain CTAB, no rales, wheezes, or rhonchi.
Abd: +BS, soft, NT, ND
Skin: No rashes. C/D/I dressings both LEs.
Neuro: CN 2-12 intact, non-focal.
Psych: Normal mood and affect.
12/16/24 13:57 Foot - Right Wound Culture - Preliminary
Gram negative bacilli
Staphylococcus aureus
12/16/24 13:57 Foot - Right Gram Stain - Preliminary
12/12/24 15:08 Blood/Venous Blood Culture - Final
No Growth - Final Report
12/16/24 13:57 Foot - Right Anaerobic Culture - Preliminary
Culture pending. Anaerobic cultures are examined after 3
days incubation. Additional information to follow.
12/12/24 15:59 Foot - Left Wound Culture - Final
Staph aureus MRSA
12/12/24 15:59 Foot - Left Gram Stain - Final
12/12/24 15:26 Urine Urine Culture - Final
Pseudomonas aeruginosa
12/13/24 05:39 Nose MRSA Screen - Final
No Methicillin Resistant Staphylococcus aureus isolated.
CT A/P: Urinary bladder wall thickening and fat stranding most suspicious for acute cystitis. Recommend correlation with a urinalysis. Right lower quadrant renal transplant. Large volume colonic stool compatible with constipation. Rectal wall
thickening and stool distention of the rectum concerning for a fecal impaction and stercoral colitis.
Sepsis due to CAUTI (POA):
-chronic urinary retention with dominguez in place on admission. Dominguez changed 1045 on 12/12/24.
-culture data above
-leukocytosis has improved
-cont Cipro as per ID
Non-healing R TMA:
-h/o B/L diabetic foot wounds/osteomyelitis
-s/p 12/16/24 aortogram, RLE angiogram, balloon angioplasty and stent to right SFA, and balloon angioplasty to AT and TP trunk
-s/p 12/16/24 B/L LE debridement, R partial 5th MT excision, all infected bone removed
-R 5th metatarsal path pending
-NWB B/L LEs
-cont Xarelto/ASA as per vascular
-on Cipro as above
Other problems:
Hypokalemia, resolved
Hypomagnesemia: s/p 4g IV Mg
Chronic anemia: cont ferrous sulfate
h/o L partial 5th ray revision
h/o balloon angioplasty of left peroneal artery and left anterior tibial artery 11/04/2024
h/o R open TMA, LEFT 3rd toe amputation and open partial 5th ray amputation 11/05/2024
PAD: currently on ASA/statin/Xarelto
Stage 2 sacral pressure injury, POA
DM2: increase Lantus to 40U/premeal lispro to 10U, SSI (change to mod res)/accuchecks/diabetic diet
Essential HTN: cont Norvasc
h/o renal Tx: cont prednisone/tacrolimus
HLD: cont statin
GERD/PUD: cont PPI
RLS: cont Requip
h/o TIA: cont ASA/statin
Chronic Ambulatory dysfunction, wheelchair bound
FULL/Xarelto
Dispo: Pending AM labs, possible d/c today.
Anticipated Discharge: Within 24 hours
Subjective/Interval History
-
Date of Service: December 18, 2024
No new complaints.
Objective Data
-
Vital Signs:
Vital Signs
Temp Pulse Resp BP Pulse Ox
98 F 71 16 143/83 95
12/18/24 08:00 12/18/24 08:00 12/18/24 08:00 12/18/24 08:00 12/18/24 08:00
I&O
12/17/24 12/18/24 12/19/24
06:59 06:59 06:59
Intake Total 240 / 240 2707 / 2707
Output Total 1050 / 1050 1555 / 1555
Balance -810 / -810 1152 / 1152
[2024-12-18 09:20] LABS: Hematocrit 31.0 % (39.0-52.0); Hemoglobin 9.9 g/dL (13.0-18.0); Mean Corp Hgb Conc. 31.9 g/dL (33.0-37.0); Mean Corpuscular Volume 82.4 fL (80.0-94.0); Platelet Count 556 10^3/uL (130-400); Red Cell Dist. Width 17.5 % (11.5-14.5)
--- NOTE | 2024-12-18 11:03 | OR.RPT ---
Operative Report
Operative Report
Operative Report
Operative Report
Patient: Chauncey Schwartz

Date of Surgery: 12/16/2024
Surgeon: Dexter Wilson DPM
Assistants: Dexter Moralez DPM
Preoperative Diagnoses:
Status post right foot transmetatarsal amputation with open wound
Status post left partial 5th ray amputation with residual nonviable bone and open wound
Nonhealing left lateral foot wound
Postoperative Diagnoses:
Same as preoperative
Procedures Performed:
Resection of residual 5th metatarsal, right foot CPT 41930 Modifier 78
Debridement of left lateral foot wound with metatarsal resection, left foot CPT 33155 Modifier 78
Anesthesia:
MAC
Estimated Blood Loss:
Minimal
Specimens:
Right 5th metatarsal
Complications:
None
Indications for Surgery:
The patient is a 64-year-old male with a history of bilateral foot infections. The right foot underwent a transmetatarsal amputation. The left foot previously underwent a partial 5th ray resection with integra application and 3rd toe amputation.
The patient unfortunately had dehiscence of the lateral aspect of his right transmetatarsal amputation site with exposed 5th metatarsal and left lateral foot wound with exposed 5th metatarsal base. It was deemed appropriate to performed a right
transmetatarsal dehiscence debridement with excision of 5th metatarsal and debridement of left lateral foot wound and bone. Risks, benefits, and alternatives were discussed, and informed consent was obtained.
Procedure in Detail:
The patient was brought to the operating room and placed in the supine position. MAC anesthesia was then induced. Dr. Singer performed a successful lower extremity angiogram, and this procedure was performed in tandem. The bilateral feet were then
prepped and draped in the normal sterile fashion.
Right Foot:
Attention was first directed to the right foot. The transmetatarsal amputation site was well healed excluded the lateral 20% of the incision. This demonstrated an open wound with fibrogranular wound bed and exposed 5th metatarsal bone. All
nonviable tissue was removed with a #15 blade and rongeur. The wound edges were freshened with sharp excision of fibrinous tissue. A sagittal saw was used to remove the exposed 5th metatarsal bone which was sent for pathology. Hemostasis was
achieved. The area was thoroughly irrigated with copious amounts of sterile saline. There was no evidence of residual infection at this time. A sterile dressing including betadine soaked packing was applied.
Left Foot:
Attention was then directed to the left foot. The lateral foot and 3rd toe amputation sites appeared slightly fibrotic with no signs of acute infection. There was exposed 5th metatarsal base however. Using a combination of #15 blade and rongeur, a
debridement of all nonviable soft tissue and bone down to the level of bone was performed. Hemostasis was achieved. The area was thoroughly irrigated with copious amounts of sterile saline. There was no evidence of residual infection at this time. A
sterile dressing applied.
Disposition:
The patient tolerated the procedure well. The patient was transferred to the recovery unit in stable condition. Orders include non-weightbearing to both lower extremities, antibiotics per Infectious Disease, and local wound care with packing to the
left foot and sterile dressings to the right.
[2024-12-18 11:08] LABS: Blood Urea Nitrogen 17 mg/dl (9-20); Calcium 8.0 mg/dl (8.4-10.2); Carbon Dioxide 31 mmol/L (22-30); Chloride 105 mmol/L (98-107); Estimated Creatinine Clearance 116 ml/min; Glucose 160 mg/dl (70-99); Magnesium 1.6 mg/dl (1.6-2.3); Potassium 3.4 mmol/L (3.5-5.1); Sodium 138 mmol/L (135-145); eGFR > 60.00
--- NOTE | 2024-12-18 11:54 | W.PN.URO.CBU ---
Today's Communication / Plan
-
LEAVE DOMINGUEZ OUT
Assessment / Plan
-
cath associated uti sepsi removed dominguez as nidus of infection observing for void pt non weight bearing and onus now n pt staff to collect urine and prevent skin breakdown of incontinent
Diagnosis
-
Date of Service: December 18, 2024
-
Patient Diagnosis:
Post Op Day:
Patient Diagnosis:
Post Op Day:
Patient Diagnosis:
Post Op Day:
Patient Diagnosis:
Post Op Day:
Patient Diagnosis:SEPSIS FROM DOMINGUEZ IN [place] DUE TO PT NON WEIGHT BEARING BUT PRESUMABLY CAN VOID
Post Op Day:
Patient Diagnosis:
cauti mi]=ultiple possbnle source sof lukocytosis but ct svan c/w acutr cath assosciated uti
Post Op Day:
Subjective
-
NO COMPLAINTS
Objective
-
Vital Signs
Temp Pulse Resp BP Pulse Ox
98 F 71 16 143/83 95
12/18/24 08:00 12/18/24 08:00 12/18/24 08:00 12/18/24 08:00 12/18/24 08:00
Intake and Output
12/17/24 12/18/24 12/19/24
06:59 06:59 06:59
Intake Total 240 / 240 2707 / 2707
Output Total 1050 / 1050 1555 / 1555
Balance -810 / -810 1152 / 1152
Intake:
Oral fluids 240 / 240 590 / 590
IV fluids (Total) 2016
IV piggybacks 100 / 100
Output:
Urine, Voided 1050 / 1050 1555 / 1555
Other:
How many times incontinent 1
MODERATE amount urine
How many times incontinent 1 2
SATURATED amount urine
Laboratory Results
12/18/24 09:05
12/18/24 10:05
Review of Systems
-
: No Symptoms
Physical Exam
-
General - well developed, well nourished, no acute distress
Chest - clear bilaterally
Abdomen - soft, non-tender, positive bowel sounds, no CVAT, no incisional pain or distention
Genitalia - normal
Rectal - normal
Skin - warm & dry with no rash
Neuro - AOx3, no motor deficits
Extremities - no clubbing, no cyanosis, no edema
Incision - clean, dry
Dressing - clean, dry, intact
[2024-12-18 12:00] VITALS: BP 136/76
--- NOTE | 2024-12-18 12:28 | W.DCSUMMARY ---
Discharge Summary
Discharge Data
Date of Admission: 12/12/24
Date of Discharge: 12/18/24
-
Pending Results: Yes
Additional Pending Results:
R 5th metatarsal path
Hospital Course
Primary diagnoses:
Sepsis due to catheter associated urinary tract infection
Non-healing R transmetatarsal amputation
12/16/24 aortogram, RLE angiogram, balloon angioplasty and stent to right SFA, and balloon angioplasty to AT and TP trunk
12/16/24 B/L LE debridement, R partial 5th MT excision, all infected bone removed
Secondary diagnoses:
Chronic urinary retention with chronic Dominguez catheter
Hypokalemia
Hypomagnesemia
Chronic anemia
h/o L partial 5th ray revision
h/o balloon angioplasty of left peroneal artery and left anterior tibial artery 11/04/2024
h/o R open TMA, LEFT 3rd toe amputation and open partial 5th ray amputation 11/05/2024
Peripheral arterial disease
Stage 2 sacral pressure injury, POA
Type 2 diabetes mellitus
Essential hypertension
h/o renal transplant
Hyperlipidemia
Gastroesophageal reflux disease
Peptic ulcer disease
Restless leg syndrome
h/o transient ischemic attack
Chronic Ambulatory dysfunction, wheelchair bound
Consultants:
Vascular surgery
Podiatry
Infectious disease
Urology
Imaging:
CT A/P: Urinary bladder wall thickening and fat stranding most suspicious for acute cystitis. Recommend correlation with a urinalysis. Right lower quadrant renal transplant. Large volume colonic stool compatible with constipation. Rectal wall
thickening and stool distention of the rectum concerning for a fecal impaction and stercoral colitis.
64-year-old male who presented with a chief complaint of leukocytosis as outlined in the H&P done on admission. Hospital course by problem list:
Sepsis due to CAUTI: The patient had chronic urinary retention with dominguez in place on admission. Dominguez changed 1045 on 12/12/24. He was initially treated with IV vancomycin and Zosyn. His leukocytosis improved. Urine culture grew Pseudomonas
sensitive to tobin quinolones. He was transition to ciprofloxacin, as per infectious disease, through 12/22/24.
Non-healing R TMA: The patient had a history of bilateral diabetic foot wounds/osteomyelitis. On 12/16/24 vascular surgery performed aortogram, RLE angiogram, balloon angioplasty and stent to right SFA, and balloon angioplasty to AT and TP trunk. On
12/16/24 Podiatry performed B/L LE debridement and R partial 5th MT excision and all infected bone removed. Podiatry recommended nonweightbearing to both lower extremities. Vascular recommending continuing Xarelto and aspirin.
Discharge Plan
-
Patient Disposition: [facility]/SNF
Discharge Diagnosis/Procedures: Sepsis due to CAUTI, Non-healing R TMA, s/p 12/16/24 aortogram, RLE angiogram, balloon angioplasty and stent to right SFA, and balloon angioplasty to AT and TP trunk, s/p 12/16/24 B/L LE debridement, R partial 5th MT
excision, all infected bone removed
Diet: As tolerated
Activity: No strenuous activity
Bathing Restrictions: OK to Shower
Others Tests: Your follow-up repeat arterial ultrasound is scheduled on 01/19/2025 at 3 PM here at [facility]
Activity Restrictions/Additional Instructions:
Wound Care Instructions
Bilateral foot wounds-local care as per Dr. Wilson's instructions.
L 3rd toe amp site-local care as per Dr. Wilson's instructions.
Sacral/coccyx-clean with saline, silicone border foam, change q 3 days and prn loosened dressing.
Barrier ointment to scrotal ulcer BID and prn incontinence.
Elevate heels off bed with pillows.
Pressure redistributing chair cushion (i.e. Air, gel, Roho).
Follow up with mill washer Dr. Dexter Wilson.
Follow up with Vascular surgeon Dr. Roberto Singer.
Follow up at wound care center if needed, call for an appointment.
Stand Alone Forms: Vascular Surg Discharge Instr
Referrals:
Geovanni Zimmer MD [Family Provider, Internal Medicine] - in less than 1 week
Estelle Hernández CRNP [Specified Professional Personl, Vascular Surgery] - 01/22/25 10:00 am
Prescriptions:
New
ciprofloxacin HCl 500 mg Tablet
500 mg PO BID Qty: 8 0RF
Rx Instructions:
through 12/22/24
sennosides [Janiya-alyssa] 8.6 mg Tablet
17.2 mg PO BID Qty: 0 0RF
polyethylene glycol 3350 17 gram Powder In Packet
17 g PO DAILY Qty: 0 0RF
insulin aspart U-100 100 unit/mL (3 mL) Insulin Pen
10 unit SC AC Qty: 0 0RF
Insulin Glargine Lantus [Lantus] 40 UNITS
Subcutaneous Insulin Syringe [Syringe-Insulin] 0 UNIT
As Directed mls/hr SC HS
Ordered By: Sergio Patton MD
Last Taken: 12/17/24 21:32 0.36 mls
Continued
atorvastatin 40 mg Tablet
40 mg PO QPM Qty: 0 0RF
acetaminophen 325 mg Tablet
650 mg PO Q4HPRN PRN (Reason: mild pain/ fever>100.5F) Qty: 0 0RF
melatonin 3 mg Tablet
3 mg PO HS Qty: 0 0RF
cholecalciferol (vitamin D3) 50 mcg (2,000 unit) Tablet
50 mcg PO DAILY Qty: 0 0RF
rivaroxaban [Xarelto] 2.5 mg Tablet
2.5 mg PO BID Qty: 0 0RF
ferrous sulfate [FeroSul] 325 mg (65 mg iron) Tablet
325 mg PO DAILY Qty: 0 0RF
prednisone 5 mg tablet
5 mg PO DAILY Qty: 0 0RF
amlodipine 5 mg tablet
10 mg PO DAILY Qty: 0 0RF
aspirin 81 mg Tablet,Delayed Release (Dr/Ec)
81 mg PO DAILY Qty: 0 0RF
ropinirole 0.25 mg tablet
0.25 mg PO QPM Qty: 0 0RF
omeprazole 20 mg capsule,delayed release(DR/EC)
20 mg PO QPM Qty: 0 0RF
fludrocortisone 0.1 mg tablet
0.1 mg PO BID Qty: 0 0RF
tacrolimus 1 mg capsule
1 mg PO BID Qty: 0 0RF
magnesium hydroxide [Milk of Magnesia] 400 mg/5 mL Suspension
30 ml PO DAILY PRN (Reason: constipation)
bisacodyl [Dulcolax (bisacodyl)] 10 mg Suppository
10 mg NM DAILY PRN (Reason: constipation)
tamsulosin [Flomax] 0.4 mg capsule
0.8 mg PO HS
oxycodone-acetaminophen 5-325 mg Tablet
1 tab PO Q4HPRN PRN (Reason: moderate pain) Qty: 6 0RF
Discontinued
insulin glargine [Lantus Solostar U-100 Insulin] 100 unit/mL (3 mL) insulin pen
30 unit SC HS Qty: 0 0RF
ondansetron 4 mg Tablet,Disintegrating
4 mg PO Q6H PRN (Reason: Nausea)
insulin lispro [Humalog U-100 Insulin] 100 unit/mL solution
8 unit SC TID
Discharge Orders:
Discharge Patient (As Directed); Ordered 12/18/24
Ordered By: Sergio Patton
Discharge Date and Time
Print Language: IRANIAN
--- NOTE | 2024-12-18 12:33 | CM ---
Addendum entered by Megha Gibbs 12/18/24 12:57:
Patient scheduled for 3:00 p.m. ambulance transport, update to Lilly at [facility].
Original Note:
CM reviewed chart, patient seen bedside, discussed [facility] unable to offer bed- son Juan also updated.
[facility], [facility], and [facility] able to offer a bed.
Patient agreeable to [facility], confirmed with liaison Lilly they have a bed for today.
Auth submitted via [facility]- certified in total, approved 12/18-12/24, auth #[id number].
Patient will require ambulance transport.
IMM verbally reviewed with patient, provided with copy, placed in chart.
Plan; [facility] SN[facility], ambulance transport
[facility]
Report: [phone], ask for nurses station
Fax: will provide once nurse calls for report
[2024-12-18 12:50] LABS: Glucose - Point of Care 102 mg/dl (70-99)
[2024-12-18] MEDS: NOVOLOG FLEXPEN 10 UNITS SC (13:24)
--- NOTE | 2024-12-18 13:24 | W.PN.ID1 ---
Date of Service
Date of Service: December 18, 2024
Today's Communication
- c/w ciprofloxacin to complete a 10 day total course 12/13-12/22
Assessment / Plan
CAUTI
Neurogenic bladder
Leukocytosis
- c/w ciprofloxacin to complete a 10 day total course 12/13-12/22
- QTc is 448
- dominguez decisions per urology
Small Area of Dry gangrene of the distal right TMA
- no indication for antibiotics for dry gangrene
Left foot wound culture - MRSA
- there is no erythema, warmth, tenderness, or probe to bone. Apparently a swab of the healing tissue was taken. Antibiotics are not indicated for this area at this time as the S aureus and GNR reflects colonization
Chief Complaint
-: UTI
Subjective / Review of Systems
afebrile
bp stable
started on telemetry
Vital Signs / Physical Exam
Vital Signs
Vital Signs
Temp Pulse Resp BP Pulse Ox
97.9 F 73 16 136/76 94
12/18/24 12:00 12/18/24 12:00 12/18/24 12:00 12/18/24 12:00 12/18/24 12:00
Physical Exam
Constitutional: No Acute Distress
Cardiovascular: Regular Rate and S1/S2; Negative Murmur or Rub
Pulmonary: Clear and Symmetric; Negative Wheezes or Rales
Gastrointestinal: Soft, Non Tender, Non Distended and Normal Bowel Sounds
Skin: Warm and Dry; Negative Rash or Jaundice
Objective Data
Lab Data
Lab Results
12/18/24 09:05
12/18/24 10:05
Estimated Creat Clear 116 ml/min 12/18/24 10:05
Lactic Acid 1.0 mmol/L (0.7-2.0) 12/12/24 19:12
Total Bilirubin 0.2 mg/dl (0.2-1.3) 12/16/24 06:46
AST 14 U/L (17-59) L 12/16/24 06:46
ALT < 10 U/L (0-50) 12/16/24 06:46
Alkaline Phosphatase 73 U/L (38-126) 12/16/24 06:46
Most recent labs reviewed.
Micro Results:
12/16/24 13:57 Wound Culture - Preliminary
Foot - Right Gram negative bacilli
Staphylococcus aureus
Gram Stain - Preliminary
12/12/24 15:08 Blood Culture - Final
Blood/Venous No Growth - Final Report
12/16/24 13:57 Anaerobic Culture - Preliminary
Foot - Right Culture pending. Anaerobic cultures are examined after 3
days incubation. Additional information to follow.
12/12/24 15:59 Wound Culture - Final
Foot - Left Staph aureus MRSA
Gram Stain - Final
12/12/24 15:26 Urine Culture - Final
Urine Pseudomonas aeruginosa
12/13/24 05:39 MRSA Screen - Final
Nose No Methicillin Resistant Staphylococcus aureus isolated.
[2024-12-18 16:30] VITALS: BP 145/84
[2024-12-18 16:32] LABS: Glucose - Point of Care 129 mg/dl (70-99)
== END 2024-12-18 16:38 | DRG 463 ==
LOC: 4 WEST ACU 20:20
PROVIDERS: Nurse Practitioner; Registered Nurse; ADMITTING PHYSICIAN Internal Medicine; ATTENDING PHYSICIAN Internal Medicine; CONSULT PHYSICIAN Specialist; CONSULT PHYSICIAN Student in an Organized Health Care Education/Training Program; CONSULT PHYSICIAN Surgery Vascular Surgery; EMERGENCY PHYSICIAN Emergency Medicine; FAMILY PHYSICIAN Internal Medicine; OTHER PHYSICIAN Student in an Organized Health Care Education/Training Program
PROC: 047T3ZZ Dilation of Right Peroneal Artery, Percutaneous Approach (ICD-10-PCS; 2024-12-16)
PROC: 047P3ZZ Dilation of Right Anterior Tibial Artery, Percutaneous Approach (ICD-10-PCS; 2024-12-16)
PROC: 047M3EZ Dilation of Right Popliteal Artery with Two Intraluminal Devices, Percutaneous Approach (ICD-10-PCS; 2024-12-16)
PROC: B4101ZZ Fluoroscopy of Abdominal Aorta using Low Osmolar Contrast (ICD-10-PCS; 2024-12-16)
PROC: B41C1ZZ Fluoroscopy of Pelvic Arteries using Low Osmolar Contrast (ICD-10-PCS; 2024-12-16)
PROC: 0QBP0ZZ Excision of Left Metatarsal, Open Approach (ICD-10-PCS; 2024-12-16)
PROC: 0JBQ0ZZ Excision of Right Foot Subcutaneous Tissue and Fascia, Open Approach (ICD-10-PCS; 2024-12-16)
PROC: B41G1ZZ Fluoroscopy of Left Lower Extremity Arteries using Low Osmolar Contrast (ICD-10-PCS; 2024-12-16)
PROC: 0QBN0ZZ Excision of Right Metatarsal, Open Approach (ICD-10-PCS; 2024-12-16)
PROC: B41F1ZZ Fluoroscopy of Right Lower Extremity Arteries using Low Osmolar Contrast (ICD-10-PCS; 2024-12-16)
DX: T87.81 Dehiscence of amputation stump (principal); A41.9 Sepsis, unspecified organism; E11.52 Type 2 diabetes mellitus with diabetic peripheral angiopathy with gangrene; T83.511A Infection and inflammatory reaction due to indwelling urethral catheter, initial encounter; Z94.0 Kidney transplant status; D84.9 Immunodeficiency, unspecified; L97.429 Non-pressure chronic ulcer of left heel and midfoot with unspecified severity; L97.418 Non-pressure chronic ulcer of right heel and midfoot with other specified severity; I96 Gangrene, not elsewhere classified; N39.0 Urinary tract infection, site not specified; I10 Essential (primary) hypertension; D63.1 Anemia in chronic kidney disease; K59.00 Constipation, unspecified; L89.152 Pressure ulcer of sacral region, stage 2; E78.5 Hyperlipidemia, unspecified; I95.1 Orthostatic hypotension; N31.2 Flaccid neuropathic bladder, not elsewhere classified; R33.8 Other retention of urine; I70.244 Atherosclerosis of native arteries of left leg with ulceration of heel and midfoot; I70.234 Atherosclerosis of native arteries of right leg with ulceration of heel and midfoot; E11.621 Type 2 diabetes mellitus with foot ulcer; K21.9 Gastro-esophageal reflux disease without esophagitis; E87.6 Hypokalemia; E83.42 Hypomagnesemia; G25.81 Restless legs syndrome; R26.2 Difficulty in walking, not elsewhere classified; B96.5 Pseudomonas (aeruginosa) (mallei) (pseudomallei) as the cause of diseases classified elsewhere; B95.62 Methicillin resistant Staphylococcus aureus infection as the cause of diseases classified elsewhere; Y84.6 Urinary catheterization as the cause of abnormal reaction of the patient, or of later complication, without mention of misadventure at the time of the procedure; Y92.129 Unspecified place in nursing home as the place of occurrence of the external cause; Y73.2 Prosthetic and other implants, materials and accessory gastroenterology and urology devices associated with adverse incidents; K52.89 Other specified noninfective gastroenteritis and colitis; E11.40 Type 2 diabetes mellitus with diabetic neuropathy, unspecified; Z60.2 Problems related to living alone; Z87.891 Personal history of nicotine dependence; Z86.73 Personal history of transient ischemic attack (TIA), and cerebral infarction without residual deficits; Z79.899 Other long term (current) drug therapy; Z79.82 Long term (current) use of aspirin; Z79.01 Long term (current) use of anticoagulants; Z79.52 Long term (current) use of systemic steroids; Z79.4 Long term (current) use of insulin; Z79.621 Long term (current) use of calcineurin inhibitor; Z99.3 Dependence on wheelchair; Z87.11 Personal history of peptic ulcer disease
CPT/HCPCS: 37226; 37228; 37232; 37252; 37253; 51798; 73630; 74177; 80048; 80053; 80197; 81003; 81015; 82962; 83036; 83605; 83735; 85025; 85027; 86850; 86900; 86901; 87040; 87070; 87075; 87077; 87086; 87147; 87186; 87205; 88304; 88311; 93005; 93922; 93925; 96365; 96366; 96367; 96375; 97110; 97162; 97166; 97530; 99285; C1725; C1760; C1769; C1874; C1887; C1894; Q9967

== ENCOUNTER → 2025-01-29 10:29 | Outpatient (REF) | payer MEDICARE, SELFPAY | LOC: RAD 10:29 | PROVIDERS: ATTENDING PHYSICIAN Surgery Vascular Surgery; FAMILY PHYSICIAN Internal Medicine | DX: I73.9 Peripheral vascular disease, unspecified (principal) | CPT/HCPCS: 93922; 93925 ==

== ENCOUNTER 2025-02-18 12:45 | Inpatient (IN) | payer MEDICARE, SELFPAY ==
[2025-02-18] VITALS (24 sets, daily range): BP systolic 96–146; BP diastolic 47–83; BMI 25.5; BMI 22.8
--- NOTE | 2025-02-18 09:04 | ED.GENMED ---
History of Present Illness
General
Chief Complaint: Cold/Flu/URI Symptoms
Source: patient
Exam Limitations: none
Time Seen by Provider: 02/18/25 08:52
History of Present Illness
History of Present Illness:
See MDM
Past History
Past History
ED Past Medical History: CVA, IDDM and Renal failure (Kidney transplant)
ED Past Surgical History: Other (Kidney transplant)
Social History
Tobacco: Former smoker
Alcohol: Occasional (Last drink was about 2 months ago.)
Drug: None
Personal: Single
Living: alone
Phy Exam
Physical Exam
Physical Exam:
See MDM
Sepsis
Sepsis Screening
Sepsis Assessment: Sepsis
Sepsis Screen
Sepsis Screen: Sepsis
Date: 02/18/25
Time: 10:22
Course
Orders/Labs/Results
Orders:
Orders
02/18/25 08:54
Electrocardiogram (*1) Urgent
Reason for Study: Other
Other Reason for Exam: Possible Sepsis
Cardiac Monitoring- Treatment ONCE
EKG- Treatment ONCE
IV Insert/Care/Rem.- Treatment PRN
O2 Therapy [RESP] Urgent
Titrate/Wean O2 to maintain O2 sat greater than (%): 93
Special Instructions: TO MAINTAIN CONTINUOUS O2 SATS > OR = 93%
Pulse Ox/cont/shift [RESP] Urgent
Quantity: 1
Special Instructions: CONTINUOUS
02/18/25 09:02
CR Chest Portable - 1 View Urgent
Comment:
Reason For Exam: fever, cough
Reason Study Needs to be Portable: Patient Unstable
02/18/25 09:03
IV Insert/Care/Rem.- Treatment PRN
Pantoprazole 80 mg/100 ml Nss [Protonix] 80 mg in 100 ml IV NOW
Pantoprazole [Protonix IV] 80 mg IV NOW STA
Piperacillin/Tazo 3.375 Gram [Zosyn] 3.375 gram in 50 ml IV NOW
Vancomycin [Vancocin] 2,000 mg 0.9% Sodium Chloride 500 ml [Nss] 500 ml IV NOW
02/18/25 09:04
Ondansetron Injectable [Zofran] 4 mg IV NOW STA
02/18/25 09:06
Acetaminophen 1000MG/100Ml [Ofirmev] 1,000 mg in 100 ml IV ONCE
Acetaminophen IV Indication:: ED Narcotic Naive Pt-ONCE
02/18/25 09:09
COVID-19 Antigen Urgent
Source: Nasal Swab
Complete Blood Count/With Diff Urgent
Lactic Acid Q4H
Comment: ON ICE, CANCEL 2ND ORDER IF FIRST LACTIC ACID LEVEL <2
Urinalysis Reflex To Culture Urgent
Date Specimen was Collected: 02/18/25
Time Specimen was Collected: 08:54
Urine Microscopic Reflex Cult Urgent
Influenza A+B Rapid Molecular Urgent
RUKHSANA Source: Nasal Swab
Specimen Description:
Urine Culture Urgent
RUKHSANA Source: U
Specimen Description:
Date Specimen was Collected: 02/18/25
Time Specimen was Collected: 08:54
02/18/25 09:10
Comprehensive Metabolic Panel Urgent
PTT Urgent
Prothrombin Time Urgent
Blood Culture Q20M
RUKHSANA Source: Blood/Venous
Specimen Description:
Comment: Urgent from separate sites. If patient screens positive for possible sepsis
Blood Culture Q20M
RUKHSANA Source: Blood/Venous
Specimen Description:
Comment: Urgent from separate sites. If patient screens positive for possible sepsis
02/18/25 09:27
0.9% Sodium Chloride 1000 ml [Nss] 1,000 ml IV BOLUS
02/18/25 10:14
0.9% Sodium Chloride 1000 ml [Nss] 2,700 ml IV NOW STA
02/18/25 10:20
GASTROINTESTINAL CONSULT Urgent
Consulting Provider: Deng Lewis
Was physician already notified: Yes
0.9% Sodium Chloride 1000 ml [Nss] 1,000 ml IV BOLUS
02/18/25 13:00
Lactic Acid Q4H
Comment: ON ICE, CANCEL 2ND ORDER IF FIRST LACTIC ACID LEVEL <2
Abnormal Lab Results
02/18/25 02/18/25
09:09 09:10
WBC 17.0 H 10^3/uL
(4.8-10.8)
RBC 4.06 L 10^6/uL
(4.70-6.10)
Hgb 9.4 L g/dL
(13.0-18.0)
Hct 30.0 L %
(39.0-52.0)
MCV 73.9 L fL
(80.0-94.0)
MCH 23.2 L pg
(27.0-31.0)
MCHC 31.3 L g/dL
(33.0-37.0)
RDW 16.2 H %
(11.5-14.5)
Plt Count 489 H 10^3/uL
(130-400)
Abs Immat Gran (auto) 0.1 H 10^3/uL
(0-0.05)
Absolute Neuts (auto) 15.3 H 10^3/uL
(1.4-6.5)
Absolute Lymphs (auto) 1.1 L 10^3/uL
(1.2-3.4)
Immature Gran % 0.6 H %
(0-0.5)
Neutrophils % 89.9 H %
(42.2-75.2)
Lymphocytes % 6.2 L %
(20.5-51.1)
PT 16.8 H Sec
(11.4-14.6)
BUN 28 H mg/dl
(9-20)
Glucose 210 H mg/dl
(70-99)
Lactic Acid 2.1 H mmol/L
(0.7-2.0)
AST 11 L U/L
(17-59)
Ur Occult Blood Reflex 4+ A
(Negative)
Urine Nitrite (Reflex) Positive A
(Negative)
Leukocyte Esterase Rfl 3+ A
(Negative)
Urine RBC 11-15 A /HPF
(0-2)
Urine WBC (Reflex) 90-100 A /HPF
(0-5)
Urine Bacteria (Reflex) Moderate A
(Negative)
Urine Albumin (Reflex) 3+ A
(Neg - Trace)
02/18/25 09:09
02/18/25 09:10
Vital Signs
Initial and Last Documented VS:
Initial Vital Signs
Temp Pulse Resp BP Pulse Ox
103 F H 100 18 144/83 96
02/18/25 08:35 02/18/25 08:35 02/18/25 08:35 02/18/25 08:35 02/18/25 08:35
Last Documented Vital Signs
Temp Pulse Resp BP Pulse Ox
103 F H 105 17 142/66 96
02/18/25 08:35 02/18/25 09:45 02/18/25 09:45 02/18/25 09:37 02/18/25 09:45
MDM/Problems Addressed
Differential Diagnosis Includes:
Note:
CHIEF COMPLAINT(S)
Fever and inability to tolerate oral intake.
HISTORY OF PRESENT ILLNESS
The patient is a 64-year-old male with a recent history of an arteriogram. He presents with fever and nausea, unable to tolerate anything by mouth. The patients symptoms began to worsen after arriving at the hospital. He experienced chills after a
recent wound dressing change, indicating potential systemic infection. The patient has existing wounds with eschar on left foot. Son at bedside states vascular is following and planning on arteriogram. Symptoms have progressively worsened,
contributing to his overall unwell appearance. Patient had an episode of vomiting in the waiting room which was described as coffee-ground. Son at bedside indicates has a history of stomach ulcers
SOCIAL DETERMINANTS AFFECTING HEALTH
The patient is experiencing stress due to inadequate blood flow in his leg, specifically following an arteriogram. There are indications of anxiety related to his current health state, and his transfer ability has declined, affecting his mobility.
PHYSICAL EXAM
General: Ill-appearing, intermittently dry heaving
Skin: Warm
Head: Normocephalic, atraumatic
Neck: Appears supple, trachea midline.
Eyes, Ears, Nose, Mouth, and Throat: Dry mucous membranes
Cardiovascular: No signs of cyanosis
Respiratory: Respirations are non-labored.
Abdomen: Non-distended. Soft nontender
Musculoskeletal: Amputations noted to both feet. Left foot with significant ulceration and eschar to dorsum and lateral aspect. Cap refill greater than 5 seconds. Eschar overlying DP pulse so pulse not palpated
Neurological: No focal neurological deficit observed.
Psychiatric: Cooperative, appropriate mood and affect.
PLAN
- Administer intravenous fluids.
- Perform diagnostic tests for pneumonia, COVID-19, and influenza.
- Obtain blood cultures and lactate levels.
- Order coagulation studies in anticipation of a potential procedure.
- Confer with the vascular team for assessment and possible intervention.
- Initiate empirical antibiotic therapy due to inability to keep oral medication down.
DIFFERENTIAL DIAGNOSIS
The Differential Diagnosis includes, in no particular order and is not limited to:
- Pneumonia
- COVID-19
- Influenza
- Sepsis
- Peripheral artery disease
- Systemic infection
- Gastroenteritis
- Malnutrition due to inability to take oral intake
- Heart failure
- Wound infection
SUMMARY OF ENCOUNTER
The patient presented to the emergency department with fever, nausea, and inability to tolerate oral intake following a recent arteriogram. Notable findings include wounds with eschar, likely due to impaired blood flow, especially on the left leg.
The patient exhibited signs of systemic illness, necessitating comprehensive evaluation and supportive care, including fluids and empirical antibiotics. Considering his condition, the decision was made to admit him overnight for further evaluation
and multidisciplinary management.
DISPOSITION
Admit for further evaluation and management.
MEDICAL DECISION MAKING
-Complexity of Data Reviewed: Chronic conditions affecting care include impaired blood flow post-arteriogram and systemic infection suggestions. My differentials are detailed in the differential diagnosis section.
-Data:
Category 1
- Coagulation and other pertinent lab studies ordered.
Category 3
- Discussion of case management with the vascular team, anticipating further intervention.
EKG
My independent EKG interpretation is:
- Time of EKG: [Specify time, if provided in the original client director]
- Rhythm: Sinus rhythm
- Heart Rate: 93 beats per minute
- [place]: Left axis deviation
- Arrhythmias: Presence of PVCs (Premature Ventricular Contractions)
- ST Segment: No ST elevation
CARE-UPDATE
02/18/25 - 10:23
Patient has experienced multiple episodes of coffee ground emesis in the emergency department. Currently off Xarelto due to upcoming vascular surgery angiogram. GI team has been notified. Hemoglobin stable at 9.4.
SUMMARY OF ENCOUNTER
The 64-year-old male came to the emergency department with generalized weakness and fatigue. He presented with afebrile conditions and was empirically started on antibiotics and intravenous fluids due to concern for sepsis. A chest x-ray was
concerning for a right perihilar pneumonia. He has had multiple episodes of coffee ground emesis. The patient is currently off Rivaroxaban due to the planned angiogram for impending vascular surgery. His hemoglobin levels are stable.
DISPOSITION
Admit to the hospitalist team.
ASSESSMENT
The patient is suspected to have a right perihilar pneumonia possibly leading to systemic symptoms resembling sepsis, potential complications from his vascular condition, and gastrointestinal bleeding requiring attention.
MANAGEMENT OF THE PATIENTS CARE WAS DISCUSSED WITH
The GI team was notified for an urgent consultation due to the patients gastrointestinal symptoms.
PLAN
Admit the patient to the hospitalist team for further monitoring and management, including evaluation by the GI team for the emesis and management of pneumonia and potential sepsis.
INDEPENDENT REVIEW OF LABS AND INTERPRETATION OF TESTS
My independent interpretation of the chest x-ray indicates a right perihilar pneumonia. Hemoglobin was noted to be stable.
MEDICATION RECONCILIATION
The patient was empirically started on vancomycin and piperacillin/tazobactam (Zosyn) due to the concern for sepsis.
MEDICAL DECISION MAKING
-Complexity of Data Reviewed: Chronic conditions affecting care include impaired blood flow and systemic infection suggestions. Differential diagnosis includes pneumonia, COVID-19, influenza, sepsis, peripheral artery disease, systemic infection,
gastroenteritis, malnutrition due to inability to take oral intake, heart failure, wound infection.
-Data:
Category 1
Tests and documents reviewed include a chest x-ray indicating right perihilar pneumonia.
Category 3
Discussion of management with the GI team regarding the patient�s gastrointestinal symptoms.
-Risk: The patients care is complicated by his gastrointestinal symptoms, systemic infection concerns, and the need for vascular intervention, requiring careful monitoring and management.
*Pulse Oximetry
SaO2: 96
Oxygen Mode of Delivery: Room air
Patient hypoxic: no
*Critical Care Note
Total Time (30-74mins, 75-104mins- exclusive of procedures): 35 min
comment:
The high probability of a clinically significant, sudden or life threatening deterioration of the GI and cardiopulmonary system(s) required my full and direct attention, intervention and personal management. The aggregate critical care time was 35
minutes. This time is in addition to time spent performing reported procedures but includes the following:
[x] Data Review and interpretation
[x] Patient assessment and monitoring of vital signs
[x] Documentation
[x] Medication orders and management
ED Attending Note
-
Portions of this chart may have been created with voice recognition software.� Occasional wrong word or��sound alike� substitutions may have occurred due to the inherent limitations of voice recognition software.
Discharge Plan
Departure
Patient Disposition: Admit
Date of Disposition: 02/18/25
Time of Disposition: 10:23
Admit to: IMU
Presentation/result/management discussed w/ accepting MD/DO: Hospitalist
Discharge Problem:
Sepsis, Pneumonia, Acute upper GI bleeding
Prescriptions:
No Action
atorvastatin 40 mg Tablet
40 mg PO QPM Qty: 0 0RF
acetaminophen 325 mg Tablet
650 mg PO Q4HPRN PRN (Reason: mild pain/ fever>100.5F) Qty: 0 0RF
cholecalciferol (vitamin D3) 50 mcg (2,000 unit) Tablet
50 mcg PO DAILY Qty: 0 0RF
rivaroxaban [Xarelto] 2.5 mg Tablet
2.5 mg PO BID Qty: 0 0RF
ferrous sulfate [FeroSul] 325 mg (65 mg iron) Tablet
325 mg PO DAILY Qty: 0 0RF
prednisone 5 mg tablet
5 mg PO DAILY Qty: 0 0RF
amlodipine 5 mg tablet
10 mg PO DAILY Qty: 0 0RF
aspirin 81 mg Tablet,Delayed Release (Dr/Ec)
81 mg PO DAILY Qty: 0 0RF
fludrocortisone 0.1 mg tablet
0.1 mg PO BID Qty: 0 0RF
tacrolimus 1 mg capsule
1 mg PO BID Qty: 0 0RF
sennosides [senna] 8.6 mg Tablet
17.2 mg PO BID
tamsulosin [Flomax] 0.4 mg Capsule
0.4 mg PO DAILY
Santyl 250 unit/gram Ointment
1 applic TOPICAL DAILY
insulin lispro 100 unit/mL Insulin Pen
10 sliding scale dose SC AC
insulin glargine [Lantus Solostar U-100 Insulin] 100 unit/mL (3 mL) Insulin Pen
30 unit SC HS
magnesium oxide 400 mg magnesium Tablet
400 mg PO DAILY
ropinirole 0.25 mg tablet
0.25 mg PO HS
Referrals:
Morgan Ray DO [Family Provider, Family Practice]
Interventions
Interventions:
*Risk Screen - Suicide Last Done: 02/18/25 08:35
*General Assessment Last Done: 02/18/25 10:00
*Neglect/Abuse Screening Last Done: 02/18/25 08:35
*ED COVID-19 Vaccine History Last Done: 02/18/25 10:00
*ED Influenza Vaccine History Last Done: 02/18/25 10:00
[facility] Fall Risk Assessment Tool Last Done: 02/18/25 09:58
ED- Pulmonary Assessment Last Done: 02/18/25 10:00
Discharge Date and Time
Print Language: BURKINAN
[2025-02-18] MEDS: PROTONIX 100 IV ×2 (09:13→19:15)
[2025-02-18] MEDS: PROTONIX IV 80 MG IV (09:13)
[2025-02-18] MEDS: ZOFRAN 4 MG IV ×2 (09:14→15:20)
[2025-02-18] MEDS: ZOSYN 50 IV ×3 (09:15→21:46)
[2025-02-18] MEDS: OFIRMEV 100 IV (09:18)
[2025-02-18 09:27] LABS: Hematocrit 30.0 % (39.0-52.0); Hemoglobin 9.4 g/dL (13.0-18.0); Mean Corp Hgb Conc. 31.3 g/dL (33.0-37.0); Mean Corpuscular Volume 73.9 fL (80.0-94.0); Nucleated Red Blood Cells % 0 % (-); Platelet Count 489 10^3/uL (130-400); Red Cell Dist. Width 16.2 % (11.5-14.5)
[2025-02-18] MEDS: NSS 1000 IV ×3 (09:29→13:59)
--- NOTE | 2025-02-18 09:30 | EDRN ---
Patient had an episode of coffee ground emesis is positive for blood, patient cleaned up and new gown placed on patient.
[2025-02-18 09:37] LABS: INR 1.39; PT 16.8 Sec (11.4-14.6)
[2025-02-18 09:38] LABS: APTT 33.9 Sec (23.4-35.0)
[2025-02-18 09:41] LABS: ALT (SGPT) 11 U/L (0-50); AST (SGOT) 11 U/L (17-59); Albumin 3.6 g/dl (3.5-5.0); Alkaline Phosphatase 110 U/L (38-126); Blood Urea Nitrogen 28 mg/dl (9-20); Calcium 8.9 mg/dl (8.4-10.2); Carbon Dioxide 27 mmol/L (22-30); Chloride 102 mmol/L (98-107); Estimated Creatinine Clearance 84 ml/min; Glucose 210 mg/dl (70-99); Potassium 3.7 mmol/L (3.5-5.1); Sodium 136 mmol/L (135-145); Total Protein 7.4 g/dl (6.3-8.2); eGFR > 60.00
[2025-02-18 09:45] LABS: COVID-19 Antigen Negative (Negative)
[2025-02-18 09:50] LABS: Urine Character Clear (Clear)
--- NOTE | 2025-02-18 09:50 | EDRN ---
Patient had another episode of coffee ground emesis, cleaned up at this time.
[2025-02-18] MEDS: VANCOCIN 540 MG IV (09:53)
[2025-02-18 10:13] LABS: Urine White Cell 90-100 /HPF (0-5)
--- NOTE | 2025-02-18 10:14 | EDRN ---
Elevated both legs with pillows to take pressure off of heels
--- NOTE | 2025-02-18 10:29 | EDRN ---
Wounds on feet dressed with non-adherent and bulky gauze, patient resting comfortably call choe in reach.
--- NOTE | 2025-02-18 11:33 | HPS.HSE ---
Addendum entered and electronically signed by Bob Carranza DO 02/19/25 13:14:
Clarification:
Sepsis due to UTI/Aspiration PNA vs Diabetic foot infection with organ dysfunction of lactic acidosis
Original Note:
Family Physician
-
Family Physician: Morgan Ray
Chief Complaint
-
fever
History of Present Illness
64-year-old male with history of CVA, IDDM, peripheral arterial disease, osteomyelitis , renal failure status post kidney transplant, recent arteriogram presents with fever, hematemesis, nausea, unable to tolerate anything by mouth. Patient unable
to provide history as he is lethargic. History is obtained from ER physician and notes. Patient lives with his son and his son brought him to the hospital. Patient symptoms began to worsen after arrival at the hospital. He also experienced
chills after recent wound dressing change in his bilateral foot. The patient has existing wound with eschar on left foot. Patient was scheduled for arteriogram today. Patient also had an episode of vomiting in the waiting room which was coffee
ground color. Patient has a history of stomach ulcers. Patient is on Xarelto for peripheral arterial disease
In the ED patient is febrile, temp 103 F, on 2 L of oxygen, white count of 18,000, lactic acid of 2.1. UA shows pyuria, chest x-ray showing some hazy opacities at the right lower base. Pt is oriented to place, looks lethargic, and is unable to
provide history. No family at bedside currently.
Medical History
Past Medical History
Past Medical History: Reports Other (CVA, IDDM, peripheral arterial disease (right TMA, left third toe amputation ) renal failure status post kidney transplant)
Past Surgical History: Reports Other
Social History
Unable to obtain full social history at this time due to: Patient Non-verbal
Family History
Family History: Not pertinent
Allergies / Home Medications
Allergies reflects when Allergies were last updated in [facility].
Home Medications with original date entered in [facility]
Allergy/Medication List:
Allergies
Allergy/AdvReac Type Severity Reaction Status Date / Time
No Known Allergies Allergy Verified 02/18/25 08:38
Home Medications
acetaminophen 325 mg tablet 650 mg (2 x 325 mg) PO Q4HPRN PRN mild pain/ fever>100.5F #0 tabs 11/13/24
amlodipine 5 mg tablet 10 mg (2 x 5 mg) PO DAILY #0 tabs 11/13/24
aspirin 81 mg tablet,delayed release 81 mg PO DAILY Blood clot prevention/tx #0 tabs 11/13/24
atorvastatin 40 mg tablet 40 mg PO QPM High cholesterol #0 tabs 11/13/24
cholecalciferol (vitamin D3) 50 mcg (2,000 unit) tablet 50 mcg PO DAILY Supplement #0 tabs 11/13/24
ferrous sulfate 325 mg (65 mg iron) tablet (FeroSul) 325 mg PO DAILY anemia #0 tabs 11/13/24
fludrocortisone 0.1 mg tablet 0.1 mg PO BID Blood pressure #0 tabs 11/13/24
prednisone 5 mg tablet 5 mg PO DAILY Transplant #0 tabs 11/13/24
rivaroxaban 2.5 mg tablet (Xarelto) 2.5 mg PO BID Blood clot prevention/tx #0 tabs 11/13/24
tacrolimus 1 mg capsule, immediate-release 1 mg PO BID Transplant #0 caps 11/13/24
collagenase clostridium histo. 250 unit/gram topical ointment (Santyl) 1 applic topical DAILY right foot 02/18/25
insulin glargine 100 unit/mL (3 mL) subcutaneous pen (Lantus Solostar U-100 Insulin) 30 unit SC HS 02/18/25
insulin lispro 100 unit/mL subcutaneous pen 10 sliding scale dose SC AC 02/18/25
magnesium oxide 400 mg PO DAILY 02/18/25
ropinirole 0.25 mg tablet 0.25 mg PO HS rls 02/18/25
sennosides 8.6 mg tablet (senna) 17.2 mg PO BID 02/18/25
tamsulosin 0.4 mg capsule 0.4 mg PO DAILY 02/18/25
Review of Systems
-
Unable to obtain full review of systems at this time due to: Other (lethargic)
Physical Exam
Vital Signs
Vital Signs
Temp Pulse Resp BP Pulse Ox
102.1 F H 86 21 126/64 91
02/18/25 10:46 02/18/25 10:45 02/18/25 10:45 02/18/25 10:00 02/18/25 10:30
Physical Exam
General: Appears in Distress and Other (lethargic, oriented to place not time or person)
HEENT: NormoCephalic and Anicteric
Respiratory: Rhonchi (right lower base)
Cardiac: S1/S2 and Regular Rhythm
GI: Soft, Non Tender and Non Distended
Musculoskeletal: Other (lower extremity wound bilaterally )
Neuro: Awake and Other (lethargic); No Alert or Oriented
Hematologic/Lymphatic: No Lymphadenopathy
Psych: Calm
Laboratory Results
-
02/18/25 09:09
02/18/25 09:10
Laboratory Results
PT 16.8 Sec (11.4-14.6) H 02/18/25 09:10
INR 1.39 02/18/25 09:10
APTT 33.9 Sec (23.4-35.0) 02/18/25 09:10
Lactic Acid 2.1 mmol/L (0.7-2.0) H 02/18/25 09:09
Total Bilirubin 0.7 mg/dl (0.2-1.3) 02/18/25 09:10
AST 11 U/L (17-59) L 02/18/25 09:10
ALT 11 U/L (0-50) 02/18/25 09:10
Alkaline Phosphatase 110 U/L (38-126) 02/18/25 09:10
Data Reviewed
-
Diagnostic Radiology: Report Reviewed by me and Discussed with Physician
Medical Tests (Nuc Med, Echo, EKG etc): Report Reviewed by me and Discussed with Physician
Lab Data: Labs Reviewed by me and Discussed with Physician
Impression/Plan
-
IMPRESSION:
Sepsis secondary to bilateral foot wound/UTI
Coffee-ground emesis
Acute hypoxic respiratory insufficiency
Chronic Boss's catheter
S/p donor kidney transplant for renal failure
History of CVA
History of hyperlipidemia
History of iron deficiency anemia
Chronic ambulatory dysfunction
Type 2 diabetes mellitus insulin-dependent
PLAN:
Sepsis secondary to bilateral foot wound/UTI
UA showing UTI secondary to chronic Boss catheter
Patient is immunosuppressed(history of renal transplant, on 2 immunosuppresants)
Admit to IMU
Febrile, leukocytosis with left shift
Patient received bolus 3700 mL liters of fluid in the ED. Continue IV fluids infusion
Lactic acid 2.1. Trend lactic acid
Started IV Zosyn and IV vancomycin
Await blood culture and urine culture
Check MRSA
Fever control
Monitor white count and temperature control
Coffee-ground emesis
History of gastric/duodenal ulcer
1 episode of coffee-ground emesis in the waiting room
Patient was on Xarelto, stopped the medication few days ago
Hemoglobin 9.4, previous 9.9
Hold all anticoagulants
Continue IV PPI ggt
Hold off on endoscopy as patient has septic
GI aware. Monitor H&H
Acute hypoxic respiratory insufficiency
Supect due to sepsis
On 2 L of oxygen, wean as able
S/p donor kidney transplant for renal failure
Creatinine 1.0, stable
Continue fludrocortisone and tacrolimus
Consult nephrology
History of peripheral artery disease
He was scheduled for arteriogram today
Arterial study on 01/29 shows decreased toe brachial index left 0.39 <0.74.
Continue aspirin, statin. Consult vascular
History of hyperlipidemia
Continue atorvastatin
Essential hypertension
Continue amlodipine
Monitor blood pressure
Type 2 diabetes mellitus insulin-dependent
Continue basal and bolus insulin
Sliding scale
Check A1c
Strict glucose control
History of iron deficiency anemia
Continue ferrous sulfate
Bilateral foot wound (history of osteomyelitis )--- wound care
Chronic ambulatory dysfunction
Full code
SCD
Low-cholesterol diet
--- NOTE | 2025-02-18 13:05 | CON.GI ---
Addendum entered and electronically signed by Deng Lewis MD 02/18/25 18:33:
The patient was seen and examined by me independently in collaboration with the nurse practitioner.
Past medical history/social history/medications/allergies/family history reviewed.
Lab data and imaging data reviewed.
64-year-old male past medical history of stroke, diabetes, PAD with recent angio, stent, debridement with infected bone removal on Xarelto, dialysis with prior renal transplant, chronic Dominguez prior UTIs presenting with fever, coffee-ground emesis,
nausea, lethargy. Sepsis had multiple sources including UTI versus pneumonia versus diabetic foot infection being monitored by hospitalist. GI was consulted for coffee-ground emesis. He does have anemia with hemoglobin as low as 7.5. CT was done
and showed severe fecal retention within the rectum 9.5 cm with wall thickening and adjacent fat stranding likely due to stercoral colitis. This is likely what led to his nausea and vomiting with severe constipation. He has been given a bowel
regiment with enemas as below. Plan to repeat x-ray in the morning to see if improvement.
Addendum entered and electronically signed by SRINIVASAN Grewal 02/18/25 17:26:
s/p suppository with some passage of stool now liquid brown in rectal vault no current impaction . 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
Addendum entered and electronically signed by SRINIVASAN Grewal 02/18/25 14:50:
02/18/25 CTa/p Iv contrast
1. Severe fecal retention within the rectum, which is distended with stool and measures 9.5 cm in diameter. There is wall thickening of the rectum with adjacent fat stranding, suggestive of stercoral colitis.
2. Right lower quadrant renal transplant is within normal limits.
3. Bibasilar streaky opacity, suggestive of subsegmental atelectasis or scarring.
no free air
will add suppository then enema
Original Note:
Consultation
-
Date/Time Consultation Requested: 02/18/25 1020
Date/Time Consultation Performed: 02/18/25 1300
Requesting Provider: Foster Mena DO
Performing Provider: SRINIVASAN Jiménez, Florecita Lewis MD
Reason for Consultation: coffee ground emesis
Medical History
Chief Complaint / HPI
Chief Complaint: vomiting coffee, ground, abdominal pain
History of Present Illness:
Pt is a 64yo presents with hx CVA, IDDM, PAD with recent angio/stent/b/l LE debridement, right partial MT excision 12/16 with infected bone removal on Xarelto, ESRD with prior renal transplant on immunosuppression , HTN, hyperlipidemia, chronic
dominguez prior UTI's with onset of fever, coffee ground emesis, nausea and lethargy. Asked to see for dark emesis . On admission noted with lethargy with fever 103. labs notable for WBC 17,000, lactate 2.1, hbg 9.4 (with prior range 8-10)
platelets 489, with stable chemistry. UA with + WBC's, + blood moderate bacteria, CXR with possible PNA/aspiration.
In review with patient he admits to chronic constipation with stool day prior to admission and lower abdominal pain. He admits vomiting is small volumes of dark emesis. he denies issue with odynophagia, dysphagia, GERD, diarrhea, or bleeding.
No hx EGD . Hx colonoscopy recall 3 years ago. Unsure of details.
Past Medical History
Past Medical History: CVA (TIA), HTN, Hypercholesterolemia, IDDM, Renal Failure (ESRD ) and Other (orthostasis, osteomyelitis, neuropathy, drug induced leukopenia, gastric ulcer, PAD)
Past Surgical History: Orthopedic (left hip, partial 5th MT excision, debridement with infected bone removal) and Other (renal transplant 04/1016, hernia repairl)
Social History
Tobacco: Former Smoker (quit 2014 )
Alcohol: Other (social in past )
Drug: None
Living: Alone (son assists )
Employment: Retired
Family History
Family History: Other (denies family hx GI issues )
Allergies / Home Medications
Allergy/AdvReac Type Severity Reaction Status Date / Time
No Known Allergies Allergy Verified 02/18/25 08:38
�Medication �Instructions �Recorded
acetaminophen 325 mg tablet 650 mg (2 x 325 mg) PO Q4HPRN PRN 11/13/24
mild pain/ fever>100.5F #0 tabs
amlodipine 5 mg tablet 10 mg (2 x 5 mg) PO DAILY #0 tabs 11/13/24
aspirin 81 mg tablet,delayed 81 mg PO DAILY Blood clot 11/13/24
release prevention/tx #0 tabs
atorvastatin 40 mg tablet 40 mg PO QPM High cholesterol #0 11/13/24
tabs
cholecalciferol (vitamin D3) 50 50 mcg PO DAILY Supplement #0 tabs 11/13/24
mcg (2,000 unit) tablet
ferrous sulfate 325 mg (65 mg 325 mg PO DAILY anemia #0 tabs 11/13/24
iron) tablet (FeroSul)
fludrocortisone 0.1 mg tablet 0.1 mg PO BID Blood pressure #0 11/13/24
tabs
prednisone 5 mg tablet 5 mg PO DAILY Transplant #0 tabs 11/13/24
rivaroxaban 2.5 mg tablet (Xarelto) 2.5 mg PO BID Blood clot 11/13/24
prevention/tx #0 tabs
tacrolimus 1 mg capsule, 1 mg PO BID Transplant #0 caps 11/13/24
immediate-release
collagenase clostridium histo. 250 1 applic topical DAILY right foot 02/18/25
unit/gram topical ointment (Santyl)
insulin glargine 100 unit/mL (3 30 unit SC HS 02/18/25
mL) subcutaneous pen (Lantus
Solostar U-100 Insulin)
insulin lispro 100 unit/mL 10 sliding scale dose SC AC 02/18/25
subcutaneous pen
magnesium oxide 400 mg PO DAILY 02/18/25
ropinirole 0.25 mg tablet 0.25 mg PO HS rls 02/18/25
sennosides 8.6 mg tablet (senna) 17.2 mg PO BID 02/18/25
tamsulosin 0.4 mg capsule 0.4 mg PO DAILY 02/18/25
Review of Systems
-
Unable to obtain full review of systems at this time due to: Other (some lethargy in exam but answering all questions )
History Source: Patient
Constitutional: Reports Fever (103 in ER)
EENT: Reports No Symptoms
Respiratory: Reports No Symptoms
Cardiac: Reports No Symptoms
Abdomen/GI: Reports Abdominal Pain, Nausea, Vomiting and Constipated
: Reports Other (chronic dominguez, dysuria )
Musculoskeletal: Reports No Symptoms
Skin: Reports No Symptoms
Neurological: Reports Weakness
Hematologic/Lymphatic: Reports Bleeding (dark emesis )
Vital Signs
Temp Pulse Resp BP Pulse Ox
100.8 F H 77 19 106/60 93
02/18/25 12:47 02/18/25 12:00 02/18/25 12:00 02/18/25 12:00 02/18/25 12:00
Physical Exam
Exam
General: Other (ill appearing but awake and answering questions )
HEENT: Normocephalic and Anicteric
Respiratory: Clear
Cardiac: Regular Rhythm
GI: Soft, Non Distended and Tender (lower with some guarding )
Rectal: Brown (per staff )
Musculoskeletal: No Clubbing
Skin: Warm and Dry
Neuro: Awake and Other (eyes opened weak answering all questions)
Psych: Calm
Results
WBC 17.0 10^3/uL (4.8-10.8) H 02/18/25 09:09
Hgb 9.4 g/dL (13.0-18.0) L 02/18/25 09:09
Hct 30.0 % (39.0-52.0) L 02/18/25 09:09
MCV 73.9 fL (80.0-94.0) L 02/18/25 09:09
Plt Count 489 10^3/uL (130-400) H 02/18/25 09:09
Absolute Neuts (auto) 15.3 10^3/uL (1.4-6.5) H 02/18/25 09:09
PT 16.8 Sec (11.4-14.6) H 02/18/25 09:10
INR 1.39 02/18/25 09:10
APTT 33.9 Sec (23.4-35.0) 02/18/25 09:10
Sodium 136 mmol/L (135-145) 02/18/25 09:10
Potassium 3.7 mmol/L (3.5-5.1) 02/18/25 09:10
Chloride 102 mmol/L (98-107) 02/18/25 09:10
Carbon Dioxide 27 mmol/L (22-30) 02/18/25 09:10
BUN 28 mg/dl (9-20) H 02/18/25 09:10
Creatinine 1.0 mg/dL (0.7-1.3) 02/18/25 09:10
Calcium 8.9 mg/dl (8.4-10.2) 02/18/25 09:10
Total Bilirubin 0.7 mg/dl (0.2-1.3) 02/18/25 09:10
AST 11 U/L (17-59) L 02/18/25 09:10
ALT 11 U/L (0-50) 02/18/25 09:10
Alkaline Phosphatase 110 U/L (38-126) 02/18/25 09:10
Diagnostic Image Results:
02/18/25 CR Chest Portable - 1 View
1. Hazy opacity within the right suprahilar region, new compared to prior study, which may be related to pneumonia, subsegmental atelectasis, and/or aspiration.
2. Unchanged streaky retrocardiac opacity, suggestive of scarring or subsegmental atelectasis.
12/12/24 CT Abd/pelvis W Iv Cont
Urinary bladder wall thickening and fat stranding most suspicious for acute cystitis. Recommend correlation with a urinalysis.
Right lower quadrant renal transplant.
Large volume colonic stool compatible with constipation. Rectal wall thickening and stool distention of the rectum concerning for a fecal impaction and stercoral colitis.
Prior GI Procedures:
EGD: none
Colonoscopy: ? 3 years ago did not recall findings
Assessment / Plan
-
Pt is a 64yo presents with hx CVA, IDDM, PAD with recent angio/stent/b/l LE debridement, right partial MT excision 12/16 with infected bone removal on Xarelto, ESRD with prior renal transplant on immunosuppression , HTN, hyperlipidemia, chronic
dominguez prior UTI's with onset of fever, coffee ground emesis, nausea and lethargy. Asked to see for dark emesis . On admission noted with lethargy with fever 103. labs notable for WBC 17,000, lactate 2.1, hbg 9.4 (with prior range 8-10)
platelets 489, with stable chemistry. UA with + WBC's, + blood moderate bacteria, CXR with possible PNA/aspiration. In review with patient he admits to chronic constipation with stool day prior to admission and lower abdominal pain. He admits
vomiting is small volumes of dark emesis. he denies issue with odynophagia, dysphagia, GERD, diarrhea, or bleeding. No hx EGD . Hx colonoscopy recall 3 years ago. Unsure of details.
-coffee ground emesis
-abdominal pain
-fever/sepsis with concern for UTI/PNA
-hypoxemia
-recent angio/stent/b/l LE debridement, right partial MT excision 12/16 with infected bone removal on Xarelto'
hx prior UTI
other med problems:
CVA, NIDDM, PAD with ESRD with prior renal transplant on immunosuppression , HTN, hyperlipidemia, chronic dominguez prior UTI's
PLAN:
etiology of coffee ground emesis related to constipation with concurrent possible UTI, upper GI bleeding vs other
with increased abdominal pain on exam will proceed with CT a/p cannot tolerating oral contrast but will give IV -- ok per renal with hx transplant and stable creat
trend hbg transfuse 7
ppt gtt started in ER
Xarelto hold
NPO
pending CT may need NGT if continued vomiting as concern for possible aspiration
cont abx
await cultures
if signs of more aggressive bleeding or drop in hbg consider EGD if CT stable
-
-
Thank you for consultation and allowing me to participate in the patient's care. Please call the generating station mechanic GI physician during the after hours with any questions or concerns.
[2025-02-18 13:11] LABS: Glucose - Point of Care 224 mg/dl (70-99)
--- NOTE | 2025-02-18 13:20 | PHA.VAN.IN ---
Assessment
- Assessment
Renal Function: Appears similar to baseline
Concomitant Antimicrobials: piperacillin/tazobactam
AUC Dosing Plan
- Dosing Variables
Dosing Weight (kg): 90
Dosing CrCl (ml/min): 84
Vd coefficient (L/kg): 0.7
- Empiric Dosing
Initial / Loading Dose: 2000mg - 02/18 09:53
Maintenance Regimen: Vanc 1000mg Q12H starting at 1800
Estimated AUC (mcg*h/mL): 444
Estimated Peak (mcg*h/mL): 26.9
Estimated Trough (mcg/ml): 11.9
Estimated Half Life (H): 9.3
- Monitoring
No levels ordered at this time: consider levels in next few days
Pharmacokinetics Vancomycin I
- -
Patient Age: 64
Patient Sex: Male
Vancomycin Day #: 1
Indication: Genito-Urinary Tract
Requesting Provider: Dr. Lopez (resident)
Pertinent Antimicrobial Allergies:
NKDA
Height / Weight:
Height 6 ft 2 in
Actual Weight 90 kg
Pertinent Past Medical History: DM 2, PAD, Kidney transplant
- Vital Signs / Lab Results
Temp Pulse Resp BP Pulse Ox
100.8 F H 77 19 106/60 93
02/18/25 12:47 02/18/25 12:00 02/18/25 12:00 02/18/25 12:00 02/18/25 12:00
Lab Results - Hematology
02/18/25
09:09
WBC 17.0 H
Lab Results - Chemistry
02/18/25
09:10
BUN 28 H
Creatinine 1.0
Estimated Creat Clear 84
Albumin 3.6
02/18/25 02/18/25
09:09 13:00
Lactic Acid 2.1 H Cancelled
Lab Results - Urine
02/18/25
09:09
Urine Nitrite (Reflex) Positive A
Leukocyte Esterase Rfl 3+ A
Urine WBC (Reflex) 90-100 A
Ur Squamous Epith Cells 6-10
Urine Bacteria (Reflex) Moderate A
Microbiology Results
02/18/25 09:09 Influenza Types A & B (OC) - Final
Nasal Swab Negative for Influenza A & B, NAAT
Negative results must be combined with clinical observations
and patient history.
Nucleic Acid Amplification test (NAAT)performed on the
[employer] platform.
[2025-02-18 14:02] LABS: Hematocrit 23.9 % (39.0-52.0); Hemoglobin 7.5 g/dL (13.0-18.0)
--- NOTE | 2025-02-18 15:08 | EDCM ---
Reviewed chart and met with pt bedside in ED. Lives alone in first floor condo, [address]. Son Juan has been staying with him to privide care and support.
Requires assistance with ADLs, personal care. Does not ambulate, uses electric wheelchair.
Confirms RX coverage.
Current with [facility] [place] 12/2024
PCP: Morgan Ray
Pharmacy: [facility]
Discharge disposition pending ongoing medical evaluation, CM will continue to follow for all discharge planning needs.
--- NOTE | 2025-02-18 15:44 | W.CON.NEPH ---
Consultation
-
Date/Time Consultation Requested: 02/18/2025 1 PM
Date/Time Consultation Performed: 02/18/2025 2 PM
Requesting Provider: Dr. Escamilla
Performing Provider: Dr. Pope
Reason for Consultation: Renal transplant
Medical History
-
Chief Complaint: Osteomyelitis
History of Present Illness:
This is a 64-year-old gentleman who has diabetes mellitus type 2 on insulin therapy which is modestly controlled only. He has hypertension on a monotherapy regimen. However he is also on fludrocortisone but does not know why. [facility] He has not followed up with them lately. His care has been transferred to his local collections director Dr. Hodgson at [place]. He was last seen there about 2 weeks ago he says that no
changes were made.. He is on a dual immunosuppressive regimen for his transplant. He does not recall ever being on a third agent. He does not recall having any complications with his transplant. He was brought to the emergency room because his
son felt that he was worsening clinically. He was quite lethargic. He also reports significant abdominal discomfort primarily in the suprapubic area. In the emergency room he vomited and was noted to be febrile at 103. We are asked to assist
with management of his renal transplant.
Past Medical History
Insulin Dependent Diabetes Mellitus
Essential Hypertension
Hyperlipidemia
GERD / PUD
Restless Leg Syndrome
TIA
Chronic Ambulatory Dysfunction - Wheelchair bound
donor Renal Transplant - Apr 2016 [facility]
Right Leg Pins
Social History
Tobacco: Former Smoker
Alcohol: None
Family History
Family History: Not Pertinent
Allergies / Home Medications
Allergy/AdvReac Type Severity Reaction Status Date / Time
No Known Allergies Allergy Verified 02/18/25 08:38
�Medication �Instructions �Recorded �Confirmed �Type
acetaminophen 325 mg tablet 650 mg (2 x 325 mg) PO Q4HPRN PRN 11/13/24 02/18/25 Rx
mild pain/ fever>100.5F #0 tabs
amlodipine 5 mg tablet 10 mg (2 x 5 mg) PO DAILY #0 tabs 11/13/24 02/18/25 Rx
aspirin 81 mg tablet,delayed 81 mg PO DAILY Blood clot 11/13/24 02/18/25 Rx
release prevention/tx #0 tabs
atorvastatin 40 mg tablet 40 mg PO QPM High cholesterol #0 11/13/24 02/18/25 Rx
tabs
cholecalciferol (vitamin D3) 50 50 mcg PO DAILY Supplement #0 tabs 11/13/24 02/18/25 Rx
mcg (2,000 unit) tablet
ferrous sulfate 325 mg (65 mg 325 mg PO DAILY anemia #0 tabs 11/13/24 02/18/25 Rx
iron) tablet (FeroSul)
fludrocortisone 0.1 mg tablet 0.1 mg PO BID Blood pressure #0 11/13/24 02/18/25 Rx
tabs
prednisone 5 mg tablet 5 mg PO DAILY Transplant #0 tabs 11/13/24 02/18/25 Rx
rivaroxaban 2.5 mg tablet (Xarelto) 2.5 mg PO BID Blood clot 11/13/24 02/18/25 Rx
prevention/tx #0 tabs
tacrolimus 1 mg capsule, 1 mg PO BID Transplant #0 caps 11/13/24 02/18/25 Rx
immediate-release
collagenase clostridium histo. 250 1 applic topical DAILY right foot 02/18/25 02/18/25 History
unit/gram topical ointment (Santyl)
insulin glargine 100 unit/mL (3 30 unit SC HS 02/18/25 02/18/25 History
mL) subcutaneous pen (Lantus
Solostar U-100 Insulin)
insulin lispro 100 unit/mL 10 sliding scale dose SC AC 02/18/25 02/18/25 History
subcutaneous pen
magnesium oxide 400 mg PO DAILY Supplement 02/18/25 02/18/25 History
ropinirole 0.25 mg tablet 0.25 mg PO HS rls 02/18/25 02/18/25 History
sennosides 8.6 mg tablet (senna) 17.2 mg PO BID Constipation 02/18/25 02/18/25 History
tamsulosin 0.4 mg capsule 0.4 mg PO DAILY 02/18/25 02/18/25 History
Review of Systems
-
All other systems: Negative unless noted
Physical Exam
Vital Signs
Vital Signs
Temp Pulse Resp BP Pulse Ox
99.6 F 79 21 116/62 94
02/18/25 15:42 02/18/25 14:30 02/18/25 14:30 02/18/25 14:30 02/18/25 14:30
Lab Results
Sodium 136 mmol/L (135-145) 02/18/25 09:10
Potassium 3.7 mmol/L (3.5-5.1) 02/18/25 09:10
Chloride 102 mmol/L (98-107) 02/18/25 09:10
Carbon Dioxide 27 mmol/L (22-30) 02/18/25 09:10
BUN 28 mg/dl (9-20) H 02/18/25 09:10
Creatinine 1.0 mg/dL (0.7-1.3) 02/18/25 09:10
eGFR > 60.00 02/18/25 09:10
Glucose 210 mg/dl (70-99) H 02/18/25 09:10
Calcium 8.9 mg/dl (8.4-10.2) 02/18/25 09:10
Albumin 3.6 g/dl (3.5-5.0) 02/18/25 09:10
Laboratory Tests
12/18/24 12/18/24 02/18/25
09:05 10:05 13:14
Hgb 9.9 L 7.5 L D
Creatinine 0.7
CT abdomen pelvis with IV contrast 02/18/2025
IMPRESSION:
1. Severe fecal retention within the rectum, which is distended with stool and measures 9.5 cm in diameter. There is wall thickening of the rectum with adjacent fat stranding, suggestive of stercoral colitis.
2. Right lower quadrant renal transplant is within normal limits.
3. Bibasilar streaky opacity, suggestive of subsegmental atelectasis or scarring
Physical Exam
Patient is awake alert oriented and in no distress. Mood and affect were pleasant, insight and judgment were good. Pupils are equal round and reactive to light, extraocular movements are intact, sclera were anicteric. Hearing was normal, ears and
nose are intact. Oropharynx was clear. Neck was supple with trachea midline and no thyromegaly. Heart was regular rate and rhythm without rubs. Lower extremities with with 2+ edema. Lungs were clear to auscultation bilaterally and with normal
excursion. Abdomen was soft, tender to palpation over the suprapubic area, with normal active bowel sounds, and no hepatosplenomegaly. Skin was without rash and with normal turgor.
Data Reviewed
-
Radiology: Image Personally Visualized and interpreted (Chest x-ray 02/18/2025 by my reading right-sided hazy opacity)
CT Scan: Report Reviewed by me
Labs: Labs Reviewed by me
Old Records: Reviewed
Assessment/Plan
-
Assessment
donor renal transplant 2017 on 2 immunosuppressants
Diabetes Mellitus 2
Essential Hypertension
Hyperlipidemia
GERD / PUD
Restless Leg Syndrome
TIA
Chronic Ambulatory Dysfunction - Wheelchair bound
Chronic Florinef use
Urinary tract infection
Plan
Renal function is at baseline
Antibiotics per ID
Okay for IV contrast
IV fluids with saline
Follow BMP
--- NOTE | 2025-02-18 15:46 | PTCARENOTE ---
Pt had episode of vomiting. Zofran given. Emesis was bilious - no sign of blood.
[2025-02-18] MEDS: PROGRAF PO (15:47)
[2025-02-18] MEDS: DELTASONE PO (15:47)
[2025-02-18] MEDS: DULCOLAX 10 MG RECTAL (16:03)
[2025-02-18 16:26] LABS: Glucose - Point of Care 239 mg/dl (70-99)
--- NOTE | 2025-02-18 16:26 | W.PN.UPDATE ---
Update Note
Progress Note Update
Vascular consult:
Office note attached below
Plan:
Please call when medically stable for angiogram
--- NOTE | 2025-02-18 16:32 | W.PN.UPDATE ---
Update Note
Progress Note Update
Patient had presented for outpatient angiogram procedure today (lower extremity angiogram). I was informed by staff in the atrium waiting area downstairs that the patient was not doing well and the son was concerned. The patient was having active
rigors, feeling lousy/nauseated, draining mucus from his nostrils. Did not look good or healthy overall. Recommended urgent evaluation in the emergency room. He is currently being worked up and evaluated for possible sepsis (urosepsis versus
pneumonia versus other). Will hold off on angiography for now. Please reconsult when medically optimized and can proceed with procedure.
[2025-02-18] MEDS: VANCOCIN 200 IV (18:11)
[2025-02-18] MEDS: LIPITOR PO (18:11)
[2025-02-18 18:15] LABS: Glucose - Point of Care 252 mg/dl (70-99)
[2025-02-18] MEDS: NOVOLOG FLEXPEN-LOW RESISTANCE 3 UNITS SC (18:15)
[2025-02-18 18:23] LABS: Hematocrit 26.3 % (39.0-52.0); Hemoglobin 8.3 g/dL (13.0-18.0); Mean Corp Hgb Conc. 31.6 g/dL (33.0-37.0); Mean Corpuscular Volume 74.3 fL (80.0-94.0); Nucleated Red Blood Cells % 0 % (-); Platelet Count 425 10^3/uL (130-400); Red Cell Dist. Width 16.1 % (11.5-14.5)
[2025-02-18] MEDS: PROGRAF 1 MG PO (19:16)
[2025-02-18] MEDS: SENOKOT 17.2 MG PO (21:46)
[2025-02-18] MEDS: REQUIP 0.25 MG PO (21:46)
[2025-02-18] MEDS: FLORINEF 0.1 MG PO (21:46)
[2025-02-18] MEDS: LANTUS 0.15 UNITS SC (21:48)
[2025-02-18 22:01] LABS: Glucose - Point of Care 254 mg/dl (70-99)
[2025-02-18] MEDS: TYLENOL 650 MG PO (23:37)
[2025-02-19] VITALS (12 sets, daily range): BP systolic 125–140; BP diastolic 67–88; BMI 23.2
--- NOTE | 2025-02-19 00:04 | PTCARENOTE ---
pt admitted from the ED, pt is AAOx2/3, flat, forgetful, lethargic but awakens easily. able to make needs known. 89% RA, oxygen increased to 4LNC 96%. pt with complaints of some abdominal pain. no complaints of nausea currently. inc. of stool. milk
of molasses enema given x1 with positive effect. pt has been inc of many large amounts of stool throughout the shift. pt reports stomach feeling a little better after each bowel movement. dominguez intact draining yellow cloudy urine. b/l foot wounds
noted, dressings changed. wound consult placed. fiber filled boots to both feet. q2t. sacrum blanchable red, pt refusing cream. IV fluids infusing. right foot toes all amputated. left 3rd and 4th toe amputated. pt wheelchair bound at baseline. says
son has been living with him and helps him. pt tolerated clear liquids at this time. slight fever noted, PRN tylenol given per MAR. pt oriented to room, call choe within reach, care ongoing.
[2025-02-19] MEDS: NSS 1000 IV ×3 (01:14→20:17)
[2025-02-19] MEDS: ZOSYN 50 IV ×2 (04:44→10:27)
[2025-02-19] MEDS: PROTONIX 100 IV ×2 (04:44→15:58)
[2025-02-19 05:05] LABS: Hematocrit 24.4 % (39.0-52.0); Hemoglobin 7.9 g/dL (13.0-18.0); Mean Corp Hgb Conc. 32.4 g/dL (33.0-37.0); Mean Corpuscular Volume 71.8 fL (80.0-94.0); Platelet Count 277 10^3/uL (130-400); Red Cell Dist. Width 16.1 % (11.5-14.5)
[2025-02-19 05:37] LABS: ALT (SGPT) 12 U/L (0-50); AST (SGOT) 14 U/L (17-59); Albumin 2.7 g/dl (3.5-5.0); Alkaline Phosphatase 83 U/L (38-126); Blood Urea Nitrogen 19 mg/dl (9-20); Calcium 8.4 mg/dl (8.4-10.2); Carbon Dioxide 23 mmol/L (22-30); Chloride 108 mmol/L (98-107); Estimated Creatinine Clearance 92 ml/min; Glucose 195 mg/dl (70-99); Potassium 3.8 mmol/L (3.5-5.1); Sodium 136 mmol/L (135-145); Total Protein 6.1 g/dl (6.3-8.2); eGFR > 60.00
[2025-02-19] MEDS: VANCOCIN 200 IV (06:14)
[2025-02-19 07:50] LABS: Glucose - Point of Care 200 mg/dl (70-99)
[2025-02-19 09:47] LABS: Glycohemoglobin (HgbA1c) 8.6 % (4.0-5.9)
--- NOTE | 2025-02-19 10:04 | PN.CDI ---
CDI
- -
CDI:
Physician Documentation Request
Admit Date: 02/18/25 12:[address] Carranza,
[facility] is using an adapted version of the 2016 Third International Consensus Definitions for Sepsis and Septic Shock (Sepsis-3) where sepsis is defined as life threatening organ dysfunction caused by a deregulated host response to infection.
Please reference the official [facility] Sepsis Recognition Tool for further information, which can be found on the Intranet under Infection Prevention.
Clinical Indicators:
Progress notes:
Documented per H&P,' Sepsis: Possible sources include UTI, pneumonia, diabetic foot infection...Acute hypoxic respiratory failure: Possible aspiration...'
Trend vital signs:
On admit 02/18
Temp:103
HR:108
RR:26
Labs: on admit 02/18
WBC: 17.0
Lactate: 2.1
Treatment: IVFs/IV Vancomycin/Zosyn/ Oxygen
Based on your medical judgment, can you please clarify whether or not the above organ dysfunction is related to or due to sepsis?
-- Sepsis due to UTI/Aspiration PNA vs Diabetic foot infection with organ dysfunction of Acute Hypoxic Respiratory failure
--- Sepsis due to UTI/Aspiration PNA vs Diabetic foot infection with organ dysfunction of
-- UTI/Aspiration Pneumonia Vs Diabetic foot infection only
-- Other (please specify)
Use of terms such as suspected, likely, concern for, or probable (associated with a specific diagnosis that is being evaluated, monitored, or treated as if it exists) are acceptable and can be coded in the inpatient setting when documented at the
time of discharge.
Please use your independent medical judgement in providing your response.
Thank you,
Nga Suarez RN
CDI Specialist
[facility]
--- NOTE | 2025-02-19 10:26 | W.PN.GI.CBS2 ---
Today's Communication / Plan
-
CLD advance as tolerates
Ducolax 10mg supp x1 again today
C/w miralax daily fci
Unclear indication for anticoagulation but if compelling ok to resume today and trend H/H
GI workup outpatient basis after acute infection/fever resolves
GI will sign off please call for ?
Assessment / Plan
-
Pt is a 64yo presents with hx CVA, IDDM, PAD with recent angio/stent/b/l LE debridement, right partial MT excision 12/16 with infected bone removal on Xarelto, ESRD with prior renal transplant on immunosuppression , HTN, hyperlipidemia, chronic
dominguez prior UTI's with onset of fever, coffee ground emesis, nausea and lethargy. Asked to see for dark emesis . On admission noted with lethargy with fever 103. labs notable for WBC 17,000, lactate 2.1, hbg 9.4 (with prior range 8-10)
platelets 489, with stable chemistry. UA with + WBC's, + blood moderate bacteria, CXR with possible PNA/aspiration. In review with patient he admits to chronic constipation with stool day prior to admission and lower abdominal pain. He admits
vomiting is small volumes of dark emesis. he denies issue with odynophagia, dysphagia, GERD, diarrhea, or bleeding. No hx EGD . Hx colonoscopy recall 3 years ago. Unsure of details.
Impression
-chronic iron deficiency anemia
-coffee ground emesis
-abdominal pain
-fever/sepsis with concern for UTI/PNA
-hypoxemia
-recent angio/stent/b/l LE debridement, right partial MT excision 12/16 with infected bone removal on Xarelto'
- hx prior UTI
other med problems:
CVA, NIDDM, PAD with ESRD with prior renal transplant on immunosuppression , HTN, hyperlipidemia, chronic dominguez prior UTI's
Recommendations
- Nausea improved with BM
- Ducolax 10mg supp x1 again today
- C/w miralax daily basis not PRN
- AXR today with small fecal rectal burden without obstruction
- Will need GI workup for chronic iron def anemia but that can be done OP basis
- C/w CLD advance as tolerates
- Check iron panel and consider IV iron if low
GI will sign off please call for questions
Subjective
Subjective
Date of Service: February 19, 2025
He passed stool yesterday. Denies nausea/vomiting.
Objective
Data Reviewed
Laboratory Data:
Laboratory Results
02/19/25 04:54
02/19/25 04:54
Laboratory Results
PT 16.8 Sec (11.4-14.6) H 02/18/25 09:10
INR 1.39 02/18/25 09:10
APTT 33.9 Sec (23.4-35.0) 02/18/25 09:10
Total Bilirubin 0.5 mg/dl (0.2-1.3) 02/19/25 04:54
AST 14 U/L (17-59) L 02/19/25 04:54
ALT 12 U/L (0-50) 02/19/25 04:54
Alkaline Phosphatase 83 U/L (38-126) 02/19/25 04:54
Vital Signs and I&O:
Vital Signs
Temp Pulse Resp BP Pulse Ox
98.2 F 65 15 130/68 95
02/19/25 07:38 02/19/25 06:00 02/19/25 06:00 02/19/25 06:00 02/19/25 06:00
I&O
02/18/25 02/19/25 02/20/25
06:59 06:59 06:59
Output Total 1250 / 1250
Balance -1250 / -1250
Physical Exam
Physical Exam
GEN: No acute distress, conversant, pleasant sitting up in bed
HEENT: anicteric, extraocular movements intact, dry MM
GI: soft, non-distended, thin not tender to palpation, normal active bowel sounds, no hepatosplenomegaly
EXT: warm, well perfused,trace edema bilaterally
NEURO: AAOx3, non-focal
[2025-02-19] MEDS: SANTYL OINTMENT 1 APPLIC TOPICAL (10:27)
[2025-02-19] MEDS: FLORINEF 0.1 MG PO ×2 (10:28→20:17)
[2025-02-19] MEDS: FLOMAX 0.4 MG PO (10:28)
[2025-02-19] MEDS: NORVASC 10 MG PO (10:28)
[2025-02-19] MEDS: ASPIR LOW (ENTERIC COATED) 81 MG PO (10:28)
[2025-02-19] MEDS: FEOSOL 325 MG PO (10:28)
[2025-02-19] MEDS: DELTASONE 5 MG PO (10:28)
[2025-02-19] MEDS: PROGRAF 1 MG PO ×2 (10:28→20:17)
[2025-02-19] MEDS: SENOKOT 17.2 MG PO ×2 (10:29→20:18)
[2025-02-19] MEDS: VITAMIN D3 (cholecalciferol) 50 MCG PO (10:29)
[2025-02-19] MEDS: NOVOLOG FLEXPEN-LOW RESISTANCE 2 UNITS SC ×2 (10:30→13:38)
[2025-02-19] MEDS: DULCOLAX 10 MG RECTAL (10:33)
[2025-02-19] MEDS: MIRALAX 17 GRAMS PO (10:37)
[2025-02-19 11:02] LABS: Iron 25 ug/dl (49-181)
[2025-02-19 11:11] LABS: Total Iron Binding Capacity 206 ug/dl (261-462)
[2025-02-19 12:03] LABS: Glucose - Point of Care 248 mg/dl (70-99)
--- NOTE | 2025-02-19 12:42 | W.PN.NEPH.PH ---
Today's Communication / Plan
-
attempt to wean IVF
Assessment/Plan
-
Assessment
donor renal transplant 2017 on 2 immunosuppressants
Diabetes Mellitus 2
Essential Hypertension
Hyperlipidemia
GERD / PUD
Restless Leg Syndrome
TIA
Chronic Ambulatory Dysfunction - Wheelchair bound
Chronic Florinef use
Urinary tract infection
Plan
Renal function is at baseline 0.9
s/p CT abd with contrst on 02/18-Kindey looks fine
cont Tac and prednisone
bowel regimen per GI for constipation
Antibiotics per ID
wean IVF as po intake improves
await timing of angio per vasc
Bp stable on florinef and CCB
d/w pt
-
-
Date of Service: February 19, 2025
CC / HPI / ROS
-
Chief Complaint:
Renal transplant
History of Present Illness:
Creatinine stable 0.9
BP stable
hb decreasing 7.9, fe sat 12%
Review of Systems:
No chest pain or shortness of breath
Labs
-
Labs:
WBC 8.9 10^3/uL (4.8-10.8) 02/19/25 04:54
RBC 3.40 10^6/uL (4.70-6.10) L 02/19/25 04:54
Hgb 7.9 g/dL (13.0-18.0) L 02/19/25 04:54
Hct 24.4 % (39.0-52.0) L 02/19/25 04:54
Plt Count 277 10^3/uL (130-400) D 02/19/25 04:54
Sodium 136 mmol/L (135-145) 02/19/25 04:54
Potassium 3.8 mmol/L (3.5-5.1) 02/19/25 04:54
Chloride 108 mmol/L (98-107) H 02/19/25 04:54
Carbon Dioxide 23 mmol/L (22-30) 02/19/25 04:54
BUN 19 mg/dl (9-20) 02/19/25 04:54
Creatinine 0.9 mg/dL (0.7-1.3) 02/19/25 04:54
eGFR > 60.00 02/19/25 04:54
Glucose 195 mg/dl (70-99) H 02/19/25 04:54
Calcium 8.4 mg/dl (8.4-10.2) 02/19/25 04:54
Albumin 2.7 g/dl (3.5-5.0) L 02/19/25 04:54
Physical Exam
-
Vital Signs:
Vital Signs
Temp Pulse Resp BP Pulse Ox
99.0 F 77 15 138/88 95
02/19/25 11:43 02/19/25 10:28 02/19/25 06:00 02/19/25 10:28 02/19/25 06:00
Cardiovascular:: Regular rate and rhythm
Respiratory:: Bilateral: CTA
Lung Excursion:: Normal
Abdomen:: Nontender and Soft
Bowel Sounds:: Normal
Extremity Edema:: +1: Bilateral:
Boss Catheter: No
--- NOTE | 2025-02-19 12:47 | CM ---
Addendum entered by Donna Obando 02/19/25 15:13:
SHAQ Thompson spoke to the son Juan and patient is known to [facility]. This was arranged when patient left SNF at the end of December. The son Juan has been staying with him supporting him. Juan stated that VN has started, OT, but not PT yet.
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
Referral sent to [facility] to follow. PLAN: Anticipate to Continue Home VN/PT
Original Note:
F/U: Patient still will be evaluated by PT/OT. Medically, patient came in from outpatient visit for vomiting, GI evaluated, no follow up as of now. Patient still being monitored. Patient is wheelchair bound at baseline with son providing care. PLAN:
Anticipate Home No Needs.
--- NOTE | 2025-02-19 13:18 | WOUNDNOTE ---
R LATERAL TMA FOOT SITE
--- NOTE | 2025-02-19 13:19 | WOUNDNOTE ---
L 4TH MEDIAL TOE
--- NOTE | 2025-02-19 13:19 | WOUNDNOTE ---
L LATERAL FOOT 2ND VIEW
--- NOTE | 2025-02-19 13:20 | WOUNDNOTE ---
L 3RD TOE AMP SITE 2CM DEEP.
--- NOTE | 2025-02-19 13:25 | WOUNDNOTE ---
WON RN note: Patient admitted with sepsis, pneumonia and GI bleed.
See H&P for complete history.
PMH: WC bound, CVA, IDDM, renal failure, s/p kidney transplant 04/2016, R TMA 10/2024, L 3rd toe amp, L 5th ray amp 10/2024. s/p balloon angioplasty L peroneal artery and L anterior tibial artery 11/04/[address] Singer, neuropathy, PAD.
Wound Location and type/assessment: Patient known to service, last seen 12/14/24. Now admitted with same L foot diabetic /arterial ulcers, dry eschar mixed with foul smelling gunderson soupy slough. L 3rd toe amp site with tiny ulcer, depth 2cm, connects
to plantar foot wound. L 4th toe shallow ulcer. R lateral TMA site with black loosening necrotic tissue mixed with pink. Medial TMA site with dry gunderson eschar. Santyl already on order. Reviewed vascular note, plan is for Angiogram when stable. Heels
are dry but blanchable and intact. Patient turned self, sacrum blanchable red.
Appetite: On clears, encouraged protein in diet when able.
Pressure redistribution devices in place: On air mattress. Patient can turn self in bed. He can lift feet off bed. Unable to walk patient reports, pivots to wheelchair. Using fiber filled offloading heel boots.
Plan: Dressings changed on feet using Santyl and dry dressing. Protective foams applied to heels. Will order Dakin's moist gauze to dry for L lateral foot sloughy foul smelling ulcer. All dry eschar painted with Betadine, Santyl to open areas on
wounds and dry dressing applied. Dr. Latham at bedside, confirmed the above orders with him.
Patient states vascular wants to do angiogram then decide on next step.
Updated care plan, nurse David and will follow as needed. Patient to follow up with vascular.
[2025-02-19] MEDS: MAGNESIUM OXIDE 400 MG PO (13:38)
--- NOTE | 2025-02-19 14:29 | W.PN.HOSP.TC ---
Today's Communication/Plan
-
Assessment / Plan
Assessment / Plan
General: No Apparent Distress, chronically ill-appearing
HEENT: NormoCephalic, dry mucous membranes, Atraumatic
Respiratory: Clear and Non Labored Respirations
Cardiac: S1/S2 and Regular Rhythm; No Rub or Gallop
GI: Soft, normal bowel sounds, well-healed surgical scar right lower quadrant
Musculoskeletal: No Edema, multiple deformities bilateral feet
Skin: Warm and dry, wound dressings in place bilateral feet, multiple chronic appearing toe wounds on left foot
: Boss in place draining cloudy yellow urine
Neuro: Awake but lethargic, mildly tremulous
Psych: Calm and cooperative
Mr. 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
CVA, and chronic urinary retention (Boss in place) who presented with fever, nausea, and coffee-ground emesis. In the ED he was febrile with a temperature of 103 �F, tachycardic with heart rate around 105, and normotensive. He was hypoxic
requiring 2 L of supplemental oxygen via nasal cannula. He was awake but lethargic. Lab revealed a leukocytosis of 17,000 and a lactic acid of 2.1. His UA showed significant pyuria and bacteriuria. X-ray showed hazy opacities at the right base.
He was bolused 30 cc/kg of resuscitative fluids. Cultures were obtained. He was started on broad-spectrum antibiotics and admitted for further evaluation and management of sepsis secondary to multiple possible sources including urinary tract
infection, pneumonia, or diabetic foot infection.
Sepsis:
- Possible sources include UTI, pneumonia, diabetic foot infection
- Initial lactic acidosis has now resolved
- Blood culture growing ESBL Proteus, ID consulted for further guidance
- Continue broad-spectrum antibiotics with vancomycin and Zosyn
- Continue resuscitative fluids with NS at 100 cc/h, status post bolus 30 cc/kg
- Continuing immunosuppressive agents for now for kidney transplant, nephro following, renal function stable
- Wound care for bilateral diabetic foot wounds
- Boss catheter exchanged in ED
Acute hypoxic respiratory failure:
- Possible aspiration in the setting of emesis
- Continue supplemental oxygen as needed
- Antibiotics as above
- Aspiration precautions
Coffee-ground emesis:
- No further episodes of coffee-ground emesis
- Nausea was likely related to significant constipation, has improved after the bowel movement, given another Dulcolax suppository today
- Continue scheduled bowel regimen, appreciate GI guidance, will need further workup for evaluation of anemia which was likely due to chronic disease
- Continue IV Protonix drip for now, likely transition to IV twice daily tomorrow
- Hemoglobin stable around 8 which appears close to his baseline
- Restarting home Xarelto
- Clear liquid diet, will advance as tolerated
Peripheral vascular disease:
- Status post right TMA and left third toe amputation 12/18/2024
- Continued on aspirin and Xarelto per vascular recommendations, vascular follow-up per angiogram after resolution of acute infection
- Continue high intensity statin
IDDM:
- Continue long acting insulin at reduced dose of 15 units nightly considering decreased p.o. intake with nausea and vomiting, usually takes 30 units at night at home
- Continue sliding scale insulin Accu-Cheks
- Adjust regimen as needed
- Hemoglobin A1c 8.6%
Cerebrovascular disease:
- Continue aspirin and statin
Chronic Boss catheter:
-Boss exchanged in ED
DVT prophylaxis: Xarelto
CODE STATUS: Full code
Anticipated Discharge: > 48 hours
Subjective/Interval History
-
Date of Service: February 19, 2025
Patient was seen and examined at bedside. Clinically improved, has been afebrile since yesterday afternoon.
Objective Data
-
Labs:
Laboratory Results
02/19/25
04:54
WBC 8.9
Hgb 7.9 L
Hct 24.4 L
Plt Count 277 D
Sodium 136
Potassium 3.8
Chloride 108 H
Carbon Dioxide 23
BUN 19
Creatinine 0.9
Glucose 195 H
Calcium 8.4
Total Bilirubin 0.5
AST 14 L
ALT 12
Alkaline Phosphatase 83
Vital Signs:
Vital Signs
Temp Pulse Resp BP Pulse Ox
99.0 F 77 15 138/88 95
02/19/25 11:43 02/19/25 10:28 02/19/25 06:00 02/19/25 10:28 02/19/25 06:00
I&O
02/18/25 02/19/25 02/20/25
06:59 06:59 06:59
Output Total 1250 / 1250
Balance -1250 / -1250
Review of Systems
-
History Source: Patient
All other systems: Reviewed and negative
Constitutional: Reports Fatigue
Abdomen/GI: Reports Constipated
Physical Exam
-
General: Appears Chronically Ill
[2025-02-19] MEDS: TYLENOL 650 MG PO (15:39)
--- NOTE | 2025-02-19 15:49 | CON.ID ---
Consultation
-
Date/Time Consultation Requested: 02/19/25 10:30
Date/Time Consultation Performed: 02/19/25 15:49
Requesting Provider: Dr Latham
Performing Provider: Dr Fernandez
Reason for Consultation: ESBL proteus UTI
Chief Complaint / Past History
Chief Complaint
fever
History of Present Illness
Mr Schwartz is a 64 year old male with history of DDRT 2017 (tacrolimus and prednisone), CVA, 12/16/24 he underwent right TMA and left metatarsal resection due to exposed bone, pathology was negative for osteomyelitis and all infected bone was felt to
be removed by podiatry, culture of the dehiscent material grew few ESBL E coli (sensitive to ciprofloxacin), MRSA and E faecalis, chronic urinary retention with dominguez who presneted here 02/18 for elective angiogram however noted to be having rigors,
malaise, fever, nausea and coffee ground emesis. Reports slight nonproductive cough which is new. He was referred to the ER. He had chills after a recent dressing change of the L foot. Note that he is chronically on fludrocortisone.
In the ER T was 103, HR 105, BP was stable, WBC 17, hgb 9.4, plt 489 - decreased from previous admission of 556, L shift was present, Na 136, cr 1.0, lactic acid initially 2.1 then 0.8, a1c 8.6, t bili 0.7, ast 11, alt 11, alk phos 110, UA with
pyuria and bacteriuria, CXR with new opacity in the right suprahilar region and chronic opacity retrocardiac, CT a/p with severe fecal retention and stercoral colitis, transplant WNL, bibasilar streaky opacities, blood cultures x2 with GNR one of
which IDd as ESBL Proteus, MRSA screen positive, given suppository and had BM, repeat AXR 02/19 mild stool in the rectum - improved, patient is on vancomycin and zosyn. Since arrival reports improving malaise.
Past History
Additional Past Medical History:
CVA, IDDM, peripheral arterial disease (right TMA, left third toe amputation ) renal failure status post kidney transplant
Additional Past Surgical History:
DDKT
angioplasties
Hernia repair, bilateral foot transmetatarsal potation
Allergy History:
No Known Allergies Allergy (Verified 02/18/25 08:38)
Medications Reviewed: Yes
Social History
Tobacco: Former Smoker
Alcohol: Occasional
Drug: None
Family History
Family History: Not Pertinent
Review of Systems
Review of Systems
Constitutional: Reports Fever (103 in ER)
EENT: Reports No Symptoms
Respiratory: Reports No Symptoms
Cardiac: Reports No Symptoms
Abdomen/GI: Reports Abdominal Pain, Nausea, Vomiting and Constipated
: Reports Other (chronic dominguez, dysuria )
Musculoskeletal: Reports No Symptoms
Skin: Reports No Symptoms
Neurological: Reports Weakness
Hematologic/Lymphatic: Reports Bleeding (dark emesis )
Vital Signs
Temp Pulse Resp BP Pulse Ox
99.0 F 77 15 138/88 95
02/19/25 11:43 02/19/25 10:28 02/19/25 06:00 02/19/25 10:28 02/19/25 06:00
Physical Exam
Physical Exam
Constitutional: No Acute Distress
Cardiovascular: Regular Rate and S1/S2; Negative Murmur or Rub
Pulmonary: Clear and Symmetric; Negative Wheezes, Rales or Rhonchi
Gastrointestinal: Soft, Non Tender, Non Distended and Normal Bowel Sounds
Skin: Warm and Dry; Negative Rash or Jaundice
Wound: Other (L foot doral eschar without surrounding erythema, 3rd toe amp site tiny ulcer, 4th toe, shall ulcer with eschar - no probe to bone)
Lab / Diagnostic Study Results
02/19/25 04:54
02/19/25 04:54
Abs Immat Gran (auto) 0.0 10^3/uL (0-0.05) 02/18/25 18:16
Absolute Neuts (auto) 11.4 10^3/uL (1.4-6.5) H 02/18/25 18:16
Absolute Lymphs (auto) 1.2 10^3/uL (1.2-3.4) 02/18/25 18:16
Absolute Monos (auto) 0.9 10^3/uL (0.1-0.6) H 02/18/25 18:16
Absolute Basos (auto) 0.1 10^3/uL (0-0.2) 02/18/25 18:16
Immature Gran % 0.3 % (0-0.5) 02/18/25 18:16
Neutrophils % 84.0 % (42.2-75.2) H 02/18/25 18:16
Lymphocytes % 8.9 % (20.5-51.1) L 02/18/25 18:16
Monocytes % 6.4 % (1.7-9.3) 02/18/25 18:16
Eosinophils % 0.0 % (0-6) 02/18/25 18:16
Basophils % 0.4 % (0-2) 02/18/25 18:16
PT 16.8 Sec (11.4-14.6) H 02/18/25 09:10
INR 1.39 02/18/25 09:10
Lactic Acid Cancelled 02/18/25 20:46
Ur Squamous Epith Cells 6-10 /LPF (Few) 02/18/25 09:09
Microbiology Results
Micro:
02/18/25 13:11 MRSA Screen - Final
Nose Staph aureus MRSA
02/18/25 09:09 Urine Culture - Preliminary
Urine
02/18/25 09:10 Blood Culture - Preliminary
Blood/Venous Proteus species ESBL
Gram Stain - Final
02/18/25 09:10 Blood Culture - Preliminary
Blood/Venous Positive culture in progress
Gram Stain - Final
02/18/25 09:09 Influenza Types A & B (OC) - Final
Nasal Swab Negative for Influenza A & B, NAAT
Negative results must be combined with clinical observations
and patient history.
Nucleic Acid Amplification test (NAAT)performed on the
[employer] platform.
Assessment / Plan
ESBL Proteus Bacteremia
Possible UTI
Possible Pneumonia
Eschar over the L lateral foot surgical site with slight undermining no probe to bone, no evidence of infection at this time; right foot also with small eschar on the medial tma side
- no need to repeat blood cultures for gram negative pathogen
- follow up urine culture
- note colonization with MRSA
- bone pathology 12/16 was negative for osteomyelitis, no new probe to bone at this time
- switch zosyn to ertapenem
- stop vancomycin
--- NOTE | 2025-02-19 16:02 | PHA.VAN.FU ---
Vancomycin Assessment / Plan
- Assessment
Renal Function: Stable
WBC's are: WNL
Concomitant Antimicrobials: piperacillin/tazobactam
- Dosing Plan
Continue: Vanc 1000mg Q12H
- Monitoring Plan
No level(s) ordered at this time: consider levels in next few days
- Follow Up
Pharmacy will continue to follow.
Vancomycin Follow UP
- -
Patient Age: 64
Patient Sex: Male
Vancomycin Day #: 2
Indication: Genito-Urinary Tract
Requesting Provider: Dr. Lopez (resident)
Pertinent Antimicrobial Allergies:
NKDA
Height / Weight:
Height 6 ft 2 in
Actual Weight 81.9 kg
Pertinent Past Medical History: DM 2, PAD, Kidney transplant
- Vital Signs / Lab Results
Temp Pulse Resp BP Pulse Ox
99.0 F 77 15 138/88 95
02/19/25 11:43 02/19/25 10:28 02/19/25 06:00 02/19/25 10:28 02/19/25 06:00
Lab Results - Hematology
02/18/25 02/18/25 02/19/25
09:09 18:16 04:54
WBC 17.0 H 13.5 H 8.9
Lab Results - Chemistry
02/18/25 02/19/25
09:10 04:54
BUN 28 H 19
Creatinine 1.0 0.9
Estimated Creat Clear 84 92
Albumin 3.6 2.7 L
02/18/25 02/18/25 02/18/25
09:09 13:00 13:11
Lactic Acid 2.1 H Cancelled 0.8
02/18/25 02/18/25
16:46 20:46
Lactic Acid Cancelled Cancelled
Microbiology Results
02/18/25 13:11 MRSA Screen - Final
Nose Staph aureus MRSA
02/18/25 09:09 Urine Culture - Preliminary
Urine
02/18/25 09:10 Blood Culture - Preliminary
Blood/Venous Proteus species ESBL
Gram Stain - Final
02/18/25 09:10 Blood Culture - Preliminary
Blood/Venous Positive culture in progress
Gram Stain - Final
02/18/25 09:09 Influenza Types A & B (OC) - Final
Nasal Swab Negative for Influenza A & B, NAAT
Negative results must be combined with clinical observations
and patient history.
Nucleic Acid Amplification test (NAAT)performed on the
[employer] platform.
[2025-02-19] MEDS: ZOSYN 100 IV (16:18)
[2025-02-19 16:50] LABS: Ferritin 53.8 ng/ml (17.9-464.0)
[2025-02-19 17:21] LABS: Folate 13.6 ng/ml (2.76-20); Vitamin B12 337 pg/ml (239-931)
[2025-02-19] MEDS: NOVOLOG FLEXPEN-LOW RESISTANCE 3 UNITS SC (17:21)
[2025-02-19] MEDS: NOVOLOG FLEXPEN 3 UNITS SC (17:22)
[2025-02-19] MEDS: LIPITOR 40 MG PO (17:24)
[2025-02-19 17:29] LABS: Glucose - Point of Care 276 mg/dl (70-99)
[2025-02-19] MEDS: INVANZ 60 MG IV (20:17)
[2025-02-19] MEDS: REQUIP 0.25 MG PO (20:17)
[2025-02-19] MEDS: XARELTO 2.5 MG PO (20:18)
[2025-02-19 21:24] LABS: Glucose - Point of Care 210 mg/dl (70-99)
[2025-02-19] MEDS: LANTUS 0.15 UNITS SC (21:48)
[2025-02-20] VITALS (12 sets, daily range): BP systolic 120–155; BP diastolic 60–84; BMI 23.1
[2025-02-20] MEDS: PROTONIX 100 IV (01:08)
--- NOTE | 2025-02-20 05:16 | PTCARENOTE ---
assumed care of patient. pt is AAOx3, flat affect. able to make needs known. 4LNC 97%. pt incontinent of bowel many times throughout shift. pt reports relief to abdomen. dominguez intact draining yellow urine. dressings to bilateral feet intact, pt
tolerating bilateral fiber filled boots. able to take pills whole with water without issues, care ongoing.
[2025-02-20 07:46] LABS: Glucose - Point of Care 162 mg/dl (70-99)
[2025-02-20] MEDS: MIRALAX 17 GRAMS PO (09:12)
[2025-02-20] MEDS: SANTYL OINTMENT 1 APPLIC TOPICAL (09:12)
[2025-02-20] MEDS: ASPIR LOW (ENTERIC COATED) 81 MG PO (09:14)
[2025-02-20] MEDS: VITAMIN D3 (cholecalciferol) 50 MCG PO (09:15)
[2025-02-20] MEDS: FEOSOL 325 MG PO (09:15)
[2025-02-20] MEDS: PROGRAF 1 MG PO ×2 (09:15→20:29)
[2025-02-20] MEDS: FLOMAX 0.4 MG PO (09:15)
[2025-02-20] MEDS: NORVASC 10 MG PO (09:16)
[2025-02-20] MEDS: FLORINEF 0.1 MG PO ×2 (09:16→20:29)
[2025-02-20] MEDS: DELTASONE 5 MG PO (09:16)
[2025-02-20] MEDS: DAKIN'S SOLUTION 0.125% 1/4 STRENGTH 1 ML TOPICAL (09:17)
[2025-02-20] MEDS: SENOKOT PO ×2 (09:19→20:28)
[2025-02-20] MEDS: NOVOLOG FLEXPEN-LOW RESISTANCE 1 UNITS SC (09:22)
[2025-02-20] MEDS: NOVOLOG FLEXPEN 3 UNITS SC ×3 (09:23→16:31)
[2025-02-20] MEDS: XARELTO 2.5 MG PO ×2 (09:50→20:29)
[2025-02-20 10:16] LABS: Hematocrit 26.8 % (39.0-52.0); Hemoglobin 8.3 g/dL (13.0-18.0); Mean Corp Hgb Conc. 31.0 g/dL (33.0-37.0); Mean Corpuscular Volume 73.4 fL (80.0-94.0); Nucleated Red Blood Cells % 0 % (-); Platelet Count 405 10^3/uL (130-400); Red Cell Dist. Width 16.0 % (11.5-14.5)
--- NOTE | 2025-02-20 10:40 | W.PN.ID1 ---
Date of Service
Date of Service: February 20, 2025
Today's Communication
- c/w ertapenem
Assessment / Plan
ESBL Proteus Bacteremia
Possible UTI
Possible Pneumonia
Eschar over the L lateral foot surgical site with slight undermining no probe to bone, no evidence of infection at this time; right foot also with small eschar on the medial tma side
- no need to repeat blood cultures for gram negative pathogen
- follow up urine culture - presumptive E coli, follow for final ID
- note colonization with MRSA
- bone pathology 12/16 was negative for osteomyelitis, no new probe to bone at this time, no evidence of infection of the surgical sites though eschars are noted
- c/w ertapenem
Chief Complaint
-: Fever and Bacteremia
Subjective / Review of Systems
tmax 100.6 yesterday afternoon
bp stable
incontinent of bowel
no complaints
Vital Signs / Physical Exam
Vital Signs
Vital Signs
Temp Pulse Resp BP Pulse Ox
98.6 F 63 16 146/81 97
02/20/25 08:10 02/20/25 09:16 02/20/25 06:00 02/20/25 09:16 02/20/25 06:00
Physical Exam
Constitutional: No Acute Distress
Cardiovascular: Regular Rate and S1/S2; Negative Murmur or Rub
Pulmonary: Clear and Symmetric; Negative Wheezes or Rales
Gastrointestinal: Soft, Non Tender, Non Distended and Normal Bowel Sounds
Skin: Warm and Dry; Negative Rash or Jaundice
Objective Data
Lab Data
Lab Results
02/20/25 09:46
PT 16.8 Sec (11.4-14.6) H 02/18/25 09:10
INR 1.39 02/18/25 09:10
APTT 33.9 Sec (23.4-35.0) 02/18/25 09:10
Estimated Creat Clear 92 ml/min 02/19/25 04:54
Lactic Acid Cancelled 02/18/25 20:46
Total Bilirubin 0.5 mg/dl (0.2-1.3) 02/19/25 04:54
AST 14 U/L (17-59) L 02/19/25 04:54
ALT 12 U/L (0-50) 02/19/25 04:54
Alkaline Phosphatase 83 U/L (38-126) 02/19/25 04:54
Most recent labs reviewed.
Micro Results:
02/18/25 13:11 MRSA Screen - Final
Nose Staph aureus MRSA
02/18/25 09:09 Urine Culture - Preliminary
Urine
02/18/25 09:10 Blood Culture - Preliminary
Blood/Venous Proteus species ESBL
Gram Stain - Final
02/18/25 09:10 Blood Culture - Preliminary
Blood/Venous Positive culture in progress
Gram Stain - Final
02/18/25 09:09 Influenza Types A & B (OC) - Final
Nasal Swab Negative for Influenza A & B, NAAT
Negative results must be combined with clinical observations
and patient history.
Nucleic Acid Amplification test (NAAT)performed on the
[email or web address] platform.
[2025-02-20 10:42] LABS: Blood Urea Nitrogen 8 mg/dl (9-20); Calcium 8.2 mg/dl (8.4-10.2); Carbon Dioxide 28 mmol/L (22-30); Chloride 101 mmol/L (98-107); Estimated Creatinine Clearance 105 ml/min; Glucose 136 mg/dl (70-99); Potassium 3.1 mmol/L (3.5-5.1); Sodium 134 mmol/L (135-145); eGFR > 60.00
[2025-02-20 11:55] LABS: Glucose - Point of Care 123 mg/dl (70-99)
--- NOTE | 2025-02-20 12:22 | W.PN.NEPH.PH ---
Today's Communication / Plan
-
follow labs, replace k
Assessment/Plan
-
Assessment
donor renal transplant 2017 on 2 immunosuppressants
Diabetes Mellitus 2
Essential Hypertension
Hyperlipidemia
GERD / PUD
Restless Leg Syndrome
TIA
Chronic Ambulatory Dysfunction - Wheelchair bound
Chronic Florinef use
Urinary tract infection
Plan
Renal function is at baseline 0.8, off IVF
cont Tac and prednisone
Antibiotics per ID
await timing of angio per vasc
Bp stable on florinef and CCB
replace k
d/w pt
-
-
Date of Service: February 20, 2025
CC / HPI / ROS
-
Chief Complaint:
Renal transplant
History of Present Illness:
Creatinine stable 0.8
BP stable
hb stable at 8.3, fe sat 12%
Review of Systems:
No chest pain or shortness of breath
excited to eat actual meal
Labs
-
Labs:
WBC 9.0 10^3/uL (4.8-10.8) 02/20/25 09:46
RBC 3.65 10^6/uL (4.70-6.10) L 02/20/25 09:46
Hgb 8.3 g/dL (13.0-18.0) L 02/20/25 09:46
Hct 26.8 % (39.0-52.0) L 02/20/25 09:46
Plt Count 405 10^3/uL (130-400) H D 02/20/25 09:46
Sodium 134 mmol/L (135-145) L 02/20/25 09:46
Potassium 3.1 mmol/L (3.5-5.1) L 02/20/25 09:46
Chloride 101 mmol/L (98-107) 02/20/25 09:46
Carbon Dioxide 28 mmol/L (22-30) 02/20/25 09:46
BUN 8 mg/dl (9-20) L 02/20/25 09:46
Creatinine 0.8 mg/dL (0.7-1.3) 02/20/25 09:46
eGFR > 60.00 02/20/25 09:46
Glucose 136 mg/dl (70-99) H 02/20/25 09:46
Calcium 8.2 mg/dl (8.4-10.2) L 02/20/25 09:46
Albumin 2.7 g/dl (3.5-5.0) L 02/19/25 04:54
Physical Exam
-
Vital Signs:
Vital Signs
Temp Pulse Resp BP Pulse Ox
98.2 F 63 16 146/81 97
02/20/25 11:15 02/20/25 09:16 02/20/25 06:00 02/20/25 09:16 02/20/25 06:00
Cardiovascular:: Regular rate and rhythm
Respiratory:: Bilateral: CTA
Lung Excursion:: Normal
Abdomen:: Nontender and Soft
Bowel Sounds:: Normal
Extremity Edema:: +1: Bilateral:
Boss Catheter: No
[2025-02-20] MEDS: NOVOLOG FLEXPEN-LOW RESISTANCE SC ×2 (12:31→16:32)
[2025-02-20] MEDS: MAGNESIUM OXIDE 400 MG PO (12:45)
[2025-02-20] MEDS: KCL 40 MEQ PO (12:45)
--- NOTE | 2025-02-20 13:27 | W.PN.HOSP.TC ---
Today's Communication/Plan
-
Assessment / Plan
Assessment / Plan
General: No Apparent Distress, comfortable
HEENT: NormoCephalic, moist mucous membranes, Atraumatic
Respiratory: Clear and Non Labored Respirations
Cardiac: S1/S2 and Regular Rhythm; No Rub or Gallop
GI: Soft, normal bowel sounds, well-healed surgical scar right lower quadrant
Musculoskeletal: No Edema, multiple deformities bilateral feet
Skin: Warm and dry, wound dressings in place bilateral feet, multiple chronic appearing toe wounds on left foot
: Boss in place draining clear yellow urine
Neuro: Awake and alert, no tremor
Psych: Calm and cooperative
Mr. 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
CVA, and chronic urinary retention (Boss in place) who presented with fever, nausea, and coffee-ground emesis. In the ED he was febrile with a temperature of 103 �F, tachycardic with heart rate around 105, and normotensive. He was hypoxic
requiring 2 L of supplemental oxygen via nasal cannula. He was awake but lethargic. Lab revealed a leukocytosis of 17,000 and a lactic acid of 2.1. His UA showed significant pyuria and bacteriuria. X-ray showed hazy opacities at the right base.
He was bolused 30 cc/kg of resuscitative fluids. Cultures were obtained. He was started on broad-spectrum antibiotics and admitted for further evaluation and management of sepsis secondary to multiple possible sources including urinary tract
infection, pneumonia, or diabetic foot infection.
Sepsis:
- Suspect due to urinary tract infection, possible pneumonia
- Urine culture growing E. coli, blood cultures growing ESBL Proteus
- ID following, antibiotics broadened to ertapenem, follow-up final cultures with sensitivities
- Overall patient continues to improve clinically
- Continuing immunosuppressive agents for now for kidney transplant, nephro following, renal function stable
- Wound care for bilateral diabetic foot wounds
- Boss catheter exchanged in ED
Acute hypoxic respiratory failure:
- Possible aspiration in the setting of emesis
- Resolved, now saturating appropriately and breathing comfortably on room air
- Antibiotics as above
Coffee-ground emesis:
- No further episodes of coffee-ground emesis
- Nausea was likely related to significant constipation, has improved after multiple bowel movements following suppositories and enema
- Continue scheduled bowel regimen with holding parameters for loose stools
- Appreciate GI guidance, will need further workup for evaluation of anemia which was likely due to chronic disease
- Discontinued Protonix drip, will continue with IV PPI daily
- Hemoglobin stable around 8 which appears close to his baseline
- Restarted home Xarelto
- Clear liquid diet, will advance as tolerated
Peripheral vascular disease:
- Status post right TMA and left third toe amputation 12/18/2024
- Continued on aspirin and Xarelto per vascular recommendations, vascular follow-up per angiogram after resolution of acute infection
- Continue high intensity statin
IDDM:
- Had been getting long acting insulin at reduced dose of 15 units nightly considering decreased p.o. intake with nausea and vomiting, usually takes 30 units at night at home
- Will increase Lantus to 22 units tonight now that he is tolerating a regular diet
- Added 3 units of short acting insulin with meals
- Continue sliding scale insulin Accu-Cheks
- Adjust regimen as needed
- Hemoglobin A1c 8.6%
Cerebrovascular disease:
- Continue aspirin and statin
Chronic Boss catheter:
-Boss exchanged in ED
DVT prophylaxis: Xarelto
CODE STATUS: Full code
Anticipated Discharge: > 48 hours
Subjective/Interval History
-
Date of Service: February 20, 2025
Patient was seen and examined at bedside. Continues to clinically improved. Antibiotics switched to ertapenem. Tolerating a regular diet today.
Objective Data
-
Labs:
Laboratory Results
02/20/25
09:46
WBC 9.0
Hgb 8.3 L
Hct 26.8 L
Plt Count 405 H D
Sodium 134 L
Potassium 3.1 L
Chloride 101
Carbon Dioxide 28
BUN 8 L
Creatinine 0.8
Glucose 136 H
Calcium 8.2 L
Vital Signs:
Vital Signs
Temp Pulse Resp BP Pulse Ox
98.2 F 63 16 146/81 97
02/20/25 11:15 02/20/25 09:16 02/20/25 06:00 02/20/25 09:16 02/20/25 06:00
I&O
02/19/25 02/20/25 02/21/25
06:59 06:59 06:59
Intake Total 1400 / 1400
Output Total 1250 / 1250 4000 / 4000 1700 / 1700
Balance -1250 / -1250 -2600 / -2600 -1700 / -1700
Review of Systems
-
History Source: Patient
All other systems: Reviewed and negative
Physical Exam
-
General: No Apparent Distress
[2025-02-20 16:35] LABS: Glucose - Point of Care 147 mg/dl (70-99)
[2025-02-20] MEDS: LIPITOR 40 MG PO (17:16)
[2025-02-20] MEDS: REQUIP 0.25 MG PO (20:29)
[2025-02-20] MEDS: INVANZ 60 MG IV (20:30)
[2025-02-20] MEDS: LANTUS 0.22 UNITS SC (21:24)
[2025-02-20 21:34] LABS: Glucose - Point of Care 228 mg/dl (70-99)
[2025-02-21] VITALS (12 sets, daily range): BP systolic 131–158; BP diastolic 69–82; BMI 22.3
[2025-02-21 05:11] LABS: Hematocrit 28.1 % (39.0-52.0); Hemoglobin 8.9 g/dL (13.0-18.0); Mean Corp Hgb Conc. 31.7 g/dL (33.0-37.0); Mean Corpuscular Volume 71.3 fL (80.0-94.0); Nucleated Red Blood Cells % 0 % (-); Platelet Count 421 10^3/uL (130-400); Red Cell Dist. Width 16.1 % (11.5-14.5)
[2025-02-21 05:26] LABS: Blood Urea Nitrogen 10 mg/dl (9-20); Calcium 8.1 mg/dl (8.4-10.2); Carbon Dioxide 27 mmol/L (22-30); Chloride 99 mmol/L (98-107); Estimated Creatinine Clearance 101 ml/min; Glucose 225 mg/dl (70-99); Potassium 3.3 mmol/L (3.5-5.1); Sodium 133 mmol/L (135-145); eGFR > 60.00
[2025-02-21] MEDS: KCL 40 MEQ PO (06:30)
[2025-02-21 08:20] LABS: Glucose - Point of Care 255 mg/dl (70-99)
[2025-02-21] MEDS: NOVOLOG FLEXPEN-LOW RESISTANCE 3 UNITS SC ×2 (08:39→17:33)
[2025-02-21] MEDS: NOVOLOG FLEXPEN 3 UNITS SC ×3 (08:40→17:34)
[2025-02-21] MEDS: SANTYL OINTMENT 1 APPLIC TOPICAL (08:41)
[2025-02-21] MEDS: MIRALAX 17 GRAMS PO (08:41)
[2025-02-21] MEDS: PROTONIX IV 40 MG IV (08:41)
[2025-02-21] MEDS: VITAMIN D3 (cholecalciferol) 50 MCG PO (08:42)
[2025-02-21] MEDS: ASPIR LOW (ENTERIC COATED) 81 MG PO (08:42)
[2025-02-21] MEDS: DELTASONE 5 MG PO (08:42)
[2025-02-21] MEDS: NORVASC 10 MG PO (08:42)
[2025-02-21] MEDS: NSS (PRESERVATIVE FREE) 10 ML IV (08:42)
[2025-02-21] MEDS: PROGRAF 1 MG PO ×2 (08:43→20:40)
[2025-02-21] MEDS: SENOKOT 17.2 MG PO (08:43)
[2025-02-21] MEDS: XARELTO 2.5 MG PO ×2 (08:44→20:40)
[2025-02-21] MEDS: FLORINEF 0.1 MG PO ×2 (08:44→20:40)
[2025-02-21] MEDS: DAKIN'S SOLUTION 0.125% 1/4 STRENGTH 473 ML TOPICAL (08:44)
[2025-02-21] MEDS: FLOMAX 0.4 MG PO (08:44)
[2025-02-21] MEDS: FEOSOL 325 MG PO (08:45)
--- NOTE | 2025-02-21 11:01 | W.PN.ID1 ---
Date of Service
Date of Service: February 21, 2025
Today's Communication
blood cultures
continue ertapenem
Assessment / Plan
ESBL Proteus Bacteremia
Possible UTI
Possible Pneumonia
Eschar over the L lateral foot surgical site with slight undermining no probe to bone, no evidence of infection at this time; right foot also with small eschar on the medial tma side
- given that two different GNR have been identified from the blood will repeat blood cultures x2
- blood culture ESBL Proteus
- urine culture - ESBL E coli
- note colonization with MRSA
- bone pathology 12/16 was negative for osteomyelitis, no new probe to bone at this time, no evidence of infection of the surgical sites though eschars are noted, Proteus was not seen in previous cultures
- c/w ertapenem
Chief Complaint
-: Fever and Bacteremia
Subjective / Review of Systems
no further fevers
bp stable
no complaints
reports minimal cough
Vital Signs / Physical Exam
Vital Signs
Vital Signs
Temp Pulse Resp BP Pulse Ox
98.1 F 63 10 148/75 96
02/21/25 07:00 02/21/25 08:42 02/21/25 04:00 02/21/25 08:42 02/21/25 08:00
Physical Exam
Constitutional: No Acute Distress and Chronically Ill
Cardiovascular: Regular Rate and S1/S2; Negative Murmur or Rub
Pulmonary: Clear and Symmetric; Negative Wheezes or Rales
Gastrointestinal: Soft, Non Tender, Non Distended and Normal Bowel Sounds
Skin: Warm and Dry; Negative Rash or Jaundice
Objective Data
Lab Data
Lab Results
02/21/25 04:51
02/21/25 04:51
PT 16.8 Sec (11.4-14.6) H 02/18/25 09:10
INR 1.39 02/18/25 09:10
APTT 33.9 Sec (23.4-35.0) 02/18/25 09:10
Estimated Creat Clear 101 ml/min 02/21/25 04:51
Lactic Acid Cancelled 02/18/25 20:46
Total Bilirubin 0.5 mg/dl (0.2-1.3) 02/19/25 04:54
AST 14 U/L (17-59) L 02/19/25 04:54
ALT 12 U/L (0-50) 02/19/25 04:54
Alkaline Phosphatase 83 U/L (38-126) 02/19/25 04:54
Most recent labs reviewed.
Micro Results:
02/18/25 09:10 Blood Culture - Final
Blood/Venous Proteus Mirabilis-ESBL
Gram Stain - Final
02/18/25 09:10 Blood Culture - Final
Blood/Venous Proteus Mirabilis-ESBL
Gram Stain - Final
02/18/25 09:09 Urine Culture - Final
Urine Escherichia coli - ESBL
02/18/25 13:11 MRSA Screen - Final
Nose Staph aureus MRSA
02/18/25 09:09 Influenza Types A & B (OC) - Final
Nasal Swab Negative for Influenza A & B, NAAT
Negative results must be combined with clinical observations
and patient history.
Nucleic Acid Amplification test (NAAT)performed on the
[employer] platform.
Organism 1 Proteus Mirabilis-ESBL
1. Proteus Mirabilis-ESBL
M.I.C. RX
--------- ---
Amoxicillin/Potas. Clavulanate <=8/4 S
Ampicillin >16 R
Ampicillin/Sulbactam 8/4 S
Aztreonam <=4 S
Cefazolin >16 R
Cefepime >16 R
Ceftazidime <=1 S
Ceftriaxone >2 R
Ertapenem <=0.5 S
Ciprofloxacin >2 R
Gentamicin <=2 S
Meropenem <=1 S
Piperacillin/Tazobactam <=8 S
Tetracycline >8 R
Tobramycin >8 R
Trimethoprim/Sulfamethoxazole >38 R
Urine Culture Final 02/21/25
CC: Greater than 100,000 CFU/ML Escherichia coli - ESBL*
Isolation Precautions Required
Resistance due to extended spectrum beta lactamase.
Deacreased activity may occur with penicillins,
penicillin/inhibitor combinations, cephalosporins, and
monobactams.
Organism 1 Escherichia coli - ESBL
1. Escherichia coli - ESBL
M.I.C. RX
--------- ---
Amoxicillin/Potas. Clavulanate <=8/4 S
Ampicillin >16 R
Ampicillin/Sulbactam >16/8 R
Aztreonam <=4 S
Cefazolin >16 R
Cefepime 4 SDD
Susceptible Dose Dependent - Optimize Dosing
Ceftazidime 4 S
Ceftriaxone >2 R
Ertapenem <=0.5 S
Ciprofloxacin >2 R
Gentamicin <=2 S
Meropenem <=1 S
Nitrofurantoin-Urine Only <=32 S
Piperacillin/Tazobactam <=8 S
Tetracycline >8 R
Tobramycin <=2 S
Trimethoprim/Sulfamethoxazole >38 R
[2025-02-21] MEDS: MAGNESIUM OXIDE 400 MG PO (11:46)
[2025-02-21 11:47] LABS: Glucose - Point of Care 181 mg/dl (70-99)
[2025-02-21] MEDS: NOVOLOG FLEXPEN-LOW RESISTANCE 300 UNITS SC (11:48)
--- NOTE | 2025-02-21 12:41 | W.PN.NEPH.PH ---
Today's Communication / Plan
-
follow labs
Assessment/Plan
-
Assessment
donor renal transplant 2017 on 2 immunosuppressants
UTI-esbl E coli
Bacteremia-Proteus
Diabetes Mellitus 2
Essential Hypertension
Hyperlipidemia
GERD / PUD
Restless Leg Syndrome
TIA
Chronic Ambulatory Dysfunction - Wheelchair bound
Chronic Florinef use
Malissa U retention -chr dominguez
Plan
Renal function is at baseline 0.8, off IVF
cont Tac and prednisone
Antibiotics per ID for uti, bacteremia
await timing of angio per vasc
Bp stable on florinef and CCB
replace k
d/w pt
will see him peripherally
-
-
Date of Service: February 21, 2025
CC / HPI / ROS
-
Chief Complaint:
Renal transplant
History of Present Illness:
Creatinine stable 0.8
BP stable , k low 3.3, na low but corrected for glu is normal
hb stable at 8.9, fe sat 12%, no iv fe with bacteremia
Review of Systems:
No chest pain or shortness of breath
tolerating diet
Labs
-
Labs:
WBC 10.1 10^3/uL (4.8-10.8) 02/21/25 04:51
RBC 3.94 10^6/uL (4.70-6.10) L 02/21/25 04:51
Hgb 8.9 g/dL (13.0-18.0) L 02/21/25 04:51
Hct 28.1 % (39.0-52.0) L 02/21/25 04:51
Plt Count 421 10^3/uL (130-400) H 02/21/25 04:51
Sodium 133 mmol/L (135-145) L 02/21/25 04:51
Potassium 3.3 mmol/L (3.5-5.1) L 02/21/25 04:51
Chloride 99 mmol/L (98-107) 02/21/25 04:51
Carbon Dioxide 27 mmol/L (22-30) 02/21/25 04:51
BUN 10 mg/dl (9-20) 02/21/25 04:51
Creatinine 0.8 mg/dL (0.7-1.3) 02/21/25 04:51
eGFR > 60.00 02/21/25 04:51
Glucose 225 mg/dl (70-99) H 02/21/25 04:51
Calcium 8.1 mg/dl (8.4-10.2) L 02/21/25 04:51
Albumin 2.7 g/dl (3.5-5.0) L 02/19/25 04:54
Physical Exam
-
Vital Signs:
Vital Signs
Temp Pulse Resp BP Pulse Ox
97.7 F 63 14 150/82 96
02/21/25 11:00 02/21/25 12:00 02/21/25 12:00 02/21/25 12:00 02/21/25 12:00
Cardiovascular:: Regular rate and rhythm
Respiratory:: Bilateral: CTA
Lung Excursion:: Normal
Abdomen:: Nontender and Soft
Bowel Sounds:: Normal
Extremity Edema:: +1: Bilateral:
Dominguez Catheter: Yes
--- NOTE | 2025-02-21 13:20 | W.PN.HOSP.TC ---
Today's Communication/Plan
-
Assessment / Plan
Assessment / Plan
General: No Apparent Distress, comfortable
HEENT: NormoCephalic, moist mucous membranes, Atraumatic
Respiratory: Clear and Non Labored Respirations
Cardiac: S1/S2 and Regular Rhythm; No Rub or Gallop
GI: Soft, normal bowel sounds, well-healed surgical scar right lower quadrant
Musculoskeletal: No Edema, multiple deformities bilateral feet
Skin: Warm and dry, wound dressings in place bilateral feet, multiple chronic appearing toe wounds on left foot
: Boss in place draining clear yellow urine
Neuro: Awake and alert, no tremor
Psych: Calm and cooperative
Mr. 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
CVA, and chronic urinary retention (Boss in place) who presented with fever, nausea, and coffee-ground emesis. In the ED he was febrile with a temperature of 103 �F, tachycardic with heart rate around 105, and normotensive. He was hypoxic
requiring 2 L of supplemental oxygen via nasal cannula. He was awake but lethargic. Lab revealed a leukocytosis of 17,000 and a lactic acid of 2.1. His UA showed significant pyuria and bacteriuria. X-ray showed hazy opacities at the right base.
He was bolused 30 cc/kg of resuscitative fluids. Cultures were obtained. He was started on broad-spectrum antibiotics and admitted for further evaluation and management of sepsis secondary to multiple possible sources including urinary tract
infection, pneumonia, or diabetic foot infection.
Sepsis:
- Suspect due to urinary tract infection, possible pneumonia
- Urine culture growing ESBL E. coli, blood cultures growing ESBL Proteus
- ID following, antibiotics broadened to ertapenem, repeat cultures pending
- Overall patient continues to improve clinically
- Continuing immunosuppressive agents for now for kidney transplant, nephro following, renal function stable
- Wound care for bilateral diabetic foot wounds
- Boss catheter exchanged in ED
Acute hypoxic respiratory failure:
- Possible aspiration in the setting of emesis
- Resolved, now saturating appropriately and breathing comfortably on room air
- Antibiotics as above
Coffee-ground emesis:
- No further episodes of coffee-ground emesis
- Nausea was likely related to significant constipation, has improved after multiple bowel movements following suppositories and enema
- Continue scheduled bowel regimen with holding parameters for loose stools
- Appreciate GI guidance, will need further workup for evaluation of anemia which was likely due to chronic disease
- Discontinued Protonix drip, will continue with IV PPI daily
- Hemoglobin stable around 8 which appears close to his baseline
- Restarted home Xarelto
- Tolerating diabetic diet
Peripheral vascular disease:
- Status post right TMA and left third toe amputation 12/18/2024
- Continued on aspirin and Xarelto per vascular recommendations, vascular follow-up per angiogram after resolution of acute infection
- Continue high intensity statin
IDDM:
- Had been getting long acting insulin at reduced dose of 15 units nightly considering decreased p.o. intake with nausea and vomiting, usually takes 30 units at night at home
- Increased Lantus to 22 units when reintroducing diet, now restarted home dose of Lantus 30 units nightly now that he is tolerating p.o. diet
- Added 3 units of short acting insulin with meals
- Continue sliding scale insulin Accu-Cheks
- Adjust regimen as needed
- Hemoglobin A1c 8.6%
Cerebrovascular disease:
- Continue aspirin and statin
Chronic Boss catheter:
-Boss exchanged in ED
DVT prophylaxis: Xarelto
CODE STATUS: Full code
Anticipated Discharge: > 48 hours
Subjective/Interval History
-
Date of Service: February 21, 2025
Patient was seen and examined at bedside. Currently comfortable, no acute events overnight.
Objective Data
-
Labs:
Laboratory Results
02/21/25
04:51
WBC 10.1
Hgb 8.9 L
Hct 28.1 L
Plt Count 421 H
Sodium 133 L
Potassium 3.3 L
Chloride 99
Carbon Dioxide 27
BUN 10
Creatinine 0.8
Glucose 225 H
Calcium 8.1 L
Vital Signs:
Vital Signs
Temp Pulse Resp BP Pulse Ox
97.7 F 63 14 150/82 96
02/21/25 11:00 02/21/25 12:00 02/21/25 12:00 02/21/25 12:00 02/21/25 12:00
I&O
02/20/25 02/21/25 02/22/25
06:59 06:59 06:59
Intake Total 1400 / 1400
Output Total 4000 / 4000 3900 / 3900
Balance -2600 / -2600 -3900 / -3900
Review of Systems
-
History Source: Patient
All other systems: Reviewed and negative
Physical Exam
-
General: No Apparent Distress
[2025-02-21 17:26] LABS: Glucose - Point of Care 252 mg/dl (70-99)
[2025-02-21] MEDS: LIPITOR 40 MG PO (17:35)
--- NOTE | 2025-02-21 17:36 | PTCARENOTE ---
Pt refusing dinner
[2025-02-21] MEDS: SENOKOT PO (19:39)
[2025-02-21] MEDS: INVANZ 60 MG IV (20:40)
[2025-02-21] MEDS: REQUIP 0.25 MG PO (20:40)
[2025-02-21 21:32] LABS: Glucose - Point of Care 206 mg/dl (70-99)
[2025-02-21] MEDS: LANTUS 0.3 UNITS SC (21:40)
--- NOTE | 2025-02-21 22:56 | PTCARENOTE ---
assumed care of patient. pt is AAOx3, flat affect. able to make needs known. VSS. trialed off oxygen, 96%. dominguez intact draining yellow urine. dominguez wipes done. dressings to bilateral feet CDI. able to take pills whole with water. no c/o pain. care
ongoing.
[2025-02-22] VITALS (7 sets, daily range): BP systolic 128–163; BP diastolic 66–86; BMI 22.2
[2025-02-22 05:42] LABS: Hematocrit 28.9 % (39.0-52.0); Hemoglobin 9.2 g/dL (13.0-18.0); Mean Corp Hgb Conc. 31.8 g/dL (33.0-37.0); Mean Corpuscular Volume 70.1 fL (80.0-94.0); Nucleated Red Blood Cells % 0 % (-); Platelet Count 454 10^3/uL (130-400); Red Cell Dist. Width 16.1 % (11.5-14.5)
[2025-02-22 05:46] LABS: Blood Urea Nitrogen 12 mg/dl (9-20); Calcium 8.4 mg/dl (8.4-10.2); Carbon Dioxide 28 mmol/L (22-30); Chloride 101 mmol/L (98-107); Estimated Creatinine Clearance 115 ml/min; Glucose 155 mg/dl (70-99); Potassium 3.3 mmol/L (3.5-5.1); Sodium 136 mmol/L (135-145); eGFR > 60.00
--- NOTE | 2025-02-22 07:43 | W.PN.NEPH.PH ---
Today's Communication / Plan
-
Replete K
Assessment/Plan
-
Assessment
donor renal transplant 2017 on 2 immunosuppressants
UTI-esbl E coli
Bacteremia-Proteus
Diabetes Mellitus 2
Essential Hypertension
Hyperlipidemia
GERD / PUD
Restless Leg Syndrome
TIA
Chronic Ambulatory Dysfunction - Wheelchair bound
Chronic Florinef use
Malissa U retention -chr dominguez
Plan
Renal function is at baseline 0.7, off IVF
cont Tac and prednisone
Antibiotics per ID for uti, bacteremia
await timing of angio per vasc
Bp stable on florinef and CCB
replace k
We will sign off
-
-
Date of Service: February 22, 2025
CC / HPI / ROS
-
Chief Complaint:
Renal transplant
History of Present Illness:
Creatinine stable 0.7
BP stable , k low 3.3, na low but corrected for glu is normal
hb stable at 9.2, fe sat 12%, no iv fe with bacteremia
Review of Systems:
No chest pain or shortness of breath
tolerating diet
Labs
-
Labs:
WBC 9.0 10^3/uL (4.8-10.8) 02/22/25 05:13
RBC 4.12 10^6/uL (4.70-6.10) L 02/22/25 05:13
Hgb 9.2 g/dL (13.0-18.0) L 02/22/25 05:13
Hct 28.9 % (39.0-52.0) L 02/22/25 05:13
Plt Count 454 10^3/uL (130-400) H 02/22/25 05:13
Sodium 136 mmol/L (135-145) 02/22/25 05:13
Potassium 3.3 mmol/L (3.5-5.1) L 02/22/25 05:13
Chloride 101 mmol/L (98-107) 02/22/25 05:13
Carbon Dioxide 28 mmol/L (22-30) 02/22/25 05:13
BUN 12 mg/dl (9-20) 02/22/25 05:13
Creatinine 0.7 mg/dL (0.7-1.3) 02/22/25 05:13
eGFR > 60.00 02/22/25 05:13
Glucose 155 mg/dl (70-99) H 02/22/25 05:13
Calcium 8.4 mg/dl (8.4-10.2) 02/22/25 05:13
Albumin 2.7 g/dl (3.5-5.0) L 02/19/25 04:54
Physical Exam
-
Vital Signs:
Vital Signs
Temp Pulse Resp BP Pulse Ox
97.7 F 64 17 163/86 95
02/22/25 03:00 02/22/25 06:00 02/22/25 06:00 02/22/25 06:00 02/22/25 06:00
Cardiovascular:: Regular rate and rhythm
Respiratory:: Bilateral: CTA
Lung Excursion:: Normal
Abdomen:: Nontender and Soft
Bowel Sounds:: Normal
Extremity Edema:: +1: Bilateral:
Dominguez Catheter: Yes
--- NOTE | 2025-02-22 08:38 | W.PN.ID1 ---
Date of Service
Date of Service: February 22, 2025
Today's Communication
- patient is stable for reassessment with vascular surgery from ID perspective
- c/w ertapenem x 2 weeks 02/18-03/03
- script to case management today
- midline
Assessment / Plan
ESBL Proteus Bacteremia
Possible UTI
Possible Pneumonia
Eschar over the L lateral foot surgical site with slight undermining no probe to bone, no evidence of infection at this time; right foot also with small eschar on the medial tma side
- single set of blood cultures done yesterday though two were ordered, reorder second set
- blood culture ESBL Proteus - possible sources translocation, pneumonia; foot wounds had some slough no significant concern for infection
- urine culture - ESBL E coli
- patient is stable for reassessment with vascular surgery from ID perspective
- c/w ertapenem x 2 weeks 02/18-03/03
- script to case management today
- midline
Chief Complaint
-: Fever and Bacteremia
Subjective / Review of Systems
afebrile
BP overall stable
no complaints
reports minimal cough
Vital Signs / Physical Exam
Vital Signs
Vital Signs
Temp Pulse Resp BP Pulse Ox
97.8 F 64 17 163/86 95
02/22/25 08:00 02/22/25 06:00 02/22/25 06:00 02/22/25 06:00 02/22/25 06:00
Physical Exam
Constitutional: No Acute Distress
Cardiovascular: Regular Rate and S1/S2; Negative Murmur or Rub
Pulmonary: Clear and Symmetric; Negative Wheezes or Rales
Gastrointestinal: Soft, Non Tender, Non Distended and Normal Bowel Sounds
Genito-Urinary: Negative Suprapubic Tenderness
Skin: Warm and Dry; Negative Rash or Jaundice
Objective Data
Lab Data
Lab Results
02/22/25 05:13
02/22/25 05:13
PT 16.8 Sec (11.4-14.6) H 02/18/25 09:10
INR 1.39 02/18/25 09:10
APTT 33.9 Sec (23.4-35.0) 02/18/25 09:10
Estimated Creat Clear 115 ml/min 02/22/25 05:13
Lactic Acid Cancelled 02/18/25 20:46
Total Bilirubin 0.5 mg/dl (0.2-1.3) 02/19/25 04:54
AST 14 U/L (17-59) L 02/19/25 04:54
ALT 12 U/L (0-50) 02/19/25 04:54
Alkaline Phosphatase 83 U/L (38-126) 02/19/25 04:54
Most recent labs reviewed.
Micro Results:
02/21/25 13:21 Blood Culture - Pending
Blood/Venous
02/18/25 09:10 Blood Culture - Final
Blood/Venous Proteus Mirabilis-ESBL
Gram Stain - Final
02/18/25 09:10 Blood Culture - Final
Blood/Venous Proteus Mirabilis-ESBL
Gram Stain - Final
02/18/25 09:09 Urine Culture - Final
Urine Escherichia coli - ESBL
02/18/25 13:11 MRSA Screen - Final
Nose Staph aureus MRSA
02/18/25 09:09 Influenza Types A & B (OC) - Final
Nasal Swab Negative for Influenza A & B, NAAT
Negative results must be combined with clinical observations
and patient history.
Nucleic Acid Amplification test (NAAT)performed on the
[employer] platform.
Organism 1 Proteus Mirabilis-ESBL
1. Proteus Mirabilis-ESBL
M.I.C. RX
--------- ---
Amoxicillin/Potas. Clavulanate <=8/4 S
Ampicillin >16 R
Ampicillin/Sulbactam 8/4 S
Aztreonam <=4 S
Cefazolin >16 R
Cefepime >16 R
Ceftazidime <=1 S
Ceftriaxone >2 R
Ertapenem <=0.5 S
Ciprofloxacin >2 R
Gentamicin <=2 S
Meropenem <=1 S
Piperacillin/Tazobactam <=8 S
Tetracycline >8 R
Tobramycin >8 R
Trimethoprim/Sulfamethoxazole >2/38 R
Urine Culture Final 02/21/25
CC: Greater than 100,000 CFU/ML Escherichia coli - ESBL*
Isolation Precautions Required
Resistance due to extended spectrum beta lactamase.
Deacreased activity may occur with penicillins,
penicillin/inhibitor combinations, cephalosporins, and
monobactams.
Organism 1 Escherichia coli - ESBL
1. Escherichia coli - ESBL
M.I.C. RX
--------- ---
Amoxicillin/Potas. Clavulanate <=8/4 S
Ampicillin >16 R
Ampicillin/Sulbactam >16/8 R
Aztreonam <=4 S
Cefazolin >16 R
Cefepime 4 SDD
Susceptible Dose Dependent - Optimize Dosing
Ceftazidime 4 S
Ceftriaxone >2 R
Ertapenem <=0.5 S
Ciprofloxacin >2 R
Gentamicin <=2 S
Meropenem <=1 S
Nitrofurantoin-Urine Only <=32 S
Piperacillin/Tazobactam <=8 S
Tetracycline >8 R
Tobramycin <=2 S
Trimethoprim/Sulfamethoxazole > R
Care Review
Plan reviewed with: Physician (Dr Jimenez - vascular reassessment)
[2025-02-22 08:45] LABS: Glucose - Point of Care 183 mg/dl (70-99)
[2025-02-22] MEDS: KCL 40 MEQ PO (09:23)
[2025-02-22] MEDS: NORVASC 10 MG PO (09:23)
[2025-02-22] MEDS: SANTYL OINTMENT 1 APPLIC TOPICAL (09:23)
[2025-02-22] MEDS: FLOMAX 0.4 MG PO (09:23)
[2025-02-22] MEDS: ASPIR LOW (ENTERIC COATED) 81 MG PO (09:24)
[2025-02-22] MEDS: VITAMIN D3 (cholecalciferol) 50 MCG PO (09:24)
[2025-02-22] MEDS: NSS (PRESERVATIVE FREE) 10 ML IV (09:24)
[2025-02-22] MEDS: FLORINEF 0.1 MG PO ×2 (09:24→19:53)
[2025-02-22] MEDS: PROTONIX IV 40 MG IV (09:24)
[2025-02-22] MEDS: PROGRAF 1 MG PO ×2 (09:24→19:53)
[2025-02-22] MEDS: DELTASONE 5 MG PO (09:24)
[2025-02-22] MEDS: XARELTO 2.5 MG PO ×2 (09:24→19:53)
[2025-02-22] MEDS: FEOSOL 325 MG PO (09:25)
[2025-02-22] MEDS: NOVOLOG FLEXPEN 3 UNITS SC ×2 (09:25→13:09)
[2025-02-22] MEDS: DAKIN'S SOLUTION 0.125% 1/4 STRENGTH 1 ML TOPICAL (09:26)
[2025-02-22] MEDS: NOVOLOG FLEXPEN-LOW RESISTANCE 1 UNITS SC (09:26)
[2025-02-22] MEDS: MIRALAX PO (10:13)
[2025-02-22] MEDS: SENOKOT PO ×2 (10:13→19:53)
--- NOTE | 2025-02-22 10:44 | W.PN.HOSP.TC ---
Addendum entered and electronically signed by Branden Jimenez MD 03/04/25 14:56:
UTI is related to to Chronic Boss catheter
Original Note:
Today's Communication/Plan
-
Transferred to [facility]
PT OT consult
Continue with antibiotics
Assessment / Plan
Assessment / Plan
Mr. 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
CVA, and chronic urinary retention (Boss in place) who presented with fever, nausea, and coffee-ground emesis. In the ED he was febrile with a temperature of 103 �F, tachycardic with heart rate around 105, and normotensive. He was hypoxic
requiring 2 L of supplemental oxygen via nasal cannula. He was awake but lethargic. Lab revealed a leukocytosis of 17,000 and a lactic acid of 2.1. His UA showed significant pyuria and bacteriuria. X-ray showed hazy opacities at the right base.
He was bolused 30 cc/kg of resuscitative fluids. Cultures were obtained. He was started on broad-spectrum antibiotics and admitted for further evaluation and management of sepsis secondary to multiple possible sources including urinary tract
infection, pneumonia, or diabetic foot infection.
Sepsis:
- Suspect due to urinary tract infection, possible pneumonia
- Urine culture growing ESBL E. coli, blood cultures growing ESBL Proteus
- ID following, antibiotics broadened to ertapenem, repeat cultures pending
- Hemodynamically stable. Afebrile
- Continuing immunosuppressive agents for now for kidney transplant, nephro following, renal function stable
- Wound care for bilateral diabetic foot wounds
- Boss catheter exchanged in ED
Acute hypoxic respiratory failure:
- Possible aspiration in the setting of emesis
- Resolved, now saturating appropriately and breathing comfortably on room air
- Antibiotics as above
Coffee-ground emesis:
- No further episodes of coffee-ground emesis
- Nausea was likely related to significant constipation, has improved after multiple bowel movements following suppositories and enema
- Continue scheduled bowel regimen with holding parameters for loose stools
- Appreciate GI guidance, will need further workup for evaluation of anemia which was likely due to chronic disease
- Discontinued Protonix drip, will continue with IV PPI daily
- Hemoglobin stable around 8 which appears close to his baseline
- Restarted home Xarelto
- Tolerating diabetic diet
Peripheral vascular disease:
- Status post right TMA and left third toe amputation 12/18/2024
- Continued on aspirin and Xarelto per vascular recommendations, vascular follow-up per angiogram after resolution of acute infection
- Continue high intensity statin
IDDM:
- Had been getting long acting insulin at reduced dose of 15 units nightly considering decreased p.o. intake with nausea and vomiting, usually takes 30 units at night at home
- Increased Lantus to 22 units when reintroducing diet, now restarted home dose of Lantus 30 units nightly now that he is tolerating p.o. diet
- Added 3 units of short acting insulin with meals
- Continue sliding scale insulin Accu-Cheks
- Adjust regimen as needed
- Hemoglobin A1c 8.6%
Hypokalemia-replete
Cerebrovascular disease:
- Continue aspirin and statin
Chronic Boss catheter:
-Boss exchanged in ED
DVT prophylaxis: Xarelto
CODE STATUS: Full code
Anticipated Discharge: > 48 hours
Subjective/Interval History
-
Date of Service: February 22, 2025
No fever or chills.
No nausea or vomiting. Constipated. No abdominal pain. Boss catheter in place.
Denies shortness of breath or chest pain.
Complains of interrupted sleep.
Objective Data
-
Labs:
Laboratory Results
02/22/25
05:13
WBC 9.0
Hgb 9.2 L
Hct 28.9 L
Plt Count 454 H
Sodium 136
Potassium 3.3 L
Chloride 101
Carbon Dioxide 28
BUN 12
Creatinine 0.7
Glucose 155 H
Calcium 8.4
Vital Signs:
Vital Signs
Temp Pulse Resp BP Pulse Ox
97.8 F 64 17 163/86 94
02/22/25 08:00 02/22/25 06:00 02/22/25 06:00 02/22/25 06:00 02/22/25 08:14
I&O
02/21/25 02/22/25 02/23/25
06:59 06:59 06:59
Output Total 3900 / 3900 2650 / 2650
Balance -3900 / -3900 -2650 / -2650
Physical Exam
-
General: Comfortable
Respiratory: Clear to Auscultation and Non Labored Respirations; Negative Accessory Resp Muscle Use
Cardiac: Regular Rhythm and S1/S2; Negative Tachycardic
GI: Soft and Nontender
Genito-urinary: Clear Urine and Boss
Neuro: AO x 3
Psych: Calm; Negative Confused
Data Reviewed
-
Labs: Labs Reviewed by me
[2025-02-22 12:00] LABS: Glucose - Point of Care 205 mg/dl (70-99)
[2025-02-22] MEDS: NOVOLOG FLEXPEN-LOW RESISTANCE 2 UNITS SC ×2 (13:09→18:01)
[2025-02-22] MEDS: MAGNESIUM OXIDE 400 MG PO (13:10)
--- NOTE | 2025-02-22 15:17 | CM ---
F/U: CM received script for IV Abx. SHAQ Thompson spoke to patient/ son, they chose [facility]. CM sent script/ clinical to them, Alanna responded with cost $219.00 a week. Alanna spoke to son, the plan is to discharge the patient btw 2-3pm tomorrow so
that patient/son can be home by 5pm so that medication/ RN will be in the home that night for 8pm dose/ teaching. Hospitalist informed of the plan for DC tomorrow. CM realized that patient is known to [facility] so ensured referral went to them
for wound care. PLAN: Home w/ Infusion/ wound care.
[2025-02-22 16:53] LABS: Glucose - Point of Care 216 mg/dl (70-99)
[2025-02-22] MEDS: NOVOLOG FLEXPEN 6 UNITS SC (18:00)
[2025-02-22] MEDS: LIPITOR 40 MG PO (18:01)
[2025-02-22] MEDS: INVANZ 60 MG IV (19:54)
--- NOTE | 2025-02-22 20:41 | PTCARENOTE ---
Pt being transferred to [facility], education given. 1999 medications given. Report was called by day RN.
[2025-02-22 22:30] LABS: Glucose - Point of Care 374 mg/dl (70-99)
[2025-02-22] MEDS: REQUIP 0.25 MG PO (22:34)
[2025-02-22] MEDS: MELATONIN 3 MG PO (22:34)
[2025-02-22] MEDS: LANTUS 0.3 UNITS SC (22:34)
[2025-02-22] MEDS: NOVOLOG FLEXPEN 5 UNITS SC (23:59)
[2025-02-23 05:36] LABS: Blood Urea Nitrogen 16 mg/dl (9-20); Calcium 8.5 mg/dl (8.4-10.2); Carbon Dioxide 33 mmol/L (22-30); Chloride 98 mmol/L (98-107); Estimated Creatinine Clearance 101 ml/min; Glucose 177 mg/dl (70-99); Potassium 4.0 mmol/L (3.5-5.1); Sodium 135 mmol/L (135-145); eGFR > 60.00
[2025-02-23 06:00] VITALS: BMI 21.8
[2025-02-23 07:50] VITALS: BP 137/78
[2025-02-23 07:55] LABS: Glucose - Point of Care 178 mg/dl (70-99)
--- NOTE | 2025-02-23 08:46 | PN.CDI ---
CDI
- -
CDI:
Physician Documentation Request
Admit Date: 02/18/25 12:45
Dear Doctor Tony,
Please review the following and provide your response in the progress notes.
Clinical Indicators:
Pt admitted with Sepsis ESBL Proteus Bacteremia 2/2 UTI /Possible PNA
Documented throughout the record, ' Chronic Boss catheter:Boss exchanged in ED...'
Please clarify the relationship between these conditions:
Yes, _UTI__ is related to/associated with/due to Chronic Boss catheter ___.
No, _UTI __ is not related to/associated with/due to Chronic Boss Catheter ___ but it is due to ___. (Please specify)
Other ( please specify)
Use of terms such as suspected, likely, concern for, or probable (associated with a specific diagnosis that is being evaluated, monitored, or treated as if it exists) are acceptable and can be coded in the inpatient setting, when documented at the
time of discharge.
Thank you,
Nga Suarez RN
CDI Specialist
[facility]
Please use your independent medical judgment in providing your response.
[2025-02-23] MEDS: NOVOLOG FLEXPEN SC ×2 (08:51→12:18)
[2025-02-23] MEDS: NOVOLOG FLEXPEN-LOW RESISTANCE 1 UNITS SC (08:52)
[2025-02-23] MEDS: XARELTO 2.5 MG PO (08:53)
[2025-02-23] MEDS: FLORINEF 0.1 MG PO (08:53)
[2025-02-23] MEDS: VITAMIN D3 (cholecalciferol) 50 MCG PO (08:53)
[2025-02-23] MEDS: FEOSOL 325 MG PO (08:53)
[2025-02-23] MEDS: DELTASONE 5 MG PO (08:53)
[2025-02-23] MEDS: ASPIR LOW (ENTERIC COATED) 81 MG PO (08:53)
[2025-02-23] MEDS: FLOMAX 0.4 MG PO (08:53)
[2025-02-23] MEDS: SANTYL OINTMENT 1 APPLIC TOPICAL (08:53)
[2025-02-23] MEDS: PROGRAF 1 MG PO (08:53)
[2025-02-23] MEDS: MIRALAX 17 GRAMS PO (08:54)
[2025-02-23] MEDS: NORVASC 10 MG PO (08:54)
[2025-02-23] MEDS: DAKIN'S SOLUTION 0.125% 1/4 STRENGTH 473 ML TOPICAL (08:54)
[2025-02-23] MEDS: SENOKOT 17.2 MG PO (08:55)
[2025-02-23] MEDS: NSS (PRESERVATIVE FREE) 10 ML IV (08:55)
[2025-02-23] MEDS: PROTONIX IV 40 MG IV (08:56)
--- NOTE | 2025-02-23 11:36 | W.PN.ID1 ---
Date of Service
Date of Service: February 23, 2025
Today's Communication
- c/w ertapenem x 2 weeks 02/18-03/03
- script to case management 02/22
- midline
Assessment / Plan
ESBL Proteus Bacteremia
UTI
Pneumonia
Eschar over the L lateral foot surgical site with slight undermining no probe to bone, no evidence of infection at this time; right foot also with small eschar on the medial tma side
- blood cultures x2 in progress
- 02/18 blood culture ESBL Proteus - possible sources translocation, pneumonia; foot wounds had some slough no significant concern for infection
- 02/18 urine culture - ESBL E coli
- c/w ertapenem x 2 weeks 02/18-03/03
- script to case management 02/22
- midline
Chief Complaint
-: Fever and Bacteremia
Subjective / Review of Systems
afebrile
bp stable
no events overnight
Vital Signs / Physical Exam
Vital Signs
Vital Signs
Temp Pulse Resp BP Pulse Ox
97.5 F 65 15 137/78 97
02/23/25 07:50 02/23/25 07:50 02/23/25 07:50 02/23/25 07:50 02/23/25 07:50
Physical Exam
Constitutional: No Acute Distress and Chronically Ill
Cardiovascular: Regular Rate and S1/S2; Negative Murmur or Rub
Pulmonary: Clear and Symmetric; Negative Wheezes or Rales
Gastrointestinal: Soft, Non Tender, Non Distended and Normal Bowel Sounds
Skin: Warm and Dry; Negative Rash or Jaundice
Objective Data
Lab Data
Lab Results
02/22/25 05:13
02/23/25 04:54
PT 16.8 Sec (11.4-14.6) H 02/18/25 09:10
INR 1.39 02/18/25 09:10
APTT 33.9 Sec (23.4-35.0) 02/18/25 09:10
Estimated Creat Clear 101 ml/min 02/23/25 04:54
Lactic Acid Cancelled 02/18/25 20:46
Total Bilirubin 0.5 mg/dl (0.2-1.3) 02/19/25 04:54
AST 14 U/L (17-59) L 02/19/25 04:54
ALT 12 U/L (0-50) 02/19/25 04:54
Alkaline Phosphatase 83 U/L (38-126) 02/19/25 04:54
Most recent labs reviewed.
Micro Results:
02/22/25 11:13 Blood Culture - Preliminary
Blood/Venous No Growth in 24 hours- Final report to follow
02/21/25 13:21 Blood Culture - Preliminary
Blood/Venous No Growth in 24 hours- Final report to follow
02/18/25 09:10 Blood Culture - Final
Blood/Venous Proteus Mirabilis-ESBL
Gram Stain - Final
02/18/25 09:10 Blood Culture - Final
Blood/Venous Proteus Mirabilis-ESBL
Gram Stain - Final
02/18/25 09:09 Urine Culture - Final
Urine Escherichia coli - ESBL
02/18/25 13:11 MRSA Screen - Final
Nose Staph aureus MRSA
02/18/25 09:09 Influenza Types A & B (OC) - Final
Nasal Swab Negative for Influenza A & B, NAAT
Negative results must be combined with clinical observations
and patient history.
Nucleic Acid Amplification test (NAAT)performed on the
[employer] platform.
Organism 1 Proteus Mirabilis-ESBL
1. Proteus Mirabilis-ESBL
M.I.C. RX
--------- ---
Amoxicillin/Potas. Clavulanate <=8/4 S
Ampicillin >16 R
Ampicillin/Sulbactam 8/4 S
Aztreonam <=4 S
Cefazolin >16 R
Cefepime >16 R
Ceftazidime <=1 S
Ceftriaxone >2 R
Ertapenem <=0.5 S
Ciprofloxacin >2 R
Gentamicin <=2 S
Meropenem <=1 S
Piperacillin/Tazobactam <=8 S
Tetracycline >8 R
Tobramycin >8 R
Trimethoprim/Sulfamethoxazole >/38 R
Urine Culture Final 02/21/25-932
CC: Greater than 100,000 CFU/ML Escherichia coli - ESBL*
Isolation Precautions Required
Resistance due to extended spectrum beta lactamase.
Deacreased activity may occur with penicillins,
penicillin/inhibitor combinations, cephalosporins, and
monobactams.
Organism 1 Escherichia coli - ESBL
1. Escherichia coli - ESBL
M.I.C. RX
--------- ---
Amoxicillin/Potas. Clavulanate <=8/4 S
Ampicillin >16 R
Ampicillin/Sulbactam >16/8 R
Aztreonam <=4 S
Cefazolin >16 R
Cefepime 4 SDD
Susceptible Dose Dependent - Optimize Dosing
Ceftazidime 4 S
Ceftriaxone >2 R
Ertapenem <=0.5 S
Ciprofloxacin >2 R
Gentamicin <=2 S
Meropenem <=1 S
Nitrofurantoin-Urine Only <=32 S
Piperacillin/Tazobactam <=8 S
Tetracycline >8 R
Tobramycin <=2 S
Trimethoprim/Sulfamethoxazole > R
Care Review
Plan reviewed with: Physician (Dr Jimenez - vascular surgery consult)
[2025-02-23 11:48] LABS: Glucose - Point of Care 156 mg/dl (70-99)
[2025-02-23 12:11] VITALS: BP 168/85; PULSE 70; O2SAT 96
[2025-02-23 12:13] VITALS: BP 168/65; PULSE 70; O2SAT 97
[2025-02-23] MEDS: MAGNESIUM OXIDE 400 MG PO (12:19)
[2025-02-23] MEDS: NOVOLOG FLEXPEN-LOW RESISTANCE SC (12:19)
--- NOTE | 2025-02-23 12:20 | CM ---
Addendum entered by Marcia Duvall 02/23/25 12:23:
[facility] fax- [phone]
Original Note:
CM reviewed pt with attending- ready for dc
Confirmed delivery of infusion meds and teaching at home around 5pm with [facility] liaison/Alanna
Update provided to [facility] via [facility]
Bedside update to pt and call to son- they are in agreement with plan
Son will transport home today- pt noted to be supervision level with PT for transfers
Discharge Disposition- home with [facility] and [facility] infusion, son transport
[2025-02-23 14:46] VITALS: BP 137/75
--- NOTE | 2025-02-23 17:31 | W.DCSUMMARY ---
Discharge Summary
Discharge Data
Date of Admission: 02/18/25
Date of Discharge: 02/23/25
-
Pending Results: No
Hospital Course
Primary diagnosis:
ESBL Proteus bacteremia
Urinary tract infection
Possible pneumonia
Secondary diagnosis:
Bilateral foot wounds
Peripheral arterial disease
Insulin-dependent diabetes mellitus
History of cerebrovascular disease
Chronic Boss catheter in place
History of renal failure status post renal transplant on immunosuppression
Hospital course:
Patient was sent to ED vascular team as he presented for angiogram and was noted to have fever chills. He was noted to be septic. He had pyuria and bacteriuria and there was a hazy opacity in the right base. The concern was UTI and possible
pneumonia. Urine culture was growing ESBL E. coli but the blood culture showed ESBL Proteus. Seen by ID who broadened antibiotics to add ertapenem they think the source is more from possible pneumonia. There is also concern about a UTI and the E.
coli. They advised to continue on ertapenem till 03/03. Midline was obtained.
There is eschar over the left lateral foot surgical site with slight undermining and no probing to the bone. No evidence of infection at this time. Right foot ulcer with small eschar on the medial TMA side. Discussed with the vascular who will
scan to reschedule his angiogram once infection is settled.
His blood cultures were sterile prior to discharge.
Today he was feeling better without nausea or vomiting. Tolerating diet. Afebrile. Pulse was 74. Blood pressure 137/75. Heart sinus and persisted regular. Chest was clear. Abdomen is benign. Bilateral foot in dressing. Today's creatinine
was 0.8. No electrolyte disturbances noted. His hemoglobin yesterday was 9.2 which was stable. He has history of anemia of chronic disease.
He was seen by PT OT who recommended home health. He already has care at home. Was seen by case management and VN was restarted. Home antibiotics were set up and was discharged home.
Consultants on board:
Nephrology-Bob Lyons
Vascular Roberto Romano
ID-Sue Webb
Portions of this chart may have been created with voice recognition software. Occasional wrong word or 'sound alike' substitutions may have occurred due to the inherent limitations of voice recognition software.
Discharge Plan
-
Patient Disposition: Home with Home Care
Discharge Diagnosis/Procedures: ESBL Proteus bacteremia; ESBL E. coli UTI; possible pneumonia, PAD;EM
Diet: Diabetic, Carb Controlled
Activity: As tolerated
Driving Restrictions: No driving
Bathing Restrictions: OK to Shower
Other Services: VN
Activity Restrictions/Additional Instructions:
Wound Care Instructions
L plantar lateral foot: Dakin's moist gauze ABD pads and Kerlix daily and prn odor.
L dorsal foot: clean with Dakin's, dry eschar paint with Betadine, Santyl to open area with adaptic and dry dressing daily.
L 4th toe and 3rd toe amp site: clean with dakin's dry gauze dressing daily
R lateral TMA/foot: clean with Dakin's, dry eschar paint with Betadine, Santyl to open area adaptic and dry dressing daily.
R medial TMA site eschar: paint with betadine daily.
offloading heel boots
air mattress
Follow up with vascular
Referrals:
Morgan Ray DO [Family Provider, Family Practice] - in less than 1 week
Roberto Signer MD [Active, Vascular Surgery] - in two weeks
Prescriptions:
New
polyethylene glycol 3350 17 gram Powder In Packet
17 g PO DAILY Qty: 30 0RF
Ertapenem [Invanz] 1000 MG
0.9% Sodium Chloride [Nss] 50 ML
120 mls/hr IV Q24H
Ordered By: Branden Jimenez MD
Last Taken: 02/22/25 19:54 60 mls
Continued
atorvastatin 40 mg Tablet
40 mg PO QPM Qty: 0 0RF
acetaminophen 325 mg Tablet
650 mg PO Q4HPRN PRN (Reason: mild pain/ fever>100.5F) Qty: 0 0RF
cholecalciferol (vitamin D3) 50 mcg (2,000 unit) Tablet
50 mcg PO DAILY Qty: 0 0RF
rivaroxaban [Xarelto] 2.5 mg Tablet
2.5 mg PO BID Qty: 0 0RF
ferrous sulfate [FeroSul] 325 mg (65 mg iron) Tablet
325 mg PO DAILY Qty: 0 0RF
prednisone 5 mg tablet
5 mg PO DAILY Qty: 0 0RF
amlodipine 5 mg tablet
10 mg PO DAILY Qty: 0 0RF
aspirin 81 mg Tablet,Delayed Release (Dr/Ec)
81 mg PO DAILY Qty: 0 0RF
fludrocortisone 0.1 mg tablet
0.1 mg PO BID Qty: 0 0RF
tacrolimus 1 mg capsule
1 mg PO BID Qty: 0 0RF
sennosides [senna] 8.6 mg Tablet
17.2 mg PO BID
tamsulosin 0.4 mg Capsule
0.4 mg PO DAILY
Santyl 250 unit/gram Ointment
1 applic TOPICAL DAILY
insulin glargine [Lantus Solostar U-100 Insulin] 100 unit/mL (3 mL) Insulin Pen
30 unit SC HS
magnesium oxide 400 mg magnesium Tablet
400 mg PO DAILY
ropinirole 0.25 mg tablet
0.25 mg PO HS
Changed
insulin lispro 100 unit/mL Insulin Pen
6 sliding scale dose SC AC Qty: 0 0RF
Discharge Orders:
Discharge Patient (As Directed); Ordered 02/23/25
Ordered By: Branden Jimeenz
Discharge Date and Time
Discharge Date/Time: 02/23/25 15:00
Print Language: [place]
--- NOTE | 2025-02-25 08:23 | W.SUR.POST ---
Surgical Immediate Post Op
Note
Pre Op Diagnosis: PAD
Post Op Diagnosis: PAD
Procedure Performed: LLE arteriogram, balloon angioplasty to left PT, AT, TPT arteries
Primary Surgeon: Enmanuel
Anesthesia: local and sedation
Estimated Blood Loss: <2cc
Fluids: see anesthesia flowsheet
Drains/Shunts: none
Specimens/Cultures: none
Doppler/Duplex/Angio (Y/N): Y
Complications: none
Operative Findings: Successful FINANCIAL PLANNING ADVISOR
== END 2025-02-23 15:00 | disposition home health service (06) | DRG 871 ==
LOC: 2 NORTH 12:45
PROVIDERS: Nurse Practitioner Adult Health; Student in an Organized Health Care Education/Training Program; ADMITTING PHYSICIAN Internal Medicine; ATTENDING PHYSICIAN Internal Medicine; CONSULT PHYSICIAN Internal Medicine Gastroenterology; CONSULT PHYSICIAN Specialist; CONSULT PHYSICIAN Student in an Organized Health Care Education/Training Program; EMERGENCY PHYSICIAN Student in an Organized Health Care Education/Training Program; FAMILY PHYSICIAN Family Medicine
DX: A41.59 Other Gram-negative sepsis (principal); J18.9 Pneumonia, unspecified organism; J69.0 Pneumonitis due to inhalation of food and vomit; J96.01 Acute respiratory failure with hypoxia; T83.511A Infection and inflammatory reaction due to indwelling urethral catheter, initial encounter; Z94.0 Kidney transplant status; N39.0 Urinary tract infection, site not specified; E87.20 Acidosis, unspecified; L97.929 Non-pressure chronic ulcer of unspecified part of left lower leg with unspecified severity; D84.821 Immunodeficiency due to drugs; Z16.12 Extended spectrum beta lactamase (ESBL) resistance; R65.20 Severe sepsis without septic shock; I70.249 Atherosclerosis of native arteries of left leg with ulceration of unspecified site; E11.621 Type 2 diabetes mellitus with foot ulcer; E11.51 Type 2 diabetes mellitus with diabetic peripheral angiopathy without gangrene; K56.41 Fecal impaction; D50.9 Iron deficiency anemia, unspecified; B96.20 Unspecified Escherichia coli [E. coli] as the cause of diseases classified elsewhere; R26.2 Difficulty in walking, not elsewhere classified; D63.1 Anemia in chronic kidney disease; K21.9 Gastro-esophageal reflux disease without esophagitis; E78.00 Pure hypercholesterolemia, unspecified; R33.9 Retention of urine, unspecified; E87.6 Hypokalemia; I10 Essential (primary) hypertension; I49.3 Ventricular premature depolarization; G25.81 Restless legs syndrome; I67.9 Cerebrovascular disease, unspecified; Y84.6 Urinary catheterization as the cause of abnormal reaction of the patient, or of later complication, without mention of misadventure at the time of the procedure; Y92.9 Unspecified place or not applicable; Y73.2 Prosthetic and other implants, materials and accessory gastroenterology and urology devices associated with adverse incidents; Z60.2 Problems related to living alone; Z87.891 Personal history of nicotine dependence; Z87.11 Personal history of peptic ulcer disease; Z79.52 Long term (current) use of systemic steroids; Z79.82 Long term (current) use of aspirin; Z79.01 Long term (current) use of anticoagulants; Z79.4 Long term (current) use of insulin; Z79.621 Long term (current) use of calcineurin inhibitor; Z79.60 Long term (current) use of unspecified immunomodulators and immunosuppressants; Z86.73 Personal history of transient ischemic attack (TIA), and cerebral infarction without residual deficits; Z79.899 Other long term (current) drug therapy; Z87.440 Personal history of urinary (tract) infections; Z99.3 Dependence on wheelchair; Z11.52 Encounter for screening for COVID-19
CPT/HCPCS: 71045; 74018; 74177; 80048; 80053; 81003; 81015; 82607; 82728; 82746; 82962; 83036; 83540; 83550; 83605; 85014; 85018; 85025; 85027; 85610; 85730; 87040; 87070; 87077; 87086; 87147; 87154; 87186; 87205; 87502; 87811; 93005; 96365; 96366; 96367; 96375; 97163; 97166; 99291; J1335; Q9967

== ENCOUNTER 2025-02-25 05:50 | Day surgery (SDC) | payer MEDICARE, SELFPAY ==
--- NOTE | 2025-02-23 16:12 | PTCARENOTE ---
Abnormal CXR report from 02/18-April in Dr Singer's office made aware.
--- NOTE | 2025-02-24 16:21 | PTCARENOTE ---
April @ Dr. Keller office notified of all 02/22 abnormal labs
--- NOTE | 2025-02-24 17:35 | PTCARENOTE ---
Abnormal CXR findings (dated 02/18/25) reviewed and cleared by Dr. Starr. No further orders at this time.
[2025-02-25] VITALS (17 sets, daily range): BP systolic 97–144; BP diastolic 49–82; BMI 21.8
[2025-02-25 06:46] LABS: Hematocrit 29.1 % (39.0-52.0); Hemoglobin 9.2 g/dL (13.0-18.0); Mean Corp Hgb Conc. 31.6 g/dL (33.0-37.0); Mean Corpuscular Volume 71.3 fL (80.0-94.0); Platelet Count 576 10^3/uL (130-400); Red Cell Dist. Width 16.5 % (11.5-14.5)
[2025-02-25 06:56] LABS: INR 1.21; PT 15.1 Sec (11.4-14.6)
[2025-02-25 06:57] LABS: APTT 33.8 Sec (23.4-35.0)
[2025-02-25] MEDS: NSS 500 IV (07:00)
--- NOTE | 2025-02-25 07:00 | W.SUR.PREOP ---
Pre-Operative Surgical Note
-
I have examined this patient prior to the performance of the scheduled procedure.
The patient's condition is unchanged from the time of the current History and
Physical and the patient is able to undergo the scheduled procedure.
NOTE - clinically markedly improved from when he came here last week for angiogram (sent to ER and admitted for sepsis -- pneumonia/UTI). Only thing is WBC elevated, however he is on steroids and clinically looks good. Therefore may be from
steroid course. Will proceed as planned as he has advanced changes to foot.
[2025-02-25 07:05] LABS: Blood Urea Nitrogen 21 mg/dl (9-20); Calcium 8.9 mg/dl (8.4-10.2); Carbon Dioxide 27 mmol/L (22-30); Chloride 99 mmol/L (98-107); Glucose 112 mg/dl (70-99); Potassium 4.1 mmol/L (3.5-5.1); Sodium 136 mmol/L (135-145); eGFR > 60.00
[2025-02-25 08:41] LABS: Glucose - Point of Care 116 mg/dl (70-99)
--- NOTE | 2025-02-25 08:43 | OR.RPT ---
Addendum entered and electronically signed by Roberto Singer MD 02/25/25 08:45:
Note addendum to the body of operative report below. When I withdrew the sheath to the right external iliac artery upon completion, on retrograde angiography, I did note the nephrogram/transplant kidney renal artery. Appeared to fill nicely
without any significant stenosis.
Original Note:
Operative Report
Operative Report
PROCEDURE DATE: 02/25/2025
Preoperative diagnosis: Chronic limb-threatening ischemia left lower extremity
Postoperative diagnosis: Same
Procedure:
1. Duplex assisted cannulation of right common femoral artery.
2. Aortogram and pelvic angiogram.
3. Left lower extremity arteriogram.
4. Balloon angioplasty of occluded left posterior tibial artery and tibioperoneal trunk with 2.5 mm angioplasty balloon.
5. Balloon angioplasty of left anterior tibial artery with 2.5 mm angioplasty balloon.
6. Right femoral angiogram.
7. Supervision and interpretation.
Surgeon: Enmanuel
Seasoning Mixer: None
Complications: None
Anesthesia: Local, sedation
Fluoroscopy:
10.7 min
26 mGy
7.60 gy.cm2
Indications for procedure:
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 Nonhealing persistently. Prior history of anterior tibial artery angioplasty and tibioperoneal trunk angioplasty. Now brought back for repeat angiogram.
Risk/benefits/alternatives also discussed. Patient understood all wished to proceed.
Description of procedure:
Patient was identified, brought to the operating room. Placed on the table in the supine position. After the adequate administration of anesthesia, the patient was prepped and draped in the standard surgical fashion. A standard preoperative
timeout was undertaken and everybody was in agreement with the plan.
The right common femoral artery was accessed with a micropuncture kit under direct duplex ultrasound guidance. A 5 Mauritian sheath was then advanced over a 0.035 inch wire, and a kendrick's hook catheter was advanced into the abdominal aorta.
Aortogram and pelvic angiogram was obtained. Findings as follows:
Infrarenal aorta and bilateral common iliac arteries were patent with no significant stenosis, but moderate eccentric calcified plaque noted. Bilateral external iliac arteries patent with no significant stenosis. Left common femoral artery/femoral
bifurcation visualized well on this imaging and noted to be widely patent (common femoral and profunda widely patent).
Using a floppy angled hydrophilic wire, the left superficial femoral artery was cannulated and the catheter was advanced. Left lower extremity arteriogram was obtained. Findings as follows:
Common femoral artery: See above
Profunda femoris artery: See above
Superficial femoral artery: Patent with luminal irregularities but no significant stenosis.
Popliteal artery: Patent with luminal irregularities but no significant stenosis.
Anterior tibial artery: Patent, more robust of the runoff vessels. 2 focal areas of recurrent stenosis and prior angioplastied site in the proximal segment of the anterior tibial artery. Not as severe as prior, but the more distal 1 appeared to be
a hemodynamically significant stenosis. However, at the ankle joint, the anterior tibial artery occluded and just gave many formed collaterals into the foot. Dorsalis pedis itself appears chronically occluded.
Tibial peroneal trunk: Patent with mild to moderate recurrent stenosis.
Peroneal artery: Patent with no significant stenosis.
Posterior tibial artery: Occluded for about 6 cm at its origin (flush occlusion at the origin). Reconstituted about 6 cm more distally with continuous flow to the ankle and into the plantar arteries. It is somewhat small of a vessel throughout.
At this point I felt would be warranted given tissue loss to try to maximize perfusion. Therefore at this point I exchanged for a Storq wire in the SFA and then exchanged for an up and over 7 Mauritian 70 cm sheath. Patient was given 6000 units of
intravenous heparin. Next under roadmap assisted guidance using a flopping of hydrophilic wire and a CXI catheter, I was able to cannulate the tibioperoneal trunk. I then cannulated initially what I thought was the PT artery. However it appeared
to be a collateral. Therefore then we cannulated the tibioperoneal trunk a little bit further down and noted what appeared to be the origin of the posterior tibial artery (but slightly difficult due to flush occlusion). With manipulation of the
wire, I was finally able to get into the main posterior tibial artery and then pushed down into the patent segment (done under roadmap assisted guidance). Once I was in the patent segment, I then advanced my catheter which passed reasonably well
(CXI catheter). Angiogram demonstrated that I was indeed in the true lumen. I now exchanged for a SADDLE AND SIDE WIRE STITCHER 0.014 inch wire. I now performed balloon angioplasty of the occluded posterior tibial artery with a 2.5 mm angioplasty balloon, extending the
proximal segment of the angioplasty balloon into the tibioperoneal trunk to encompass the area of stenosis there. Completion angiogram demonstrated good result now with flow into the posterior tibial artery. There was a little vasospasm or
stenosis just at the distal aspect of what I had ballooned. I therefore then performed repeat angioplasty advancing the balloon slightly further at this point. Prolonged inflation again was undertaken. Completion angiogram now demonstrated
excellent result. Good continuous flow into the posterior tibial artery was noted. Continuous flow to the foot was noted.
At this point I withdrew my wire out of the posterior tibial artery. I then exchanged back for a CXI catheter. Then using a flopping of hydrophilic wire I was able to cannulate the anterior tibial artery. Under roadmap assisted guidance was able
to traverse the area of stenoses in the anterior tibial artery and gain wire access into the more distal anterior tibial artery. I then advanced the catheter and then exchanged for a SADDLE AND SIDE WIRE STITCHER wire again. Performed balloon angioplasty of the anterior
tibial artery with a 3 mm angioplasty balloon. (3.0 mm x 80 mm). Completion angiogram demonstrated good result with good resolution of the stenoses. Good flow now into the three-vessel runoff. At this point is very satisfied. I then withdrew my
0.14 inch wire and the CXI catheter. I readvanced a 0.035 inch wire and then withdrew the sheath to the right external iliac artery over the 0.035 inch wire. Right femoral angiogram demonstrated good puncture in the right common femoral artery.
This was a fairly calcified vessel and I felt therefore not to use a closure device/percutaneous stitch. I now therefore exchanged for a short 5 Mauritian sheath. Wire was withdrawn. Patient was transported recovery room in stable condition. Sheath
will be withdrawn in the recovery room. Upon completion he had a palpable distal anterior tibial pulse in the left lower extremity. (Bulky dressing on the foot and therefore could not assess more distally).
The patient tolerated procedure well.
[2025-02-25 09:45] LABS: Glucose - Point of Care 115 mg/dl (70-99)
[2025-02-25] MEDS: NSS 1000 IV (09:58)
== END 2025-02-25 13:08 | disposition home or self-care (01) ==
LOC: CATH 05:50
PROVIDERS: ATTENDING PHYSICIAN Surgery Vascular Surgery; FAMILY PHYSICIAN Family Medicine; OTHER PHYSICIAN Internal Medicine Nephrology
DX: E11.51 Type 2 diabetes mellitus with diabetic peripheral angiopathy without gangrene (principal); L97.529 Non-pressure chronic ulcer of other part of left foot with unspecified severity; I70.245 Atherosclerosis of native arteries of left leg with ulceration of other part of foot; Z79.4 Long term (current) use of insulin; Z79.82 Long term (current) use of aspirin; Z79.52 Long term (current) use of systemic steroids
CPT/HCPCS: 37228; 37232; C1725; 75625; 75710; 80048; 82962; 85027; 85610; 85730; 86850; 86900; 86901; C1769; C1887; C1894; Q9967